=== PATIENT | female | born 1940 | race Caucasian/White ===

== ENCOUNTER 2018-07-21 13:35 | Outpatient (RCR) | payer MEDICARE, OTHER, SELFPAY | END 2019-02-16 10:09 | disposition home or self-care (01) | LOC: SP 13:35 | PROVIDERS: Family Provider Family Medicine; PCP Family Medicine; Visit Provider Otolaryngology | DX: R49.0 Dysphonia (principal); R13.19 Other dysphagia | CPT/HCPCS: 92524 ==

== ENCOUNTER → 2018-11-07 13:44 | Outpatient (CLI) | payer MEDICARE, OTHER, SELFPAY ==
--- NOTE | 2018-11-07 | DI.MG.S_ITS ---
BILATERAL DIGITAL SCREENING MAMMOGRAM 3D/2D WITH CAD: 11/07/2018 CLINICAL: Routine screening. Comparison is made to exams dated: 11/04/2017 mammogram, 10/15/2016 mammogram, 10/14/2015 mammogram, and 10/10/2014 mammogram - [facility]. There are scattered fibroglandular elements in both breasts. Current study was also evaluated with a Computer Aided Detection (CAD) system. There are benign vascular calcifications in both breasts. No significant masses, calcifications, or other findings are seen in either breast. There has been no significant interval change. IMPRESSION: There is no mammographic evidence of malignancy. A 1 year screening mammogram is recommended. This exam was interpreted at Station ID: [id number]. NOTE: For mammograms, a report in lay terms will be sent to the patient. Approximately 15% of breast malignancies will not be visualized mammographically. In the management of a palpable breast mass, a negative mammogram must not discourage biopsy of a clinically suspicious lesion. Electronically Signed By: Ochoa peoples/kiki:11/07/2018 17:32:56 letter sent: Normal Exam ACR BI-RADS Category 2: Benign Finding(s) 3342F
== END ==
PROVIDERS: Family Provider Family Medicine; PCP Family Medicine; Visit Provider Family Medicine
DX: Z12.31 Encounter for screening mammogram for malignant neoplasm of breast (principal)
CPT/HCPCS: 77063; 77067

== ENCOUNTER → 2019-11-13 12:20 | Outpatient (CLI) | payer MEDICARE, OTHER, SELFPAY ==
--- NOTE | 2019-11-13 12:24 | DI.MG.S_ITS ---
BILATERAL DIGITAL SCREENING MAMMOGRAM 3D/2D WITH CAD: 11/13/2019 CLINICAL: Routine screening. Comparison is made to exams dated: 11/07/2018 mammogram, 11/04/2017 mammogram, and 10/15/2016 mammogram - [facility]. There are scattered fibroglandular elements in both breasts. Current study was also evaluated with a Computer Aided Detection (CAD) system. There is a possible 0.4 cm asymmetry in the left breast posterior depth superior region seen on the mediolateral oblique view only. No other significant masses, calcifications, or other findings are seen in either breast. IMPRESSION: INCOMPLETE: NEEDS ADDITIONAL IMAGING EVALUATION The possible 0.4 cm asymmetry in the left breast is indeterminate. Additional views with possible ultrasound are recommended. This exam was interpreted at Station ID: [id number]. NOTE: For mammograms, a report in lay terms will be sent to the patient. Approximately 15% of breast malignancies will not be visualized mammographically. In the management of a palpable breast mass, a negative mammogram must not discourage biopsy of a clinically suspicious lesion. Electronically Signed By: Bal sawant/kiki:11/14/2019 06:20:20 letter sent: Additional Imaging Needed ACR BI-RADS Category 0: Incomplete [id number]
== END ==
PROVIDERS: Family Provider Family Medicine; PCP Family Medicine; Referring Provider Family Medicine; Visit Provider Family Medicine
DX: Z12.31 Encounter for screening mammogram for malignant neoplasm of breast (principal)
CPT/HCPCS: 77063; 77067

== ENCOUNTER → 2019-11-29 14:12 | Outpatient (CLI) | payer MEDICARE, OTHER, SELFPAY ==
--- NOTE | 2019-11-29 | DI.MG.S_ITS ---
UNILATERAL LEFT DIGITAL DIAGNOSTIC MAMMOGRAM 3D/2D WITH ADDITIONAL VIEWS: 11/29/2019 CLINICAL: Additional evaluation requested from prior study. Comparison is made to exams dated: 11/13/2019 mammogram, 11/07/2018 mammogram, and 11/04/2017 mammogram - [facility]. There are scattered fibroglandular elements in left breast. There is a 0.3 cm irregular equal density focal asymmetry in the left breast upper inner aspect posterior depth. This was not seen on the prior mammograms. No other significant masses or calcifications are seen in the breast. IMPRESSION: INCOMPLETE: NEEDS ADDITIONAL IMAGING EVALUATION The 0.3 cm irregular equal density focal asymmetry in the left breast is indeterminate. An ultrasound is recommended for further evaluation and is scheduled to immediately follow this study. This exam was interpreted at Station ID: [id number]. NOTE: For mammograms, a report in lay terms will be sent to the patient. Approximately 15% of breast malignancies will not be visualized mammographically. In the management of a palpable breast mass, a negative mammogram must not discourage biopsy of a clinically suspicious lesion. Electronically Signed By: Bal Oneil M.D. aty/:11/29/2019 14:55:58 ACR BI-RADS Category 0: Incomplete [id number]
--- NOTE | 2019-11-29 | DI.US.S_ITS ---
ULTRASOUND OF LEFT BREAST AND AXILLA: 11/29/2019 CLINICAL: Patient returns today to evaluate a focal asymmetry in the left breast. Comparison is made to exams dated: 11/29/2019 mammogram, 11/13/2019 mammogram, 11/07/2018 mammogram, 11/04/2017 mammogram, 10/15/2016 mammogram, and 10/14/2015 mammogram - [facility]. Color flow and real-time ultrasound of the left breast axilla were performed. Odonnell scale images of the real-time examination were reviewed. There is a 0.3 cm x 0.3 cm x 0.2 cm irregular mass with angular margins in the left breast at 1:30 o'clock posterior depth 5 cm from the nipple. This irregular mass is hypoechoic. This possibly correlates with mammography findings. Color flow imaging demonstrates that there is no vascularity present. No significant abnormalities were seen sonographically in the left axilla. IMPRESSION: SUSPICIOUS OF MALIGNANCY The 0.3 cm x 0.3 cm x 0.2 cm irregular mass in the left breast is suspicious of malignancy. An ultrasound guided biopsy is recommended. Findings and recommendations were discussed with the patient by Dr. Cat during today's visit. This exam was interpreted at Station ID: [id number]. Electronically Signed By: Bal Oneil M.D. at/:11/29/2019 15:37:27 letter sent: Biopsy Required Ultrasound BI-RADS: 4 Suspicious for malignancy
== END ==
PROVIDERS: Family Provider Family Medicine; PCP Family Medicine; Referring Provider Family Medicine; Visit Provider Family Medicine
DX: R92.8 Other abnormal and inconclusive findings on diagnostic imaging of breast (principal); N63.21 Unspecified lump in the left breast, upper outer quadrant
CPT/HCPCS: 76642; 77065; G0279

== ENCOUNTER → 2019-12-18 09:07 | Outpatient (CLI) | payer MEDICARE, OTHER, SELFPAY ==
--- NOTE | 2019-12-18 | DI.US.S_ITS ---
LIMITED ULTRASOUND OF LEFT BREAST: 12/18/2019 CLINICAL: Patient scheduled for left breast biopsy today of 3mm mass. Unable to see mass. 6 month follow-up recommended. Comparison is made to exams dated: 11/29/2019 ultrasound, 11/29/2019 mammogram, 11/13/2019 mammogram, 11/07/2018 mammogram, and 11/04/2017 mammogram - [facility]. Ultrasound of the left breast 1-2 o'clock region was performed on the area of interest. Odonnell scale images of the real-time examination were reviewed. No mass at 1:30 position at site of previously identified lesion. No significant abnormalities were seen sonographically in the left breast. IMPRESSION: PROBABLY BENIGN The mass in the left breast is probably benign. No mass in 1:30 position of left breast identified on 12/18/2019. No biopsy performed. An ultrasound is recommended for further evaluation and is scheduled to immediately follow this study. A follow-up mammogram and an ultrasound in 6 months is recommended to demonstrate stability. This exam was interpreted at Station ID: [id number]. Electronically Signed By: Jenae Jc M.D. [facility]/:12/18/2019 16:03:44 letter sent: Followup Recommended Ultrasound BI-RADS: 3 Probably benign
== END ==
PROVIDERS: Family Provider Family Medicine; PCP Family Medicine; Referring Provider Family Medicine; Visit Provider Family Medicine
DX: R92.8 Other abnormal and inconclusive findings on diagnostic imaging of breast (principal); N63.21 Unspecified lump in the left breast, upper outer quadrant
CPT/HCPCS: 76642

== ENCOUNTER → 2020-04-22 14:45 | Outpatient (CLI) | payer MEDICARE, OTHER, SELFPAY | PROVIDERS: Family Provider Family Medicine; PCP Family Medicine; Referring Provider Family Medicine; Visit Provider Family Medicine | DX: R35.0 Frequency of micturition (principal); Z53.8 Procedure and treatment not carried out for other reasons ==

== ENCOUNTER → 2020-04-26 12:04 | Outpatient (CLI) | payer MEDICARE, OTHER, SELFPAY ==
[2020-04-26 13:18] LABS: Alanine Aminotransferase 26 IU/L (<35); Albumin 4.4 g/dL (3.5-5.0); Albumin Globulin Ratio 1.5 (1.0-2.8); Alkaline Phosphatase 74 U/L (38-126); Aspartate Aminotransferase 39 IU/L (14-36); BUN Creatinine Ratio 14.1 (6-22); Bilirubin Total 0.6 mg/dL (0.2-1.3); Blood Urea Nitrogen 11 mg/dL (7-17); Calcium 9.8 mg/dL (8.4-10.2); Carbon Dioxide 24 mmol/L (22-32); Chloride 89 mmol/L (98-107); Estimated Glomerular Filt Rate > 60.0 mL/min (>60); Globulin 2.9 g/dL (1.7-4.1); Glucose 93 mg/dL (80-110); HEMOLYSIS < 15 (0-50); Potassium 4.6 mmol/L (3.4-5.1); Sodium 122 mmol/L (137-145); Total Protein 7.3 g/dL (6.3-8.2)
--- NOTE | 2020-04-26 13:23 | DI.CT.S_ITS ---
PROCEDURE: CT ABDOMEN PELVIS W CON INDICATIONS: Frequency of micturition,Pelvic and perineal pain TECHNIQUE: After the administration of oral and intravenous contrast, 5 mm thick sections acquired from the diaphragms to the symphysis. 5 mm thick coronal and sagittal reformats were performed. For radiation dose reduction, the following was used: automated exposure control, adjustment of mA and/or kV according to patient size. COMPARISON: None. FINDINGS: Image quality: Excellent. ABDOMEN: Lung bases: Lung bases are clear. Heart size is normal. Solid organs: Liver is normal in size and enhancement. Gallbladder appears normal. Biliary system is non-dilated. Pancreas enhances normally. Spleen is normal in size and enhancement. No adrenal nodules. Kidneys are normal in size and enhancement. There is mild bilateral hydroureteronephrosis to the level of the pelvic brim. Peritoneum and bowel: Stomach, small bowel, and colon loops are normal in caliber and wall thickness. No free fluid or air. Nodes and vessels: No retroperitoneal or mesenteric adenopathy. Aorta and inferior vena cava are normal in caliber. Mild atherosclerotic calcifications are seen in the aorta. Miscellaneous: No ventral hernias. PELVIS: Genitourinary: A large low density mass or cyst is seen occupying the majority of the pelvis measuring 16.5 x 10.2 x 12.9 cm. There is mass effect on the adjacent bladder and uterus, which are anteriorly displaced. The origin of the lesion is uncertain, but an adnexal origin is suspected the ovaries are not definitely visualized. Miscellaneous: No inguinal hernias or adenopathy. Bones: No suspicious bony lesions. No vertebral body compression fractures. Mild degenerative changes are seen in the included spine. 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 Degenerative changes in the right hip and pubic symphysis as well as the sacroiliac joints are also noted. IMPRESSION: 1. Large 16.5 x 12.9 x 10.2 cm low density mass in the pelvis is of uncertain etiology, but is suspected to be of adnexal origin. Differential considerations include benign and malignant ovarian lesions among other etiologies. A pelvic ultrasound may be useful to evaluate for cystic or solid component. A pelvic MRI could also provide additional information. No significantly enlarged lymph nodes are identified in the abdomen or pelvis. No suspicious osseous lesion is seen. 2. Mild bilateral hydroureteronephrosis to the level of the mass at the pelvic brim. Findings were discussed with the referring physician, Dr. Juliano Brown, by telephone at the time of this dictation. Dictated by: Michele Mackenzie M.D. on 04/26/2020 at 13:42 Approved by: Michele Mackenzie M.D. on 04/26/2020 at 14:07
== END ==
PROVIDERS: Family Provider Family Medicine; PCP Family Medicine; Referring Provider Family Medicine; Visit Provider Family Medicine
DX: R35.0 Frequency of micturition (principal); R10.2 Pelvic and perineal pain; N13.30 Unspecified hydronephrosis; I70.0 Atherosclerosis of aorta; R19.09 Other intra-abdominal and pelvic swelling, mass and lump; Z96.642 Presence of left artificial hip joint
CPT/HCPCS: 36415; 74177; 80053; Q9967

== ENCOUNTER → 2020-04-29 10:34 | Outpatient (CLI) | payer MEDICARE, OTHER, SELFPAY ==
[2020-04-29 12:22] LABS: Cancer Antigen 125 14.6 U/mL (0-35)
[2020-05-02 11:36] LABS: Human Epididymis Prot 4 99.4 pmol/L (0.0-96.9)
== END ==
PROVIDERS: Family Provider Family Medicine; PCP Family Medicine; Referring Provider Obstetrics & Gynecology; Visit Provider Obstetrics & Gynecology
DX: R10.2 Pelvic and perineal pain (principal); R19.09 Other intra-abdominal and pelvic swelling, mass and lump; R93.5 Abnormal findings on diagnostic imaging of other abdominal regions, including retroperitoneum
CPT/HCPCS: 36415; 86304; 86305

== ENCOUNTER → 2020-06-03 12:45 | Outpatient (CLI) | payer MEDICARE, OTHER, SELFPAY ==
[2020-06-04 18:08] LABS: COVID19 Sendout Not Detected (Not Detect)
== END ==
PROVIDERS: Family Provider Family Medicine; PCP Family Medicine; Visit Provider Nurse Practitioner
DX: Z11.59 Encounter for screening for other viral diseases (principal)
CPT/HCPCS: 87635

== ENCOUNTER 2020-06-06 10:14 | Day surgery (SDC) | payer MEDICARE, OTHER, SELFPAY ==
[2020-06-05 10:26] VITALS: BMI 20.3
[2020-06-06] VITALS (9 sets, daily range): BP systolic 92–178; BP diastolic 38–93; PULSE 62–94; RESP 10–16; TEMP 36–36.7; O2SAT 94–100; BMI 20.3
--- NOTE | 2020-06-06 | PATH_ITS ---
Note [facility] Accession Number: [id number] TESTS RESULT FLAG UNITS REF RANGE LAB Clinician Provided Cytology Information No. of containers..01 Other (Miscellaneous) 01 PELVIC WASHINGS DIAGNOSIS: 01 PELVIC WASHINGS NEGATIVE FOR MALIGNANT CELLS. THIS INTERPRETATION INCLUDES EVALUATION OF A CELL BLOCK. Pathologist ICD10: 01 N83.201 Monse Gaston MD, Pathologist NPI- [id number] Edvin Eagle, Independent Film Maker ([facility]) 01 10 CC, RED, CLOUDY RECEIVED: FRESH IN ORANGE CAP CONTAINER. /VDU 06/07/2020 1033 Local FLAG LEGEND: L-Low Normal,H-High Normal,LL-Alert Low,HH-Alert High <-Panic Low,>-Panic High,A-Abnormal,AA-Critical Abnormal Performed at: 01 =Z [facility] [address], [place] [address] Rasta Hamilton MD, Performed at: 01 [facility] [address], [place], [place] [id number] MD Rasta Hamilton MD Phone: [phone]
[2020-06-06] MEDS: ACETAMINOPHEN 325 MG TABLET 975 MG PO (10:31)
[2020-06-06] MEDS: LACTATED RINGERS 1,000 ML 100 ML IV (10:31)
--- NOTE | 2020-06-06 10:58 | SUR.OPER ---
Lithotomy on padded OR bed. Media Pad Positioner under torso. Head on pillow, arms padded and tucked at sides. Legs secured in padded yellow fins stirrups.
--- NOTE | 2020-06-06 10:59 | SUR.OPER ---
Lithotomy on padded OR bed, head on pillow, arms secured on padded arm boards at <90 degrees abduction. Legs secured in padded yellow fins stirrups.
--- NOTE | 2020-06-06 11:46 | PM.PREOP ---
Pre-operative Note COVID-19 COVID-19 status: Negative Result date/Date tested (Pos, Neg/Pending): 06/03/20 Interval Note History & Physical reviewed/Exam performed by Physician: Yes Changes to H&P: No H&P completed within 30 days and has changed as indicated here:: 05/28/20
[2020-06-06] MEDS: BUPIVACAINE 0.5% W/ EPI (PF) 30 ML VIAL INJ (12:32)
--- NOTE | 2020-06-06 15:20 | P.OP_ITS ---
Operative Date/Time/Diagnoses Date of procedure: 06/06/20 Time of procedure: 13:50 Pre-op diagnosis: Pelvic mass Post-op diagnosis: same Procedure & Clinicians Procedure: Procedures Operation Date: 06/06/20 11:30 Actual Procedures Side Surgeon p Laparoscopic Salpingo-oophorectomy Bilateral Pam Hurst MD Indications: Pelvic mass Surgeon: Pam Hurst Answering Service Agent: Radha Segura Anesthesia Type: General Operative Notes Findings: Six week size uterus. 18 cm pelvic mass originating from the right ovary Normal left tube and ovary Right tube attenuated across the mass Normal liver and gallbladder Closure Type: primary Specimen(s): left tube & ovary and right tube & ovary Applied: catheter Estimated blood loss (mL): 50 Blood products transfused: none Procedure in detail: The patient was taken to the operating room where she was placed in the dorsal supine position. After adequate general endotracheal anesthesia was achieved, she was placed in the dorsal lithotomy position, and prepped and draped in the usual sterile fashion. A time-out was performed. A bivalve speculum was placed into the vagina. The cervix could not be easily located. The bivalve speculum was removed. A moistened sponge stick was placed into the vagina. Attention was then turned to the abdomen where 6 cc of 0.25% Marcaine with epinephrine were injected in the umbilical fold. A 5 mm incision was made. The Veress needle was placed into the peritoneal cavity, initially there was some greenish yellow fluid that came up in the syringe, and then a small amount of blood. The Veress was removed. A decision was made to use the Hodges. The umbilical incision was extended to 1 cm. The fascia was located and nicked in the midline. The incision was extended superiorly and inferiorly. The peritoneum was identified and entered sharply. The Hodges was placed into the peritoneal cavity. A stitch was placed on the fascia and attached to the Hodges. The abdomen was insufflated with 3.8 L of CO2. Initial inspection revealed a large pelvic mass just under the uterus. Peritoneal washings were obtained. Two other 5 mm incisions were made after 6 cc of 0.5% Marcaine with epinephrine were injected, and 2, 5 mm trocars were placed under direct visualization. The gallbladder and liver were examined and were found to be normal. The left tube and ovary were normal. A decision was made to decompress the right ovary. The large-bore needle was attached to suction and approximately 300 cc of yellow fluid were removed. There was found to be a small fahad on the fundus of the uterus. This was cauterized for hemostasis. The right tube and ovary were grasped with an atraumatic grasper. With care to avoid the ureter the right infundibulopelvic ligament was cauterized and cut as was the broad ligament. The mesosalpinx was cauterized and cut all the way down to the cornua of the uterus. The tube was amputated at the cornua of the uterus. The right tube and ovary were placed into the pelvis. The left tube and ovary were grasped with an atraumatic grasper. Using the PlasmaKinetic was settings at 40 w, the infundibulopelvic ligament, broad ligament, and mesosalpinx were cauterized and cut. The tube was amputated at the cornua of the uterus. The camera was changed to the right trocar. The endobag was placed through the umbilical trocar. Both tubes and ovaries were placed into the bag. The trocar was removed and the bag was brought up through the umbilical incision. The pelvis was examined and no bleeding was noted. The pelvis was copiously irrigated. There was no bleeding noted. The instruments were removed from the abdomen. The CO2 was allowed to escape. The umbilical incision was closed with 0 Vicryl on the fascia. All of the incisions were closed with 4 0 Biosyn in a subcuticular fashion. Steri-Strips, 2 x 2, and op site were placed. The moistened sponge stick was removed from the vagina. Sponge, lap, and instrument counts were correct x2. The patient tolerated the procedure well, and was taken to PACU in stable condition. Complications: none Post-operative Condition: stable Disposition: PACU Plan for aftercare: Home after recovery
--- NOTE | 2020-06-06 15:35 | SUR.PHASEII ---
Order in computer for patient to urinate before discharge, patient attempted to urinate, but does not feel the need. Dr. Hurst's office notified. Dr. Hurst's nurse, Silvana, called back and stated that patient does not need to urinate before discharge, she may discharge home now.
== END 2020-06-06 15:30 | disposition home or self-care (01) ==
PROVIDERS: PCP Family Medicine; Referring Provider Obstetrics & Gynecology; Visit Provider Obstetrics & Gynecology
PROC: 0UT24ZZ Resection of Bilateral Ovaries, Percutaneous Endoscopic Approach (ICD-10-PCS; CPT 58661; principal; 2020-06-06 11:30)
DX: N83.201 Unspecified ovarian cyst, right side (principal); I10 Essential (primary) hypertension; E78.5 Hyperlipidemia, unspecified
CPT/HCPCS: 58661; J1100; J2250; J2405; J2704; J3010

== ENCOUNTER → 2020-07-22 08:29 | Outpatient (CLI) | payer MEDICARE, OTHER, SELFPAY ==
[2020-07-22 23:13] LABS: COVID19 Sendout Not Detected (Not Detect)
== END ==
PROVIDERS: PCP Family Medicine; Visit Provider Physician Assistant
DX: Z11.59 Encounter for screening for other viral diseases (principal)
CPT/HCPCS: 87635

== ENCOUNTER 2020-07-26 14:22 | Inpatient (IN) | payer MEDICARE, OTHER, SELFPAY ==
[2020-07-19 15:17] VITALS: BMI 19.7
[2020-07-25] VITALS (20 sets, daily range): BP systolic 95–165; BP diastolic 51–86; PULSE 56–96; RESP 12–20; TEMP 36.1–37.6; O2SAT 97–100; BMI 19.1
--- NOTE | 2020-07-25 | PATH_ITS ---
Note [facility] Accession Number: [id number] TESTS RESULT FLAG UNITS REF RANGE LAB Clinician Provided Cytology Information No. of containers..01 Other (Miscellaneous) 01 PERITONEAL WASHINGS DIAGNOSIS: 01 PERITONEAL WASHINGS INCONCLUSIVE. FEW GROUPS OF ATYPICAL EPITHELIOID CELLS ARE PRESENT. IMMUNOSTAINS WILL BE PERFORMED TO DIFFERENTIATE BETWEEN REACTIVE ATYPIA OF MESOTHELIAL CELLS VERSUS A NEOPLASTIC PROCESS. RESULTS WILL FOLLOW IN AN ADDENDUM REPORT. THIS INTERPRETATION INCLUDES EVALUATION OF A CELL BLOCK. Pathologist ICD10: 01 N83.201 FINAL DIAGNOSIS/ADDENDUM (07/30/2020): . 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 . . 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 A panel of immunostains has been performed for further characterization of those atypical cells, with the following findings: . CK7: Neoplastic cells positive. WT-1: Neoplastic cells variably positive. Andrea-EP4: Neoplastic cells focally positive. MOC-31: Neoplastic cells focally positive. PAX8: Neoplastic cells weakly, rare positive. ER: Neoplastic cells weakly, focal positive. P53: Neoplastic cells with wild-type positivity. Calretinin: Neoplastic cells negative (background mesothelial cells positive). . Overall, these results in conjunction with the morphology support that the neoplastic cells have serous Mullerian-type immunophenotype as opposed to mesothelial immunophenotype. . 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 . * This test was developed and its performance characteristics determined by [employer]. It has not been cleared or approved by the U.S. Food and Drug Administration. The FDA has determined that such clearance or approval is not necessary. This test is used for clinical purposes. It should not be regarded as investigational or for research. MRV/07/30/2020 Addendum Electronically Signed by Jena Montaño MD, Pathologist 01 Jena Montaño MD, Pathologist NPI- [id number] Raphael Marin, Shoe Repairer Helper (ASCP) 01 40 CC, PALE YELLOW, CLEAR /LCS 07/26/2020 1652 Local FLAG LEGEND: L-Low Normal,H-High Normal,LL-Alert Low,HH-Alert High <-Panic Low,>-Panic High,A-Abnormal,AA-Critical Abnormal Performed at: 01 =Z [facility] [address] [place] [address] [address], [place] [address] Rasta Hamilton MD, Specimen Comment: A duplicate report has been generated due to demographic updates. Performed at: 01 [facility] [address], [place], [place] [id number] MD Rasta Hamilton MD Phone: [phone]
--- NOTE | 2020-07-25 07:35 | PM.PREOP ---
Pre-operative Note COVID-19 COVID-19 status: Negative Result date/Date tested (Pos, Neg/Pending): 07/22/20 Interval Note History & Physical reviewed/Exam performed by Physician: Yes Changes to H&P: No H&P completed within 30 days and has changed as indicated here:: 06/25/20
--- NOTE | 2020-07-25 07:37 | SUR.OPER ---
Lithotomy on padded OR bed. [place] Pad Positioner under torso. Head on pillow, arms padded and tucked at sides. Legs secured in padded yellow fins stirrups.
[2020-07-25] MEDS: CEFAZOLIN 2 GM/100 ML FROZ.PIGGY IV ×2 (07:43→18:39)
[2020-07-25] MEDS: BUPIVACAINE 0.5% W/ EPI (PF) 30 ML VIAL INJ ×2 (08:28→19:45)
[2020-07-25] MEDS: LACTATED RINGERS 1,000 ML 100 ML IV ×3 (08:55→21:45)
[2020-07-25] MEDS: HYDROMORPHONE 2 MG INJ IV (09:49)
--- NOTE | 2020-07-25 09:51 | PM.GYNOP.1 ---
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 Post-op diagnosis: same Procedure & Clinicians Procedure: Procedures Operation Date: 07/25/20 07:45 Actual Procedures Side Surgeon p Laparoscopic Assisted Vag Hysterectomy, biopsy of omentum, peritoneum, lysis of adhesions Pam Hurst MD Indications: Borderline serous tumor of the ovary Surgeon: Pam Hurst Statistical Programmer: Sejal Enriquez Anesthesia Type: General Operative Notes Findings: Seven week size uterus Normal liver and gallbladder No peritoneal seeding observed Closure Type: primary Estimated blood loss (mL): 50 Blood products transfused: none Procedure in detail: The patient was taken to the operating room where she was placed in the dorsal supine position. After adequate general endotracheal anesthesia was achieved, she was placed in the dorsal lithotomy position, and prepped and draped in the usual sterile fashion. A time-out was performed. A bivalve speculum was placed into the vagina and the anterior lip of the cervix grasped with a single-tooth tenaculum. Cervical os was sequentially dilated until the Zumi uterine manipulator could pass easily into the endometrial cavity. The single-tooth tenaculum was removed from the anterior lip of the cervix. The bivalve speculum was removed from the vagina. Attention was turned to the abdomen where 3 cc of 0.5% Marcaine with epinephrine were injected in the umbilical fold. A 5 mm incision was made through the previous incision. The Veress needle was placed into the peritoneal cavity, and its placement confirmed by aspiration and drop test. The abdominal cavity was insufflated with 3.8 L of CO2. The Veress needle was removed, and a 5 mm trocar was placed without difficulty. Two other incisions were made to the left and right of midline after 3 cc of 0.5% Marcaine with epinephrine were injected and 5 mm incisions were made through the previous laparoscopy incisions. Two 5 mm trocars were placed under direct visualization. 30 cc of sterile fluid was placed into the pelvis. Suction was performed and pelvic washing sent. A biopsy of the bladder peritoneum was taken using the Endo Silvana. A biopsy in the posterior cul-de-sac was taken using the Endo Silvana. Biopsies of both pelvic sidewalls were taken using the Endo Silvana. A piece of omentum was grasped and using the PlasmaKinetic, a piece of omentum measuring 5 cm x 3 cm was excised. This was placed into the posterior cul-de-sac. The instruments were removed from the abdomen. The abdomen was covered with a sterile blue towel. Attention was then turned to the vagina. The Zumi uterine manipulator was removed from the uterus. A small episiotomy had to be made to increase the size at the introitus to perform the vaginal hysterectomy. This was approximately 1.5 cm in length. The cervix was grasped with a 4 tooth tenaculum. 10 cc of 0.5% Marcaine with epinephrine were injected circumferentially around the cervix. The cervix was circumscribed with a # 10 blade. The anterior and posterior peritoneums were grasped and entered sharply with the Metzenbaum scissors. A [place] was placed into the anterior cul-de-sac. A right angle retractor was placed into the posterior cul-de-sac. The uterosacral cardinal ligament complex were clamped with a Amaris clamp. Transected, and suture ligated with 0 Vicryl and tagged with hemostats. This was on the right side. This was repeated on the patient's left side. The uterine arteries on both sides were clamped, transected, and suture ligated with 0 Vicryl. The uterus was handed off for specimen. The peritoneum was grasped with an Allis clamp. Peritoneum was closed with 2 0 Vicryl in a pursestring suture. The vaginal cuff was closed with a series of simple interrupted sutures with 0 Vicryl. The perineum was closed in the usual fashion using 2 0 Vicryl and then 3 0 chromic on the skin. Hemostasis was achieved. A Betadine moistened vaginal pack was placed into the vagina. Attention was then turned back to abdomen. The abdomen was re-insufflated with 3.5 L of CO2. A using a probe to move the bowel from the cul-de-sac, the cul-de-sac was irrigated with warm normal saline. There was no bleeding noted in the pelvis. The instruments were removed from the abdomen. The CO2 was allowed to escape. The incisions were repaired with 4 0 Biosyn in a subcuticular fashion. Steri-Strips, 2 x 2, and op site were placed. Sponge, lap, and instrument counts were correct x2. The patient tolerated the procedure well, and was taken to PACU in stable condition. Complications: none Post-operative Condition: stable Disposition: PACU Plan for aftercare: To Acute Care after Recovery
--- NOTE | 2020-07-25 10:06 | SUR.PHASEI ---
pt had complained of itching but states she does not want any medicine and her itching is decreasing.
[2020-07-25] MEDS: KETOROLAC 30 MG/ML VIAL 15 MG IV (11:01)
--- NOTE | 2020-07-25 16:10 | PC.NURSE ---
Shift summary: patient received post op from PACU 1030am, vss, denies pain. Patient complained of mild itching and felt very cold after surgery, now resolved. Hare in place draining clear yellow urine. Vaginal packing in place with hermann pad. Hermann pad changed once with moderate bleeding and clot/congealed blood noted. Hermann care and catheter care provided. Patient tolerating general diet, though reports she has been having trouble eating enough food at home and has lost some weight. Abdomen soft, nontender, puffy and feels a little bloated. Passing gas. call light within reach, continue to monitor.
--- NOTE | 2020-07-25 17:23 | DI.US.S_ITS ---
PROCEDURE: US ABDOMEN LIMITED INDICATIONS: look for fluid collection TECHNIQUE: Real-time focused scanning was performed of the abdomen, with image documentation. COMPARISON: [facility], CT, CT ABDOMEN PELVIS W CON, 04/26/2020, 13:23. [facility], US, US PELVIC COMPLETE, 05/02/2020, 11:54. FINDINGS: There is a small amount of free fluid in the abdomen. IMPRESSION: A small amount of free fluid in the abdomen. Dictated by: Ronel Hernández M.D. on 07/25/2020 at 18:46 Approved by: Ronel Hernández M.D. on 07/25/2020 at 18:48
--- NOTE | 2020-07-25 17:33 | P.EN_ITS ---
Event Note Date Patient Seen: 07/25/20 Event Note: Jeanette Murry is an 80-year-old female who had an elective laparoscopic assisted vaginal hysterectomy with biopsy of omentum, peritoneum, lysis of adhesions for borderline serous ovarian tumor. A response was called at 1710 due to patient being minimally responsive. Vital signs at that time were: BP 64/25, HR 144 with thready palpable pulse, RR 16 breathing spontaneous and oxygen saturation 63% on room air. Blood glucose was 168. She received lactated ringer bolus wide open and her blood pressure improved SBP 109 mmHg. Oxygen saturation improved to 100% on 4 L. EKG performed demonstrated normal sinus rhythm with low voltage throughout all leads and wi thout acute ischemic changes such as ST elevation or depression. The patient became more alert and conversant. The patient reported she felt dizzy with a dry mouth. Stat labs were ordered and are currently pending. The patient has been crossed and typed. The primary attending Dr. Hurst was called to the patient's bedside. Stat abdominal ultrasound was ordered to assess abdomen for fluid/bleeding. Primary team resumed care.
[2020-07-25 17:36] LABS: Add Manual Diff / Slide Review NO; Basophils Absolute Auto 0 /uL (0-100); Basophils Percent Auto 0.3 % (0-2); Eosinophils Absolute Auto 0 /uL (0-450); Hematocrit 28.8 % (36-46); Hemoglobin 9.6 g/dL (12.0-16.0); Lymphocytes Absolute Auto 1200 /uL (1100-4500); Lymphocytes Percent Auto 9.2 % (25-40); Mean Corpuscular HGB Conc 33.2 % (30-36); Mean Corpuscular Hemoglobin 30.1 PG (26-34); Mean Corpuscular Volume 90.8 fL (80-100); Monocytes Absolute Auto 300 /uL (0-900); Monocytes Percent Auto 2.6 % (3-14); Neutrophils Absolute Auto 11400 /uL (1500-7000); Neutrophils Percent Auto 87.9 % (50-75); Platelet Count 237 X10^3/uL (150-400); Red Blood Cell Count 3.17 X10^6/uL (4.0-5.2); Red Cell Distribution Width 14.2 % (11.6-14.8); White Blood Cell Count 12.9 X10^3/uL (4.5-11.0)
[2020-07-25] MEDS: METOCLOPRAMIDE 10 MG/2 ML INJ IV (17:52)
[2020-07-25 17:57] LABS: Alanine Aminotransferase 16 IU/L (<35); Albumin 2.9 g/dL (3.5-5.0); Albumin Globulin Ratio 1.3 (1.0-2.8); Alkaline Phosphatase 43 U/L (38-126); Aspartate Aminotransferase 23 IU/L (14-36); BUN Creatinine Ratio 16.1 (6-22); Bilirubin Total 0.5 mg/dL (0.2-1.3); Blood Urea Nitrogen 15 mg/dL (7-17); Calcium 8.3 mg/dL (8.4-10.2); Carbon Dioxide 24 mmol/L (22-32); Chloride 98 mmol/L (98-107); Creatine Kinase 76 U/L (30-135); Estimated Glomerular Filt Rate 57.9 mL/min (>60); Globulin 2.3 g/dL (1.7-4.1); Glucose 167 mg/dL (80-110); HEMOLYSIS < 15 (0-50); Magnesium 1.6 mg/dL (1.6-2.3); Potassium 3.9 mmol/L (3.4-5.1); Sodium 126 mmol/L (137-145); Total Protein 5.2 g/dL (6.3-8.2)
[2020-07-25] MEDS: FAMOTIDINE 20 MG/50 ML PIGGYBACK 200 MG IV (18:01)
[2020-07-25 18:07] LABS: Troponin I < 0.012 ng/mL (0.01-0.034)
--- NOTE | 2020-07-25 19:22 | SUR.OPER ---
Lithotomy on padded OR bed, head on pillow, arms secured on padded arm boards at <90 degrees abduction. Legs secured in padded yellow fins stirrups.
[2020-07-25 19:46] LABS: INR 1.1 (0.9-1.3); Prothrombin Time 12.1 SECONDS (10.1-12.7)
[2020-07-25 19:49] LABS: PTT Partial Thromboplastin Tim 26 SECONDS (26.4-36.2)
[2020-07-25 19:59] LABS: Fibrinogen 257 mg/dL (211-428)
--- NOTE | 2020-07-25 20:29 | SUR.OPER ---
[facility] [id number] exp 08/18/20 was given by anesthesia starting at 1940. unit and patient were verified by Michelle MULLEN and Anoop anesthesiologist in the operating room.
--- NOTE | 2020-07-25 20:32 | PM.GYNOP.1 ---
Operative Date/Time/Diagnoses Date of procedure: 07/25/20 Time of procedure: 20:32 Pre-op diagnosis: Intra-abdominal bleed Post-op diagnosis: same Procedure & Clinicians Procedure: Procedures Operation Date: 07/25/20 07:45 Actual Procedures Side Surgeon p Laparoscopic Assisted Vag Hysterectomy, biopsy of omentum, peritoneum, lysis of adhesions Pam Hurst MD Operation Date: 07/25/20 18:30 Actual Procedures Side Surgeon p Laparoscopy, Diagnostic, suction of clot, cauterization, vaginal exam under anesthesia Pam Hurst MD Indications: Unstable vital signs Free fluid in the abdomen Surgeon: Pam Hurst Hydraulic Barker Operator: Radha Segura Anesthesia Type: General Operative Notes Findings: 700 cc of clot in the abdomen and pelvis Small bleeder from the omental edge of resection Small gap on the left side of the vaginal cuff Closure Type: primary Applied: catheter Estimated blood loss (mL): 20 Blood products transfused: packed red blood cells (1 unit) Procedure in detail: After informed consent was obtained, the patient was taken to the operating room where she was placed in the dorsal supine position. After adequate general endotracheal anesthesia was achieved, she was placed in the dorsal lithotomy position, and prepped and draped in the usual sterile fashion. A time-out was performed. The previous episiotomy and repair were taken down. Right angle retractors were used in the vagina. There was approximately 100 cc of old clot in the vagina. At the left edge of the vaginal cuff there was a gap in between stitches. A [id number] suture was placed. The clot was evacuated from the vagina. Gloves were changed. Attention was then turned to the abdomen where the previous laparoscopy incisions were opened. The Veress needle was placed into the peritoneal cavity, and its placement confirmed by aspiration and drop test. The abdominal cavity was insufflated with 3.5 L of CO2. The Veress needle was removed and a 5 mm trocar was placed without difficulty. Initial inspection showed a large amount of old clot in the pelvis and abdomen. The 2 other incisions were opened and 2 5 mm trocars were placed under direct visualization. A 4th incision was made above the pubic symphysis after 6 cc of 0.5% Marcaine with epinephrine were injected. An 11 mm trocar was placed under direct visualization. The clot sucker was placed through the suprapubic incision. The pelvis and abdomen were copiously irrigated. All of the clot was removed. At the resection edge of the omentum, there was a small area of bleeding. This was cauterized with the PlasmaKinetic for hemostasis. The pelvis was again copiously irrigated with warm normal saline. There was no bleeding noted. The vaginal cuff was intact and dry. The blood was suctioned from the upper abdomen around the liver. The pelvis and abdomen were again observed. There was no bleeding noted. The instruments were removed from the abdomen. The CO2 was allowed to escape. The suprapubic incision was repaired with 0 Vicryl on the fascia. Two simple interrupted sutures with 3-0 Vicryl were placed in the subcutaneous layer. All of the incisions were closed with 4 0 Biosyn in a subcuticular fashion. Steri-Strips, 2 x 2, and op site were placed. Attention was then turned to the vagina. A 4 x 4 was removed from the vagina and it was dry. The a PCR me site was repaired using 2 0 Vicryl on the vaginal mucosa and on the deeper perineum. The skin was closed with 3 0 chromic in a subcuticular fashion. A Betadine moistened vaginal packing was placed in the vagina. Sponge, lap, and instrument counts were correct x2. The urine was clear. The patient tolerated the procedure well, and was taken to PACU in stable condition. Complications: none Post-operative Condition: stable Disposition: ICU Plan for aftercare: To the ICU after recovery
--- NOTE | 2020-07-25 22:39 | PC.NURSE ---
LATE ENTRY(SHELDON SHIFT 1500) upon initial assessment pt was A&OX3. denied chest pain or sob. pt reports her abdomen is more distended since after the surgery, abdominal pain with palpation, btx4, passing gas, 25% of her hermann pad had some blood. vitals stable. notified Dr. Hurst regarding pt's abdomen. Dr. Hurst came up to check on patient and gave me a verbal order to remove vag packing and varela in the morning at 0600 and to ambulate patient to the chair. around 1700, .NET PROGRAMMER got patient up to the chair then patient became unresponsive. pt's pupils were fixed and dilated and non-reactive to light 4mm. Rapid response was called. when pt became stable, administered pepcid and reglan per . then she was transferred to OR.
[2020-07-25 23:41] LABS: Add Manual Diff / Slide Review NO; Basophils Absolute Auto 0 /uL (0-100); Basophils Percent Auto 0.3 % (0-2); Eosinophils Absolute Auto 0 /uL (0-450); Hematocrit 27.8 % (36-46); Hemoglobin 9.4 g/dL (12.0-16.0); Lymphocytes Absolute Auto 1400 /uL (1100-4500); Mean Corpuscular HGB Conc 33.7 % (30-36); Mean Corpuscular Hemoglobin 29.3 PG (26-34); Mean Corpuscular Volume 87.2 fL (80-100); Monocytes Absolute Auto 600 /uL (0-900); Monocytes Percent Auto 4.7 % (3-14); Neutrophils Absolute Auto 11700 /uL (1500-7000); Platelet Count 179 X10^3/uL (150-400); Red Blood Cell Count 3.19 X10^6/uL (4.0-5.2); Red Cell Distribution Width 16.5 % (11.6-14.8); White Blood Cell Count 13.8 X10^3/uL (4.5-11.0)
[2020-07-25 23:51] LABS: BUN Creatinine Ratio 19.4 (6-22); Blood Urea Nitrogen 14 mg/dL (7-17); Calcium 7.8 mg/dL (8.4-10.2); Carbon Dioxide 24 mmol/L (22-32); Chloride 101 mmol/L (98-107); Estimated Glomerular Filt Rate > 60.0 mL/min (>60); Glucose 127 mg/dL (80-110); HEMOLYSIS 23 (0-50); Potassium 4.7 mmol/L (3.4-5.1); Sodium 126 mmol/L (137-145)
--- NOTE | 2020-07-25 23:56 | PM.HP.1 ---
History of Present Illness History of Present Illness Date Patient Seen: 07/25/20 Time Patient Seen: 23:56 Chief complaint: IP Narrative: This is an 80-year-old female who had a vaginal hysterectomy for a 16 cm mass earlier today and then was taken back to the OR for a laparoscopic procedure to re-evaluate the surgical site for complications. As part of her evaluation today a sodium level was done, which was 126. The hospitalist inpatient team has been requested by Dr. Hurst to consult for hyponatremia. She is currently receiving 100 mL/hr of lactated Ringer's. She has no known history of hyponatremia and is not on any diuretic therapy. In the chart is a sodium level of 122 from back in March, without any other pertinent notes from around that time to explain any reaction to that or cause of that baseline. She does not have any chest x-ray or brain imaging, or any evidence of prior neoplasm in the [facility] or chest. Very pertinent to this consult is an event note from a hypotensive episode occurring earlier today when the patient was seen by my colleague, Dr. Fortune for a rapid response. 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 A response was called at 1710 due to patient being minimally responsive. Vital signs at that time were: BP 64/25, HR 144 with thready palpable pulse, RR 16 breathing spontaneous and oxygen saturation 63% on room air. Blood glucose was 168. She received lactated ringer bolus wide open and her blood pressure improved SBP 109 mmHg. Oxygen saturation improved to 100% on 4 L. EKG performed demonstrated normal sinus rhythm with low voltage throughout all leads and without acute ischemic changes such as ST elevation or depression. The patient became more alert and conversant. The patient reported she felt dizzy with a dry mouth Findings at the subsequent second surgery were: Findings: 700 cc of clot in the abdomen and pelvis Small bleeder from the omental edge of resection Small gap on the left side of the vaginal cuff Patient History Medical History (Updated 06/06/20 @ 10:52 by Lala Moore RN) Arthritis (Acute) Former smoker (Acute) Hyperlipidemia (Acute) Hypertension (Acute) Surgical History (Updated 07/19/20 @ 15:21 by Kacey Marniquez RN) History of left hip replacement (Acute) Hx of BSO (bilateral salpingo-oophorectomy) (Acute 06/06/20) S/P tonsillectomy and adenoidectomy (Acute) [place] teeth extracted (Acute) Family & Social History Family History (Updated 07/26/20 @ 00:23 by Aly Akers MD) Mother Myocardial infarct Social History: household members spouse Prior Living Arrangements House Safety & Behavioral: Feels Safe in Current Yes Environment Been Physically Hurt or No Threatened By a Person Suicidal Ideation Description None Suicide Plan Description No Plan Tobacco & Substance use: Tobacco type cigarettes Smoking Status Former smoker alcohol intake former Substance Use Type does not use Comment: Her backup decision makers are her Tarik Murry and her daughter Teresita Crystal. 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 Meds Home Medications and Allergies Home Medications Medication Instructions Recorded Confirmed Type glucosamine sulfate 500 mg tablet 500 mg PO DAILY tab 05/02/20 07/25/20 History lisinopril 10 mg tablet 10 mg PO DAILY 05/02/20 07/25/20 History simvastatin 80 mg tablet 80 mg PO DAILY 05/02/20 07/25/20 History triamcinolone acetonide 0.025 % 1 applictn TOP TID 05/02/20 07/19/20 History topical cream vitamins A,C,Y-pwya-shdstd 1 tab PO DAILY 05/02/20 07/25/20 History Allergies Allergy/AdvReac Type Severity Reaction Status Date / Time No Known Drug Allergies Allergy Verified 07/25/20 07:21 Review of Systems Review of Systems Narrative: Positive for recent surgery and related weakness along with hypotensive episode earlier today. Negative for fevers, chills, sweats, chest pain, abdominal pain, nausea, vomiting, dysuria, rashes, joint pain, seizures, headaches, difficulty talking, difficulty walking, confusion. Exam Vital Signs (past 8 hours): - 07/25/20 20:51 07/25/20 20:56 07/25/20 21:01 Temperature 97.6 F Pulse Rate 91 H 91 H 90 Respiratory Rate 15 16 13 Blood Pressure 112/63 95/60 116/76 Pulse Oximetry 97 98 100 07/25/20 21:15 07/25/20 21:30 07/25/20 22:00 Temperature 99.7 F H 97.6 F 98.5 F Pulse Rate 82 96 H 89 Respiratory Rate 14 18 18 Blood Pressure 127/51 L 132/57 L 125/86 Pulse Oximetry 100 07/25/20 22:30 07/25/20 23:35 Temperature 98.0 F 97.8 F Pulse Rate 76 87 Respiratory Rate 15 16 Blood Pressure 104/56 L 124/59 L Pulse Oximetry 100 Oxygen Delivery Method Nasal Cannula Oxygen Flow Rate 2 Narrative Exam Narrative: She is alert and oriented x3. Her hearing is excellent and her mentation is without any deficit that I can identify. She is in no apparent distress and appears unaffected by the 2 surgeries and the rapid response that occurred earlier today. She is in no pain Pupils are equally round and reactive light and accommodation. Sclerae are pink and nonicteric Extraocular muscles test intact Throat looks normal JVD is less than 6 cm No carotid bruits are heard No lymph nodes are felt head, neck, supraclavicular area There is no thyromegaly Heart is regular rate and rhythm without murmur Lungs are clear to auscultation bilaterally Abdomen is soft, bowel sounds positive, nontender, no organomegaly. Several laparoscopic insertion sites are noted without signs of complication. Extremities have no ankle edema or signs of DVT. Skin has no rash or jaundice. Neuro exam. Motor function is 5/5 throughout. Cranial nerves 2-12 test intact. There is no tremor. She is fully oriented with excellent hearing. Objective ECG Impression: Sinus rhythm without any abnormal ST or T-wave changes. Labs Result Diagrams: 07/25/20 23:30 07/25/20 23:30 Labs: Laboratory Results - last 24 hr 07/25/20 07/25/20 07/25/20 17:30 17:30 17:34 WBC 12.9 H RBC 3.17 L Hgb 9.6 L Hct 28.8 L MCV 90.8 MCH 30.1 MCHC 33.2 RDW 14.2 Plt Count 237 Neut % (Auto) 87.9 H Lymph % (Auto) 9.2 L [place] % (Auto) 2.6 L Eos % (Auto) 0.0 L Baso % (Auto) 0.3 Neut # (Auto) 43100 H Lymph # (Auto) 1200 [place] # (Auto) 300 Eos # (Auto) 0 Baso # (Auto) 0 PT 12.1 INR 1.1 APTT 26 L Fibrinogen 257 Sodium Potassium Chloride Carbon Dioxide BUN Creatinine Estimated GFR BUN/Creatinine Ratio Glucose Calcium Magnesium Total Bilirubin AST ALT Alkaline Phosphatase Total Creatine Kinase CK-MB (CK-2) CK-MB (CK-2) Rel Index Troponin I Total Protein Albumin Globulin Albumin/Globulin Ratio Blood Type A Positive Antibody Screen Negative Crossmatch See Detail 07/25/20 07/25/20 07/25/20 17:34 23:30 23:30 WBC 13.8 H RBC 3.19 L Hgb 9.4 L Hct 27.8 L MCV 87.2 D MCH 29.3 MCHC 33.7 RDW 16.5 H Plt Count 179 Neut % (Auto) 85.0 H Lymph % (Auto) 10.0 L [place] % (Auto) 4.7 Eos % (Auto) 0.0 L Baso % (Auto) 0.3 Neut # (Auto) 35669 H Lymph # (Auto) 1400 [place] # (Auto) 600 Eos # (Auto) 0 Baso # (Auto) 0 PT INR APTT Fibrinogen Sodium 126 L 126 L Potassium 3.9 4.7 Chloride 98 101 Carbon Dioxide 24 24 BUN 15 14 Creatinine 0.93 0.72 Estimated GFR 57.9 L > 60.0 BUN/Creatinine Ratio 16.1 19.4 Glucose 167 H 127 H Calcium 8.3 L 7.8 L Magnesium 1.6 Total Bilirubin 0.5 AST 23 ALT 16 Alkaline Phosphatase 43 Total Creatine Kinase 76 CK-MB (CK-2) TNP CK-MB (CK-2) Rel Index TNP Troponin I < 0.012 Total Protein 5.2 L Albumin 2.9 L Globulin 2.3 Albumin/Globulin Ratio 1.3 Blood Type Antibody Screen Crossmatch Assessment & Plan Assessment & Plan narrative: Hyponatremia, present on admission. Active -possible SIADH with noted sodium level of 122 on 04/26/2020. -chest x-ray and BMP in the morning on 07/26. -if sodium level drops further consider [facility] imaging to rule out neoplastic causes. -currently receiving lactated Ringer's at 100 mL/hr Postoperative anemia, not present on admission. Active -hemoglobin 9.4 after postoperative bleeding and removal of 7 mL clot in abdomen Postoperative bleeding with hypotension, not present on admission. Active -operative notes reviewed, 700 mL of blood removed from abdomen and hemoglobin appears stable at 9.4. -follow-up CBC pending on 07/26 -Dr. Hurst, specimen preparation assistant managing Status post vaginal hysterectomy, postoperative day number 0. Active -CBC and BMP pending on 07/26 -Dr. Hurst, specimen preparation assistant managing Hypertension, present on admission. Chronic -continue lisinopril Hyperlipidemia, present on admission. Chronic -continue simvastatin
[2020-07-26] VITALS (7 sets, daily range): BP systolic 132–166; BP diastolic 60–73; PULSE 76–87; RESP 16–18; TEMP 36.4–37.6; O2SAT 96–100
[2020-07-26] MEDS: DOCUSATE 250 MG CAPSULE PO ×3 (00:27→21:28)
[2020-07-26] MEDS: LACTATED RINGERS 1,000 ML 100 ML IV (05:14)
[2020-07-26 05:20] LABS: Add Manual Diff / Slide Review NO; Basophils Absolute Auto 100 /uL (0-100); Basophils Percent Auto 0.5 % (0-2); Eosinophils Absolute Auto 0 /uL (0-450); Eosinophils Percent Auto 0.1 % (2-4); Lymphocytes Absolute Auto 1800 /uL (1100-4500); Lymphocytes Percent Auto 13.5 % (25-40); Mean Corpuscular HGB Conc 33.5 % (30-36); Mean Corpuscular Hemoglobin 29.3 PG (26-34); Mean Corpuscular Volume 87.4 fL (80-100); Monocytes Absolute Auto 1100 /uL (0-900); Monocytes Percent Auto 8.4 % (3-14); Neutrophils Absolute Auto 10400 /uL (1500-7000); Neutrophils Percent Auto 77.5 % (50-75); Platelet Count 184 X10^3/uL (150-400); Red Blood Cell Count 3.09 X10^6/uL (4.0-5.2); Red Cell Distribution Width 16.6 % (11.6-14.8); White Blood Cell Count 13.4 X10^3/uL (4.5-11.0)
--- NOTE | 2020-07-26 05:20 | DI.RAD.S_ITS ---
PROCEDURE: XR CHEST 1V INDICATIONS: Hyponatremia TECHNIQUE: One view of the chest was acquired. COMPARISON: None. FINDINGS: Surgical changes and devices: None. Lungs and pleura: Left basilar atelectasis versus parenchymal scarring. No pleural effusions or pneumothorax. Mediastinum: Mediastinal contours appear normal. Heart size is normal. Bones and chest wall: No suspicious bony lesions. Overlying soft tissues appear unremarkable. IMPRESSION: No acute cardiopulmonary disease process. Dictated by: Jenae Jc MD, PhD on 07/26/2020 at 8:58 Approved by: Jenae Jc MD, PhD on 07/26/2020 at 8:58
--- NOTE | 2020-07-26 06:39 | PC.NURSE ---
cook starch note: Patient post op day 1. Patient with VSS throughout the shift, on RA. Patient remains AOx3. Patient's surgical puncture sites (4 lap sites) dry/intact but with old blood present on gauze over lap site 2, 4. Vaginal packing remains in place. Patient with good UOP throughout shift. IV fluids continued. Patient with distended abdomen, but soft to touch. Minimal flatus passed. Daughter has remained at bedside throughout shift. Patient has been turned and repositioned every 2 hours to prevent skin breakdown. Call light in reach, will continue to monitor.
[2020-07-26 08:00] LABS: BUN Creatinine Ratio 19.2 (6-22); Blood Urea Nitrogen 14 mg/dL (7-17); Calcium 8.2 mg/dL (8.4-10.2); Carbon Dioxide 24 mmol/L (22-32); Chloride 102 mmol/L (98-107); Estimated Glomerular Filt Rate > 60.0 mL/min (>60); Glucose 99 mg/dL (80-110); HEMOLYSIS < 15 (0-50); Sodium 129 mmol/L (137-145)
--- NOTE | 2020-07-26 14:05 | PT.IIE ---
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 (07/25/20) Surgery Performed Operation Date: 07/25/20 07:45 Actual Procedures p Laparoscopic Assisted Vag Hysterectomy, biopsy of omentum, peritoneum, lysis of adhesions - Pam Hurst MD Operation Date: 07/25/20 18:30 Actual Procedures p Laparoscopy, Diagnostic, suction of clot, cauterization, vaginal exam under anesthesia - Pam Hurst MD Surgical History (Last Updated 07/19/20 @ 15:21 by Kacey Manriquez RN) History of left hip replacement (Acute) Hx of BSO (bilateral salpingo-oophorectomy) (Acute 06/06/20) S/P tonsillectomy and adenoidectomy (Acute) [place] teeth extracted (Acute) Medical History (Last Updated 06/06/20 @ 10:52 by Lala Moore RN) Arthritis (Acute) Former smoker (Acute) Hyperlipidemia (Acute) Hypertension (Acute) Physical Therapy Inpatient Evaluation/Re-Eval M1 PT/OT-IP Prior Functional Status Start: 07/26/20 15:13 Freq: NEEDED Status: Active Protocol: Document 07/26/20 14:05 AB (Rec: 07/26/20 15:25 AB [id number]) Medical Review Prior Functional Status Medical History Reviewed Yes Communication able to make needs known Mobility and Gait pt stated that she is independent with all mobilities and ambulation without AD Social History Household Members spouse Living Arrangements House Number of Floors (Floors) One Floor Number of Stairs To Enter/Railing? 1 step to enter Home Environment High Toilet,Walk in Shower Additional Social History Comment has walking sticks M2 PT-IP Current Condition Start: 07/26/20 15:13 Freq: NEEDED Status: Active Protocol: Document 07/26/20 14:05 AB (Rec: 07/26/20 15:25 AB [email or web address]) Physical Therapy Current Condition Current Condition Evaluation Date 07/26/20 Treatment Diagnosis intra-abdominal bleed s/p lap, vaginal hysterectomy; difficulty in walking Onset Date 07/25/20 Precautions Abdominal Surgery Precautions Log Roll,Lifting Restrictions, Gait Belt above Incisional Area M3 PT-IP Subjective Start: 07/26/20 15:13 Freq: NEEDED Status: Active Protocol: Document 07/26/20 14:05 AB (Rec: 07/26/20 15:25 AB [id number]) Subjective Physical Therapy Visit Type Type Initial Evaluation Visit Start Time 14:05 Visit Stop Time 14:45 Total Visit Minutes 40 Number of ICE SELLER Visits 0 Physical Therapy Visit Comments Patient Comments pt is agreeable to do PT Therapy Pain Assessment Pain When Pain Assessed At Rest Pain Present Pain Present Pain Reported Location abdomen Intensity 3 Scale Used Numeric (0 - 10) M4 PT-IP Mobility and Gait Start: 07/26/20 15:13 Freq: NEEDED Status: Active Protocol: Document 07/26/20 14:05 AB (Rec: 07/26/20 15:25 AB [id number]) PT-Bed Mobility Assessment Rolling Type of Rolling Log Rolling Level of Assist Contact Guard Assistance Supine to Sit Supine to Sit Minimal Assistance,Bedrails PT-Transfer Assessment Sit to and From Stand Sit to and from Stand Minimal Assistance,1 Person Assistance,Use of Upper Extremities Equipment Transfer Assistive Device Gait Belt,Front Wheeled Walker Orthotic/Prosthetic Devices or Brace: No Transfers Transfer Destination Chair,Toilet Transfer Technique ambulated using FWW Transfer Ability Level of Assist Minimal Assistance,1 Person Assistance,Use of Upper Extremities Comments Mobility Comments educated pt on abdominal precautions and log roll bed mobility. completed supine to sit min A and cues. pt used bed rail to assist. pt was able to sit on EOB SBA. pt without c/o dizziness/ lightheadedness. BP maintained: 166-145/66-78. completed sit to stand min A and cues and ambulated in room ~ 20 ft using FWW. pt rested on the chair and requested to use the toilet. completed sit to stand from the chair min A and ambulated to the toilet using FWW min A. pt was able to complete hygiene care. completed sit to stand from the toilet using grab bar min A and ambulated back to the chair. positioned pt on chair. call light and table placed within reach. Gait Assessment Gait Gait Assistance Required: Minimum Assistance Distance (Feet) 20 Able to Maintain Weight Bearing Status Yes During Gait Assistive Devices Assistive Device Gait Belt,Front Wheeled Walker Orthotic/Prosthetic Devices or Brace: No Gait Deviations General Gait Pattern Decreased Stride Length, Decreased Feet Clearance,Step- to Gait Factors Limiting Gait Function Factors Limiting Gait Function Decreased Activity Tolerance, Decreased Strength,Limited Range of Motion,Pain,Poor Balance,Poor Safety Awareness PT-Balance Assessment Sitting Balance and Reactions Static Sitting Balance Ability Good Dynamic Sitting Balance Ability Good Standing Balance and Reactions Static Standing Balance Ability Fair Dynamic Standing Balance Ability Fair Device Used FWW M5 PT-IP Objective Assessments Start: 07/26/20 15:13 Freq: NEEDED Status: Active Protocol: Document 07/26/20 14:05 AB (Rec: 07/26/20 15:25 AB [id number]) Orientation Orientation/Cognition Level of Alertness Alert Orientation Name,Place,Situation Language Function Ability No Deficits Noted Memory Description No Deficits Noted Gross Range of Motion Lower Extremity ROM Assessment Within Functional Limits Strength Lower Extremity Strength Assessment Within Functional Limits Coordination Assessment Gross Coordination Gross Coordination WNL Sensation Assessment Sensation Gross Sensation WNL Muscle Tone Muscle Tone WNL Yes M6 PT-IP Treatment Start: 07/26/20 15:13 Freq: NEEDED Status: Active Protocol: Document 07/26/20 14:05 AB (Rec: 07/26/20 15:25 AB [email or web address]) Physical Therapy Treatment Education Education Provided Precautions,Safety M7 PT-IP Assessment and Plan Start: 07/26/20 15:13 Freq: NEEDED Status: Active Protocol: Document 07/26/20 14:05 AB (Rec: 07/26/20 15:25 [email or web address] PT Summary Assessment and Plan Potential Rehabilitation Potential Good Status of Condition at Evaluation Stable Summary Impairments Pain,ROM,Strength,Balance, Coordination,Sensation,Bed Mobility,Transfers,Gait, Activity Tolerance Assessment Summary pt requiring min A with ambulation using FWW and presents with decrease activity tolerance affecting level of assistance. pt will likely progress during hospital stay and pt plans to go home with spouse to assist her. will continue to assess progress and conduct caregiver training when appropriate as well as stair climbing training Goals Bed Mobility Goal Independent Transfer Goal Independent,Front Wheeled Walker Gait Goal Independent,Front Wheel Walker Gait Distance 200 Other Goals improve ambulation without AD 200 ft mod I up/down 1 step without rails SBA Days to Meet Goals 10 Frequency of Treatment Frequency Of Treatment Once a Day Treatment Plan Physical Therapy Treatment Plan Bed Mobility Training,Transfer Training,Gait Training, Therapeutic Exercise,Balance Retraining,Post Op Education, Discharge Planning,Hot or Cold Pack,Neuromuscular Re-ed, Coordination Retraining Recommendations To Nursing Amount of Assist Needed 1 Person Assist Discharge Recommendations PT Discharge Recommendations Home with Assistance,Home Health Transportation Needs at Discharge Private Vehicle
--- NOTE | 2020-07-26 14:50 | PC.NURSE ---
Addendum entered by Zehra Reyna R.N. 07/26/20 14:52: Add Per Dr Hurst, Follow up for Hospitalist Re:Na levels, Dr Workman will update, recommendation for urine sodium and urine crea. Original Note: Am shift Pt is A/o x4, reports significant improvement from 24 hrs ago. Still unsure of getting OOB, order's rec'd for PT. Hare and vaginal packing removed, and Pt is voiding without difficulty. Denies pain. Eating well. PT got Pt up to chair and ambulating in room, min assist. No dizziness, no c/o pain. Spotting to peripad, no active bleeding. Lap sites to ABD shadow drainage. Na up to 129. IVF stopped. Pt has good PO intake. Spouse at bedside.
--- NOTE | 2020-07-26 15:38 | DIET.PN ---
Dietary Progress Note Assessment: Ms. Murry is an 80-year-old female who had a vaginal hysterectomy for a 16 cm mass yesterday and then was taken back to the OR for a laparoscopic procedure to re-evaluate the surgical site for complications. Reports of possible chronic hyponatremia. Per provider report on 07/25/2020: A response was called at 1710 due to patient being minimally responsive. Vital signs at that time were: BP 64/25, HR 144 with thready palpable pulse, RR 16 breathing spontaneous and oxygen saturation 63% on room air. Pt reports improved appetite and is ready for solid foods. HT: 67in WT: 122lb UBW: 130lb (3% wt loss x1mo) BMI: 19.2 (low for age) Labs: Na: 129 L Ca: 8.2 L MNA: 8 [place]: 19 Nutrition Diagnosis: Underweight r/t inadequate oral intake aeb pt report difficulty swallowing, loss of appetite, BMI less than normative standards for age. Interventions: 1. Discussed high protein, high calorie nutrition therapy. Reviewed usual dietary patterns and likes/dislikes. 2. Provide ONS ensure B/L. Diet Order: Full Liquid EER: 1500-1600cal (28-30cal/kg) 66 g (1.2) Monitoring/Evaluations: weight, PO's, ONS acceptance.
--- NOTE | 2020-07-26 15:50 | CM.DANOTE ---
Discharge Planning/Care Management DCP: assessment: case received, EMR reviewed. Discussed in Team Rounds. Pt is an 80 year old female who admitted early this morning for a scheduled laparoscopic assisted vag hysterectomy, biopsy of omentum and peritoneum, lysis of adhesions She returned later to the OR after intra abdominal bleed: suction of clots and cauterization/under anesthesia: 700 CC of clotted material. Surgeon: Dr. Nohemy Hurst Hospitalists are consulting. PCP: Juliano Brown PT Tigist saw pt late this afternoon. P: Meet pt tomorrow during Team Bedside Rounds and follow for d/c issues and options. Note that pt has been functionally independent without assistive device and lives with supportive spouse. Advanced directive, confirm from FAMILY Start: 07/25/20 11:37 Freq: Q24H Status: Active Protocol: Document 07/26/20 11:37 NC (Rec: 07/26/20 12:03 NC [id number]) Advance Directive, confirm on record Time 12:03 Person contacted Copy received No CM Discharge Assessment Start: 07/26/20 15:47 Freq: Status: Active Protocol: Document 07/26/20 15:47 ITV (Rec: 07/26/20 15:50 ITV [id number]) Discharge Planning Assessment Advance Directives? Yes Advance Directives on File Yes History Provided By Patient,Medical Record Prior Living Arrangements House Household Members spouse Independent with ADL's Yes Is patient alert and oriented? Yes DME Already Rented / Owned Other Comment has been independent without AD... has 2 walking sticks using a FWW with PT today Review Status In Process Pre-Anesthesia Assessment Start: 07/19/20 15:17 Freq: Status: Active Protocol: Document 07/19/20 15:17 CAB (Rec: 07/19/20 15:23 CAB [id number]) Pre-Anesthesia Assessment Patient Information Reviewed Via Chart Review Comment COVID screen @ 07/22/20 Primary Care Provider Juliano Brown Seen Specialist in Last 12 Months Yes Specialist Seen Building Maintenance Mechanic Primary Language Luxem[place] Height 170.18 cm Weight 57.153 kg Body Mass Index (BMI) 19.7 Barriers to Learning None Hx Anesthesia Reactions No Hx Family Anesthesia Reaction No Hx Malignant Hyperthermia No Hx Blood Transfusion Reaction No Anesthesia Review Requested No Disability Insurance Claim Examiner No alcohol intake former Smoking Status Former smoker Tobacco type cigarettes how long ago did patient quit smoking 1968 Substance Use Type does not use Patient is completely paralyzed or No completely immobile Mental Status Oriented to own ability Is patient on oxygen? No Hx Sleep Apnea No CPAP/BIPAP use not prescribed Currently Taking a Beta Jenifer No Anti-Coagulant Therapy Yes: ASA 81mg-advised to hold 1 week prior per Surgeon Has a Extrusion Press Supervisor No Cardiac Testing No Hx Pacemaker/ICD No Pacemaker Rep Required? No Cardiac Clearance Received Not Applicable Urinary Catheter Present No Hx Urinary Self Catheterization No Diabetes No Patient No Lactating No Presence of External or Internal Medical Yes: left SHAYLA Devices Have you had any close contact with Unknown someone diagnosed with COVID-19? Marital Status Lives With spouse Patient Discharge Plan Description Return Home Advance Directives? Yes: HC Directive Advance Directives on File Yes Power of Record Press Operator Yes Power of Record Press Operator Name Tarik Power of Record Press Operator
--- NOTE | 2020-07-26 17:51 | PM.PNPO.1 ---
Subjective Subjective Date Patient Seen: 07/26/20 Time Patient Seen: 17:51 Interval history: Patient is an 80 year postop day # 1 status post laparoscopic-assisted vaginal hysterectomy with multiple biopsies. She was taken back to the operating room last evening due to free fluid in the abdomen. This turned out to be approximately 700 cc of clot in the abdomen. There was found to be in omental bleeder and this was cauterized for hemostasis. Patient is tolerating a diet. She feels well and would like to go home. She has ambulated. She is voiding without difficulty since the catheter was removed. Exam Vital Signs (past 8 hours): - 07/26/20 12:00 07/26/20 15:29 Temperature 99.7 F H 98.7 F Pulse Rate 80 82 Respiratory Rate 18 18 Blood Pressure 147/65 H 147/73 H Pulse Oximetry 100 97 Oxygen Delivery Method Room Air Oxygen Flow Rate 0 Narrative Exam Narrative: Generally: Patient is sitting up in bed, eating dinner, no acute distress Lungs: Clear to auscultation bilaterally Cardiovascular: Regular rate and rhythm Abdomen: Soft and flat. Good bowel sounds in all 4 quadrants. Incisions: Clean dry and intact with op site Perineum: Dry Objective Labs Result Diagrams: 07/26/20 05:00 07/26/20 05:00 Labs: Laboratory Results - last 24 hr 07/25/20 07/25/20 07/25/20 17:30 17:30 17:34 WBC RBC Hgb Hct MCV MCH MCHC RDW Plt Count Neut % (Auto) Lymph % (Auto) [place] % (Auto) Eos % (Auto) Baso % (Auto) Neut # (Auto) Lymph # (Auto) [place] # (Auto) Eos # (Auto) Baso # (Auto) PT 12.1 INR 1.1 APTT 26 L Fibrinogen 257 Sodium 126 L Potassium 3.9 Chloride 98 Carbon Dioxide 24 BUN 15 Creatinine 0.93 Estimated GFR 57.9 L BUN/Creatinine Ratio 16.1 Glucose 167 H Calcium 8.3 L Magnesium 1.6 Total Bilirubin 0.5 AST 23 ALT 16 Alkaline Phosphatase 43 Total Creatine Kinase 76 CK-MB (CK-2) TNP CK-MB (CK-2) Rel Index TNP Troponin I < 0.012 Total Protein 5.2 L Albumin 2.9 L Globulin 2.3 Albumin/Globulin Ratio 1.3 Nasal Screen MRSA (PCR) Blood Type A Positive Antibody Screen Negative Crossmatch See Detail 07/25/20 07/25/20 07/26/20 23:30 23:30 01:22 WBC 13.8 H RBC 3.19 L Hgb 9.4 L Hct 27.8 L MCV 87.2 D MCH 29.3 MCHC 33.7 RDW 16.5 H Plt Count 179 Neut % (Auto) 85.0 H Lymph % (Auto) 10.0 L [place] % (Auto) 4.7 Eos % (Auto) 0.0 L Baso % (Auto) 0.3 Neut # (Auto) 34589 H Lymph # (Auto) 1400 [place] # (Auto) 600 Eos # (Auto) 0 Baso # (Auto) 0 PT INR APTT Fibrinogen Sodium 126 L Potassium 4.7 Chloride 101 Carbon Dioxide 24 BUN 14 Creatinine 0.72 Estimated GFR > 60.0 BUN/Creatinine Ratio 19.4 Glucose 127 H Calcium 7.8 L Magnesium Total Bilirubin AST ALT Alkaline Phosphatase Total Creatine Kinase CK-MB (CK-2) CK-MB (CK-2) Rel Index Troponin I Total Protein Albumin Globulin Albumin/Globulin Ratio Nasal Screen MRSA (PCR) Negative for mrsa Blood Type Antibody Screen Crossmatch 07/26/20 07/26/20 05:00 05:00 WBC 13.4 H RBC 3.09 L Hgb 9.0 L Hct 27.0 L MCV 87.4 MCH 29.3 MCHC 33.5 RDW 16.6 H Plt Count 184 Neut % (Auto) 77.5 H Lymph % (Auto) 13.5 L [place] % (Auto) 8.4 Eos % (Auto) 0.1 L Baso % (Auto) 0.5 Neut # (Auto) 39453 H Lymph # (Auto) 1800 [place] # (Auto) 1100 H Eos # (Auto) 0 Baso # (Auto) 100 PT INR APTT Fibrinogen Sodium 129 L Potassium 5.0 Chloride 102 Carbon Dioxide 24 BUN 14 Creatinine 0.73 Estimated GFR > 60.0 BUN/Creatinine Ratio 19.2 Glucose 99 Calcium 8.2 L Magnesium Total Bilirubin AST ALT Alkaline Phosphatase Total Creatine Kinase CK-MB (CK-2) CK-MB (CK-2) Rel Index Troponin I Total Protein Albumin Globulin Albumin/Globulin Ratio Nasal Screen MRSA (PCR) Blood Type Antibody Screen Crossmatch Assessment & Plan Post-op Postoperative Procedures: Procedures Operation Date: 07/25/20 07:45 Actual Procedures Side Surgeon p Laparoscopic Assisted Vag Hysterectomy, biopsy of omentum, peritoneum, lysis of adhesions Pam Hurst MD Operation Date: 07/25/20 18:30 Actual Procedures Side Surgeon p Laparoscopy, Diagnostic, suction of clot, cauterization, vaginal exam under anesthesia Pam Hurst MD Postoperative day: 1 Postoperative status: doing well Postoperative plan: routine post-op care Postoperative plan narrative: Removed from ICU status Probable discharge in the morning Time Spent With Patient Time with patient: 15-24 minutes
[2020-07-27] VITALS: BP 153/67; PULSE 86; RESP 16; TEMP 36.8; O2SAT 94
[2020-07-27] MEDS: OXYCODONE/ACETAMINOPHEN 5/325 TABLET 1 TAB PO (04:37)
[2020-07-27 04:52] LABS: Add Manual Diff / Slide Review NO; Basophils Absolute Auto 100 /uL (0-100); Basophils Percent Auto 0.8 % (0-2); Eosinophils Absolute Auto 100 /uL (0-450); Eosinophils Percent Auto 0.8 % (2-4); Hematocrit 26.8 % (36-46); Hemoglobin 9.2 g/dL (12.0-16.0); Lymphocytes Absolute Auto 2800 /uL (1100-4500); Lymphocytes Percent Auto 24.1 % (25-40); Mean Corpuscular HGB Conc 34.4 % (30-36); Mean Corpuscular Hemoglobin 30.2 PG (26-34); Mean Corpuscular Volume 87.8 fL (80-100); Monocytes Absolute Auto 1100 /uL (0-900); Monocytes Percent Auto 9.5 % (3-14); Neutrophils Absolute Auto 7500 /uL (1500-7000); Neutrophils Percent Auto 64.8 % (50-75); Platelet Count 185 X10^3/uL (150-400); Red Blood Cell Count 3.05 X10^6/uL (4.0-5.2); Red Cell Distribution Width 16.2 % (11.6-14.8); White Blood Cell Count 11.6 X10^3/uL (4.5-11.0)
[2020-07-27 04:54] VITALS: BP 136/63; PULSE 78; RESP 16; TEMP 37.3; O2SAT 95
[2020-07-27 05:02] LABS: BUN Creatinine Ratio 15.7 (6-22); Blood Urea Nitrogen 11 mg/dL (7-17); Calcium 8.8 mg/dL (8.4-10.2); Carbon Dioxide 31 mmol/L (22-32); Chloride 100 mmol/L (98-107); Estimated Glomerular Filt Rate > 60.0 mL/min (>60); Glucose 93 mg/dL (80-110); HEMOLYSIS < 15 (0-50); Potassium 4.2 mmol/L (3.4-5.1); Sodium 132 mmol/L (137-145)
--- NOTE | 2020-07-27 06:37 | PC.NURSE ---
shift superintendent caustic cresylate note: Patient with restful night. Remains AOx3. 1 complaint of pain this AM, PRN Percocet given. Patient with VSS on RA, good urine output. No signs of bleeding. Lap sites remain dry/intact with shadowing noted on dressing. Mild abdominal distention noted, but patient passing flatus. Patient pending discharge this morning. Will continue to monitor.
[2020-07-27 08:00] VITALS: BP 146/69; PULSE 76; RESP 18; TEMP 37.7; O2SAT 98
[2020-07-27] MEDS: DOCUSATE 250 MG CAPSULE PO (08:16)
--- NOTE | 2020-07-27 10:01 | PC.NURSE ---
Pt alert and oriented. Offers no overt c/o though expressed wish to go home today. Dr. Hurst into see Pt and will write orders shortly. Pt follows commands feels ready to go home. Dressings CDI. Voiding, ate b'fast without difficulty. attentive at bedside, daughter to pick Pt up on discharge.
--- NOTE | 2020-07-27 10:44 | P.DS_ITS ---
History of Present Illness History of Present Illness Date Patient Seen: 07/27/20 Time Patient Seen: 10:20 Chief complaint: IP Narrative: Patient is an 80-year-old who underwent a laparoscopic-assisted vaginal hysterectomy, partial omentectomy, and peritoneal biopsies on July 25, 2020. She went back to the operating room that evening for and intra abdominal bleed. There was bleeding from the omental edge. This was cauterized for hemostasis. She received 1 unit of packed red blood cells. Since then patient has done well. She has voided without the catheter. Her pain is well controlled. She has tolerated a diet. She is ambulating independently. 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 She underwent an LAVH with those procedures on July 25, 2020 without complication. Later that evening she had decreased blood pressure and became unresponsive for a short amount of time. She was taken back to the operating room and there was found to be bleeding at the omental edge. This was cauterized for hemostasis. The clot in the abdomen was suctioned. Her belly was irrigated with 3 L of warm saline. Since then her recovery has gone well. She voided without the catheter. Her pain is well controlled. She is tolerating a diet. And she is ambulating independently. Status at Discharge Cognitive/behavioral status at discharge: oriented Functional status at discharge: independent ambulation Overall status at discharge: patient is progressing back to baseline Time Spent with Patient Time spent: Less than 30 minutes Exam Vital Signs (past 8 hours): - 07/27/20 04:54 07/27/20 08:00 Temperature 99.2 F 99.9 F H Pulse Rate 78 76 Respiratory Rate 16 18 Blood Pressure 136/63 146/69 H Pulse Oximetry 95 98 Oxygen Delivery Method Room Air Oxygen Flow Rate 0 Narrative Exam Narrative: Generally: Patient is sitting up in bed, no acute distress Lungs: Clear to auscultation bilaterally Cardiovascular: Regular rate and rhythm Abdomen: Soft, good bowel sounds Incisions: Clean dry and intact with op sites Perineum: Dry Extremities: No edema Objective Labs Result Diagrams: 07/27/20 04:35 07/27/20 04:35 Labs: Laboratory Results - last 24 hr 07/27/20 07/27/20 04:35 04:35 WBC 11.6 H RBC 3.05 L Hgb 9.2 L Hct 26.8 L MCV 87.8 MCH 30.2 MCHC 34.4 RDW 16.2 H Plt Count 185 Neut % (Auto) 64.8 Lymph % (Auto) 24.1 L [place] % (Auto) 9.5 Eos % (Auto) 0.8 L Baso % (Auto) 0.8 Neut # (Auto) 7500 H Lymph # (Auto) 2800 [place] # (Auto) 1100 H Eos # (Auto) 100 Baso # (Auto) 100 Sodium 132 L Potassium 4.2 Chloride 100 Carbon Dioxide 31 BUN 11 Creatinine 0.70 Estimated GFR > 60.0 BUN/Creatinine Ratio 15.7 Glucose 93 Calcium 8.8 Discharge Assessment & Plan Assessment and Plan Assessment: Postop day # 2 status post LAVH/partial omentectomy/peritoneal biopsies/return to OR with cauterization of omental bleed and evacuation of clot Patient doing very well Plan of Treatment: Discharge to home Follow-up [address] Hurst for incision check Patient to call Dr. Ivey's office on Wednesday to schedule an appointment to follow up her low sodium Discharge Plan Discharge Plan Patient Disposition: Home Provider Discharge Comment: Call with fever, chills, redness or drainage around incisions or bleeding vaginally more than spotty to light Ibuprofen 600mg every 6 hours as needed Tylenol 650mg every 6 hours as needed Discharge orders & Medications Prescriptions: New oxycodone-acetaminophen [Percocet] 5-325 mg tablet 1 tab PO Q4-6H PRN (Reason: pain) Qty: 14 RF: 0 Continued lisinopril 10 mg tablet 10 mg PO DAILY RF: 0 simvastatin [Zocor] 80 mg tablet 80 mg PO DAILY RF: 0 triamcinolone acetonide 0.025 % cream 1 applictn TOP TID RF: 0 glucosamine sulfate [Glucosamine] 500 mg tablet 500 mg PO DAILY RF: 0 vitamins A,C,[id number] 1 tab PO DAILY RF: 0 Follow up/Referrals: Pam Hurst MD [Physician] - 2 Weeks (My office will call to schedule 2 wk post op visit on Wednesday Patient to call Dr. Brown' office to schedule appt in the next [address] Ivey) Diet/Activity/Treatments Diet: Regular Activity: No heavy lifting, nothing more than a gallon of milk Skin/Wound/Dressing Care Report to your healthcare provider any signs of infection, such as:: chills, f ever, increased pain, unusual drainage and unusual redness Dressing: Remove outer plastic dressings and guaze after first shower Visit Report/Discharge Packet Instructions: DI for Hysterectomy, DI for Laparoscopy, DI for Prescription Opioid Use Stand Alone Forms: Surgery Discharge Discharge Data Primary Care Provider: Juliano Brown
--- NOTE | 2020-07-27 11:40 | PT-IP ANOTE ---
Pt refused. Is leaving soon and does not feel she needs to have PT.
--- NOTE | 2020-07-27 13:34 | CM.DPC ---
Addendum entered by Alannah Doan LPN 07/27/20 13:49: Pt was seen by PT Tigist yesterday. PT was to see her again this morning but pt refused saying that at this time she did not feel the need for further therapy. Original Note: DCP: continued. Dr. Hurst was here earlier and ok'd pt for d/c to home setting. Pt was expressing her eagerness for same. Dr. Workman confirmed that hospitalist team had signed off yesterday. Went to room to check in. Pt and family members were in process of preparing for the trip home and working on final d/c instructions with PAZ Morales. Pt will follow up with Dr. Hurst in clinic.
== END 2020-07-27 12:55 | disposition home or self-care (01) | DRG 908 ==
LOC: ICU 15:18 → AC 07-28 11:53 → OR 07-28 11:53 → ICU 07-28 11:57
PROVIDERS: Internal Medicine; Admitting Provider Obstetrics & Gynecology; PCP Family Medicine; Referring Provider Obstetrics & Gynecology; Visit Provider Obstetrics & Gynecology
PROC: 0UT9FZZ Resection of Uterus, Via Natural or Artificial Opening With Percutaneous Endoscopic Assistance (ICD-10-PCS; principal; 2020-07-25 07:45)
DX: N99.820 Postprocedural hemorrhage of a genitourinary system organ or structure following a genitourinary system procedure (principal); D62 Acute posthemorrhagic anemia; T81.32XA Disruption of internal operation (surgical) wound, not elsewhere classified, initial encounter; E87.1 Hypo-osmolality and hyponatremia; C56.1 Malignant neoplasm of right ovary; I95.81 Postprocedural hypotension; I10 Essential (primary) hypertension; E78.5 Hyperlipidemia, unspecified; Z11.59 Encounter for screening for other viral diseases
CPT/HCPCS: 36415; 36430; 49321; 58550; 71045; 76705; 80048; 80053; 82550; 83735; 84484; 85025; 85384; 85610; 85730; 86850; 86900; 86901; 87635; 87797; 93005; 97161; 97530; P9016; J0330; J0690; J1100; J1170; J1885; J2250; J2405; J2704; J2765; J3010

== ENCOUNTER → 2020-09-04 14:23 | Outpatient (CLI) | payer MEDICARE, OTHER, SELFPAY ==
[2020-07-25 10:30] VITALS: BMI 19.1
== END ==
PROVIDERS: PCP Family Medicine; Visit Provider Obstetrics & Gynecology
DX: R39.9 Unspecified symptoms and signs involving the genitourinary system (principal)
CPT/HCPCS: 87086

== ENCOUNTER → 2020-10-22 09:33 | Outpatient (CLI) | payer MEDICARE, OTHER, SELFPAY ==
[2020-07-25 10:30] VITALS: BMI 19.1
--- NOTE | 2020-10-22 09:36 | DI.MG.S_ITS ---
BILATERAL DIGITAL DIAGNOSTIC MAMMOGRAM 3D/2D SHORT-TERM FOLLOW-UP: 10/22/2020 CLINICAL: Short term follow up of the left breast, due for bilateral imaging. Comparison is made to exams dated: 11/29/2019 mammogram, 11/13/2019 mammogram, and 11/07/2018 mammogram - [facility]. There are scattered fibroglandular elements in both breasts. There is a stable benign 0.4 cm asymmetry in the left breast posterior depth superior region seen on the mediolateral oblique view only. No other significant masses, calcifications, or other findings are seen in either breast. IMPRESSION: BENIGN There is no mammographic evidence of malignancy. Return to annual mammogram screening schedule is recommended. This exam was interpreted at Station ID: [id number]. NOTE: For mammograms, a report in lay terms will be sent to the patient. Approximately 15% of breast malignancies will not be visualized mammographically. In the management of a palpable breast mass, a negative mammogram must not discourage biopsy of a clinically suspicious lesion. Electronically Signed By: Kendall Spear acr/penrad:10/22/2020 10:17:23 letter sent: Normal Exam ACR BI-RADS Category 2: Benign Finding(s) 3342F
== END ==
PROVIDERS: PCP Family Medicine; Referring Provider Family Medicine; Visit Provider Family Medicine
DX: R92.8 Other abnormal and inconclusive findings on diagnostic imaging of breast (principal); N64.89 Other specified disorders of breast
CPT/HCPCS: 77066; G0279

== ENCOUNTER → 2020-11-18 08:15 | Outpatient (CLI) | payer MEDICARE, OTHER, SELFPAY ==
[2020-07-25 10:30] VITALS: BMI 19.1
[2020-11-18 09:37] LABS: Cancer Antigen 125 < 5.5 U/mL (0-35)
[2020-11-21 10:57] LABS: Human Epididymis Prot 4 92.8 pmol/L (0.0-96.9)
== END ==
PROVIDERS: Referring Provider Obstetrics & Gynecology; Visit Provider Obstetrics & Gynecology
DX: C56.2 Malignant neoplasm of left ovary (principal)
CPT/HCPCS: 36415; 86304; 86305

== ENCOUNTER → 2021-02-20 13:36 | Outpatient (CLI) | payer MEDICARE, OTHER, SELFPAY ==
[2020-07-25 10:30] VITALS: BMI 19.1
== END ==
PROVIDERS: PCP Family Medicine; Referring Provider Family Medicine; Visit Provider Family Medicine
DX: M81.0 Age-related osteoporosis without current pathological fracture (principal); Z78.0 Asymptomatic menopausal state; Z90.722 Acquired absence of ovaries, bilateral; Z87.891 Personal history of nicotine dependence
CPT/HCPCS: 77080; 77081

== ENCOUNTER → 2021-02-25 08:07 | Outpatient (CLI) | payer MEDICARE, OTHER, SELFPAY ==
[2020-07-25 10:30] VITALS: BMI 19.1
[2021-02-25 09:37] LABS: Cancer Antigen 125 < 5.5 U/mL (0-35)
[2021-02-27 10:56] LABS: Human Epididymis Prot 4 98.5 pmol/L (0.0-96.9)
== END ==
PROVIDERS: PCP Family Medicine; Referring Provider Obstetrics & Gynecology; Visit Provider Obstetrics & Gynecology
DX: C56.2 Malignant neoplasm of left ovary (principal)
CPT/HCPCS: 36415; 86304; 86305

== ENCOUNTER → 2021-05-23 07:35 | Outpatient (CLI) | payer MEDICARE, OTHER, SELFPAY ==
[2020-07-25 10:30] VITALS: BMI 19.1
[2021-05-23 09:42] LABS: Cancer Antigen 125 < 5.5 U/mL (0-35)
== END ==
PROVIDERS: PCP Family Medicine; Referring Provider Obstetrics & Gynecology; Visit Provider Obstetrics & Gynecology
DX: C56.2 Malignant neoplasm of left ovary (principal)
CPT/HCPCS: 36415; 86304

== ENCOUNTER → 2021-05-28 08:33 | Outpatient (CLI) | payer MEDICARE, OTHER, SELFPAY ==
[2020-07-25 10:30] VITALS: BMI 19.1
[2021-05-28 10:39] LABS: Cancer Antigen 125 < 5.5 U/mL (0-35)
== END ==
PROVIDERS: PCP Family Medicine; Referring Provider Obstetrics & Gynecology; Visit Provider Obstetrics & Gynecology
DX: C56.2 Malignant neoplasm of left ovary (principal)
CPT/HCPCS: 36415; 86304

== ENCOUNTER → 2021-08-25 08:48 | Outpatient (CLI) | payer MEDICARE, OTHER, SELFPAY ==
[2020-07-25 10:30] VITALS: BMI 19.1
[2021-08-25 10:56] LABS: Cancer Antigen 125 < 5.5 U/mL (0-35)
== END ==
PROVIDERS: PCP Family Medicine; Referring Provider Obstetrics & Gynecology; Visit Provider Obstetrics & Gynecology
DX: C56.2 Malignant neoplasm of left ovary (principal)
CPT/HCPCS: 36415; 86304

== ENCOUNTER → 2021-10-20 08:59 | Outpatient (CLI) | payer MEDICARE, OTHER, SELFPAY ==
[2020-07-25 10:30] VITALS: BMI 19.1
--- NOTE | 2021-10-20 | DI.MG.S_ITS ---
BILATERAL DIGITAL SCREENING MAMMOGRAM 3D/2D WITH CAD: 10/20/2021 CLINICAL: Routine screening. Family history of breast cancer. Comparison is made to exams dated: 10/22/2020 mammogram, 11/13/2019 mammogram, and 11/07/2018 mammogram - [facility]. There are scattered fibroglandular elements in both breasts. Current study was also evaluated with a Computer Aided Detection (CAD) system. There is a possible developing 0.4 cm irregular focal asymmetry in the left breast at 12 o'clock middle depth. This is more prominent. No other significant masses, calcifications, or other findings are seen in either breast. IMPRESSION: INCOMPLETE: NEEDS ADDITIONAL IMAGING EVALUATION The possible developing 0.4 cm irregular focal asymmetry in the left breast is indeterminate. Additional views with possible ultrasound are recommended. This exam was interpreted at Station ID: [id number]. NOTE: For mammograms, a report in lay terms will be sent to the patient. Approximately 15% of breast malignancies will not be visualized mammographically. In the management of a palpable breast mass, a negative mammogram must not discourage biopsy of a clinically suspicious lesion. Electronically Signed By: Bal sawant/kiki:10/20/2021 09:59:17 letter sent: Additional Imaging Needed ACR BI-RADS Category 0: Incomplete 3340F
== END ==
PROVIDERS: PCP Family Medicine; Referring Provider Family Medicine; Visit Provider Family Medicine
DX: Z12.31 Encounter for screening mammogram for malignant neoplasm of breast (principal); Z80.3 Family history of malignant neoplasm of breast
CPT/HCPCS: 77063; 77067

== ENCOUNTER 2021-11-12 18:09 | Inpatient (IN) | payer MEDICARE, OTHER, SELFPAY ==
[2020-07-25 10:30] VITALS: BMI 19.1
[2021-11-12 18:16] VITALS: BP 216/90; PULSE 77; RESP 16; TEMP 36.7; O2SAT 100; BMI 21.1
--- NOTE | 2021-11-12 18:17 | DI.RAD.S_ITS ---
PROCEDURE: XR HIP W PEL IF DONE RT 2V INDICATIONS: GLF, right hip pain, rotated shortened. TECHNIQUE: 2 views of the hip were acquired. COMPARISON: None. FINDINGS: Bones: Comminuted intertrochanteric right hip fracture noted. Femoral head is appropriate contour resides in the acetabulum. There is severe acetabular joint space narrowing and subchondral sclerosis present. Mild degenerative changes noted in lower lumbar spine. Total left hip arthroplasty noted. Pelvic ring appears intact. Soft tissues: No suspicious soft tissue calcifications or masses. IMPRESSION: Comminuted right intertrochanteric fracture Total left prosthesis in place Moderate right acetabular osteoarthritis Approved by: Cosmo Velazco M.D. on 11/12/2021 at 17:52
--- NOTE | 2021-11-12 18:17 | DI.RAD.S_ITS ---
PROCEDURE: XR CHEST 1V INDICATIONS: fall TECHNIQUE: One view of the chest was acquired. COMPARISON: [facility], CR, XR CHEST 1V, 07/26/2020, 5:07. FINDINGS: Surgical changes and devices: None. Lungs and pleura: Minimal left basilar atelectasis and infiltrate. Remainder the lungs and pleural spaces are clear. Mediastinum: Mediastinal contours appear normal. Heart size is normal. Atherosclerotic vascular calcification noted in the aortic arch. Bones and chest wall: No suspicious bony lesions. Overlying soft tissues appear unremarkable. IMPRESSION: Minimal left basilar atelectasis and infiltrate. No pneumothorax. Approved by: Cosmo Velazco M.D. on 11/12/2021 at 17:53
--- NOTE | 2021-11-12 18:20 | ED_ITS ---
HPI - Fall General Chief Complaint: Fall Stated Complaint: GLF R hip pain Time Seen by Provider: 11/12/21 18:10 Source: EMS Mode of arrival: EMS Limitations: no limitations History of Present Illness HPI Narrative: This is an 81-year-old female who had a ground level fall landing on her right hip. Patient states she rolled her ankle while in the kitchen making dinner. She fell onto her right hip. She had pain and was unable to really use that leg but and to get into a chair eat her dinner and then realized she could not weight bear or move that leg without significant pain. She states she had some numbness and tingling sensation in the foot initially but that has improved. She denies any other injuries. She denies hitting her head. No neck or back pain. No chest pain or shortness of breath. No nausea or vomiting. She denies any abdominal pain. She denies any pain or injury to her other extremities. She is on aspirin 81 mg daily, lisinopril and simvastatin. She has had a prior left hip replacement. Patient denies any allergies to medications. No tobacco, alcohol or illicit. She she walks independently and lives independently with her . Related Data Home Medications Medication Instructions Recorded Confirmed glucosamine sulfate 500 mg tablet 500 mg PO DAILY tab 05/02/20 08/27/21 (Glucosamine) lisinopril 10 mg tablet 10 mg PO DAILY 05/02/20 08/27/21 simvastatin 80 mg tablet (Zocor) 80 mg PO DAILY 05/02/20 08/27/21 triamcinolone acetonide 0.025 % 1 applictn TOP TID 05/02/20 08/27/21 topical cream vitamins A,C,P-gvit-[id number] [ICaps 1 tab PO DAILY 05/02/20 08/27/21 AREDS] Allergies Allergy/AdvReac Type Severity Reaction Status Date / Time No Known Drug Allergies Allergy Verified 08/27/21 11:08 Review of Systems Review of Systems ROS Unobtainable: All systems reviewed & are unremarkable except as noted in HPI and below Patient History Medical History Arthritis Former smoker Hyperlipidemia Hypertension Surgical History History of left hip replacement Hx of BSO (bilateral salpingo-oophorectomy) (06/06/20) S/P tonsillectomy and adenoidectomy [place] teeth extracted Family History Mother Myocardial infarct Social History household members: spouse Smoking Status: Former smoker alcohol intake: former Smoking Status: Former smoker Substance Use Type: does not use Exam Narrative Exam Narrative: GEN: well nourished, well appearing female, alert and oriented x 3, patient appears to be in mild distress. HEENT: Atraumatic, pupils are equal round reactive to light, extraocular movements are intact, nares are clear, TMs are clear with no fluid, there is no conjunctival pallor. Throat is clear without any exudates, erythema, tonsillar enlargement or uvular deviation, no cervical vertebral tenderness. HEART: Regular rate and rhythm without murmur, clicks, rubs. Pulses are equal in upper and lower extremities LUNGS:Lungs clear to auscultation, no wheezes, rales, crackles, chest moves symmetrically ABD:bowel sounds normal, soft, non-tender, no guarding, rebound, rigidity, no masses noted, no hepatosplenomegaly, pelvic rock is negative. :No CVA tenderness MSCL: Patient has tenderness over the right hip. She is shortened and externally rotated with the right lower extremity. She does not have any other bony tenderness throughout the leg. She has range of motion with flexion extension of the ankle. Positive pulses bilaterally. Sensation to light touch is present. No muscle atrophy appreciated. Patient has normal range of motion of all other 3 extremities. NEURO:CN 2-12 intact, sensation normal Initial Vital Signs Initial Vital Signs: Vital Signs Temperature 98.0 F 11/12/21 18:16 Pulse Rate 77 11/12/21 18:16 Respiratory Rate 16 11/12/21 18:16 Blood Pressure 216/90 H 11/12/21 18:16 Pulse Oximetry 100 11/12/21 18:16 Scores GCS Sanna coma scale eye opening: Spontaneous Sanna coma scale verbal response: Orientated Sanna coma scale motor response: Obey commands [place] coma scale total score: 15 Course Orders Ordered: ED Orders 11/12/21 18:17 XR chest 1V Stat XR hip w pel if done RT 2V Stat 11/12/21 18:27 BMP [Basic Metabolic Panel] Stat CBC Auto Diff [Complete Blood Count AUTO DIFF] Stat PTT [Partial Thromboplastin Time] Stat Prothrombin Time INR Stat Type and Screen Stat 11/12/21 18:42 COVID19 -Nasal swab/Pre-Proc Stat 11/12/21 19:09 Consult to Orthopedic Surgery Urgent Acetaminophen (Acetaminophen 325 Mg Tablet) 650 mg PO Q6HR PRN PRN Reason: Fever/Mild Pain (1-3) Sodium Chloride (Normal Saline 0.9%) 1,000 mls @ 100 mls/hr IV CONT NYA Lisinopril (Lisinopril 10 Mg Tablet) 10 mg PO DAILY NYA Morphine Sulfate (Morphine 2 Mg/Ml Inj) 2 mg IV Q4HR PRN PRN Reason: pain Ondansetron HCl (Ondansetron 4 Mg/2 Ml Inj) 4 mg IV Q6HR PRN PRN Reason: Nausea And Vomiting Last Admin: 11/12/21 18:30 Dose: 4 mg Documented by: SUMANONER Ondansetron HCl (Ondansetron 4 Mg/2 Ml Inj) 4 mg IV Q4HR PRN PRN Reason: Nausea And Vomiting Discontinued Medications Morphine Sulfate (Morphine 2 Mg/Ml Inj) 2 mg IV NOW ONE Stop: 11/12/21 18:18 Last Admin: 11/12/21 18:30 Dose: 2 mg Documented by: SUMANONER Reevaluation(s) Reevaluation #1: Pain improved. Patient aware of hip fracture and plan for repair. Time: 19:00 Consultations Consultation #1: Dr. Do, orthopedic surgery. Plan for OR tomorrow. Will likely see tonight with plan for admit to medicine. Time: 19:01 Consultation #2: Dr. Erik monroe [facility], accepts for admission. Requests for bridging orders. Vital Signs Vital signs: Vital Signs - 8 hr 11/12/21 18:16 Temperature 98.0 F Pulse Rate 77 Respiratory Rate 16 Blood Pressure 216/90 H Pulse Oximetry 100 MDM - Fall Lab Data Result diagrams: 11/12/21 18:27 11/12/21 18:27 Labs: Lab Results 11/12/21 11/12/21 11/12/21 Range/Units 18:27 18:27 18:27 WBC 7.8 (4.5-11.0) X10^3/uL RBC 4.08 (4.0-5.2) X10^6/uL Hgb 12.7 (12.0-16.0) g/dL Hct 37.4 (36-46) % MCV 91.6 (80-100) fL MCH 31.0 (26-34) PG MCHC 33.9 (30-36) % RDW 13.3 (11.6-14.8) % Plt Count 279 (150-400) X10^3/uL Neut % (Auto) 61.1 (50-75) % Lymph % (Auto) 27.8 (25-40) % [place] % (Auto) 8.7 (3-14) % Eos % (Auto) 1.9 L (2-4) % Baso % (Auto) 0.5 (0-2) % Neut # (Auto) 4700 (9229-9396) /uL Lymph # (Auto) 2200 (0881-3829) /uL [place] # (Auto) 700 (0-900) /uL Eos # (Auto) 100 (0-450) /uL Baso # (Auto) 0 (0-100) /uL PT 11.0 (10.1-12.7) SECONDS INR 1.0 (0.9-1.3) APTT 40 H D (26.4-36.2) SECONDS Sodium 128 L (137-145) mmol/L Potassium 4.5 (3.4-5.1) mmol/L Chloride 96 L (98-107) mmol/L Carbon Dioxide 27 (22-32) mmol/L BUN 19 H (7-17) mg/dL Creatinine 0.94 (0.52-1.04) mg/dL Estimated GFR 57.0 L (>60) mL/min BUN/Creatinine Ratio 20.2 (6-22) Glucose 108 (80-110) mg/dL Calcium 9.6 (8.4-10.2) mg/dL SARS-CoV-2 (PCR) (Negative) 11/12/21 Range/Units 18:42 WBC (4.5-11.0) X10^3/uL RBC (4.0-5.2) X10^6/uL Hgb (12.0-16.0) g/dL Hct (36-46) % MCV (80-100) fL MCH (26-34) PG MCHC (30-36) % RDW (11.6-14.8) % Plt Count (150-400) X10^3/uL Neut % (Auto) (50-75) % Lymph % (Auto) (25-40) % [place] % (Auto) (3-14) % Eos % (Auto) (2-4) % Baso % (Auto) (0-2) % Neut # (Auto) (4835-7174) /uL Lymph # (Auto) (4418-1712) /uL [place] # (Auto) (0-900) /uL Eos # (Auto) (0-450) /uL Baso # (Auto) (0-100) /uL PT (10.1-12.7) SECONDS INR (0.9-1.3) APTT (26.4-36.2) SECONDS Sodium (137-145) mmol/L Potassium (3.4-5.1) mmol/L Chloride (98-107) mmol/L Carbon Dioxide (22-32) mmol/L BUN (7-17) mg/dL Creatinine (0.52-1.04) mg/dL Estimated GFR (>60) mL/min BUN/Creatinine Ratio (6-22) Glucose (80-110) mg/dL Calcium (8.4-10.2) mg/dL SARS-CoV-2 (PCR) Negative (Negative) Imaging Data Chest x-ray: My Impression: nap Radiologist's Impression: [address] [address] XRay Report Signed Patient: Jeanette Murry MR#: [id number] : 1940 Acct:[id number] Age/Sex: 81 / F Date of Service: 11/12/21 Loc: ED Accession Number: [id number] ?? Procedure: XR chest 1V Ordering Provider: Kylee Mirza D.O. PROCEDURE:? XR CHEST 1V ? INDICATIONS:? fall ? TECHNIQUE:? One view of the chest was acquired.? ? COMPARISON:? [facility], CR, XR CHEST 1V, 07/26/2020, 5:07. ? FINDINGS:? ? Surgical changes and devices:? None.? ? Lungs and pleura:? Minimal left basilar atelectasis and infiltrate.? Remainder the lungs and pleural spaces are clear. ? Mediastinum:? Mediastinal contours appear normal.? Heart size is normal.? Atherosclerotic vascular calcification noted in the aortic arch. ? Bones and chest wall:? No suspicious bony lesions.? Overlying soft tissues appear unremarkable.? ? IMPRESSION:? Minimal left basilar atelectasis and infiltrate.? No pneumothorax. ? ? ? Approved by: Cosmo Velazco M.D. on 11/12/2021 at 17:53? Extremity x-ray #1: My Impression: right hip fracture. Radiologist's Impression: Jeanette Murry??81??F??1940 ? Allergy/Adv: No Known Drug Allergies Close Hip X-Ray (Signed) Cosmo Velazco - 11/12/21 Chest X-Ray 11/12/21 Mammogram Screening (Signed) Bal Oneil - 10/20/21 Bone Densitometry 02/20/21 Mammogram Diagnostic (Signed) Kendall Spear - 10/22/20 Chest X-Ray (Signed) Jenae Jc - 07/26/20 Abdomen Ultrasound (Signed) Becky Hernández - 07/25/20 Abdomen/Pelvis CT (Signed) Michele Mackenzie - 04/26/20 Breast Ultrasound (Signed) Jenae Jc - 12/18/19 Mammogram, Additional Views (Signed) Bal Oneil - 11/29/19 Breast Ultrasound (Signed) Bal Oneil - 11/29/19 Mammogram Screening (Signed) Bal Oneil - 11/13/19 Mammogram Screening (Signed) Ochoa Gudino - 11/07/18 Launch?[address] [address] XRay Report Signed Patient: Jeanette Murry MR#: [id number] : 1940 Acct:[id number] Age/Sex: 81 / F Date of Service: 11/12/21 Loc: Accession Number: [id number] ?? Procedure: XR hip w pel if done RT 2V Ordering Provider: Kylee Mirza D.O. PROCEDURE:? XR HIP W PEL IF DONE RT 2V ? INDICATIONS:? GLF, right hip pain, rotated shortened. ? TECHNIQUE:? 2 views of the hip were acquired.? ? COMPARISON:? None. ? FINDINGS:? ? Bones:? Comminuted intertrochanteric right hip fracture noted.? Femoral head is appropriate contour resides in the acetabulum.? There is severe acetabular joint space narrowing and subchondral sclerosis present.? Mild degenerative changes noted in lower lumbar spine.? Total left hip arthroplasty noted.? Pelvic ring appears intact. ? Soft tissues:? No suspicious soft tissue calcifications or masses.? ? IMPRESSION:? ? Comminuted right intertrochanteric fracture Total left prosthesis in place Moderate right acetabular osteoarthritis ? ? ? Approved by: Cosmo Velazco M.D. on 11/12/2021 at 17:52? [facility] Narrative Medical decision making narrative: This is an 81-year-old female who comes to the emergency department with complaint of right hip pain after ground level fall. Patient states she was in the kitchen she rolled her ankle and fell onto her right hip. She was able to pull herself to a chair eat her dinner and then realized she was having significant pain. She had some numbness tingling in her foot initially but st ates that is improved. Chest x-ray negative, hip x-ray shows right intertrochanteric fracture which is comminuted. She has hyponatremia on lab work. I spoke with Orthopedic surgery who plans for OR tomorrow. We did discuss patient is on aspirin daily. Spoke with her primary care team and Dr. Valencia accepts with request for bridging orders. Plan to continue patient's lisinopril she was hypertensive on arrival even after pain medication is still 160 systolic. Discharge Plan Departure Patient Disposition: Admitted As Inpatient Clinical Impression: Closed fracture of right hip, Hyponatremia Admit Date/Time: 11/12/21 19:12 Admit Provider: Oliva Valencia
[2021-11-12] MEDS: MORPHINE 2 MG/ML INJ IV ×2 (18:30→20:33)
[2021-11-12] MEDS: ONDANSETRON 4 MG/2 ML INJ IV ×2 (18:30→20:34)
[2021-11-12 18:41] LABS: Add Manual Diff / Slide Review NO; Basophils Absolute Auto 0 /uL (0-100); Basophils Percent Auto 0.5 % (0-2); Eosinophils Absolute Auto 100 /uL (0-450); Eosinophils Percent Auto 1.9 % (2-4); Hematocrit 37.4 % (36-46); Hemoglobin 12.7 g/dL (12.0-16.0); Lymphocytes Absolute Auto 2200 /uL (1100-4500); Lymphocytes Percent Auto 27.8 % (25-40); Mean Corpuscular HGB Conc 33.9 % (30-36); Mean Corpuscular Volume 91.6 fL (80-100); Monocytes Absolute Auto 700 /uL (0-900); Monocytes Percent Auto 8.7 % (3-14); Neutrophils Absolute Auto 4700 /uL (1500-7000); Neutrophils Percent Auto 61.1 % (50-75); Platelet Count 279 X10^3/uL (150-400); Red Blood Cell Count 4.08 X10^6/uL (4.0-5.2); Red Cell Distribution Width 13.3 % (11.6-14.8); White Blood Cell Count 7.8 X10^3/uL (4.5-11.0)
[2021-11-12 18:46] LABS: PTT Partial Thromboplastin Tim 40 SECONDS (26.4-36.2)
[2021-11-12 18:48] LABS: BUN Creatinine Ratio 20.2 (6-22); Blood Urea Nitrogen 19 mg/dL (7-17); Calcium 9.6 mg/dL (8.4-10.2); Carbon Dioxide 27 mmol/L (22-32); Chloride 96 mmol/L (98-107); Glucose 108 mg/dL (80-110); HEMOLYSIS < 15 (0-50); Potassium 4.5 mmol/L (3.4-5.1); Sodium 128 mmol/L (137-145)
[2021-11-12 19:01] LABS: COVID19 -Nasal RAPID Negative (Negative)
[2021-11-12 19:30] VITALS: BP 161/74; PULSE 78; RESP 16; O2SAT 99
[2021-11-12 20:25] VITALS: BMI 21.1
[2021-11-12 20:30] VITALS: BP 149/74; PULSE 82; RESP 18; TEMP 36.5; O2SAT 100
[2021-11-12] MEDS: ACETAMINOPHEN 325 MG TABLET 650 MG PO (20:34)
[2021-11-12 20:35] VITALS: BP 149/74; PULSE 74
[2021-11-12] MEDS: lisinopriL 10 MG TABLET PO (20:35)
[2021-11-12] MEDS: SODIUM CHLORIDE 0.9% 1,000 ML 100 ML IV (20:36)
--- NOTE | 2021-11-12 20:44 | PC.NURSE ---
admit from ED: rt hip fx after fall at home. patient arrived via stretcher, 4pa sliderboard transfer. increased pain w/ any movement, 05/06. attempted deep breathing and distraction, patient states she is unable to move to use bedpan. prefers to wait to move linens or use bedpan until pain controlled. PRN morphine/apap given, zofran. call to Dr Valencia, order received for: lorazepam 0.5mg IVP PRN for anxiety, and orders to place varela.
--- NOTE | 2021-11-12 21:18 | P.HP_ITS ---
History of Present Illness History of Present Illness Date Patient Seen: 11/12/21 Time Patient Seen: 21:19 Date of Onset of Symptoms: 11/12/21 Chief complaint: GLF R hip pain Narrative: She had shoes that were weird and she tripped and fell and landed on her right hip. She notes significant right hip pain. She notes she is pretty healthy overall. She does have some generalized arthritis but did not have previous severe right hip pain. She has a history of a left total hip arthroplasty in the past. Patient History Medical History Arthritis Former smoker Hyperlipidemia Hypertension Surgical History History of left hip replacement Hx of BSO (bilateral salpingo-oophorectomy) (06/06/20) S/P tonsillectomy and adenoidectomy [place] teeth extracted Family & Social History Family History Mother Myocardial infarct Social History: household members spouse Prior Living Arrangements House Safety & Behavioral: Feels Safe in Current Yes Environment Been Physically Hurt or No Threatened By a Person Suicidal Ideation Description None Suicide Plan Description No Plan Tobacco & Substance use: Tobacco type cigarettes Smoking Status Former smoker alcohol intake former Substance Use Type does not use Meds Home Medications and Allergies Home Medications Medication Instructions Recorded Confirmed Type glucosamine sulfate 500 mg tablet 500 mg PO DAILY tab 05/02/20 11/12/21 History (Glucosamine) lisinopril 10 mg tablet 10 mg PO DAILY 05/02/20 11/12/21 History simvastatin 80 mg tablet (Zocor) 80 mg PO DAILY 05/02/20 11/12/21 History triamcinolone acetonide 0.025 % 1 applictn TOP TID 05/02/20 11/12/21 History topical cream vitamins A,C,D-pjjo-[id number] [ICaps 1 tab PO DAILY 05/02/20 11/12/21 History AREDS] Allergies Allergy/AdvReac Type Severity Reaction Status Date / Time No Known Drug Allergies Allergy Verified 08/27/21 11:08 Review of Systems Review of Systems Narrative: She was not lightheaded her short of breath prior to the fall she was not dizzy she said she did stripped over weird shoes and noted right hip pain. She does not note significant arthritic complaints into the right hip. She lives with her who was in reasonable health and would like to go home after surgery. Exam Vital Signs (past 8 hours): - 11/12/21 18:16 11/12/21 19:30 11/12/21 20:30 Temperature 98.0 F 97.7 F Pulse Rate 77 78 82 Respiratory Rate 16 16 18 Blood Pressure 216/90 H 161/74 H 149/74 H Pulse Oximetry 100 99 100 11/12/21 20:35 Temperature Pulse Rate 74 Respiratory Rate Blood Pressure 149/74 H Pulse Oximetry Oxygen Delivery Method Room Air Oxygen Flow Rate 0 Narrative Exam Narrative: HEENT is benign she is alert she is oriented neck is supple cor is regular rate rhythm lungs are clear abdomen soft and benign examination of her right hip shows obvious shortening of her right leg she is in an externally rotated posit ion or skins intact she is neurologically intact distally in her scans intact distally her calf soft bilaterally she has a well-healed left hip posterolateral scar Objective Labs Result Diagrams: 11/12/21 18:27 11/12/21 18:27 Labs: Laboratory Results - last 24 hr 11/12/21 11/12/21 11/12/21 18:27 18:27 18:27 WBC 7.8 RBC 4.08 Hgb 12.7 Hct 37.4 MCV 91.6 MCH 31.0 MCHC 33.9 RDW 13.3 Plt Count 279 Neut % (Auto) 61.1 Lymph % (Auto) 27.8 [place] % (Auto) 8.7 Eos % (Auto) 1.9 L Baso % (Auto) 0.5 Neut # (Auto) 4700 Lymph # (Auto) 2200 [place] # (Auto) 700 Eos # (Auto) 100 Baso # (Auto) 0 PT 11.0 INR 1.0 APTT 40 H D Sodium 128 L Potassium 4.5 Chloride 96 L Carbon Dioxide 27 BUN 19 H Creatinine 0.94 Estimated GFR 57.0 L BUN/Creatinine Ratio 20.2 Glucose 108 Calcium 9.6 SARS-CoV-2 (PCR) Blood Type Antibody Screen 11/12/21 11/12/21 18:27 18:42 WBC RBC Hgb Hct MCV MCH MCHC RDW Plt Count Neut % (Auto) Lymph % (Auto) [place] % (Auto) Eos % (Auto) Baso % (Auto) Neut # (Auto) Lymph # (Auto) [place] # (Auto) Eos # (Auto) Baso # (Auto) PT INR APTT Sodium Potassium Chloride Carbon Dioxide BUN Creatinine Estimated GFR BUN/Creatinine Ratio Glucose Calcium SARS-CoV-2 (PCR) Negative Blood Type A Positive Antibody Screen Negative X-ray show a comminuted right proximal femur fracture with intertrochanteric fracture with subtrochanteric and extension, there is some baseline right hip osteoarthritis but not severe, she has a left total hip arthroplasty in place with no evidence of loosening Assessment & Plan Assessment and plan (1) Closed fracture of right hip: Status: Acute (2) Hyponatremia: Status: Acute Plan I have recommended a right hip open reduction internal fixation. The procedure alternatives risks benefits complications were discussed with the patient. She does have some baseline arthritis but she has severe comminution of her proximal femur and I think she is better treated with open reduction internal fixation with an intramedullary nail even noting that she has baseline mild osteoarthr itis. Limits the procedure options risks benefits and complications were discussed in detail I told her we will work on getting her scheduled for surgery probably sometime tomorrow. Time Spent With Patient Critical Care time: I spent a total of [] minutes of critical care time on this patient's care today; this time is exclusive of procedural time. Quality VTE Deep Vein Thrombosis/Pulmonary Embolism Present on Admission: No
[2021-11-12] MEDS: LORazepam 2 MG/ML INJ 0.5 MG IV (21:43)
[2021-11-12 23:16] VITALS: BP 145/83; PULSE 79; RESP 14; TEMP 36.6; O2SAT 99
[2021-11-13] VITALS (18 sets, daily range): BP systolic 123–182; BP diastolic 58–79; PULSE 78–120; RESP 14–20; TEMP 36.4–37.3; O2SAT 96–100; BMI 21.1
--- NOTE | 2021-11-13 | DI.RAD.S_ITS ---
PROCEDURE: XR HIP W PEL IF DONE RT 2V INDICATIONS: Post op. TECHNIQUE: 2 views of the hip were acquired. COMPARISON: [facility], CR, XR HIP W PEL IF DONE RT 2V, 11/12/2021, 18:16. FINDINGS: Bones: Status post ORIF of right intertrochanteric hip fracture. Intramedullary lorenza with single distal interlocking screw and 2 proximal dynamic compression screws have been placed for internal fixation of right femur fracture. Postsurgical changes compatible with left hip arthroplasty. No suspicious bony lesions. The visualized pelvic ring appears intact. Soft tissues: No suspicious soft tissue calcifications or masses. IMPRESSION: Expected postsurgical change for ORIF of intertrochanteric right hip fracture. Dictated by: Jenae Jc MD, PhD on 11/13/2021 at 16:40 Approved by: Jenae Jc MD, PhD on 11/13/2021 at 16:41
--- NOTE | 2021-11-13 | DI.RAD.S_ITS ---
PROCEDURE: XR HIP W PEL IF DONE RT 2V INDICATIONS: Post op TECHNIQUE: 4 intraoperative fluoroscopic views of the hip were acquired. COMPARISON: [facility], CR, XR HIP W PEL IF DONE RT 2V, 11/12/2021, 18:16. FINDINGS: Intraoperative fluoroscopic images of right hip and right femur shows internal fixation of previously noted intertrochanteric fracture of right proximal femur with anatomic right femoral alignment. IMPRESSION: Fluoro guidance was provided intraoperatively for ORIF of right femur. Dictated by: Param Colon M.D. on 11/13/2021 at 15:54 Approved by: Param Colon M.D. on 11/13/2021 at 15:54
[2021-11-13 06:40] LABS: Add Manual Diff / Slide Review NO; Basophils Absolute Auto 0 /uL (0-100); Basophils Percent Auto 0.4 % (0-2); Eosinophils Absolute Auto 0 /uL (0-450); Eosinophils Percent Auto 0.1 % (2-4); Hematocrit 32.6 % (36-46); Hemoglobin 11.3 g/dL (12.0-16.0); Lymphocytes Absolute Auto 1400 /uL (1100-4500); Lymphocytes Percent Auto 18.8 % (25-40); Mean Corpuscular HGB Conc 34.7 % (30-36); Mean Corpuscular Hemoglobin 31.6 PG (26-34); Mean Corpuscular Volume 91.1 fL (80-100); Monocytes Absolute Auto 700 /uL (0-900); Monocytes Percent Auto 9.4 % (3-14); Neutrophils Absolute Auto 5300 /uL (1500-7000); Neutrophils Percent Auto 71.3 % (50-75); Platelet Count 233 X10^3/uL (150-400); Red Blood Cell Count 3.57 X10^6/uL (4.0-5.2); Red Cell Distribution Width 13.2 % (11.6-14.8); White Blood Cell Count 7.4 X10^3/uL (4.5-11.0)
[2021-11-13] MEDS: SODIUM CHLORIDE 0.9% 1,000 ML 100 ML IV (06:43)
[2021-11-13 06:49] LABS: BUN Creatinine Ratio 21.6 (6-22); Blood Urea Nitrogen 16 mg/dL (7-17); Calcium 8.7 mg/dL (8.4-10.2); Carbon Dioxide 25 mmol/L (22-32); Chloride 99 mmol/L (98-107); Estimated Glomerular Filt Rate > 60.0 mL/min (>60); Glucose 103 mg/dL (80-110); HEMOLYSIS < 15 (0-50); Potassium 4.5 mmol/L (3.4-5.1); Sodium 125 mmol/L (137-145)
--- NOTE | 2021-11-13 08:58 | P.HP_ITS ---
History of Present Illness History of Present Illness Date Patient Seen: 11/13/21 Time Patient Seen: 09:00 Chief complaint: GLF R hip pain Narrative: PT admitted last night for R hip fx s/p GLF at home. Ortho plans repair today, NPO until surgery. laying in bed pain ok controlled if immobile at bedside. Patient History Medical History Arthritis Former smoker Hyperlipidemia Hypertension Surgical History History of left hip replacement Hx of BSO (bilateral salpingo-oophorectomy) (06/06/20) S/P tonsillectomy and adenoidectomy [place] teeth extracted Family & Social History Family History Mother Myocardial infarct Social History: household members spouse Prior Living Arrangements House Safety & Behavioral: Feels Safe in Current Yes Environment Been Physically Hurt or No Threatened By a Person Suicidal Ideation Description None Suicide Plan Description No Plan Tobacco & Substance use: Tobacco type cigarettes Smoking Status Former smoker alcohol intake former Substance Use Type does not use Meds Home Medications and Allergies Home Medications Medication Instructions Recorded Confirmed Type glucosamine sulfate 500 mg tablet 500 mg PO DAILY tab 05/02/20 11/12/21 History (Glucosamine) lisinopril 10 mg tablet 10 mg PO DAILY 05/02/20 11/12/21 History simvastatin 80 mg tablet (Zocor) 80 mg PO DAILY 05/02/20 11/12/21 History triamcinolone acetonide 0.025 % 1 applictn TOP TID 05/02/20 11/12/21 History topical cream vitamins A,C,[id number]-vska-[id number] [ICaps 1 tab PO DAILY 05/02/20 11/12/21 History AREDS] Allergies Allergy/AdvReac Type Severity Reaction Status Date / Time No Known Drug Allergies Allergy Verified 08/27/21 11:08 Review of Systems Review of Systems Narrative: all systems reviewed and negative except as otherwise documented in HPI Exam Vital Signs (past 8 hours): - 11/13/21 03:58 Temperature 97.8 F Pulse Rate 85 Respiratory Rate 18 Blood Pressure 131/72 Pulse Oximetry 100 Oxygen Delivery Method Room Air Oxygen Flow Rate 0 Narrative Exam Narrative: laying in bed Const General: cooperative Eyes General: appearance normal, both eyes and all related structures Neck Neck: full ROM Resp Auscultation: clear to auscultation bilaterally Cardio Rate: regular rate Rhythm: regular rhythm Heart Sounds: S1 normal and S2 normal GI Inspection: normal to inspection Auscultation: normal bowel sounds Skin General: no rashes or lesions noted Neuro General: patient alert, patient awake, patient oriented x3 and CN's II-XI intact bilaterally Extrem Other: RLE distal NV intact painful to move Psych Appearance: grossly normal and well kempt Mental Status: mental status grossly normal Speech and Movement: speech and movement normal Objective Labs Result Diagrams: 11/13/21 06:32 11/13/21 06:32 Labs: Laboratory Results - last 24 hr 11/12/21 11/12/21 11/12/21 18:27 18:27 18:27 WBC 7.8 RBC 4.08 Hgb 12.7 Hct 37.4 MCV 91.6 MCH 31.0 MCHC 33.9 RDW 13.3 Plt Count 279 Neut % (Auto) 61.1 Lymph % (Auto) 27.8 [place] % (Auto) 8.7 Eos % (Auto) 1.9 L Baso % (Auto) 0.5 Neut # (Auto) 4700 Lymph # (Auto) 2200 [place] # (Auto) 700 Eos # (Auto) 100 Baso # (Auto) 0 PT 11.0 INR 1.0 APTT 40 H D Sodium 128 L Potassium 4.5 Chloride 96 L Carbon Dioxide 27 BUN 19 H Creatinine 0.94 Estimated GFR 57.0 L BUN/Creatinine Ratio 20.2 Glucose 108 Calcium 9.6 SARS-CoV-2 (PCR) Blood Type Antibody Screen 11/12/21 11/12/21 11/13/21 18:27 18:42 06:32 WBC 7.4 RBC 3.57 L Hgb 11.3 L Hct 32.6 L MCV 91.1 MCH 31.6 MCHC 34.7 RDW 13.2 Plt Count 233 Neut % (Auto) 71.3 Lymph % (Auto) 18.8 L [place] % (Auto) 9.4 Eos % (Auto) 0.1 L Baso % (Auto) 0.4 Neut # (Auto) 5300 Lymph # (Auto) 1400 [place] # (Auto) 700 Eos # (Auto) 0 Baso # (Auto) 0 PT INR APTT Sodium Potassium Chloride Carbon Dioxide BUN Creatinine Estimated GFR BUN/Creatinine Ratio Glucose Calcium SARS-CoV-2 (PCR) Negative Blood Type A Positive Antibody Screen Negative 11/13/21 06:32 WBC RBC Hgb Hct MCV MCH MCHC RDW Plt Count Neut % (Auto) Lymph % (Auto) [place] % (Auto) Eos % (Auto) Baso % (Auto) Neut # (Auto) Lymph # (Auto) [place] # (Auto) Eos # (Auto) Baso # (Auto) PT INR APTT Sodium 125 L Potassium 4.5 Chloride 99 Carbon Dioxide 25 BUN 16 Creatinine 0.74 Estimated GFR > 60.0 BUN/Creatinine Ratio 21.6 Glucose 103 Calcium 8.7 SARS-CoV-2 (PCR) Blood Type Antibody Screen Assessment & Plan Assessment & Plan narrative: #R hip fx following along with ortho who plan repair i believe today #Hypertension, benign essential continue home lisinopril with prns pain control #hyperlipidemia resume home atorvastatin after surgery diet: NPO Code: DNR MDM: Time Spent With Patient Critical Care time: I spent a total of [] minutes of critical care time on this patient's care today; this time is exclusive of procedural time. Quality VTE Deep Vein Thrombosis/Pulmonary Embolism Present on Admission: No
[2021-11-13] MEDS: lisinopriL 10 MG TABLET PO (09:32)
--- NOTE | 2021-11-13 10:40 | CM.DANOTE ---
Discharge Assessment Note: Patient is 81yo Female admitted for surgery to repair closed fracture of right hip by vaughn. Patient has history of left hip replacement which patient indicated she discharged home after this procedure. Patient would like to discharge home when medically stable and is open to HH if this is required. Patient is fully independent at baseline without assistive devices but has used a walker before. Patient resides at home with her spouse who pt reports would be able to assist with her care needs at home. Patient reported 2 steps into her home at all entry points. Patient has no prior SNF or HH history. Patient reported she has a daughter who lives in [place] who could also come assist her at home if needed. INS: Medicare and [facility]. Plan: anticipated to discharge home with spouse via POV. Pending Pt eval post surgery to determine discharge needs. ANIMAL ECOLOGIST will continue to follow patient throughout clinical course of admission. Taco MALCOLM Discharge Planning/Care Management CM Discharge Assessment Start: 11/13/21 10:33 Freq: Status: Active Protocol: Document 11/13/21 10:33 LON (Rec: 11/13/21 10:40 LON [id number]) Discharge Planning Assessment Assigned Roving Teller Taco Wilder [facility] DPOA/Assigned Designee Name Spouse Tarik Murry Contact Information [phone] (cell) Advance Directives? Yes Advance Directives on File Yes History Provided By Patient,Medical Record Has Patient been admitted in last 30 No days? Prior Living Arrangements House Household Members spouse Type of transporation used prior to Drives own vehicle admit Independent with ADL's Yes Is patient alert and oriented? Yes Comment fully independent at baseline Caregiver for Another No Comment has been independent without AD... has 2 walking sticks using a FWW with PT today/ Patient/Family Preference Home with Home Health,OP PT Therapy Comment pending PT eval after surgery Barriers to Discharge No Discharge Plan Home Transportation Arrangement spouse will transport at time of discharge Whiteboard Updated in Patient Room with Yes name and ext. # of Roving Teller Review Status In Process Next Review Type Continued Stay Review
--- NOTE | 2021-11-13 11:38 | SUR.HOLD ---
Pt brought down to preop area, new IV started r forearm. Dr Ace in to see pt.
[2021-11-13] MEDS: LACTATED RINGERS 1,000 ML 42 ML IV (11:41)
--- NOTE | 2021-11-13 11:46 | PM.PREOP ---
Pre-operative Note COVID-19 COVID-19 status: Negative Criteria for continued procedure: Possibility delay results in more complex future surgery or treatment, Increased loss of function, Continuing or worsening of significant or severe pain, Deterioration of the patient's condition or overall health, Delay expected to result in less-positive ultimate med/surg outcome and Non-surgical alternatives not available or appropriate per current SOC Interval Note History & Physical reviewed/Exam performed by Physician: Yes Changes to H&P: No
[2021-11-13] MEDS: TRANEXAMIC ACID 1,000 MG in SODIUM CHLORIDE 0.9% 100 ML 200 ML IV (12:20)
[2021-11-13] MEDS: CEFAZOLIN 2 GM/20 ML SYRINGE IV ×2 (12:26→20:09)
--- NOTE | 2021-11-13 12:33 | SUR.OPER ---
Head on pillow. Supine on fracture table with operative leg secured in traction. Other leg secured in padded stirrup. Right Arm across chest, with egg crate under the arm and secured with sheet and tape. Left arm on armboard with blanket under the arm.
[2021-11-13] MEDS: BUPIVACAINE 0.25% W/ EPI 30 ML VIAL INJ (13:11)
--- NOTE | 2021-11-13 14:19 | PM.OP.1 ---
Operative Date/Time/Diagnoses Date of procedure: 11/13/21 Time of procedure: 14:19 Pre-op diagnosis: Right intertrochanteric hip fracture subtrochanteric extension S72.001a Post-op diagnosis: same Procedure & Clinicians Procedure: Fixation right pertrochanteric hip fracture with cephalomedullary lorenza CPT code 68363 Same procedure as scheduled: Yes Indications: Operative indications: The patient sustained a right pertrochanteric hip fracture and was indicated for operative fixation. The risks, benefits, and alternatives of procedure were discussed at length with the patient, and they expressed understanding. These included bleeding, infection, damage to nerves, pain, malunion, nonunion, blood clots, pulmonary embolism and cardiovascular risks associated with general anesthesia. Consent was signed. Surgeon: Sondra Ace Click Yes if Unassisted: Yes Anesthesia Type: General Operative Notes Findings: Right pertrochanteric hip fracture inter troch with subtrochanteric extension and exited out the lateral wall Closure Type: primary Specimen(s): none sent Prosthetic devices, grafts, tissues, transplants, or devices: Do and nephew inter cárdenas nail long 10 mm x 40 cm 95/90 lagging compression screw 40x5 distal interlock Estimated Blood Loss (mL): 200 Blood products transfused: none Tourniquet time (min): 0 Procedure in detail: Hip fracture intramedullary nailing cpt 62540 Preoperative diagnosis: Right pertrochanteric fracture of the femur, closed Postoperative diagnose: Right pertrochanteric fracture of the femur, closed Implant: 10mm x 40cm nail Do and Nephew Intertan , 95/90 lag screw and compression screw. 40mmx 5.0mm distal interlock Operative indications: The patient sustained a right pertrochanteric hip fracture and was indicated for operative fixation. The risks, benefits, and alternatives of procedure were discussed at length with the patient, and they expressed understanding. These included bleeding, infection, damage to nerves, pain, malunion, nonunion, blood clots, pulmonary embolism and cardiovascular risks associated with general anesthesia. Consent was signed. Operative finding: There was a right pertrochanteric fracture. Reduction and internal fixation was performed with a 10 mm x 40 cm nail. Operative procedure: The patient was seen, and site of surgery marked in the preoperative area. This was the right hip. The patient was then brought to the operating room and placed on the operative table and general anesthesia administered. The patient was positioned on the fracture table in the standard fashion with a well-padded boots and a padded peroneal post. An SCD was on the contralateral leg. A formal time-out was called to confirm the patient's side and site of surgery, administration of preoperative antibiotics. All personnel agreed. The operative leg was then gently manipulated under fluoroscopic guidance to obtain a closed reduction near anatomic alignment. At this point, the operative extremity was prepped and draped in the standard sterile manner. A guidewire was placed percutaneously, and the starting point obtained. A small incision was made over the guidewire. An opening drill was inserted to the level of lesser trochanter. The ball-tip guidewire was then passed and confirmed to be within the canal distally on the biplanar fluoroscopic imaging. The wire was then measured the nail length selected. The canal was then sequentially reamed, and over-reamed by 1.5 for 10 mm by 40 cm nail. The nail was then advanced to the proper depth and rotation the guide for the cephalomedullary screws was inserted. An incision was made for this and the guide placed to the bone. A guidewire was placed to the proper depth and confirmed on AP and lateral imaging. The tip apex distance was evaluated and appropriate. Next the outer cortex was drilled for the interlocking screw and the anti rotation bar was placed. The cephalomedullary screw length was measured off the drill. A 95 mm lag screw was selected and the corresponding interlocking compression screw. The guidewire was then overdrilled and a lag screw placed. The anti rotation bar was removed and then our locking compression screws placed and confirmed on biplanar fluoroscopy. The integrated compression screw was tightened. Traction was released and attention turned to the distal interlock screw, this was placed in the standard perfect [place] technique. Fluoro AP and lateral images were captured in the OR confirming alignment and hardware placement. Wounds were irrigated and closed in layers 2-0 in the subcutaneous layer and [place] for skin closure. 0.25% Marcaine was injected at the incision sites for local anesthesia. Sterile dressings were applied. There no immediate complications noted. The surgical counts were correct. The patient tolerated the procedure well and was taken to the recovery room. Postoperative plan: The patient will be weight-bearing as tolerated on the operative extremity. They will follow up in 2 weeks (10-14 days ) at the clinic for suture/staple removal. They will start Lovenox for DVT prophylaxis postop day 1 and continued for 28 days postop. Complications: none Post-operative Disposition: PACU Plan for aftercare: Postoperative plan: The patient will be weight-bearing as tolerated on the operative extremity. They will follow up in 2 weeks (10-14 days ) at the clinic for suture/staple removal. They will start Lovenox for DVT prophylaxis postop day 1 and continued for 28 days postop.
--- NOTE | 2021-11-13 14:23 | SUR.PHASEI ---
Report called to Jesusita MULLEN and opportunity for questions given. Return phone number at time of report [phone]. Pt updated on plan of care and is agreeable. pt returning to 214.
[2021-11-13] MEDS: DOCUSATE 100 MG CAPSULE PO (20:08)
[2021-11-13] MEDS: ACETAMINOPHEN 325 MG TABLET 975 MG PO (20:08)
[2021-11-13] MEDS: OXYCODONE IR 5 MG TABLET PO (20:08)
[2021-11-14 00:23] VITALS: BP 109/59; PULSE 89; RESP 16; TEMP 36.6; O2SAT 99
[2021-11-14] MEDS: CEFAZOLIN 2 GM/20 ML SYRINGE IV (04:15)
[2021-11-14 05:00] VITALS: BP 138/76; PULSE 88; RESP 18; TEMP 36.6; O2SAT 99
[2021-11-14 07:01] LABS: Hematocrit 30.6 % (36-46); Hemoglobin 10.8 g/dL (12.0-16.0); Mean Corpuscular HGB Conc 35.2 % (30-36); Mean Corpuscular Hemoglobin 32.2 PG (26-34); Mean Corpuscular Volume 91.5 fL (80-100); Platelet Count 213 X10^3/uL (150-400); Red Blood Cell Count 3.35 X10^6/uL (4.0-5.2); Red Cell Distribution Width 13.5 % (11.6-14.8); White Blood Cell Count 9.1 X10^3/uL (4.5-11.0)
[2021-11-14 08:05] VITALS: BP 135/66; PULSE 89; RESP 18; TEMP 37.4; O2SAT 98
[2021-11-14] MEDS: DOCUSATE 100 MG CAPSULE PO ×2 (08:52→20:42)
[2021-11-14 08:53] VITALS: BP 135/66; PULSE 90
[2021-11-14] MEDS: lisinopriL 10 MG TABLET PO (08:53)
[2021-11-14] MEDS: CALCIUM CARBONATE 600 MG TABLET PO ×2 (08:54→20:42)
[2021-11-14] MEDS: OXYCODONE IR 5 MG TABLET PO ×2 (08:54→13:18)
[2021-11-14] MEDS: CHOLECALCIFEROL (VITAMIN D3) 1,000 UNIT TABLET 1000 UNIT PO (08:54)
[2021-11-14] MEDS: ACETAMINOPHEN 325 MG TABLET 975 MG PO ×3 (08:55→20:43)
[2021-11-14] MEDS: ENOXAPARIN 40 MG/0.4 ML SYRINGE SUBCUT (08:56)
--- NOTE | 2021-11-14 09:11 | PM.PNPO.1 ---
Subjective Subjective Date Patient Seen: 11/14/21 Time Patient Seen: 09:11 Interval history: Patient is complaining of moderate right hip and leg pain. Denies any new numbness or tingling. Denies any chest pain or shortness of breath. She has not worked with physical therapy yet. Her is available Exam Vital Signs (past 8 hours): - 11/14/21 05:00 11/14/21 08:53 Temperature 97.8 F Pulse Rate 88 90 Respiratory Rate 18 Blood Pressure 138/76 135/66 Pulse Oximetry 99 Oxygen Delivery Method Room Air Oxygen Flow Rate 0 Narrative Exam Narrative: Pleasant 81-year-old female, resting comfortably in bed, no acute distress. Dressings are clean, dry, intact. Bilateral lower extremity: Motor functions are grossly intact, sensation is grossly intact to light touch, calves are soft and nontender to palpation. Objective Labs Result Diagrams: 11/14/21 06:49 11/13/21 06:32 Labs: Laboratory Results - last 24 hr 11/14/21 06:49 WBC 9.1 RBC 3.35 L Hgb 10.8 L Hct 30.6 L MCV 91.5 MCH 32.2 MCHC 35.2 RDW 13.5 Plt Count 213 PFSH Medical History Arthritis Former smoker Hyperlipidemia Hypertension Surgical History History of left hip replacement Hx of BSO (bilateral salpingo-oophorectomy) (06/06/20) S/P tonsillectomy and adenoidectomy [place] teeth extracted Family History Mother Myocardial infarct Social History household members: spouse Smoking Status: Former smoker alcohol intake: former Assessment & Plan Post-op Postoperative Procedures: Procedures Operation Date: 11/13/21 10:45 Actual Procedure Side Surgeon p IM Nail Hip Right Sondra Ace MD Postoperative day: 1 Postoperative status: doing well Postoperative status narrative: Stable status post right hip cephalomedullary nail Postoperative plan: routine post-op care Postoperative plan narrative: -mobilize with PT. Weightbearing as tolerated with front wheel walker. -Lovenox daily times 28 days for DVT prophylaxis -continue with current multimodal pain management -DC home when cleared by Hospitalist. Follow-up with Ortho in 10-14 days for postoperative visit. Quality VTE Deep Vein Thrombosis/Pulmonary Embolism Present on Admission: No
--- NOTE | 2021-11-14 10:55 | PT.IIE ---
Current Diagnoses Hypo-osmolality and hyponatremia (11/12/21) Fracture of unspecified part of neck of right femur, initial encounter for closed fracture (11/12/21) Surgery Performed Operation Date: 11/13/21 10:45 Actual Procedures p IM Nail Hip(Right) - Sondra Ace MD Medical History (Last Reviewed 11/14/21 @ 09:12 by Natalie Jean PA-C) Arthritis Former smoker Hyperlipidemia Hypertension Physical Therapy Inpatient Evaluation/Re-Eval M1 PT/OT-IP Prior Functional Status Start: 11/14/21 12:47 Freq: NEEDED Status: Active Protocol: Document 11/14/21 10:55 AB (Rec: 11/14/21 13:09 AB [id number]) Medical Review Prior Functional Status Medical History Reviewed Yes Communication able to make needs known Mobility and Gait pt stated that she is independent with all mobilities and ambulation without AD Social History Household Members spouse Living Arrangements House Number of Floors (Floors) One Floor Number of Stairs To Enter/Railing? 2 steps without rails Home Environment High Toilet,Walk in Shower Home Equipment Straight Cane,Hand Held Shower M2 PT-IP Current Condition Start: 11/14/21 12:47 Freq: NEEDED Status: Active Protocol: Document 11/14/21 10:55 AB (Rec: 11/14/21 13:09 AB [id number]) Physical Therapy Current Condition Current Condition Evaluation Date 11/14/21 Treatment Diagnosis GLF s/p R hip fx s/p ORIF; difficulty in walking Onset Date 11/12/21 M3 PT-IP Subjective Start: 11/14/21 12:47 Freq: NEEDED Status: Active Protocol: Document 11/14/21 10:55 AB (Rec: 11/14/21 13:09 AB [id number]) Subjective Physical Therapy Visit Type Type Initial Evaluation Visit Start Time 10:55 Visit Stop Time 11:55 Total Visit Minutes 60 Number of ROOM ATTENDANTS Visits 0 Physical Therapy Visit Comments Patient Comments asked pt regarding home set up and pt can be defensive. when asked regarding stairs to get into the house, pt stated that there are no rails and she does not think it is a problem. when PT informed pt regarding safety and PT is just asking home set up to know what pt has for safe d/c home. pt stated that she is just answering PT's questions and does not think it is a problem that her stairs does not have rails and she was able to use her FWW ~ 20 years ago to get into the house when she had her hip done. Pt stated that she is getting upset with PT. Asked pt other questions regarding equipement at home and pt stated why will I have a FWW at home?! I had one before but gave it away. pt stated that somebody told her that she can get equipement here in the hospital and when PT stated that we can only dispense a FWW but it is for purchase, pt got upset again and stated why will they say that I can get the equipement here. informed pt that she will need a FWW and a shower chair. Pt stated that she has a lawn chair that she can use. informed pt that to make sure the chair will not slide and not too low for her. Pt again got upset and state: How will I know if my chair will be too low?! informed pt to call her spouse to obtain equipment needs. Pt called her spouse and informed that she needs a FWW and a toilet seat and did not say a shower chair. Pt pacified a little after talking to her spouse and agreed to continue on with PT. Therapy Pain Assessment Pain When Pain Assessed During Mobility Location right hip Intensity 7 Scale Used Numeric (0 - 10) Pain Management Techniques Distraction,Modification of Treatment,Re-positioning, Timing of Activity with Medications M4 PT-IP Mobility and Gait Start: 11/14/21 12:47 Freq: NEEDED Status: Active Protocol: Document 11/14/21 10:55 AB (Rec: 11/14/21 13:09 AB [id number]) PT-Bed Mobility Assessment Supine to Sit Supine to Sit Maximum Assistance,1 Person Assistance,Head of Bed Elevated,Bedrails PT-Transfer Assessment Sit to and From Stand Sit to and from Stand Maximum Assistance,1 Person Assistance,Use of Upper Extremities Equipment Transfer Assistive Device Gait Belt,Front Wheeled Walker Orthotic/Prosthetic Devices or Brace: No Transfers Transfer Destination Chair Transfer Technique ambulated Transfer Ability Level of Assist Maximum Assistance,1 Person Assistance,Use of Upper Extremities Comments Mobility Comments completed supine to sit max A and max cues. sat on EOB SBA. completed sit to stand max A and max cues. (+) R knee buckling. cued for quads activation. pt ambulated ~ 6 ft using FWW max A and max cues. Pt with heavy UE weight bearing on FWW and requires max A for steadiness and assist to prevent R knee from buckling. pt sat on chair. stated that she is too fatigue . positioned pt on chair. educated pt on safety. Pt stated that she does not want to go to SNF. call light and table placed within reach. Gait Assessment Gait Gait Assistance Required: Maximum Assistance,Total Assistance Distance (Feet) 6 Able to Maintain Weight Bearing Status Yes During Gait Assistive Devices Assistive Device Gait Belt,Front Wheeled Walker Orthotic/Prosthetic Devices or Brace: No Gait Deviations General Gait Pattern Antalgic,Decreased Stride Length,Decreased Feet Clearance Factors Limiting Gait Function Factors Limiting Gait Function Decreased Activity Tolerance, Decreased Strength,Difficulty Following Directions,Limited Range of Motion,Pain,Poor Balance,Poor Safety Awareness PT-Balance Assessment Sitting Balance and Reactions Static Sitting Balance Ability Good Dynamic Sitting Balance Ability Good Standing Balance and Reactions Static Standing Balance Ability Poor Dynamic Standing Balance Ability Poor Device Used FWW M5 PT-IP Objective Assessments Start: 11/14/21 12:47 Freq: NEEDED Status: Active Protocol: Document 11/14/21 10:55 AB (Rec: 11/14/21 13:09 AB [id number]) Orientation Orientation/Cognition Level of Alertness Alert Orientation Name Language Function Ability No Deficits Noted Safety Awareness Decreased Safety Awareness Memory Description No Deficits Noted Gross Range of Motion Lower Extremity ROM Assessment Within Functional Limits Strength Lower Extremity Strength Assessment Right Impaired Hip 3-/5 Knee 3-/5 Sensation Assessment Sensation Gross Sensation WNL Muscle Tone Muscle Tone WNL Yes M6 PT-IP Treatment Start: 11/14/21 12:47 Freq: NEEDED Status: Active Protocol: Document 11/14/21 10:55 AB (Rec: 11/14/21 13:09 AB [id number]) Physical Therapy Treatment Education Education Provided Precautions,Weight Bearing Status,Post-Op Packet,Safety M7 PT-IP Assessment and Plan Start: 11/14/21 12:47 Freq: NEEDED Status: Active Protocol: Document 11/14/21 10:55 AB (Rec: 11/14/21 13:09 AB [email or web address]) PT Summary Assessment and Plan Potential Rehabilitation Potential Fair Status of Condition at Evaluation Evolving Summary Impairments Pain,ROM,Strength,Balance, Coordination,Sensation,Tone, Cognition,Bed Mobility, Transfers,Gait,Activity Tolerance Assessment Summary pt requiring max A with all mobility using FWW and has (+) R knee buckling during standing and ambulation. Pt will require SNF rehab at this time but pt stated that she does not want to go to SNF. will continue to assess progress and when appropriate, will conduct caregiver training. pt also has 2 steps to enter the house without rails and needs to safely complete before pt can safely go home. Goals Bed Mobility Goal Standby Assistance Transfer Goal Standby Assistance,Front Wheeled Walker Gait Goal Standby Assistance,Front Wheel Walker Gait Distance 150 Other Goals up/down 2 steps using SPC +OBIEE CONSULTANT min A Days to Meet Goals 10 Frequency of Treatment Frequency Of Treatment Twice a Day Treatment Plan Physical Therapy Treatment Plan Bed Mobility Training,Transfer Training,Gait Training, Therapeutic Exercise,Balance Retraining,Post Op Education, Discharge Planning,Hot or Cold Pack,Neuromuscular Re-ed, Coordination Retraining,Manual Therapy Weight Bearing Status Weight Bearing Status Weight Bear as Tolerated Allowed Weight Bearing Amount (enter % RLE WBAT or #) (%) Recommendations To Nursing Amount of Assist Needed 1 Person Assist Discharge Recommendations PT Discharge Recommendations SNF Rehab Transportation Needs at Discharge Wheelchair/Cabulance
[2021-11-14] MEDS: polyethylene glycoL 3350 17 GM POWD.PACK PO (12:07)
[2021-11-14 13:30] VITALS: BP 129/63; PULSE 84; RESP 18; TEMP 36.7; O2SAT 96
--- NOTE | 2021-11-14 14:26 | PT.IPTN ---
Current Diagnoses Hypo-osmolality and hyponatremia (11/12/21) Fracture of unspecified part of neck of right femur, initial encounter for closed fracture (11/12/21) Surgery Performed Operation Date: 11/13/21 10:45 Actual Procedures p IM Nail Hip(Right) - Sondra Ace MD Physical Therapy Treatment Note M2 PT-IP Current Condition Start: 11/14/21 12:47 Freq: NEEDED Status: Active Protocol: Document 11/14/21 10:55 AB (Rec: 11/14/21 13:09 AB [id number]) Physical Therapy Current Condition Current Condition Evaluation Date 11/14/21 Treatment Diagnosis GLF s/p R hip fx s/p ORIF; difficulty in walking Onset Date 11/12/21 M3 PT-IP Subjective Start: 11/14/21 12:47 Freq: NEEDED Status: Active Protocol: Document 11/14/21 14:03 KS (Rec: 11/14/21 14:54 KS [id number]) Subjective Physical Therapy Visit Type Type Treatment Note Visit Start Time 14:03 Visit Stop Time 14:26 Total Visit Minutes 23 Number of SHEEP BONER Visits 1 Physical Therapy Visit Comments Patient Comments Pt agreeable to participate, spouse present. M4 PT-IP Mobility and Gait Start: 11/14/21 12:47 Freq: NEEDED Status: Active Protocol: Document 11/14/21 14:03 KS (Rec: 11/14/21 14:54 KS [id number]) PT-Bed Mobility Assessment Sit to Supine Sit to Supine Moderate Assistance,1 Person Assistance Scooting Scooting to Edge of Bed Contact Guard Assistance PT-Transfer Assessment Sit to and From Stand Sit to and from Stand Contact Guard Assistance, Minimal Assistance,1 Person Assistance,Use of Upper Extremities Equipment Transfer Assistive Device Gait Belt,Front Wheeled Walker Orthotic/Prosthetic Devices or Brace: No Transfers Transfer Destination Bed Transfer Technique ambulated Transfer Ability Level of Assist Minimal Assistance,1 Person Assistance,Use of Upper Extremities Comments Mobility Comments Pt in chair and arrived. Pt agreeable to try ambulating again. Demonstrated gaitbelt and FWW bracing to pts . Pt CGA for scooting and Min A for sit<> stand from chair w/ FWW. She then ambulated ~20 ft w/ CGA and cues for R quad facilitation - no kneee buckling this visit. Pt c/o fatigue in BUE from weightbearing through FWW. She then sat in bed w/ sequencing cues and performed 3 more sit <>Stands w/ FWW Min A at first but on 2nd and 3rd pt complete w/ CGA and cues w/ FWW. Pt then require Mod A for LE elevation back into bed. Reveiwed LE exercises to promote blood flow and strengthening and pt w/ good understanding. Continued caregiver training scheduled for 10:30 AM tomorrow 11/15. Pt left in bed w/ alarm on and all needs in reach. Gait Assessment Gait Gait Assistance Required: Contact Guard Assist,1 Person Assist Distance (Feet) 20 Able to Maintain Weight Bearing Status Yes During Gait Assistive Devices Assistive Device Gait Belt,Front Wheeled Walker Orthotic/Prosthetic Devices or Brace: No Gait Deviations General Gait Pattern Antalgic,Decreased Stride Length,Decreased Feet Clearance Factors Limiting Gait Function Factors Limiting Gait Function Decreased Activity Tolerance, Decreased Strength,Difficulty Following Directions,Limited Range of Motion,Pain,Poor Balance,Poor Safety Awareness Comments Gait Comments Pt ambulates slowly w/ cues for R quad facilitation to prevent R knee buckling. Stair Climbing Assessment Comments Stair Climbing Comments Will need to assess prior to d /c home. PT-Balance Assessment Sitting Balance and Reactions Static Sitting Balance Ability Good Dynamic Sitting Balance Ability Good Standing Balance and Reactions Static Standing Balance Ability Fair Dynamic Standing Balance Ability Fair Device Used FWW M5 PT-IP Objective Assessments Start: 11/14/21 12:47 Freq: NEEDED Status: Active Protocol: Document 11/14/21 10:55 AB (Rec: 11/14/21 13:09 AB [id number]) Orientation Orientation/Cognition Level of Alertness Alert Orientation Name Language Function Ability No Deficits Noted Safety Awareness Decreased Safety Awareness Memory Description No Deficits Noted Gross Range of Motion Lower Extremity ROM Assessment Within Functional Limits Strength Lower Extremity Strength Assessment Right Impaired Hip 3-/5 Knee 3-/5 Sensation Assessment Sensation Gross Sensation WNL Muscle Tone Muscle Tone WNL Yes M6 PT-IP Treatment Start: 11/14/21 12:47 Freq: NEEDED Status: Active Protocol: Document 11/14/21 14:03 KS (Rec: 11/14/21 14:54 KS [id number]) Physical Therapy Treatment Exercises Exercises Ankle Pumps,Gluteal Sets,Quad Sets,Straight Leg Raises Education Education Provided Precautions,Weight Bearing Status,Post-Op Packet,Safety M7 PT-IP Assessment and Plan Start: 11/14/21 12:47 Freq: NEEDED Status: Active Protocol: Document 11/14/21 14:03 KS (Rec: 11/14/21 14:54 KS [id number]) PT Summary Assessment and Plan Potential Rehabilitation Potential Fair Status of Condition at Evaluation Evolving Summary Impairments Pain,ROM,Strength,Balance, Coordination,Sensation,Tone, Cognition,Bed Mobility, Transfers,Gait,Activity Tolerance Assessment Summary Pt showed improvement w/ mobility and activity tolerance this PM. She was able to ambulate ~20 ft w/ FWW and progress sit<>stand from needing Min A to CGA and cues w/ FWW. Pt limited in mobility due to pain and weakness and c/o BUE fatigue due to weightbearing through BUE when ambulating. Initiated caregiver training w/ pts but will need to complete and have scheduled for 10:30 am 11/15. Pts was able to acquire FWW and toilet rise for pt. She will need to complete caregiver and stair training prior to d/c. Goals Bed Mobility Goal Standby Assistance Transfer Goal Standby Assistance,Front Wheeled Walker Gait Goal Standby Assistance,Front Wheel Walker Gait Distance 150 Other Goals up/down 2 steps using SPC +CHARGE AUTHORIZER min A Days to Meet Goals 10 Frequency of Treatment Frequency Of Treatment Twice a Day Treatment Plan Physical Therapy Treatment Plan Bed Mobility Training,Transfer Training,Gait Training, Therapeutic Exercise,Balance Retraining,Post Op Education, Discharge Planning,Hot or Cold Pack,Neuromuscular Re-ed, Coordination Retraining,Manual Therapy Weight Bearing Status Weight Bearing Status Weight Bear as Tolerated Allowed Weight Bearing Amount (enter % RLE WBAT or #) (%) Recommendations To Nursing Amount of Assist Needed 1 Person Assist Discharge Recommendations PT Discharge Recommendations Home with 19/04 Assist Available,Home Health,SNF Rehab Transportation Needs at Discharge Private Vehicle,Wheelchair/ Cabulance
--- NOTE | 2021-11-14 14:59 | PM.PN.1 ---
Subjective Subjective Date Patient Seen: 11/14/21 Time Patient Seen: 09:30 Interval history: Now s/p arthroplasty with sore R hip. Hurts to range but looking forward to working with PT. She is determined to go home not to rehab will see how she does. Exam Vital Signs (past 8 hours): - 11/14/21 08:05 11/14/21 08:53 Temperature 99.3 F Pulse Rate 89 90 Respiratory Rate 18 Blood Pressure 135/66 135/66 Pulse Oximetry 98 Oxygen Delivery Method Room Air Oxygen Flow Rate 0 Narrative Exam Narrative: cheerful lying in bed on phone Const General: cooperative Nutritional Appearance: average body habitus HENMT Head: normal to inspection and atraumatic Eyes General: appearance normal, both eyes and all related structures Resp Other: clear to ausculation bilaterally Cardio Other: regular rate and thythm S1/S2 GI Other: soft nontender nondistended NBS on auscultation Extrem Other: RLE with incisions under dressings, painful to gently range distal NV intact Psych Appearance: grossly normal Mental Status: mental status grossly normal Speech and Movement: speech and movement normal Mood: congruent mood Objective Labs Result Diagrams: 11/14/21 06:49 11/13/21 06:32 Labs: Laboratory Results - last 24 hr 11/14/21 06:49 WBC 9.1 RBC 3.35 L Hgb 10.8 L Hct 30.6 L MCV 91.5 MCH 32.2 MCHC 35.2 RDW 13.5 Plt Count 213 PFSH Medical History Arthritis Former smoker Hyperlipidemia Hypertension Surgical History History of left hip replacement Hx of BSO (bilateral salpingo-oophorectomy) (06/06/20) S/P tonsillectomy and adenoidectomy [place] teeth extracted Family History Mother Myocardial infarct Social History household members: spouse Smoking Status: Former smoker alcohol intake: former Assessment & Plan Assessment & Plan narrative: #R hip fx POD #1 s/p cephalomedullary nail in setting of previous L hip arthroplasty working wtih PT using RW likely home with HH there is one step up she needs to manage to get inside #Hypertension, benign essential continue home lisinopril with prns pain control #hyperlipidemia resume home atorvastatin after surgery diet: NPO Code: DNR MDM: Time Spent With Patient Critical Care time: I spent a total of [] minutes of critical care time on this patient's care today; this time is exclusive of procedural time. Quality VTE Deep Vein Thrombosis/Pulmonary Embolism Present on Admission: No
--- NOTE | 2021-11-14 18:36 | PC.NURSE ---
Day shift: Dr Galicia informed of Pts potassium level from yesterday and the day before. Also informed that no new labs ordered for 11/15/21.
[2021-11-14 20:14] VITALS: BP 130/66; PULSE 82; RESP 16; TEMP 36.6; O2SAT 98
[2021-11-14] MEDS: SODIUM CHLORIDE 0.9% 1,000 ML 42 ML IV (22:15)
[2021-11-15 04:07] VITALS: BP 152/83; PULSE 78; RESP 17; TEMP 37.1; O2SAT 99
[2021-11-15 05:28] LABS: Hematocrit 28.4 % (36-46); Hemoglobin 9.9 g/dL (12.0-16.0); Mean Corpuscular HGB Conc 34.7 % (30-36); Mean Corpuscular Hemoglobin 31.7 PG (26-34); Mean Corpuscular Volume 91.3 fL (80-100); Platelet Count 192 X10^3/uL (150-400); Red Blood Cell Count 3.11 X10^6/uL (4.0-5.2); Red Cell Distribution Width 12.9 % (11.6-14.8); White Blood Cell Count 7.9 X10^3/uL (4.5-11.0)
[2021-11-15 05:35] LABS: BUN Creatinine Ratio 18.5 (6-22); Blood Urea Nitrogen 15 mg/dL (7-17); Calcium 9.3 mg/dL (8.4-10.2); Carbon Dioxide 30 mmol/L (22-32); Chloride 96 mmol/L (98-107); Estimated Glomerular Filt Rate > 60.0 mL/min (>60); Glucose 106 mg/dL (80-110); HEMOLYSIS < 15 (0-50); Sodium 126 mmol/L (137-145)
[2021-11-15] MEDS: OXYCODONE IR 5 MG TABLET PO ×2 (07:21→12:44)
[2021-11-15 08:00] VITALS: BP 144/61; PULSE 83; RESP 16; TEMP 37.1; O2SAT 97
[2021-11-15 08:56] VITALS: BP 144/61; PULSE 79
[2021-11-15] MEDS: lisinopriL 10 MG TABLET PO (08:56)
[2021-11-15] MEDS: CHOLECALCIFEROL (VITAMIN D3) 1,000 UNIT TABLET 1000 UNIT PO (08:56)
[2021-11-15] MEDS: ACETAMINOPHEN 325 MG TABLET 975 MG PO ×3 (08:56→20:44)
[2021-11-15] MEDS: DOCUSATE 100 MG CAPSULE PO ×2 (08:56→20:44)
[2021-11-15] MEDS: polyethylene glycoL 3350 17 GM POWD.PACK PO (08:57)
[2021-11-15] MEDS: MAGNESIUM HYDROXIDE 30 ML UDC PO (08:57)
[2021-11-15] MEDS: ENOXAPARIN 40 MG/0.4 ML SYRINGE SUBCUT (09:03)
--- NOTE | 2021-11-15 10:25 | PT.IPTN ---
Current Diagnoses Hypo-osmolality and hyponatremia (11/12/21) Fracture of unspecified part of neck of right femur, initial encounter for closed fracture (11/12/21) Surgery Performed Operation Date: 11/13/21 10:45 Actual Procedures p IM Nail Hip(Right) - Sondra Ace MD Physical Therapy Treatment Note M2 PT-IP Current Condition Start: 11/14/21 12:47 Freq: NEEDED Status: Active Protocol: Document 11/14/21 10:55 AB (Rec: 11/14/21 13:09 AB [email or web address]) Physical Therapy Current Condition Current Condition Evaluation Date 11/14/21 Treatment Diagnosis GLF s/p R hip fx s/p ORIF; difficulty in walking Onset Date 11/12/21 M3 PT-IP Subjective Start: 11/14/21 12:47 Freq: NEEDED Status: Active Protocol: Document 11/15/21 09:55 KS (Rec: 11/15/21 12:32 KS [id number]) Subjective Physical Therapy Visit Type Type Treatment Note Visit Start Time 09:55 Visit Stop Time 10:25 Total Visit Minutes 30 Number of SOLAR ENGINEER Visits 2 Physical Therapy Visit Comments Patient Comments Pt agreeable to participate, spouse present. Therapy Pain Assessment Pain When Pain Assessed During Mobility Pain Present Pain Present Pain Reported Location right hip Scale Used did not quantify Pain Management Techniques Distraction,Modification of Treatment,Re-positioning, Timing of Activity with Medications M4 PT-IP Mobility and Gait Start: 11/14/21 12:47 Freq: NEEDED Status: Active Protocol: Document 11/15/21 09:55 KS (Rec: 11/15/21 12:32 KS [id number]) PT-Bed Mobility Assessment Supine to Sit Supine to Sit Contact Guard Assistance, Minimal Assistance,1 Person Assistance,Head of Bed Elevated Sit to Supine Sit to Supine Moderate Assistance,1 Person Assistance Scooting Scooting to Edge of Bed Contact Guard Assistance PT-Transfer Assessment Sit to and From Stand Sit to and from Stand Contact Guard Assistance, Minimal Assistance,1 Person Assistance,Use of Upper Extremities Equipment Transfer Assistive Device Gait Belt,Front Wheeled Walker Orthotic/Prosthetic Devices or Brace: No Transfers Transfer Destination Bed Transfer Technique STS Transfer Ability Level of Assist Minimal Assistance,1 Person Assistance,Use of Upper Extremities Comments Mobility Comments Pt in bed w/ spouse in room prepared for caregiver training upon arrival. Pt CGA to Min A for sup<>sit w/ use of gait belt to self assist RLE out of bed. CGA for scooting to edge. Pts spouse able to apply gaibelt correctly and provided CGA to Min A for pt sit<>stand w/ FWW . Upon standing, pt reported feeling weak but was eager to ambulate. Requested pt to wait for BP reading. Pt able to remain standing for BP and 89/49. Instructed pt to sit back down. Pt became nauseous but no emesis. Mod A for sit<> sup in bed. Min A and cues for pt scooting up in bed. Left in bed w/ alarm and SCDs on, spouse in room, and all needs in reach. Gait Assessment Comments Gait Comments Pt unsafe to ambulate due to symptomatic low BP. Stair Climbing Assessment Comments Stair Climbing Comments Will need to assess prior to d /c home. PT-Balance Assessment Sitting Balance and Reactions Static Sitting Balance Ability Good Dynamic Sitting Balance Ability Good Standing Balance and Reactions Static Standing Balance Ability Fair Dynamic Standing Balance Ability Fair Device Used FWW M5 PT-IP Objective Assessments Start: 11/14/21 12:47 Freq: NEEDED Status: Active Protocol: Document 11/14/21 10:55 AB (Rec: 11/14/21 13:09 AB [id number]) Orientation Orientation/Cognition Level of Alertness Alert Orientation Name Language Function Ability No Deficits Noted Safety Awareness Decreased Safety Awareness Memory Description No Deficits Noted Gross Range of Motion Lower Extremity ROM Assessment Within Functional Limits Strength Lower Extremity Strength Assessment Right Impaired Hip 3-/5 Knee 3-/5 Sensation Assessment Sensation Gross Sensation WNL Muscle Tone Muscle Tone WNL Yes M6 PT-IP Treatment Start: 11/14/21 12:47 Freq: NEEDED Status: Active Protocol: Document 11/15/21 09:55 KS (Rec: 11/15/21 12:32 KS [id number]) Physical Therapy Treatment Education Education Provided Precautions,Weight Bearing Status,Post-Op Packet,Safety M7 PT-IP Assessment and Plan Start: 11/14/21 12:47 Freq: NEEDED Status: Active Protocol: Document 11/15/21 09:55 KS (Rec: 11/15/21 12:32 KS [id number]) PT Summary Assessment and Plan Potential Rehabilitation Potential Fair Status of Condition at Evaluation Evolving Summary Impairments Pain,ROM,Strength,Balance, Coordination,Sensation,Tone, Cognition,Bed Mobility, Transfers,Gait,Activity Tolerance Assessment Summary Pt limited in mobility this AM due to symptomatic low BP of 89/49. Pt CGA to Min A for sup <>sit and sit<>stand, pts was able to provide gaitbelt and assistance. Mod A for sit<>sup due to lightheadedness and weakness from low BP. Will need to complete caregiver and stair training when appropriate if pt going home. Goals Bed Mobility Goal Standby Assistance Transfer Goal Standby Assistance,Front Wheeled Walker Gait Goal Standby Assistance,Front Wheel Walker Gait Distance 150 Other Goals up/down 2 steps using SPC +RECRUITING OPERATIONS CONSULTANT min A Days to Meet Goals 10 Frequency of Treatment Frequency Of Treatment Twice a Day Treatment Plan Physical Therapy Treatment Plan Bed Mobility Training,Transfer Training,Gait Training, Therapeutic Exercise,Balance Retraining,Post Op Education, Discharge Planning,Hot or Cold Pack,Neuromuscular Re-ed, Coordination Retraining,Manual Therapy Weight Bearing Status Weight Bearing Status Weight Bear as Tolerated Allowed Weight Bearing Amount (enter % RLE WBAT or #) (%) Recommendations To Nursing Amount of Assist Needed 1 Person Assist Discharge Recommendations PT Discharge Recommendations Home with 19/04 Assist Available,Home Health,SNF Rehab Transportation Needs at Discharge Private Vehicle,Wheelchair/ Cabulance
--- NOTE | 2021-11-15 10:28 | P.PN_ITS ---
Subjective Subjective Date Patient Seen: 11/15/21 Time Patient Seen: 10:28 Interval history: Discussed patient's status with her PCP Dr. Frida Kaiser yesterday. This morning she was doing quite well until she tried to get up with physical therapy. Then she became hypotensive with fairly classic symptoms of being somewhat nauseated diaphoretic etcetera. Returning her to bed she felt tremendously better and blood pressure improved. Had a good appetite this morning a without difficulty. Had no nausea until she tried to stand up. Denies any respiratory symptoms at any point. Has had no chest pain no sense of palpitations etcetera Exam Vital Signs (past 8 hours): - 11/15/21 04:07 11/15/21 08:00 11/15/21 08:56 Temperature 98.8 F 98.8 F Pulse Rate 78 83 79 Respiratory Rate 17 16 Blood Pressure 152/83 H 144/61 H 144/61 H Pulse Oximetry 99 97 Oxygen Delivery Method Room Air Oxygen Flow Rate 0 Narrative Exam Narrative: Elderly female lying in hospital bed looking somewhat frail and pale HEENT-remarkable Lungs-good breath sounds no wheezes Heart-regular rate and rhythm Abdomen-benign Extremities-no cyanosis clubbing or edema, wound appears stable dressed without evidence of active bleeding etcetera Objective Labs Result Diagrams: 11/15/21 05:13 11/15/21 05:13 Labs: Laboratory Results - last 24 hr 11/15/21 11/15/21 05:13 05:13 WBC 7.9 RBC 3.11 L Hgb 9.9 L Hct 28.4 L MCV 91.3 MCH 31.7 MCHC 34.7 RDW 12.9 Plt Count 192 Sodium 126 L Potassium 5.0 Chloride 96 L Carbon Dioxide 30 BUN 15 Creatinine 0.81 Estimated GFR > 60.0 BUN/Creatinine Ratio 18.5 Glucose 106 Calcium 9.3 PFSH Medical History Arthritis Former smoker Hyperlipidemia Hypertension Surgical History History of left hip replacement Hx of BSO (bilateral salpingo-oophorectomy) (06/06/20) S/P tonsillectomy and adenoidectomy [place] teeth extracted Family History Mother Myocardial infarct Social History household members: spouse Smoking Status: Former smoker alcohol intake: former Assessment & Plan Assessment & Plan narrative: 1. Postop day 2, Status post intramedullary nail-actually doing quite well. Bit of orthostatic hypotension this morning of uncertain etiology. However did quite well with physical therapy yesterday. Patient likely to will be able to return home although certainly not ready for discharge as yet either from a postoperative or medical standpoint in my opinion Continue with skilled therapies and continue to monitor. CBC okay this morning not suggesting any active bleeding nor does her clinical picture suggests that in light of her orthostasis as above 2. Orthostatic hypotension-unclear as to exact etiology. Probably still some ongoing fluid shifts. BMP and CBC this morning reassuring. She is on a fluid restriction because of her modestly low sodium perhaps that is part of it. No active symptoms to suggest anything like a pulmonary embolism or other etiology. Cardiovascularly she seems stable otherwise. I will give her a bolus of IV fluids and remove her fluid restriction and see how she does. 3. Hyponatremia-it appears historically patient's sodium runs about 125-128. I am not overly concerned about her sodium at this point. Going to remove her fluid restriction as above. Give her some IV fluids as above will be normal saline which should help to some degree. Will plan to recheck again tomorrow but not overly concerned about her sodium at this point. 4. Disposition-patient likely will be able to return home with home health services when ready for discharge potentially soon as tomorrow. Note: Greater than 20 minutes total time was spent on day of service, evaluating the patient on the floor, including examining the patient, discussing clinical course with clinical and nursing staff, reviewing clinical course in the computer, preparing documentation and writing orders for continued management of care, discussing status with family as appropriate, reviewing plans for the next 24 hours with both patient/family and nursing staff as appropriate. Time Spent With Patient Critical Care time: I spent a total of [] minutes of critical care time on this patient's care today; this time is exclusive of procedural time. Quality VTE Deep Vein Thrombosis/Pulmonary Embolism Present on Admission: No
[2021-11-15] MEDS: CALCIUM CARBONATE 600 MG TABLET PO ×2 (10:31→20:44)
--- NOTE | 2021-11-15 10:38 | PM.PNPO.1 ---
Subjective Subjective Date Patient Seen: 11/15/21 Time Patient Seen: 10:38 Interval history: Patient is feeling lightheaded with physical therapy this morning and needs to lie down. Her pain is moderate. Denies any new numbness or tingling. Her is at bedside. Exam Vital Signs (past 8 hours): - 11/15/21 04:07 11/15/21 08:00 11/15/21 08:56 Temperature 98.8 F 98.8 F Pulse Rate 78 83 79 Respiratory Rate 17 16 Blood Pressure 152/83 H 144/61 H 144/61 H Pulse Oximetry 99 97 Oxygen Delivery Method Room Air Oxygen Flow Rate 0 Narrative Exam Narrative: Pleasant 81-year-old female, standing with physical therapy assistance and a walker. Distal dressing demonstrates a 1 cm area of dried blood, otherwise dressings are clean, dry, intact. Bilateral lower extremity motor functions grossly intact. The patient is displaying signs of orthostatic hypotension currently. Objective Labs Result Diagrams: 11/15/21 05:13 11/15/21 05:13 Labs: Laboratory Results - last 24 hr 11/15/21 11/15/21 05:13 05:13 WBC 7.9 RBC 3.11 L Hgb 9.9 L Hct 28.4 L MCV 91.3 MCH 31.7 MCHC 34.7 RDW 12.9 Plt Count 192 Sodium 126 L Potassium 5.0 Chloride 96 L Carbon Dioxide 30 BUN 15 Creatinine 0.81 Estimated GFR > 60.0 BUN/Creatinine Ratio 18.5 Glucose 106 Calcium 9.3 PFSH Medical History Arthritis Former smoker Hyperlipidemia Hypertension Surgical History History of left hip replacement Hx of BSO (bilateral salpingo-oophorectomy) (06/06/20) S/P tonsillectomy and adenoidectomy [place] teeth extracted Family History Mother Myocardial infarct Social History household members: spouse Smoking Status: Former smoker alcohol intake: former Assessment & Plan Post-op Postoperative Procedures: Procedures Operation Date: 02/17/22 10:45 Actual Procedure Side Surgeon p IM Nail Hip Right Sondra Ace MD Postoperative day: 2 Postoperative status narrative: Stable status post right hip cephalomedullary nail Postoperative plan narrative: -mobilize with PT. Weightbearing as tolerated with front wheel walker. -Lovenox daily times 28 days for DVT prophylaxis -continue with current multimodal pain management -DC home when cleared by Hospitalist, current leave a exhibiting orthostatic hypotension, likely DC tomorrow. -Follow-up with Ortho in 10-14 days for postoperative visit. Quality VTE Deep Vein Thrombosis/Pulmonary Embolism Present on Admission: No
[2021-11-15] MEDS: SODIUM CHLORIDE 0.9% 500 ML 250 ML IV (11:45)
--- NOTE | 2021-11-15 14:00 | PT.IPTN ---
Current Diagnoses Hypo-osmolality and hyponatremia (11/12/21) Fracture of unspecified part of neck of right femur, initial encounter for closed fracture (11/12/21) Surgery Performed Operation Date: 11/13/21 10:45 Actual Procedures p IM Nail Hip(Right) - Sondra Ace MD Physical Therapy Treatment Note M2 PT-IP Current Condition Start: 11/14/21 12:47 Freq: NEEDED Status: Active Protocol: Document 11/14/21 10:55 AB (Rec: 11/14/21 13:09 AB [id number]) Physical Therapy Current Condition Current Condition Evaluation Date 11/14/21 Treatment Diagnosis GLF s/p R hip fx s/p ORIF; difficulty in walking Onset Date 11/12/21 M3 PT-IP Subjective Start: 11/14/21 12:47 Freq: NEEDED Status: Active Protocol: Document 11/15/21 13:34 KS (Rec: 11/15/21 14:14 KS [id number]) Subjective Physical Therapy Visit Type Type Treatment Note Visit Start Time 13:34 Visit Stop Time 14:00 Total Visit Minutes 26 Number of CONTRACT ADMINISTRATIVE ASSISTANT Visits 3 Physical Therapy Visit Comments Patient Comments Pt agreeable to participate, spouse present. M4 PT-IP Mobility and Gait Start: 11/14/21 12:47 Freq: NEEDED Status: Active Protocol: Document 11/15/21 13:34 KS (Rec: 11/15/21 14:14 KS [id number]) PT-Bed Mobility Assessment Supine to Sit Supine to Sit Minimal Assistance,1 Person Assistance,Head of Bed Elevated Sit to Supine Sit to Supine Moderate Assistance,1 Person Assistance Scooting Scooting to Edge of Bed Contact Guard Assistance PT-Transfer Assessment Sit to and From Stand Sit to and from Stand Minimal Assistance,1 Person Assistance,Use of Upper Extremities Equipment Transfer Assistive Device Gait Belt,Front Wheeled Walker Orthotic/Prosthetic Devices or Brace: No Transfers Transfer Destination Bed Transfer Technique Pt ambulated w/ FWW Transfer Ability Level of Assist Minimal Assistance,1 Person Assistance,Use of Upper Extremities Comments Mobility Comments Pt in bed upon arrival, BP: 138/61 supine. Min A for sup<> sit for LLE elevation off of bed, CGA for scooting EOB, BP: 142/62 sitting. Pts spouse applied gaitbelt w/ cues and Min A for pt sit<>stand w/ FWW . Pts BP: 145/59 in standing. She then ambulated ~15 ft around room to other side of bed w/ FWW and CGA w/ cues for R quad activation/knee extension, no buckling today. Pts BP standing after ambulating 100/60 and pt reporting shakiness. CGA for stand<>sit, Mod A for LE elevation into bed. Caregiver training scheduled for 10:30 am tomorrow. Gait Assessment Gait Gait Assistance Required: Contact Guard Assist,1 Person Assist Distance (Feet) 15 Able to Maintain Weight Bearing Status Yes During Gait Assistive Devices Assistive Device Gait Belt,Front Wheeled Walker Orthotic/Prosthetic Devices or Brace: No Gait Deviations General Gait Pattern Antalgic,Decreased Stride Length,Decreased Feet Clearance Factors Limiting Gait Function Factors Limiting Gait Function Decreased Activity Tolerance, Decreased Strength,Difficulty Following Directions,Limited Range of Motion,Pain,Poor Balance,Poor Safety Awareness Comments Gait Comments Pt limited in ambulation due to weakness and shakiness. Pt c/o pain in BUE due to weightbearing. Stair Climbing Assessment Comments Stair Climbing Comments Will need to assess prior to d /c home. Unable to complete today due to increased fatigue and shakiness and low BP. PT-Balance Assessment Sitting Balance and Reactions Static Sitting Balance Ability Good Dynamic Sitting Balance Ability Good Standing Balance and Reactions Static Standing Balance Ability Fair Dynamic Standing Balance Ability Fair Device Used FWW M5 PT-IP Objective Assessments Start: 11/14/21 12:47 Freq: NEEDED Status: Active Protocol: Document 11/14/21 10:55 AB (Rec: 11/14/21 13:09 AB [id number]) Orientation Orientation/Cognition Level of Alertness Alert Orientation Name Language Function Ability No Deficits Noted Safety Awareness Decreased Safety Awareness Memory Description No Deficits Noted Gross Range of Motion Lower Extremity ROM Assessment Within Functional Limits Strength Lower Extremity Strength Assessment Right Impaired Hip 3-/5 Knee 3-/5 Sensation Assessment Sensation Gross Sensation WNL Muscle Tone Muscle Tone WNL Yes M6 PT-IP Treatment Start: 11/14/21 12:47 Freq: NEEDED Status: Active Protocol: Document 11/15/21 13:34 KS (Rec: 11/15/21 14:14 KS [id number]) Physical Therapy Treatment Exercises Exercises Ankle Pumps,Gluteal Sets,Quad Sets Education Education Provided Precautions,Weight Bearing Status,Post-Op Packet,Safety Other Treatments Other Treatment Performed Continued caregiver training w / pts spouse who was able to apply gait belt and assistance w/ sit<>stand and FWW stabilization w/ cues. Will need to continue caregiver training to assess ambulation and stair training. M7 PT-IP Assessment and Plan Start: 11/14/21 12:47 Freq: NEEDED Status: Active Protocol: Document 11/15/21 13:34 KS (Rec: 11/15/21 14:14 KS [id number]) PT Summary Assessment and Plan Potential Rehabilitation Potential Fair Status of Condition at Evaluation Evolving Summary Impairments Pain,ROM,Strength,Balance, Coordination,Sensation,Tone, Cognition,Bed Mobility, Transfers,Gait,Activity Tolerance Assessment Summary Pt able to tolerate more this PM, but still limited by shakiness, weakness, and low BP. Min A for sup<>sit for LE guidance off of bed, CGA for scooting, Min A sit<>stand, CGA short bout of ambulation, Mod A for LE into bed. BP 100/ 60 after ambulation. Cues for quad activation during ambulation. Scheduled continuation of caregiver training for 10:30 tomorrow morning to assess increased ambulation and stair training. Pt will require assistance at home and HHPT to improvr strength and mobility. Goals Bed Mobility Goal Standby Assistance Transfer Goal Standby Assistance,Front Wheeled Walker Gait Goal Standby Assistance,Front Wheel Walker Gait Distance 150 Other Goals up/down 2 steps using SPC +CLINICAL TRIAL ASSOCIATE min A Days to Meet Goals 10 Frequency of Treatment Frequency Of Treatment Twice a Day Treatment Plan Physical Therapy Treatment Plan Bed Mobility Training,Transfer Training,Gait Training, Therapeutic Exercise,Balance Retraining,Post Op Education, Discharge Planning,Hot or Cold Pack,Neuromuscular Re-ed, Coordination Retraining,Manual Therapy Other Recommendations and Next Treatment Caregiver and stair training Focus 10:30. 2 KELSIE no rails. Weight Bearing Status Weight Bearing Status Weight Bear as Tolerated Allowed Weight Bearing Amount (enter % RLE WBAT or #) (%) Recommendations To Nursing Amount of Assist Needed 1 Person Assist Discharge Recommendations PT Discharge Recommendations Home with 19/04 Assist Available,Home Health,SNF Rehab Transportation Needs at Discharge Private Vehicle,Wheelchair/ Cabulance
--- NOTE | 2021-11-15 15:09 | CM.DPC ---
DCP Cont: Met with patient in her room, and spouse, Tarik. Both pleasant individuals. Introduced self and role. Confirmed, home is the plan with home health. Asked them if they have used home health agencies before, and if so, if they have any preferences. Both stated, they have not had home health services, and are open to any of the agencies. DC planning will use the agency listed on the random calendar. Explained home health services, and what they offer, and explained that it's covered by their insurance. Let them know, nursing can come out, do assessments, labs, check meds. P.T, and O.T. can work with DME equipment as well. Placed a face to face in the front of patient's chart for provider to sign for home health services. In the meantime, patient will continue to work with the therapy team. P: DCP to continue to follow. Plan is home health, and will contact home health agency upon discharge. Will just need signed face to face. Tracie Francois RN/Telephone Sterilizer
[2021-11-15 19:34] VITALS: BP 137/63; PULSE 80; RESP 14; TEMP 37.1; O2SAT 97
[2021-11-16] VITALS (7 sets, daily range): BP systolic 127–150; BP diastolic 56–76; PULSE 74–85; RESP 16–19; TEMP 36.3–37; O2SAT 97–100
[2021-11-16] MEDS: SODIUM CHLORIDE 0.9% 1,000 ML 42 ML IV (00:29)
[2021-11-16] MEDS: OXYCODONE IR 5 MG TABLET PO ×5 (01:56→21:09)
[2021-11-16 05:41] LABS: BUN Creatinine Ratio 19.4 (6-22); Blood Urea Nitrogen 14 mg/dL (7-17); Carbon Dioxide 32 mmol/L (22-32); Chloride 98 mmol/L (98-107); Estimated Glomerular Filt Rate > 60.0 mL/min (>60); Glucose 100 mg/dL (80-110); HEMOLYSIS < 15 (0-50); Potassium 4.5 mmol/L (3.4-5.1); Sodium 128 mmol/L (137-145)
[2021-11-16 05:45] LABS: Hemoglobin 8.3 g/dL (12.0-16.0); Mean Corpuscular HGB Conc 34.8 % (30-36); Mean Corpuscular Hemoglobin 31.7 PG (26-34); Mean Corpuscular Volume 91.2 fL (80-100); Platelet Count 193 X10^3/uL (150-400); Red Blood Cell Count 2.63 X10^6/uL (4.0-5.2); Red Cell Distribution Width 13.1 % (11.6-14.8)
[2021-11-16] MEDS: polyethylene glycoL 3350 17 GM POWD.PACK PO (09:02)
[2021-11-16] MEDS: ENOXAPARIN 40 MG/0.4 ML SYRINGE SUBCUT (09:02)
[2021-11-16] MEDS: MAGNESIUM HYDROXIDE 30 ML UDC PO (09:02)
[2021-11-16] MEDS: CHOLECALCIFEROL (VITAMIN D3) 1,000 UNIT TABLET 1000 UNIT PO (09:03)
[2021-11-16] MEDS: DOCUSATE 100 MG CAPSULE PO (09:03)
[2021-11-16] MEDS: ATORVASTATIN 20 MG TABLET PO (09:03)
[2021-11-16] MEDS: ACETAMINOPHEN 325 MG TABLET 975 MG PO ×3 (09:03→21:10)
[2021-11-16] MEDS: CALCIUM CARBONATE 600 MG TABLET PO ×2 (09:03→21:09)
--- NOTE | 2021-11-16 10:41 | P.PN_ITS ---
Subjective Subjective Date Patient Seen: 11/16/21 Time Patient Seen: 10:41 Interval history: Patient did better yesterday after I saw her with her episode of hypotension etcetera. Still somewhat weak and shaky maybe even a bit hypotensive on her feet with physical therapy but was able to ambulate in the room. This morning feeling better. Blood pressures if anything her on the higher side. Lab work essentially unremarkable her sodium is come up and her he moglobin hematocrit are relatively stable. As I see here physical therapy is just starting to work with her but she says she feels much better than she did this time yesterday Exam Vital Signs (past 8 hours): - 11/16/21 05:04 11/16/21 09:00 Temperature 98.4 F 98.3 F Pulse Rate 81 85 Respiratory Rate 16 19 Blood Pressure 150/66 H 138/61 Pulse Oximetry 100 97 Oxygen Delivery Method Room Air Oxygen Flow Rate 0 Objective Labs Result Diagrams: 11/16/21 05:15 11/16/21 05:15 Labs: Laboratory Results - last 24 hr 11/16/21 11/16/21 05:15 05:15 WBC 6.0 RBC 2.63 L Hgb 8.3 L Hct 24.0 L MCV 91.2 MCH 31.7 MCHC 34.8 RDW 13.1 Plt Count 193 Sodium 128 L Potassium 4.5 Chloride 98 Carbon Dioxide 32 BUN 14 Creatinine 0.72 Estimated GFR > 60.0 BUN/Creatinine Ratio 19.4 Glucose 100 Calcium 9.0 PFSH Medical History Arthritis Former smoker Hyperlipidemia Hypertension Surgical History History of left hip replacement Hx of BSO (bilateral salpingo-oophorectomy) (06/06/20) S/P tonsillectomy and adenoidectomy [employer] teeth extracted Family History Mother Myocardial infarct Social History household members: spouse Smoking Status: Former smoker alcohol intake: former Assessment & Plan Assessment & Plan narrative: 1. Postop day 3 status post intramedullary nail-continue with physical therapy etcetera. Blood count dropped somewhat overnight maybe some delutiional factor since she did receive some IV fluids. No evidence of active bleeding. 2. Orthostatic hypotension-numbers are better will. She feels better up on her feet and did better yesterday afternoon. Perhaps lisinopril as well as some element of blood loss etcetershaquille was responsible. The moment I am not going to put her back on her lisinopril will see how she does through the course of the day today. I am going to certainly allow some element of hypertension in this setting. Her numbers earlier today were in the 150 systolic and that is okay. 3. Anemia-patient's numbers dropped slightly maybe due to IV fluids were given. She has no known cardiac history I think will tolerate blood counts at this level okay. Will continue to monitor and plan to recheck tomorrow. Would have a low threshold for transfusion. I will go ahead and start some iron replacement therapy 4. Hyponatremia-patient's numbers have come back up as expected. She received some IV saline yesterday. I discontinued her fluid restriction as I was concerned she was somewhat volume depleted as above. I think she is at baseline as far as her electrolytes etcetera 5. Disposition-patient to return home hopefully tomorrow with home health services etcetera Note: Greater than 30 minutes total time was spent on day of service, evaluating the patient on the floor, including examining the patient, discussing clinical course with clinical and nursing staff, reviewing clinical course in the computer, preparing documentation and writing orders for continued management of care, discussing status with family as appropriate, reviewing plans for the next 24 hours with both patient/family and nursing staff as appropriate. Time Spent With Patient Critical Care time: I spent a total of [] minutes of critical care time on this patient's care today; this time is exclusive of procedural time. Quality VTE Deep Vein Thrombosis/Pulmonary Embolism Present on Admission: No
--- NOTE | 2021-11-16 11:11 | PM.PNPO.1 ---
Subjective Subjective Date Patient Seen: 11/16/21 Time Patient Seen: 11:00 Interval history: Patient is status post intramedullary fixation a right hip fracture. Exam Vital Signs (past 8 hours): - 11/16/21 05:04 11/16/21 09:00 Temperature 98.4 F 98.3 F Pulse Rate 81 85 Respiratory Rate 16 19 Blood Pressure 150/66 H 138/61 Pulse Oximetry 100 97 Oxygen Delivery Method Room Air Oxygen Flow Rate 0 Narrative Exam Narrative: Dressing clean and dry. Positive dorsiflexion and plantar flexion. Nontender to palpation to the posterior aspect of calf. Objective Labs Result Diagrams: 11/16/21 05:15 11/16/21 05:15 Labs: Laboratory Results - last 24 hr 11/16/21 11/16/21 05:15 05:15 WBC 6.0 RBC 2.63 L Hgb 8.3 L Hct 24.0 L MCV 91.2 MCH 31.7 MCHC 34.8 RDW 13.1 Plt Count 193 Sodium 128 L Potassium 4.5 Chloride 98 Carbon Dioxide 32 BUN 14 Creatinine 0.72 Estimated GFR > 60.0 BUN/Creatinine Ratio 19.4 Glucose 100 Calcium 9.0 PFSH Medical History Arthritis Former smoker Hyperlipidemia Hypertension Surgical History History of left hip replacement Hx of BSO (bilateral salpingo-oophorectomy) (06/06/20) S/P tonsillectomy and adenoidectomy [place] teeth extracted Family History Mother Myocardial infarct Social History household members: spouse Smoking Status: Former smoker alcohol intake: former Assessment & Plan Post-op Postoperative Procedures: Procedures Operation Date: 11/13/21 10:45 Actual Procedure Side Surgeon p IM Nail Hip Right Sondra Ace MD Postoperative day: 3 Postoperative status: doing well Postoperative plan narrative: Patient to be discharged to a snf facility once cleared by the hospitalist. Quality VTE Deep Vein Thrombosis/Pulmonary Embolism Present on Admission: No
--- NOTE | 2021-11-16 11:12 | PC.NURSE ---
Day shift: Per conversation w/ Dr Patrick this AM Ananya d/c'francisco at approx 1100.
[2021-11-16] MEDS: FERROUS SULFATE 325 MG TABLET PO ×2 (11:15→16:22)
--- NOTE | 2021-11-16 11:16 | PT.IPTN ---
Current Diagnoses Hypo-osmolality and hyponatremia (11/12/21) Fracture of unspecified part of neck of right femur, initial encounter for closed fracture (11/12/21) Surgery Performed Operation Date: 11/13/21 10:45 Actual Procedures p IM Nail Hip(Right) - Sondra Ace MD Physical Therapy Treatment Note M2 PT-IP Current Condition Start: 11/14/21 12:47 Freq: NEEDED Status: Active Protocol: Document 11/14/21 10:55 AB (Rec: 11/14/21 13:09 AB [id number]) Physical Therapy Current Condition Current Condition Evaluation Date 11/14/21 Treatment Diagnosis GLF s/p R hip fx s/p ORIF; difficulty in walking Onset Date 11/12/21 M3 PT-IP Subjective Start: 11/14/21 12:47 Freq: NEEDED Status: Active Protocol: Document 11/16/21 11:16 AW (Rec: 11/16/21 12:56 AW [id number]) Subjective Physical Therapy Visit Type Type Treatment Note Visit Start Time 10:26 Visit Stop Time 11:16 Total Visit Minutes 50 Number of TURBO ELECTRIC OPERATOR Visits 0 Physical Therapy Visit Comments Patient Comments Pt agreeable to participate, spouse present. Therapy Pain Assessment Pain When Pain Assessed During Mobility Pain Present Pain Present Pain Reported Location right hip Scale Used not quantified Pain Management Techniques Distraction,Modification of Treatment,Timing of Activity with Medications M4 PT-IP Mobility and Gait Start: 11/14/21 12:47 Freq: NEEDED Status: Active Protocol: Document 11/16/21 11:16 AW (Rec: 11/16/21 12:56 AW [id number]) PT-Bed Mobility Assessment Supine to Sit Supine to Sit Minimal Assistance,1 Person Assistance Scooting Scooting to Edge of Bed Contact Guard Assistance PT-Transfer Assessment Sit to and From Stand Sit to and from Stand Minimal Assistance,1 Person Assistance,Use of Upper Extremities Equipment Transfer Assistive Device Gait Belt,Front Wheeled Walker Orthotic/Prosthetic Devices or Brace: No Transfers Transfer Destination Chair,Wheelchair Transfer Technique Pt ambulated w/ FWW Transfer Ability Level of Assist Minimal Assistance,1 Person Assistance,Use of Upper Extremities Comments Mobility Comments Pt was in bed as PT arrived. Spouse was present to participate in caregiver training. Spouse prepared gait belt as a loop for pt to use to slide her leg off the bed as he provided min assist. Pt had good trunk control and only needed assist for the leg . She sat up EOB and spouse donned gait belt. Min A to stand and pt was shaky but denied lightheadedness. She ambulated with FWW to the w/c set up outside the room as her spouse provided CGA for ambulation and transfer. Pt was wheeled to the stairs where her spouse assisted her to stand min A and pt used FWW to walk to the platform step. PT educated pt and her spouse on technique. Pt used SPC in her left hand as PT provided PREASSEMBLER AND INSPECTOR on the right side and spouse assisted from the left. Pt was able to lift her LLE to the step and used SPC+PREASSEMBLER AND INSPECTOR to lift RLE. Once standing on the platform, pt became anxious and shifted her weight posteriorly, calling out for help as she feared she would fall. PT and pt's spouse cued pt to pull her hips forward and pt was ultimately able to respond after several seconds with shaky BLE and unsteadiness. Instructed pt to use breathing techniques to manage her anxiety. Pt was then able to use FWW to descend and transfer back to the w/c. PT provided feedback and education on technique to improve stair climbing, including need to get COG over ANDREA while ascending and while standing on the platform. Pt was able to teach back and agreed to try again. This time , pt used SPC in right hand and spouse provided PREASSEMBLER AND INSPECTOR on the left side as PT steadies pt from the right. Pt was able to ascend with SPC+PREASSEMBLER AND INSPECTOR and was slightly shaky standing on platform but responded well to cues for RLE quad activation and posture. Pt used FWW again to descend, needing cues to lead with RLE which her spouse was able to provide. Pt agreed to ambulate back toward her room and walked 60 feet with FWW CGA. Instructed spouse in guarding technique and he was able to walk alongside and slightly behind pt without crossing his legs. Pt sat in w/c CGA and then was wheeled remaining distance back to the katarzyna. She stood CGA and used FWW to transfer to the chair CGA. Pt was left with call light and tray table in reach. Gait Assessment Gait Gait Assistance Required: Contact Guard Assist,1 Person Assist Distance (Feet) 60 Able to Maintain Weight Bearing Status Yes During Gait Assistive Devices Assistive Device Gait Belt,Front Wheeled Walker Orthotic/Prosthetic Devices or Brace: No Gait Deviations General Gait Pattern Antalgic,Decreased Stride Length,Decreased Feet Clearance Factors Limiting Gait Function Factors Limiting Gait Function Decreased Activity Tolerance, Decreased Strength,Difficulty Following Directions,Limited Range of Motion,Pain,Poor Balance,Poor Safety Awareness Comments Gait Comments Pt improved ambulation distance and spouse was able to provide CGA safely. Stair Climbing Assessment Evaluation Level of Assist On Stairs Moderate Assistance,Maximal Assistance,2 Person Assistance Devices Stair Climbing Assistive Devices Straight Cane Technique/Endurance Stair Climbing Direction Ascend and Descend Stair Climbing Technique Step to Step Number of Steps Climbed 1 Stair Climbing Set # Repetitions (reps) 2 Comments Stair Climbing Comments See mobility comments for details. Pt states her daughter will be available to assist with stairs at home. PT-Balance Assessment Sitting Balance and Reactions Static Sitting Balance Ability Good Dynamic Sitting Balance Ability Good Standing Balance and Reactions Static Standing Balance Ability Fair Dynamic Standing Balance Ability Fair Device Used FWW M5 PT-IP Objective Assessments Start: 11/14/21 12:47 Freq: NEEDED Status: Active Protocol: Document 11/14/21 10:55 AB (Rec: 11/14/21 13:09 AB [id number]) Orientation Orientation/Cognition Level of Alertness Alert Orientation Name Language Function Ability No Deficits Noted Safety Awareness Decreased Safety Awareness Memory Description No Deficits Noted Gross Range of Motion Lower Extremity ROM Assessment Within Functional Limits Strength Lower Extremity Strength Assessment Right Impaired Hip 3-/5 Knee 3-/5 Sensation Assessment Sensation Gross Sensation WNL Muscle Tone Muscle Tone WNL Yes M6 PT-IP Treatment Start: 11/14/21 12:47 Freq: NEEDED Status: Active Protocol: Document 11/16/21 11:16 AW (Rec: 11/16/21 12:56 AW [id number]) Physical Therapy Treatment Education Education Provided Weight Bearing Status,Safety Other Treatments Other Treatment Performed Continued caregiver training with pt's spouse including stair training. M7 PT-IP Assessment and Plan Start: 11/14/21 12:47 Freq: NEEDED Status: Active Protocol: Document 11/16/21 11:16 AW (Rec: 11/16/21 12:56 AW [id number]) PT Summary Assessment and Plan Potential Rehabilitation Potential Good Status of Condition at Evaluation Evolving Summary Impairments Pain,ROM,Strength,Balance, Coordination,Sensation,Tone, Cognition,Bed Mobility, Transfers,Gait,Activity Tolerance Progress Towards Goals Progressing Toward Goals,Slow Progress due to Pain,Slow Progress - Other Assessment Summary Pt denied lightheadedness this session but remained shaky on stairs. Her spouse was able to safely provide assist with bed mobility, transfers, and ambulation. Pt needed 2-person assist for stairs. Spouse and daughter will be able to provide such at home. Pt will require assistance at home and HHPT to improvr strength and mobility. Goals Bed Mobility Goal Standby Assistance Transfer Goal Standby Assistance,Front Wheeled Walker Gait Goal Standby Assistance,Front Wheel Walker Gait Distance 150 Other Goals up/down 2 steps using SPC +PREASSEMBLER AND INSPECTOR min A Days to Meet Goals 10 Frequency of Treatment Frequency Of Treatment Twice a Day Treatment Plan Physical Therapy Treatment Plan Bed Mobility Training,Transfer Training,Gait Training, Therapeutic Exercise,Balance Retraining,Post Op Education, Discharge Planning,Hot or Cold Pack,Neuromuscular Re-ed, Coordination Retraining,Manual Therapy Other Recommendations and Next Treatment stairs on therapy flight with Focus spouse for training Weight Bearing Status Weight Bearing Status Weight Bear as Tolerated Allowed Weight Bearing Amount (enter % RLE WBAT or #) (%) Recommendations To Nursing Amount of Assist Needed 1 Person Assist Discharge Recommendations PT Discharge Recommendations Home with 19/04 Assist Available,Home Health Transportation Needs at Discharge Private Vehicle,Wheelchair/ Cabulance
--- NOTE | 2021-11-16 14:37 | PT.IPTN ---
Current Diagnoses Hypo-osmolality and hyponatremia (11/12/21) Fracture of unspecified part of neck of right femur, initial encounter for closed fracture (11/12/21) Surgery Performed Operation Date: 11/13/21 10:45 Actual Procedures p IM Nail Hip(Right) - Sondra Ace MD Physical Therapy Treatment Note M2 PT-IP Current Condition Start: 11/14/21 12:47 Freq: NEEDED Status: Active Protocol: Document 11/14/21 10:55 AB (Rec: 11/14/21 13:09 AB [id number]) Physical Therapy Current Condition Current Condition Evaluation Date 11/14/21 Treatment Diagnosis GLF s/p R hip fx s/p ORIF; difficulty in walking Onset Date 11/12/21 M3 PT-IP Subjective Start: 11/14/21 12:47 Freq: NEEDED Status: Active Protocol: Document 11/16/21 14:31 AW (Rec: 11/16/21 15:01 AW [id number]) Subjective Physical Therapy Visit Type Type Treatment Note Visit Start Time 14:05 Visit Stop Time 14:31 Total Visit Minutes 26 Number of DEVELOPMENTAL EDUCATION INSTRUCTOR Visits 0 Physical Therapy Visit Comments Patient Comments Pt agreeable to participate, spouse present. Therapy Pain Assessment Pain When Pain Assessed During Mobility Pain Present Pain Present Pain Reported Location right hip Pain Management Techniques Distraction,Re-positioning, Timing of Activity with Medications M4 PT-IP Mobility and Gait Start: 11/14/21 12:47 Freq: NEEDED Status: Active Protocol: Document 11/16/21 14:31 AW (Rec: 11/16/21 15:01 AW [id number]) PT-Bed Mobility Assessment Supine to Sit Supine to Sit Minimal Assistance,1 Person Assistance Sit to Supine Sit to Supine Minimal Assistance,1 Person Assistance PT-Transfer Assessment Sit to and From Stand Sit to and from Stand Minimal Assistance,1 Person Assistance,Use of Upper Extremities Equipment Transfer Assistive Device Gait Belt,Front Wheeled Walker Orthotic/Prosthetic Devices or Brace: No Transfers Transfer Destination Bed,Bedside Commode Transfer Technique Pt ambulated w/ FWW Transfer Ability Level of Assist Minimal Assistance,1 Person Assistance,Use of Upper Extremities Comments Mobility Comments PT arrived as RN was preparing to assist pt to toilet. Pt expressed urgency to have a bowel movement and PT kalin BSC to the bedside. Pt required min A to sit up EOB and PT assisted pt to stand and pivot transfer to BSC. She was able to have a bowel movement and completed pericare SBA. She stood from the commode min A and used FWW to ambulate to the sink. She stood to wash hands and face with SBA, minimal use of hands on counter for support. Pt's spouse assisted her to walk and transfer back to bed min A . Pt was left with call light and tray table in reach. Gait Assessment Gait Gait Assistance Required: Contact Guard Assist,1 Person Assist Distance (Feet) 15 Able to Maintain Weight Bearing Status Yes During Gait Assistive Devices Assistive Device Gait Belt,Front Wheeled Walker Orthotic/Prosthetic Devices or Brace: No Gait Deviations General Gait Pattern Antalgic,Decreased Stride Length,Decreased Feet Clearance Factors Limiting Gait Function Factors Limiting Gait Function Decreased Activity Tolerance, Decreased Strength,Limited Range of Motion,Pain,Poor Balance,Poor Safety Awareness Comments Gait Comments Pt is more tired this PM and requests return to bed after PT, preferring not to walk in the halls. Stair Climbing Assessment Comments Stair Climbing Comments Will need further training CGT planned for 10:00 AM tomorrow PT-Balance Assessment Sitting Balance and Reactions Static Sitting Balance Ability Good Dynamic Sitting Balance Ability Good Standing Balance and Reactions Static Standing Balance Ability Fair Dynamic Standing Balance Ability Fair Device Used FWW M5 PT-IP Objective Assessments Start: 11/14/21 12:47 Freq: NEEDED Status: Active Protocol: Document 11/14/21 10:55 AB (Rec: 11/14/21 13:09 AB [id number]) Orientation Orientation/Cognition Level of Alertness Alert Orientation Name Language Function Ability No Deficits Noted Safety Awareness Decreased Safety Awareness Memory Description No Deficits Noted Gross Range of Motion Lower Extremity ROM Assessment Within Functional Limits Strength Lower Extremity Strength Assessment Right Impaired Hip 3-/5 Knee 3-/5 Sensation Assessment Sensation Gross Sensation WNL Muscle Tone Muscle Tone WNL Yes M6 PT-IP Treatment Start: 11/14/21 12:47 Freq: NEEDED Status: Active Protocol: Document 11/16/21 14:31 AW (Rec: 11/16/21 15:01 AW [id number]) Physical Therapy Treatment Education Education Provided Weight Bearing Status,Safety Other Treatments Other Treatment Performed Recommended [facility] for home - especially for night time use - and shower chair. M7 PT-IP Assessment and Plan Start: 11/14/21 12:47 Freq: NEEDED Status: Active Protocol: Document 11/16/21 14:31 AW (Rec: 11/16/21 15:01 AW [id number]) PT Summary Assessment and Plan Summary Impairments Pain,ROM,Strength,Balance, Coordination,Sensation,Tone, Cognition,Bed Mobility, Transfers,Gait,Activity Tolerance Progress Towards Goals Progressing Toward Goals,Slow Progress due to Pain,Slow Progress - Other Assessment Summary Pt's VS stable throughout treatment today. She was more fatigued this afternoon but still needing only min assist for bed mobility and transfers with FWW. Talked to DCP and requested OT services. Pt will require assistance at home and HHPT to improve strength and mobility. Goals Bed Mobility Goal Standby Assistance Transfer Goal Standby Assistance,Front Wheeled Walker Gait Goal Standby Assistance,Front Wheel Walker Gait Distance 150 Other Goals up/down 2 steps using SPC +INSTALLER METAL FLOORING min A Days to Meet Goals 10 Frequency of Treatment Frequency Of Treatment Twice a Day Treatment Plan Physical Therapy Treatment Plan Bed Mobility Training,Transfer Training,Gait Training, Therapeutic Exercise,Balance Retraining,Post Op Education, Discharge Planning,Hot or Cold Pack,Neuromuscular Re-ed, Coordination Retraining,Manual Therapy Other Recommendations and Next Treatment stairs on therapy flight with Focus spouse for training at 10:00 Weight Bearing Status Weight Bearing Status Weight Bear as Tolerated Allowed Weight Bearing Amount (enter % RLE WBAT or #) (%) Recommendations To Nursing Amount of Assist Needed 1 Person Assist Discharge Recommendations PT Discharge Recommendations Home with 19/04 Assist Available,Home Health Other Discharge Recommendations OT eval requested Transportation Needs at Discharge Private Vehicle,Wheelchair/ Cabulance
--- NOTE | 2021-11-16 14:39 | CM.DPC ---
DCP Cont: Met with patient and spouse, Tarik. Confirmed that the plan is home with home health. Since patient and spouse have no preferences upon agencies, noted that [facility] is listed on the calendar for this week. Brought in a brochure for patient. Let her and spouse know that referral will be sent to them for nursing, P.T, O.T, and bath aide. As soon as face to face is signed, will fax that and orders to [place], but for now, will fax over face sheet, H&P, and P.T. notes. P: DCP to continue to follow. At this time, plan is for patient to go home with [facility] when she is deemed medically stable. Tracie Francois RN/English Language Learner Tutor
--- NOTE | 2021-11-16 15:40 | PC.NURSE ---
Day shift - Pt has had good day. Pain has been well managed w/ oxycodone and tylenol. Pt has had two rounds of PT and mobility/walking is improving. Pt had two moderate sized BM's today. Pt is in good spirits. Removed Hare cathetar around lunchtime and still no urination as of 1544.
[2021-11-16] MEDS: SODIUM CHLORIDE 0.9% FLUSH 10 ML IV (21:10)
[2021-11-17] MEDS: OXYCODONE IR 5 MG TABLET PO ×2 (00:16→03:42)
[2021-11-17 05:56] LABS: Hematocrit 21.9 % (36-46); Hemoglobin 7.7 g/dL (12.0-16.0)
[2021-11-17 06:00] VITALS: BP 119/59; PULSE 83; RESP 16; TEMP 36.8; O2SAT 99
[2021-11-17 06:07] LABS: BUN Creatinine Ratio 16.9 (6-22); Blood Urea Nitrogen 12 mg/dL (7-17); Calcium 8.9 mg/dL (8.4-10.2); Carbon Dioxide 30 mmol/L (22-32); Chloride 94 mmol/L (98-107); Estimated Glomerular Filt Rate > 60.0 mL/min (>60); Glucose 116 mg/dL (80-110); HEMOLYSIS < 15 (0-50); Potassium 4.3 mmol/L (3.4-5.1); Sodium 125 mmol/L (137-145)
[2021-11-17 07:24] VITALS: O2SAT 100
[2021-11-17 07:40] VITALS: BP 150/80; PULSE 82; RESP 16; TEMP 37.1; O2SAT 99
[2021-11-17] MEDS: FERROUS SULFATE 325 MG TABLET PO (07:50)
[2021-11-17] MEDS: ACETAMINOPHEN 325 MG TABLET 975 MG PO (07:50)
[2021-11-17] MEDS: ATORVASTATIN 20 MG TABLET PO (07:50)
[2021-11-17] MEDS: CHOLECALCIFEROL (VITAMIN D3) 1,000 UNIT TABLET 1000 UNIT PO (07:50)
[2021-11-17] MEDS: ENOXAPARIN 40 MG/0.4 ML SYRINGE SUBCUT (07:50)
[2021-11-17 08:54] VITALS: BP 124/47; PULSE 93
[2021-11-17] MEDS: lisinopriL 10 MG TABLET PO (08:54)
[2021-11-17] MEDS: CALCIUM CARBONATE 600 MG TABLET PO (08:54)
[2021-11-17] MEDS: SODIUM CHLORIDE 0.9% FLUSH 10 ML IV (08:59)
--- NOTE | 2021-11-17 10:40 | PT.IPTN ---
Current Diagnoses Hypo-osmolality and hyponatremia (11/12/21) Fracture of unspecified part of neck of right femur, initial encounter for closed fracture (11/12/21) Surgery Performed Operation Date: 11/13/21 10:45 Actual Procedures p IM Nail Hip(Right) - Sondra Ace MD Physical Therapy Treatment Note M2 PT-IP Current Condition Start: 11/14/21 12:47 Freq: NEEDED Status: Active Protocol: Document 11/14/21 10:55 AB (Rec: 11/14/21 13:09 AB [id number]) Physical Therapy Current Condition Current Condition Evaluation Date 11/14/21 Treatment Diagnosis GLF s/p R hip fx s/p ORIF; difficulty in walking Onset Date 11/12/21 M3 PT-IP Subjective Start: 11/14/21 12:47 Freq: NEEDED Status: Active Protocol: Document 11/17/21 10:00 KS (Rec: 11/17/21 12:26 KS [id number]) Subjective Physical Therapy Visit Type Type Treatment Note Visit Start Time 10:00 Visit Stop Time 10:40 Total Visit Minutes 40 Number of RESTAURANT MGR Visits 1 Physical Therapy Visit Comments Patient Comments Pt agreeable to participate, spouse present. Therapy Pain Assessment Pain When Pain Assessed During Mobility Pain Present Pain Present Pain Reported M4 PT-IP Mobility and Gait Start: 11/14/21 12:47 Freq: NEEDED Status: Active Protocol: Document 11/17/21 10:00 KS (Rec: 11/17/21 12:26 KS [id number]) PT-Bed Mobility Assessment Supine to Sit Supine to Sit Minimal Assistance,1 Person Assistance Sit to Supine Sit to Supine Minimal Assistance,1 Person Assistance Scooting Scooting to Edge of Bed Contact Guard Assistance PT-Transfer Assessment Sit to and From Stand Sit to and from Stand Contact Guard Assistance, Minimal Assistance,1 Person Assistance,Use of Upper Extremities Equipment Transfer Assistive Device Gait Belt,Front Wheeled Walker Orthotic/Prosthetic Devices or Brace: No Transfers Transfer Destination Bed,Wheelchair Transfer Technique Pt ambulated w/ FWW Transfer Ability Level of Assist Minimal Assistance,1 Person Assistance,Use of Upper Extremities Comments Mobility Comments Pt in bed w/ spouse in room upon arrival. Min A for sup<> sit to assist RLE out of bed. Pts spouse applied gaitbelt and provided Min A for pt sit< >stand w/ FWW. Pts spouse provided assistance throughout treatment. Pt ambulated to w/ c w/ FWW CGA and arrived at platform step and was able to complete platform step x2 w/ CHIEF MINISTER and SPC and verbal cues for sequencing 2PA. Pt then w/ c detention back to room and ambulated remaining ~50 ft back to room and bed w/ spouse CGA and spouse assisted pt Min A for LE into bed. Reveiwed exercises and discussed getting into car. Pt left in bed w/ spouse in room and all needs in reach. Gait Assessment Gait Gait Assistance Required: Contact Guard Assist,1 Person Assist Distance (Feet) 60 Able to Maintain Weight Bearing Status Yes During Gait Assistive Devices Assistive Device Gait Belt,Front Wheeled Walker Orthotic/Prosthetic Devices or Brace: No Gait Deviations General Gait Pattern Antalgic,Decreased Stride Length,Decreased Feet Clearance Factors Limiting Gait Function Factors Limiting Gait Function Decreased Activity Tolerance, Decreased Strength,Limited Range of Motion,Pain,Poor Balance,Poor Safety Awareness Comments Gait Comments Pt able to ambulate ~60 ft total w/ FWW and CGA provided by . Stair Climbing Assessment Evaluation Level of Assist On Stairs Minimal Assistance,2 Person Assistance Devices Stair Climbing Assistive Devices Straight Cane Technique/Endurance Stair Climbing Direction Ascend and Descend Stair Climbing Technique Step to Step Number of Steps Climbed 1 Stair Climbing Set # Repetitions (reps) 2 Comments Stair Climbing Comments Pt ascended/descended 1 platform step x2 w/ SPC and CHIEF MINISTER provided by and additional assist by this RESTAURANT MGR. Pt and confirm they will have son and daughter at home to provide additional assist and that they feel safe to get pt up two steps to enter home. PT-Balance Assessment Sitting Balance and Reactions Static Sitting Balance Ability Good Dynamic Sitting Balance Ability Good Standing Balance and Reactions Static Standing Balance Ability Fair Dynamic Standing Balance Ability Fair Device Used FWW M5 PT-IP Objective Assessments Start: 11/14/21 12:47 Freq: NEEDED Status: Active Protocol: Document 11/14/21 10:55 AB (Rec: 11/14/21 13:09 AB [id number]) Orientation Orientation/Cognition Level of Alertness Alert Orientation Name Language Function Ability No Deficits Noted Safety Awareness Decreased Safety Awareness Memory Description No Deficits Noted Gross Range of Motion Lower Extremity ROM Assessment Within Functional Limits Strength Lower Extremity Strength Assessment Right Impaired Hip 3-/5 Knee 3-/5 Sensation Assessment Sensation Gross Sensation WNL Muscle Tone Muscle Tone WNL Yes M6 PT-IP Treatment Start: 11/14/21 12:47 Freq: NEEDED Status: Active Protocol: Document 11/17/21 10:00 KS (Rec: 11/17/21 12:26 KS [id number]) Physical Therapy Treatment Education Education Provided Weight Bearing Status,Safety Other Treatments Other Treatment Performed Recommended [facility] for home - especially for night time use - and shower chair. M7 PT-IP Assessment and Plan Start: 11/14/21 12:47 Freq: NEEDED Status: Active Protocol: Document 11/17/21 10:00 KS (Rec: 11/17/21 12:26 KS [id number]) PT Summary Assessment and Plan Potential Rehabilitation Potential Good Status of Condition at Evaluation Evolving Summary Impairments Pain,ROM,Strength,Balance, Coordination,Sensation,Tone, Cognition,Bed Mobility, Transfers,Gait,Activity Tolerance Progress Towards Goals Progressing Toward Goals,Slow Progress due to Pain,Slow Progress - Other Assessment Summary Pt showed improvement w/ mobility, activity tolerance, and carryover today. Her spouse was able to provide her w/ appropriate assist and cues throughout treatment and she ambulated ~60 ft w/ FWW and completed platform steps. Pt and spouse confirm their son and daughter will be there to assist pt into home along w/ spouse and state they feel safe to return home. Pt will benefit from HHPT to improve strength, gait, and balance. Goals Bed Mobility Goal Standby Assistance Transfer Goal Standby Assistance,Front Wheeled Walker Gait Goal Standby Assistance,Front Wheel Walker Gait Distance 150 Other Goals up/down 2 steps using SPC +CHIEF MINISTER min A Days to Meet Goals 10 Frequency of Treatment Frequency Of Treatment Twice a Day Treatment Plan Physical Therapy Treatment Plan Bed Mobility Training,Transfer Training,Gait Training, Therapeutic Exercise,Balance Retraining,Post Op Education, Discharge Planning,Hot or Cold Pack,Neuromuscular Re-ed, Coordination Retraining,Manual Therapy Weight Bearing Status Weight Bearing Status Weight Bear as Tolerated Allowed Weight Bearing Amount (enter % RLE WBAT or #) (%) Recommendations To Nursing Amount of Assist Needed 1 Person Assist Discharge Recommendations PT Discharge Recommendations Home with 19/04 Assist Available,Home Health Transportation Needs at Discharge Private Vehicle,Wheelchair/ Cabulance
--- NOTE | 2021-11-17 12:43 | OT.IP.EVAL ---
Current Diagnoses Hypo-osmolality and hyponatremia (11/12/21) Fracture of unspecified part of neck of right femur, initial encounter for closed fracture (11/12/21) Surgery Performed Operation Date: 11/13/21 10:45 Actual Procedures p IM Nail Hip(Right) - Sondra Ace MD Past Medical History (Last Reviewed 11/16/21 @ 11:13 by Shukri Godfrey MD) Arthritis Former smoker History of left hip replacement Hx of BSO (bilateral salpingo-oophorectomy) (06/06/20) Hyperlipidemia Hypertension S/P tonsillectomy and adenoidectomy [place] teeth extracted Surgical History (Last Reviewed 11/16/21 @ 11:13 by Shukri Godfrey MD) History of left hip replacement Hx of BSO (bilateral salpingo-oophorectomy) (06/06/20) S/P tonsillectomy and adenoidectomy [place] teeth extracted Occupational Therapy Inpatient Evaluation/Re-Eval M1 PT/OT-IP Prior Functional Status Start: 11/14/21 12:47 Freq: NEEDED Status: Active Protocol: Document 11/17/21 12:55 CGR (Rec: 11/17/21 13:25 CGR [id number]) Medical Review Prior Functional Status Medical History Reviewed Yes Communication able to make needs known Mobility and Gait pt stated that she is independent with all mobilities and ambulation without AD Activities of Daily Living and IADL's Pt was IND in all ADLs and functional mobility prior to admit. Social History Household Members spouse Living Arrangements House Number of Floors (Floors) One Floor Number of Stairs To Enter/Railing? 2 steps without rails Home Environment High Toilet,Walk in Shower Home Equipment Front Wheel Walker,Straight Cane,Hand Held Shower Employment Status Retired Additional Social History Comment Pt lives with her and has family support. They live in [place]. M1 PT/OT-IP Prior Functional Status Start: 11/17/21 12:54 Freq: NEEDED Status: Active Protocol: Document 11/17/21 12:55 CGR (Rec: 11/17/21 13:25 CGR [id number]) Medical Review Prior Functional Status Medical History Reviewed Yes Communication able to make needs known Mobility and Gait pt stated that she is independent with all mobilities and ambulation without AD Activities of Daily Living and IADL's Pt was IND in all ADLs and functional mobility prior to admit. Social History Household Members spouse Living Arrangements House Number of Floors (Floors) One Floor Number of Stairs To Enter/Railing? 2 steps without rails Home Environment High Toilet,Walk in Shower Home Equipment Front Wheel Walker,Straight Cane,Hand Held Shower Employment Status Retired Additional Social History Comment Pt lives with her and has family support. They live in [place]. M2 OT-IP Current Condition Start: 11/17/21 12:54 Freq: Status: Active Protocol: Document 11/17/21 12:55 CGR (Rec: 11/17/21 13:25 CGR [id number]) Occupational Therapy Current Condition Current Condition Evaluation Date 11/17/21 Treatment Diagnosis GLF with R hip fx, R IM fixation. Weight Bearing Status Weight Bearing Status Weight Bear as Tolerated M3 OT- IP Subjective and Pain Start: 11/17/21 12:54 Freq: Status: Active Protocol: Document 11/17/21 12:55 CGR (Rec: 11/17/21 13:25 CGR [id number]) OT- Subjective Occupational Therapy Visit Type Type Initial Evaluation Visit Start Time 11:57 Visit Stop Time 12:43 Total Visit Minutes 46 Notes Pt's present throughout. Plan is to d/c home today. OT Pain Assessment Pain When Pain Assessed During Mobility Pain Present Pain Present Pain Reported Location right hip Scale Used did not rate Management Techniques Modification of Treatment,Re- positioning M4 OT- IP ADL's Start: 11/17/21 12:54 Freq: Status: Active Protocol: Document 11/17/21 12:55 CGR (Rec: 11/17/21 13:25 CGR [id number]) OT [id number] Comments OT Self-Feeding Comments not meal time OT ADL-Grooming General Evaluation Grooming Ability Independent Areas Needing Assistance Face Washing Comments OT Grooming Comments standing at sink OT ADL-Oral Care Comments Oral Care Comments not performed OT ADL-Dressing General Eval Upper Body Dressing Ability Independent Lower Body Dressing Ability Total Assistance Areas Needing Assistance Socks Comments OT Dressing Comments Pt donned socks with dep and donned a jacket with IND. OT ADL-Toileting General Evaluation Toileting Ability Standby Assistance Comments OT Toileting Comments Pt sat on toielt for urination . OT ADL-Bathing Comments OT Bathing Comments not performed M5 OT- IP IADL's Start: 11/17/21 12:54 Freq: Status: Active Protocol: Document 11/17/21 12:55 CGR (Rec: 11/17/21 13:25 CGR [id number]) OT-Instrumental Activities of Daily Living Home Safety Awareness Awareness of Need for Assistance at Home Good Awareness Ability to Problem Solve Emergency Able to Problem Solve Situations Medication Management Medication Management No Deficits Identified Money Management Money Management No Deficits Identified Meal Preparation Meal Preparation No Deficits Identified Disposal Worker Disposal Worker No Deficits Identified Driving Driving Caregiver Provides Assist M6 OT- IP Functional Cognition Start: 11/17/21 12:54 Freq: Status: Active Protocol: Document 11/17/21 12:55 CGR (Rec: 11/17/21 13:25 CGR [id number]) Cognitive Factors Limiting Selfcare Function Cognitive Ability Level of Alertness Alert Patient Orientation Name,Age,Birthday,Month,Date, Year,Day of Week,Place, Situation Attention Span Ability Capable of Focused Attention, Capable of Sustained Attention Ability to Follow Commands Able to Follow Multi-Step Commands Memory Description No Deficits Noted Safety Awareness No Deficits Noted Problem Solving Ability No deficits Noted OT- Vision and Hearing OT- Hearing Assessment OT- Hearing Assessment WFL OT- Vision Assessment Visual Acuity Glasses All The Time Visual Attentiveness WFL Occular Pursuits WFL Visual Convergence WFL M7 OT- IP Mobility and Balance Start: 11/17/21 12:54 Freq: Status: Active Protocol: Document 11/17/21 12:55 CGR (Rec: 11/17/21 13:25 CGR [id number]) OT- Bed Mobility Assessment Supine to Sit Supine to Sit Assist Standby Assistance Scooting Scooting to Edge of Bed Standby Assistance OT-Transfer Assessment Sit to and From Stand Sit to and from Stand Standby Assistance,Contact Guard Assistance Transfers Transfer Ability Standby Assistance,Contact Guard Assistance Technique Transfer Destination Bed,Chair,Toilet Transfer Technique Stand Step Pivot Devices Transfer Assistive Devices Gait Belt,Front Wheeled Walker Comments Mobility Comments Pt states increased pain with movement but tolerable. OT- Balance Assessment Sitting Balance and Reactions Static Sitting Balance Ability Normal Dynamic Sitting Balance Ability Good M8 OT- IP Objective Assessments Start: 11/17/21 12:54 Freq: Status: Active Protocol: Document 11/17/21 12:55 CGR (Rec: 11/17/21 13:25 CGR [id number]) OT Gross Range of Motion Upper Extremity Range of Motion Assessment Within Functional Limits OT Strength Upper Extremity Strength Assessment Within Functional Limits OT- Coordination Assessment Upper Extremity Finger to Nose Test Within Functional Limits Finger Tapping Test Within Functional Limits OT-Muscle Tone Assessment Muscle Tone WNL Yes OT Sensation Assessment Edema Edema Absent M9 OT- IP Assessment and Plan Start: 11/17/21 12:54 Freq: Status: Active Protocol: Document 11/17/21 12:55 CGR (Rec: 11/17/21 13:25 CGR [id number]) OT Summary Assessment and Plan Potential Rehabilitation Potential Excellent Analytic Complexity at Evaluation Low Summary OT Impairments Pain,Functional Mobility, Dressing,Toileting,Bathing, Toilet Transfers,Shower Transfers,Activity Tolerance Progress Towards Goals Slow Progress due to Pain Assessment Summary Pt presents as a low complexity evaluation s/p admit after GLF with hip fx. Pt underwent 11/17/21 R IM fixation. Pt is moving with CGA to SBA and was able to perform some ADLs in todays session. Pt states will assist with LB dressing till she is able to perform again. Pt would benefit from home health OT for further training as needed but is otherwise safe for d/c home with supportive family. Goals Grooming Goal Independent Dressing Goal Independent Toileting Goal Independent Bathing Goal Independent Toilet Transfer Goal Independent Shower Transfer Goal Independent Days to Meet Goals 10 Frequency of Treatment Frequency Of Treatment Once a Day Treatment Plan OT Treatment Plan ADL Training,Functional Mobility,Patient/Family Education,Discharge Planning Other Treatment Recommendations and Next shower Treatment Focus Discharge Recommendations OT Discharge Recommendations Home with Assistance Home Equipment Needs shower chair, grab bars Transportation Needs at Discharge Private Vehicle
--- NOTE | 2021-11-17 13:42 | PM.DS.1 ---
History of Present Illness History of Present Illness Date Patient Seen: 11/17/21 Time Patient Seen: 08:45 Chief complaint: GLF R hip pain Narrative: Pt admitted for R hip fx s/p GLF at home.s/p repair with intracephalic nail feeling better. had some hypotension working ith PT initially now getting around breakfast and feeling stronger Discharge Providers Provider Date of admission: 11/12/21 19:12 Discharge Date: 11/17/21 Primary care physician: Sigifredo Galicia MD Consults: 11/12/21 19:09 Consult to Orthopedic Surgery Urgent Comment: Consulting Provider: Mary Do Reason for consultation: right hip fracture Has provider been notified: Yes 11/13/21 14:54 Consult to Discharge Planning Routine Comment: Consult to Physical Therapy Evaluate & Treat Comment: wbat Physician Instructions: Evaluate and Treat Consult to Respiratory Therapy Evaluate & Treat Comment: Physician Instructions: Evaluate and treat 11/16/21 14:58 Consult to Occupational Therapy Evaluate & Treat Comment: Physician Instructions: Evaluate and treat 11/17/21 11:42 Consult to Home Health Routine Comment: Reason For Exam: Home Health RN, P.T, O.T, bath aide Discharge provider: Sigifredo Galicia MD Summary Hospital Course Discharge Diagnosis: R hip fracture Hospital Course: Mrs. Josue was admitted for acute R hip fracture 2/2 GLF. She underwent femoral nailing with ortho and was able to resume use of the limb. She had some initial hypotension working with PT however by DoD she was handling the stairs ok and felt strong enough to go home to continue her recovery. Will f/u with PCP for weight and CBC and incision checks. Exam Vital Signs (past 8 hours): - 11/17/21 06:00 11/17/21 07:24 11/17/21 07:40 Temperature 98.3 F 98.7 F Pulse Rate 83 82 Respiratory Rate 16 16 Blood Pressure 119/59 L 150/80 H Pulse Oximetry 99 100 99 11/17/21 08:54 Temperature Pulse Rate 93 H Respiratory Rate Blood Pressure 124/47 L Pulse Oximetry Oxygen Delivery Method Room Air Oxygen Flow Rate 0 Narrative Exam Narrative: cheerful elder laying in bed with at bedside Const General: cooperative and healthy appearing HENMT Head: normocephalic and atraumatic Resp Auscultation: clear to auscultation bilaterally Percussion: percussion normal Cardio Rate: regular rate Rhythm: regular rhythm Heart Sounds: S1 normal and S2 normal GI Auscultation: normal bowel sounds Neuro General: patient oriented x3 and CN's II-XI intact bilaterally Extrem Other: RLE tender to range but able to bear weight. Incisions under clean dry dressings Psych Appearance: grossly normal Mental Status: mental status grossly normal Speech and Movement: speech and movement normal Objective Labs Result Diagrams: 11/17/21 05:44 11/17/21 05:44 Labs: Laboratory Results - last 24 hr 11/17/21 11/17/21 05:44 05:44 Hgb 7.7 L Hct 21.9 L Sodium 125 L Potassium 4.3 Chloride 94 L Carbon Dioxide 30 BUN 12 Creatinine 0.71 Estimated GFR > 60.0 BUN/Creatinine Ratio 16.9 Glucose 116 H Calcium 8.9 PFSH Medical History Arthritis Former smoker Hyperlipidemia Hypertension Surgical History History of left hip replacement Hx of BSO (bilateral salpingo-oophorectomy) (06/06/20) S/P tonsillectomy and adenoidectomy [place] teeth extracted Family History Mother Myocardial infarct Social History household members: spouse Smoking Status: Former smoker alcohol intake: former Discharge Assessment & Plan Assessment and Plan Assessment: #R hip fracture acute Now postop day 4 status post nailing-continue with physical therapy.? Blood count dropping this stay suspect dilutional factor since she did receive some IV fluids.? No evidence of active bleeding.?pain doing well, up with PT ok to go home with HH. #Orthostatic hypotension Improved. ok to resume lisinopril on going home #Anemia patient's numbers dropped slightly maybe due to IV fluids were given.? She has no known cardiac history I think will tolerate blood counts at this level okay.? Will continue to monitor and plan to recheck tomorrow.? Would have a low threshold for transfusion.? I will go ahead and start some iron replacement therapy #Hyponatremia stable issue this admission suspect this was preexisting issue Dispo: home with home health Discharge Plan Discharge Plan Patient Disposition: Home Health Service Discharge orders & Medications Prescriptions: New hydrocodone-acetaminophen 5-325 mg tablet 1 tab PO Q4-6H PRN (Reason: pain) Qty: 20 0RF hydrocodone-acetaminophen 5-325 mg tablet 1 tab PO Q4-6H PRN (Reason: pain) Qty: 20 0RF Continued lisinopril 10 mg tablet 10 mg PO DAILY 0RF simvastatin [Zocor] 80 mg tablet 80 mg PO DAILY 0RF triamcinolone acetonide 0.025 % cream 1 applictn TOP TID 0RF glucosamine sulfate [Glucosamine] 500 mg tablet 500 mg PO DAILY 0RF Rx Instructions: administer with meals vitamins A,C,F-kldf-jqvmli 1 tab PO DAILY 0RF Follow up/Referrals: Sondra Ace MD [Physician] - (10-14 days for postoperative visit) Sigifredo Galicia MD [Primary Care Provider] - Diet/Activity/Treatments Other treatments: Dressing/Wound care: -Keep dressing in place until postoperative follow-up office visit. -Okay to shower. Keep wound out of direct water stream. No soaking or submerging until all the scabs fall off (approximately 6 weeks). -Please call the office if dressing becomes wet, soiled, or saturated. Activities: -Weight-bearing as tolerated. Use front wheeled walker, and progress to cane when safe. -Continue with home exercises as directed by your physical therapist. -Elevate ?toes above the nose if you have significant swelling in your lower leg. (A wedge pillow is easiest.) -Ice your incision as needed for pain/inflammation/swelling. Protect your skin with a folded pillowcase. Follow-up: -Follow-up with your surgeon or PA in the office in 10-14 days after surgery. -Follow-up with your surgeon 6 weeks postoperatively. Call the office if you have chest pain, shortness of breath, significant swelling that will not resolve with elevating, fever over 101?, significantly worsening pain. [facility]: [phone] Skin/Wound/Dressing Care Report to your healthcare provider any signs of infection, such as:: chills, fever, night sweats, unusual drainage and unusual redness Visit Report/Discharge Packet Stand Alone Forms: Surgery Discharge Discharge Data Primary Care Provider: Sigifredo Galicia VTE Deep Vein Thrombosis/Pulmonary Embolism Present on Admission: No
--- NOTE | 2021-11-17 14:17 | CM.DPC ---
DCP Cont: Patient is discharging home today. Dr. Galicia came by and signed face to face with anticipation for patient to discharge home today. Called John at [facility], as referral was initially sent yesterday. He indicated that they have referral, and can add to their schedule. Let him know that this leather case finisher will fax over DC summary upon discharge. Received discharge orders. Faxed over completed face to face, orders, and DC Summary. Spoke to John at [place] and updated him of discharge today. Tracie Francois RN/Solar Installer Pv
== END 2021-11-17 14:19 | disposition home health service (06) | DRG 481 ==
LOC: ED 19:01 → AC 19:13
PROVIDERS: Internal Medicine; Orthopaedic Surgery Foot and Ankle Surgery; Admitting Provider Family Medicine; Emergency Provider Emergency Medicine; PCP Family Medicine; Referring Provider Emergency Medicine; Visit Provider Family Medicine
PROC: 0QS636Z Reposition Right Upper Femur with Intramedullary Internal Fixation Device, Percutaneous Approach (ICD-10-PCS; CPT 27245; principal; 2021-11-13 10:45)
DX: S72.144A Nondisplaced intertrochanteric fracture of right femur, initial encounter for closed fracture (principal); E87.1 Hypo-osmolality and hyponatremia; S72.24XA Nondisplaced subtrochanteric fracture of right femur, initial encounter for closed fracture; I95.1 Orthostatic hypotension; I10 Essential (primary) hypertension; E78.5 Hyperlipidemia, unspecified; D64.9 Anemia, unspecified; M19.90 Unspecified osteoarthritis, unspecified site; W18.30XA Fall on same level, unspecified, initial encounter; Z87.891 Personal history of nicotine dependence; Z20.822 Contact with and (suspected) exposure to COVID-19; Z66 Do not resuscitate
CPT/HCPCS: 36415; 71045; 73502; 76000; 80048; 85014; 85018; 85025; 85027; 85610; 85730; 86850; 86900; 86901; 87635; 96374; 96375; 97110; 97116; 97162; 97165; 97530; 97535; 99232; 99233; 99284; C9803; J0690; J1650; J2060; J2270; J2405; J2704; J3010

== ENCOUNTER → 2021-12-01 11:50 | Outpatient (CLI) | payer MEDICARE, OTHER, SELFPAY ==
[2020-07-25 10:30] VITALS: BMI 19.1
[2021-11-12 20:25] VITALS: BMI 21.1
--- NOTE | 2021-12-01 11:53 | DI.MG.S_ITS ---
UNILATERAL LEFT DIGITAL DIAGNOSTIC MAMMOGRAM 3D/2D WITH ADDITIONAL VIEWS: 12/01/2021 CLINICAL: Additional evaluation requested from prior study. Comparison is made to exams dated: 10/20/2021 mammogram, 10/22/2020 mammogram, 11/29/2019 mammogram, and 11/13/2019 mammogram - [facility]. There are scattered fibroglandular elements in left breast. There is a developing 0.4 cm irregular equal density focal asymmetry in the left breast at 12 o'clock middle depth. This is more prominent and increased in size. No other significant masses or calcifications are seen in the breast. IMPRESSION: INCOMPLETE: NEEDS ADDITIONAL IMAGING EVALUATION The developing 0.4 cm irregular equal density focal asymmetry in the left breast is indeterminate. An ultrasound is recommended for further evaluation and is scheduled to immediately follow this examination. This exam was interpreted at Station ID: [id number]. NOTE: For mammograms, a report in lay terms will be sent to the patient. Approximately 15% of breast malignancies will not be visualized mammographically. In the management of a palpable breast mass, a negative mammogram must not discourage biopsy of a clinically suspicious lesion. Electronically Signed By: Bal Oneil M.D. aty/:12/01/2021 12:32:13 ACR BI-RADS Category 0: Incomplete [id number]
--- NOTE | 2021-12-01 11:54 | DI.US.S_ITS ---
ULTRASOUND OF LEFT BREAST AND AXILLA: 12/01/2021 CLINICAL: Patient returns today to evaluate an asymmetry in the left breast. Comparison is made to exams dated: 12/01/2021 mammogram, 10/20/2021 mammogram, 10/22/2020 mammogram, 12/18/2019 ultrasound, 11/29/2019 ultrasound, and 11/29/2019 mammogram - [facility]. Color flow and real-time ultrasound of the left breast axilla were performed. Odonnell scale images of the real-time examination were reviewed. There is a 0.5 cm x 0.2 cm x 0.4 cm oval mass with mildy angular margins in the left breast at 11 o'clock posterior depth 9 cm from the nipple. This oval mass is hypoechoic with minimal posterior acoustic shadowing. This correlates with mammography findings. This mass is somewhat difficult to visualize. No significant abnormalities were seen sonographically in the left axilla. IMPRESSION: SUSPICIOUS OF MALIGNANCY The 0.5 cm x 0.2 cm x 0.4 cm oval mass in the left breast is suspicious of malignancy. However, given its small size and difficulty to visualized under sonogram, a stereotactic biopsy is recommended. Findings and recommendations were discussed with the patient by Dr. Oneil via telephone during today's examination. This exam was interpreted at Station ID: [id number]. Electronically Signed By: Bal Oneil M.D. aty/:12/01/2021 13:45:45 letter sent: Biopsy Required Ultrasound BI-RADS: 4 Suspicious for malignancy
== END ==
PROVIDERS: PCP Family Medicine; Referring Provider Family Medicine; Visit Provider Family Medicine
DX: R92.8 Other abnormal and inconclusive findings on diagnostic imaging of breast (principal); N63.22 Unspecified lump in the left breast, upper inner quadrant
CPT/HCPCS: 76642; 77065; G0279

== ENCOUNTER → 2022-01-19 09:16 | Outpatient (CLI) | payer MEDICARE, OTHER, SELFPAY ==
[2022-01-19 10:20] LABS: COVID19 -Nasal RAPID Negative (Negative)
== END ==
PROVIDERS: Family Provider Orthopaedic Surgery Foot and Ankle Surgery; PCP Family Medicine; Visit Provider Surgery
DX: Z01.812 Encounter for preprocedural laboratory examination (principal); Z20.822 Contact with and (suspected) exposure to COVID-19
CPT/HCPCS: 87635; C9803

== ENCOUNTER 2022-01-20 07:02 | Day surgery (SDC) | payer MEDICARE, OTHER, SELFPAY ==
[2022-01-14 12:01] VITALS: BMI 19.1
--- NOTE | 2022-01-20 | DI.MG.S_ITS ---
SPECIMEN: 01/20/2022 CLINICAL: Left breast specimen. Correlation is made to exams dated: 01/20/2022 localization - [facility], 12/09/2021 stereotactic biopsy - [facility], 12/01/2021 ultrasound, and 12/01/2021 mammogram - [facility]. The localization wire and the targeted biopsy clip are within the specimen. IMPRESSION: SPECIMEN The sepcimen contains the targeted area. This exam was interpreted at Station ID: [id number]. Ronel Hernández M.D. fx/:01/20/2022 15:15:37
--- NOTE | 2022-01-20 | PATH_ITS ---
[facility] Accession Number: [id number] . 01 Material submitted: . breast - LEFT BREAST TISSUE . 02 Diagnosis: Left breast tissue: Invasive lobular carcinoma. Please see Cancer Case Summary. . CASE SUMMARY: . Specimen . Procedure: Excision less than total mastectomy. Specimen laterality: Left. . Tumor . Tumor site: Left breast, not otherwise specified. Histologic type: Invasive lobular carcinoma by immunohistochemistry studies. Histologic grade Glandular/tubular differentiation: Score 3 of 3. Nuclear pleomorphism: Score 1 of 3. Mitotic rate: Score 1 of 3. Overall grade: Grade 1 / low grade (5 of 9). Tumor size: 3 mm. Tumor focality: Single focus of invasive carcinoma. . Carcinoma in situ: Not identified. . Lymphovascular invasion: Not identified. . Microcalcifications: Not identified. . Treatment effect: No known presurgical therapy. . Margins Distance from invasive carcinoma to closest margin: 7 mm from the anterior margin. All other margins greater than 10 mm. . Regional lymph nodes: Not applicable (no regional lymph nodes submitted or found). . Additional findings: Biopsy clip (slice 4); changes consistent with previous instrumentation (fat necrosis, suture granuloma); needle localization guidewire exiting superior margin. . Pathologic stage classification (pTNM, AJCC 8th Edition): pT1a pN (no nodes submitted or found). . Special studies: CAP BREAST BIOMARKER REPORTING TEMPLATE: . Estrogen Receptor (ER) Status: Average intensity of staining: Positive (approximately 70% of tumor nuclei positive, moderate staining intensity). Primary antibody: SP1 Progesterone Receptor (PgR) Status: Positive (approximately 10% of tumor nuclei, moderate staining intensity). Average intensity of staining: Primary antibody: 1E2 HER2 (by immunohistochemistry): Percentage of cells with uniform intense complete membrane stainin. Negative at 0+. Primary antibody: 4B5 HER2 (ERBB2) (by in situ hybridization): . Cold Ischemia and Fixation Times: Meets requirements in the latest version of the ASCO/CAP guidelines. Testing performed on Block Number: A5 . TECHNICAL NOTE: The scoring criteria for breast biomarkers by immunohistochemistry is based on the current ASCO/CAP guidelines (Braden et al, Arch Pathol Lab Med 2010: 134(6): 907-922 / Linwood Singleton al, Arch Pathol Lab Med 2014: 138(2):241-256). Deparaffinized sections of formalin fixed tissue (along with appropriate positive controls) are incubated with the above antibody(s). Using the automated Oakley stainer, tissue is incubated with the designated antibody* which is then localized by a non-biotin, dual polymer detection system. The external controls are reviewed for appropriate reactivity and found to be adequate. Results on the target cell population are indicated above. These tests have not been validated on decalcified tissue. [facility] 01/28/2022 1607 Local . 02 Electronically signed: . Shayna Addison MD, Pathologist NPI- [id number] . 01 Gross description: . The specimen is received in formalin, labeled left breast tissue, long stitch lateral, short stitch superior, and consists of an oriented excision of breast tissue weighing 31 grams, measuring 5.7 cm from medial to lateral, 5.3 cm from superior to inferior, and 2.1 cm from anterior to posterior. The specimen is received with two sutures, and is inked as follows: superior-red, inferior-blue, anterior-green, posterior-black, medial-yellow, and lateral-orange. The specimen is also received with a localization wire exiting the superior margin, and is sectioned into eight slices with slice 1 being medial most. Sectioning the specimen reveals a cárdenas ill-defined mass measuring 1.2 x 0.8 x 0.7 cm, located in slice 4 and 5, with a centrally embedded biopsy clip in slice 4. The mass abuts the superior and anterior margins, and is greater than 1.0 cm from all remaining margins. Adjacent to the mass is a hemorrhagic area measuring 2.0 cm in its greatest dimension, which exhibits fat necrosis. The remaining cut surfaces reveals a fat to fibrous ratio of 90 to 10. The specimen is representatively submitted as follows: . A1: Perpendicular reps of slice 1 (medial margin). A2: Biopsy site, slice 4. A3: Remainder of mass in slice 4, bisected. A4-A5: Remainder of mass, slice 5. A6-A7: Bisected full thickness rep of slice 3 (slice medial to the mass). A8-A9: Bisected full thickness rep of slice 6 (lateral to the mass). A10: Perpendicular reps of slice 8 (lateral margin). (AM:[id number]) /[facility] 01/21/2022 1633 Local . 02 Microscopic: . An immunohistochemistry panel is performed on block A5 to further evaluate the cells of interest. The control stains show appropriate reactivity. . RESULTS: ASHLEE: Positive, consistent with epithelial neoplasm. E-cadherin: Attenuated/negative, consistent with lobular differentiation. . * This test was developed and its performance characteristics determined by [facility]. It has not been cleared or approved by the U.S. Food and Drug Administration. The FDA has determined that such clearance or approval is not necessary. This test is used for clinical purposes. It should not be regarded as investigational or for research . 02 Pathologist provided ICD-10: C50.912 . 02 CPT . 967259, 590057, 989185, 794287, [id number] Specimen Comment: A courtesy copy of this report has been sent to [phone] Performed at: 01 [facility] [address] [place] [address] [id number] MD Rasta Hamilton MD Phone: [phone] Performed at: 02 [facility] [address] [place] [place] [address] [id number] MD Steffi Rey MD Phone: [phone]
--- NOTE | 2022-01-20 07:06 | DI.MG.S_ITS ---
MAMMOGRAPHY GUIDED WIRE LOCALIZATION LEFT BREAST: 01/20/2022 CLINICAL: Left breast cancer. No prior exams were available for correlation. A wire localization using mammography guidance was performed targeting the marker clip located in the left breast at 12 o'clock posterior depth. The skin was prepped in the usual manner. A wire was inserted into the targeted area under mammography guidance. IMPRESSION: WIRE LOCALIZATION Wire localization targeting the biopsy marker in the left breast at 12 o'clock posterior depth was successful. This exam was interpreted at Station ID: [id number]. Ronel Hernández M.D. fx/:01/20/2022 15:13:00
[2022-01-20 07:18] VITALS: BMI 19.1
[2022-01-20 07:47] VITALS: BP 149/90; PULSE 101; RESP 18; TEMP 36.9; O2SAT 99
[2022-01-20 07:49] VITALS: BMI 19.6
[2022-01-20] MEDS: LACTATED RINGERS 1,000 ML 42 ML IV (08:59)
--- NOTE | 2022-01-20 09:24 | PM.PREOP ---
Pre-operative Note COVID-19 COVID-19 status: Negative Result date/Date tested (Pos, Neg/Pending): 01/19/22 Interval Note History & Physical reviewed/Exam performed by Physician: Yes Changes to H&P: No ASA Class (for procedural sedation): II
[2022-01-20] MEDS: CEFAZOLIN 2 GM/20 ML SYRINGE IV (09:57)
--- NOTE | 2022-01-20 10:14 | SUR.OPER ---
Supine on padded OR bed, head on pillow, arms secured on padded arm boards with gel pads and towel under left wrist at <90 degrees abduction, legs uncrossed, safety belt at thigh, tape over blanket over lower legs. Gel pad under heels. Warm blankets placed to lower body, torso, and right upper body. Glasses placed in black glass case with patient label in belongings bag in preop.
[2022-01-20] MEDS: LIDOCAINE 1% W/EPI 20 ML INJ (10:41)
[2022-01-20] MEDS: BUPIVACAINE 0.5% (PF) VIAL 30 ML INJ (10:45)
[2022-01-20 10:52] VITALS: BP 142/63; PULSE 78; RESP 15; TEMP 36.6; O2SAT 99
[2022-01-20 10:57] VITALS: BP 149/71; PULSE 79; RESP 15; O2SAT 99
[2022-01-20 11:02] VITALS: BP 138/68; PULSE 80; RESP 12; O2SAT 98
[2022-01-20 11:07] VITALS: BP 148/68; PULSE 77; RESP 15; O2SAT 99
[2022-01-20] MEDS: HYDROCODONE/ACET 5/325 TABLET 1 TAB PO (11:10)
--- NOTE | 2022-01-20 11:17 | PM.OP.1 ---
Operative Date/Time/Diagnoses Date of procedure: 01/20/22 Time of procedure: 11:17 Pre-op diagnosis: Left breast cancer Post-op diagnosis: same Procedure & Clinicians Procedure: Left breast lumpectomy with wire localization Same procedure as scheduled: Yes Surgeon: Mars Martinez Operative Notes Procedure in detail: The patient was given preoperative antibiotic. The patient was brought to the operating room, placed on the table in the supine position, general endotracheal anesthesia was induced. Arms were abducted on arm boards. The left breast was prepped and draped in the usual fashion. A time-out was performed. The wire was trimmed to about 3 cm above the skin surface. We made a 7 cm incision over the palpable mass in the lateral upper outer quadrant. We created flaps superior and inferior to the incision and then dissected down to the pectoral fascia keeping the palpable mass within the center portion of specimen. A single silk suture was placed at the lateral aspect of the mass and left long. A short superior stitch was placed. The specimen was sent to Radiology for specimen mammogram. We then irrigated the wound cavity with sterile saline. Marcaine was injected into the muscle layer of the lumpectomy site. A few bleeders were cauterized. Once the wound cavities were hemostatic we injected some Marcaine into the dermis and closed both incisions in layers using multiple interrupted 3-0 Vicryl dermal sutures followed by a running 4-0 Monocryl subcuticular closure. Steri-Strips were applied followed by dry gauze and a breast binder. EBL: 10 mL Post-operative Condition: stable Disposition: PACU
[2022-01-20 11:30] VITALS: BP 138/78; PULSE 84; RESP 14; TEMP 36.8; O2SAT 98
== END 2022-01-20 11:45 | disposition home or self-care (01) ==
PROVIDERS: Family Provider Orthopaedic Surgery Foot and Ankle Surgery; PCP Family Medicine; Referring Provider Surgery; Visit Provider Surgery
PROC: (CPT 19301; principal; 2022-01-20 09:45)
DX: C50.412 Malignant neoplasm of upper-outer quadrant of left female breast (principal); Z17.1 Estrogen receptor negative status [ER-]; I10 Essential (primary) hypertension; E78.5 Hyperlipidemia, unspecified
CPT/HCPCS: 19125; 19281; 76098; G0279; C1819; J0690; J1100; J2405; J2704; J3010

== ENCOUNTER → 2022-02-12 07:47 | Outpatient (CLI) | payer MEDICARE, OTHER, SELFPAY ==
[2022-02-12 09:44] LABS: Cancer Antigen 125 < 5.5 U/mL (0-35)
== END ==
PROVIDERS: Family Provider Orthopaedic Surgery Foot and Ankle Surgery; PCP Family Medicine; Referring Provider Obstetrics & Gynecology; Visit Provider Obstetrics & Gynecology
DX: C56.2 Malignant neoplasm of left ovary (principal)
CPT/HCPCS: 36415; 86304

== ENCOUNTER → 2022-07-07 11:51 | Outpatient (CLI) | payer MEDICARE, OTHER, SELFPAY ==
--- NOTE | 2022-07-07 11:53 | DI.MRI.S_ITS ---
PROCEDURE: MR HIP RT WO CON INDICATIONS: Pain in right hip TECHNIQUE: Noncontrast coronal T1 spin echo and STIR through the bony pelvis. Coronal and axial T2 fast spin echo with fat saturation, sagittal T1 spin echo, and oblique axial T2 fast spin echo with fat saturation through the hip. COMPARISON: [facility] [place], CR, XR FEMUR 2+ VIEWS RIGHT, 01/07/2022, 15:28. FINDINGS: Image quality: Diagnostic. Susceptibility artifacts from right hip hardware is seen. Bones and joints: Patient is status post prior internal fixation of right proximal femur with intramedullary lorenza and surgical screws noted. Significant susceptibility artifacts are seen. Moderate osteoarthritic changes are seen in right hip joint with joint space narrowing, subchondral sclerosis and cyst formation. No definite marrow edema. No evidence of avascular necrosis of femoral head. Susceptibility artifacts from left hip joint is seen from prior left hip arthroplasty. No marrow edema or fracture is seen in rest of the bony pelvis. Visualized lower lumbar spine is normally aligned. Tendons and ligaments: There is small amount of fluid adjacent to greater trochanter, trochanteric bursitis cannot be excluded. The gluteus medius and minimus tendons appear intact, without associated muscle atrophy. The nearby proximal iliotibial band also appears intact. The iliopsoas tendon appears intact, without adjacent bursal fluid collections or evidence for impingement syndrome. The origin of the hamstring tendon is intact at the ischial tuberosity, as well as the associated sacrotuberous ligament. The straight and reflected heads of the rectus femoris muscle origin appear intact, as well as the conjoint tendon. The ligamentum teres appears intact where visualized. Labrum and cartilage: There is global signal abnormality throughout right hip labrum suggestive of extensive right hip labral tear. Diffuse loss of articulating cartilages in femoral head is seen. Soft tissues: Visualized muscles demonstrate normal bulk and internal signal. Quadratus femoris muscle demonstrates no internal edema to suggest ischiofemoral impingement. The proximal sciatic neurovascular bundle appears normal adjacent to the hamstring tendons. No free pelvic fluid. Bladder wall thickness is normal. Genitourinary structures and bowel loops appear normal where visualized. IMPRESSION: 1. Prior internal fixation of right proximal femur with postsurgical changes and susceptibility artifacts. Moderate right hip joint osteoarthritis. No gross marrow edema or fracture. No evidence of avascular necrosis of femoral head. 2. Suggestion of extensive right hip labral tear. Diffuse thinning of right hip articulating cartilages. 3. No gross muscle or tendon signal abnormality is seen. Questionable fluid adjacent to greater trochanter which may indicate trochanteric bursitis. Dictated by: Param Colon M.D. on 07/07/2022 at 15:37 Approved by: Param Colon M.D. on 07/07/2022 at 15:42
== END ==
PROVIDERS: Family Provider Orthopaedic Surgery Foot and Ankle Surgery; PCP Family Medicine; Referring Provider Family Medicine; Visit Provider Family Medicine
DX: M25.551 Pain in right hip (principal); R26.81 Unsteadiness on feet; Z87.81 Personal history of (healed) traumatic fracture
CPT/HCPCS: 73721

== ENCOUNTER 2022-08-04 09:00 | Outpatient (RCR) | payer MEDICARE, OTHER, SELFPAY ==
--- NOTE | 2022-02-26 15:03 | PT.OIE ---
Current Diagnoses Other abnormalities of gait and mobility (02/26/22) Fracture of unspecified part of neck of right femur, subsequent encounter for closed fracture with routine healing (02/26/22) Past Medical History (Last Reviewed 01/28/22 @ 09:46 by Jose Jacobo RN) Arthritis Former smoker History of laparoscopic-assisted vaginal hysterectomy (07/25/20) History of left hip replacement History of orthopedic surgery (11/12/21) Hx of BSO (bilateral salpingo-oophorectomy) (06/06/20) Hypercholesteremia Hyperlipidemia Hypertension S/P tonsillectomy and adenoidectomy [facility] teeth extracted Past Surgical History (Last Reviewed 01/28/22 @ 09:46 by Jose Jacobo RN) History of laparoscopic-assisted vaginal hysterectomy (07/25/20) History of left hip replacement History of orthopedic surgery (11/12/21) Hx of BSO (bilateral salpingo-oophorectomy) (06/06/20) S/P tonsillectomy and adenoidectomy [facility] teeth extracted Visit Care Team Role Provider Type Sigifredo Galicia MD Primary Care Provider Physician Specialty: Family Practice Address: [address] [place] [address] [place], [address] Email: [email or web address] [email or web address] Ace MD Attending Provider Physician Family Provider Referring Provider Specialty: Orthopedics Orthopedic Surgery Address: [address] [place] [address], [id number] Email: [email or web address] Initial Evaluation PT-OP-A Visit Information Start: 02/25/22 12:31 Freq: Status: Active Protocol: Document 02/26/22 14:30 AMB (Rec: 02/27/22 12:54 AMB [id number]) Out-Patient Physical Therapy Visit Information Visit Information Visit Type Initial Evaluation Visit Start Time 14:30 Visit Stop Time 15:15 Total Visit Minutes 45 Visit Number 1 PT-OP-B Current Condition Start: 02/25/22 12:31 Freq: Status: Active Protocol: Document 02/26/22 14:43 AMB (Rec: 02/26/22 14:54 AMB [id number]) Current Condition History of Current Condition Onset Date October 2021 Current Complaints R hip pain History of Current Condition PLOF: Was previously walking a couple of miles a day. R hip fracture slid out of shoes while in the kitchen in October, had home health, but still has difficulty walking. Does have hammer toes and notes foot pain increases throughout the day. Uses the SPC in the home. Difficulty getting up at night to use the bathroom. Sitting can increase the pain, getting in and out of bed increase pain laterally- tenderness over the hip. Lives in a home wiht 2- 3 stairs to enter from the garage with 1 railing with her and a dog (does not walk the dog). Treatment Goals Patient/Caregiver Goals Improve balance, walking tolerance, be able to walk without the cane. Is currently avoiding uneven terrain. Prior Functional Status Baseline Function- ADL's Independent Baseline Function- Mobility Independent Current Functional Impairments (Reported) Functional Limitations- ADL's Limited with gait speed and safety Personal Factors Other Personal Factors That May Effect Recent cancer history: had Therapy/Recovery surgery on bladder, hysterectomy and lumpectomy PT-OP-C Subjective Start: 02/25/22 12:31 Freq: Status: Active Protocol: Document 02/26/22 14:30 AMB (Rec: 02/27/22 12:54 AMB [id number]) OP-PT Pain Assessment Comments Pain Comments Pain with pressure to lateral hip (like when rolling over in bed or seated) PT-OP-D Balance Start: 02/25/22 12:31 Freq: Status: Active Protocol: Document 02/26/22 14:30 AMB (Rec: 02/27/22 12:57 AMB [id number]) Balance Tests mCTSIB mCTSIB Position 1 30seconds + mCTSIB Position 2 unsteady PT-OP-E Functional Tests Start: 02/25/22 12:31 Freq: Status: Active Protocol: Document 02/26/22 14:30 AMB (Rec: 02/27/22 12:54 AMB [id number]) Functional Tests 10 Meter Walk Test Distance 16 Device Used SPC PT-OP-G Mobility & Gait Start: 02/25/22 12:31 Freq: Status: Active Protocol: Document 02/26/22 14:30 AMB (Rec: 02/27/22 12:54 AMB [id number]) OP Mobility Evaluation Transfers Sit to Stand from elevated treatment table : good, no UE support, from low table requires UE support Floor Transfers Unable OP Gait Assessment Comments Gait Comments Antalgic with genu valgus worse on L, uses cane in L UE. Significant trendelenburg when ambulating without cane. PT-OP-J Posture/Palpation/Skin Start: 02/25/22 12:31 Freq: Status: Active Protocol: Document 02/26/22 14:30 AMB (Rec: 02/27/22 12:54 AMB [id number]) Palpation Assessment Location One Palpation Location R hip Palpation Findings Soft Tissue Tightness,Muscle Guarding,Tenderness Palpation Details lateral hip/IT band tenderness PT-OP-K Range of Motion Start: 02/25/22 12:31 Freq: Status: Active Protocol: Document 02/26/22 14:30 AMB (Rec: 02/27/22 12:54 AMB [id number]) Hip Goniometric Range of Motion Hip Right Passive Abduction 15 PT-OP-M Strength Start: 02/25/22 12:31 Freq: Status: Active Protocol: Document 02/26/22 14:30 AMB (Rec: 02/27/22 12:54 AMB [id number]) Hip Strength Hip Manual Muscle Testing Right Flexion (L2) 3 Fair Extension (S1) 3 Fair Abduction 3- Fair- Left Flexion (L2) 2 Poor Extension (S1) 2 Poor Abduction 2 Poor PT-OP-Q Treatments Start: 02/25/22 12:31 Freq: Status: Active Protocol: Document 02/26/22 14:30 AMB (Rec: 02/27/22 12:54 AMB [id number]) Therapeutic Exercises Standing Exercises hip extension Side bilateral Reps/Minutes 10 Comments UE support at sink hip abduction Side bilateral Reps/Minutes 10 Comments UE support at sink PT-OP-T Assessment and Plan Start: 02/25/22 12:31 Freq: Status: Active Protocol: Document 02/26/22 14:30 AMB (Rec: 02/27/22 12:54 AMB [id number]) Physical Therapy Assessment Rehab Potential Rehabilitation Potential Good Evaluation Complexity Number of Personal Factors/Comorbidities 3 or More Number of Body Systems Impaired 4 or More Clinical Presentation at Evaluation Stable Impairments Impairments Balance,Gait,Pain,ROM,Strength Goals Transfers Short Term Goal (STG) Jeanette will roll over in bed without hip pain. STG Duration 5 weeks Him Manager Goal (LTG) Jeanette will perform a floor transfer with environmental support and Ronan without LTG Duration 10 weeks Two Impairment Gait Short Term Goal (STG) Jeanette will improve her 10MWT time to less than 12 seconds or faster. STG Duration 5 weeks Snf Goal (LTG) Jeanette will ambulate for 6 minutes over smooth terrain with her SPC without LOB or increasing hip pain. LTG Duration 10 weeks One Impairment Exercise Short Term Goal (STG) Jeanette will be independent with a HEP to improve her bilateral hip strength. STG Duration 5 weeks Assessment Summary Assessment Jeanette attends physical therapy s/p hip fracture after GLF that resulted in an intramedullary lorenza on the right. She has had home health, but in the time it took to get in to outpatient physical therapy she has stopped performing her HEP. Prior to the pandemic she exercises regularly at the gym , but has not done so since, and has become deconditioned. She denies any falls since the one that ended in hip fracture. She does have a distant history of left SHAYLA (~ 20years ago per patient). She was actually weaker in hip abduction on the left than on her recently surgical right hip. Her gait speed is slow, and she is challenged by pain with bed mobility and difficulty with balance with gait and advanced transfers. She will benefit from physical therapy to improve strength, balance, gait and transfers. Physical Therapy Plan Frequency and Duration Frequency of Treatment 2x/Week Duration of Treatment 10 weeks Plan of Care Start Date 02/26/22 Plan of Care End Date 05/07/22 Therapeutic Interventions Therapeutic Interventions Balance Training,Gait Training ,Home Exercise Program,Manual Therapy,Neuromuscular Re- education,Self-Care/Home Management,Therapeutic Activities,Therapeutic Exercises Next Visit Focus/Plan Next Note Type Treatment Note Next Visit Plan Reassess HEP and progress as able with focus on hip abduction and extension strength. Gait training ( would pt benefit from SPC in R UE given her L LE weakness?). Balance training.
--- NOTE | 2022-02-26 15:05 | PT.OPPOC ---
Physical, Occupational & Speech Therapy At [facility] Current Diagnoses Other abnormalities of gait and mobility (02/26/22) Fracture of unspecified part of neck of right femur, subsequent encounter for closed fracture with routine healing (02/26/22) Visit Care Team Role Provider Type Sigifredo Galicia MD Primary Care Provider Physician Specialty: Family Practice Address: [facility] [place], [address] Email: [email or web address] Attending Provider Physician Family Provider Referring Provider Specialty: Orthopedics Orthopedic Surgery Address: [address] [place] [address], [phone] Email: [email or web address] Plan Of Care PT-OP-T Assessment and Plan Start: 02/25/22 12:31 Freq: Status: Active Protocol: Document 02/26/22 14:30 AMB (Rec: 02/27/22 12:54 AMB [id number]) Physical Therapy Assessment Rehab Potential Rehabilitation Potential Good Evaluation Complexity Number of Personal Factors/Comorbidities 3 or More Number of Body Systems Impaired 4 or More Clinical Presentation at Evaluation Stable Impairments Impairments Balance,Gait,Pain,ROM,Strength Goals Transfers Short Term Goal (STG) Jeanette will roll over in bed without hip pain. STG Duration 5 weeks Nursing Home Goal (LTG) Jeanette will perform a floor transfer with environmental support and Ronan without LTG Duration 10 weeks Two Impairment Gait Short Term Goal (STG) Jeanette will improve her 10MWT time to less than 12 seconds or faster. STG Duration 5 weeks Software Test And Validation Engineer Goal (LTG) Jeanette will ambulate for 6 minutes over smooth terrain with her SPC without LOB or increasing hip pain. LTG Duration 10 weeks One Impairment Exercise Short Term Goal (STG) Jeanette will be independent with a HEP to improve her bilateral hip strength. STG Duration 5 weeks Assessment Summary Assessment Jeanette attends physical therapy s/p hip fracture after GLF that resulted in an intramedullary lorenza on the right. She has had home health, but in the time it took to get in to outpatient physical therapy she has stopped performing her HEP. Prior to the pandemic she exercises regularly at the gym , but has not done so since, and has become deconditioned. She denies any falls since the one that ended in hip fracutre. She does have a distant history of left SHAYLA (~ 20years ago per patient). She was actually weaker in hip abduction on the left than on her recently surgical right hip. Her gait speed is slow, and she is challenged by pain with bed mobility and difficulty with balance with gait and advanced transfers. She will benefit from physical therapy to improve strength, balance, gait and transfers. Physical Therapy Plan Frequency and Duration Frequency of Treatment 2x/Week Duration of Treatment 10 weeks Plan of Care Start Date 02/26/22 Plan of Care End Date 05/07/22 Therapeutic Interventions Therapeutic Interventions Balance Training,Gait Training ,Home Exercise Program,Manual Therapy,Neuromuscular Re- education,Self-Care/Home Management,Therapeutic Activities,Therapeutic Exercises Next Visit Focus/Plan Next Note Type Treatment Note Next Visit Plan Reassess HEP and progress as able with focus on hip abduction and extension strength. Gait training ( would pt benefit from SPC in R UE given her L LE weakness?). Balance training. Plan of Care Dates Plan of Care Start Date 02/26/22 Plan of Care End Date 05/07/22 Electronically Signed by: Clari Townsend, PT 02/27/22 5109 If you are in agreement with this Plan of Care, please return a signed and dated copy. I have reviewed this Plan of Care and certify that the skilled therapy services above are required to meet the patient?s needs. Physician Signature Date Printed Name and Credentials Clinical Instructor Signature Printed Name and Credentials
--- NOTE | 2022-03-02 09:49 | PT.OTN ---
Current Diagnoses Other abnormalities of gait and mobility (03/02/22) Fracture of unspecified part of neck of right femur, subsequent encounter for closed fracture with routine healing (03/02/22) Physical Therapy Treatment Note PT-OP-A Visit Information Start: 02/25/22 12:31 Freq: Status: Active Protocol: Document 03/02/22 09:08 [facility] (Rec: 03/02/22 09:49 [facility] [id number]) Out-Patient Physical Therapy Visit Information Visit Information Visit Type Treatment Note Visit Note 11/06 Visit Start Time 09:05 Visit Stop Time 09:45 Total Visit Minutes 40 Visit Number 2 Number of PRINCIPAL RESEARCH ECONOMIST Visits 0 PT-OP-B Current Condition Start: 02/25/22 12:31 Freq: Status: Active Protocol: Document 02/26/22 14:43 AMB (Rec: 02/26/22 14:54 AMB [id number]) Current Condition History of Current Condition Onset Date October 2021 Current Complaints R hip pain History of Current Condition PLOF: Was previously walking a couple of miles a day. R hip fracture slid out of shoes while in the kitchenin October, had home health, but still has difficulty walking. Does have hammer toes and notes foot pain increases throughout the day. Uses the SPC in the home. Difficulty getting up at night to use the bathroom. Sitting can increase the pain, getting in and out of bed increase pain laterally- tenderness over the hip. Lives in a home wiht 2- 3 stairs to enter from the garage with 1 railing with her and a dog (does not walk the dog). Treatment Goals Patient/Caregiver Goals Improve balance, walking tolerance, be able to walk without the cane. Is currently avoiding uneven terrrain. Prior Functional Status Baseline Function- ADL's Independent Baseline Function- Mobility Independent Current Functional Impairments (Reported) Functional Limitations- ADL's Limited with gait speed and safety Personal Factors Other Personal Factors That May Effect Recent cancer history: had Therapy/Recovery surgery on bladder, hysterectomy and lumpectomy PT-OP-C Subjective Start: 02/25/22 12:31 Freq: Status: Active Protocol: Document 03/02/22 09:08 [facility] (Rec: 03/02/22 09:49 [facility] [id number]) OP-PT Subjective Patient Comments Patient Comments Pt came in walking w/2 walking sticks today and noted these are just easier if going any distance because the cane is slow and wobbly. PT-OP-D Balance Start: 02/25/22 12:31 Freq: Status: Active Protocol: Document 02/26/22 14:30 AMB (Rec: 02/27/22 12:57 AMB [id number]) Balance Tests mCTSIB mCTSIB Position 1 30seconds + mCTSIB Position 2 unsteady PT-OP-E Functional Tests Start: 02/25/22 12:31 Freq: Status: Active Protocol: Document 02/26/22 14:30 AMB (Rec: 02/27/22 12:54 AMB [id number]) Functional Tests 10 Meter Walk Test Distance 16 Device Used SPC PT-OP-G Mobility & Gait Start: 02/25/22 12:31 Freq: Status: Active Protocol: Document 02/26/22 14:30 AMB (Rec: 02/27/22 12:54 AMB [id number]) OP Mobility Evaluation Transfers Sit to Stand from elevated treatment table : good, no UE support, from low table requires UE support Floor Transfers Unable OP Gait Assessment Comments Gait Comments Antalgic with genu valgus worse on L, uses cane in L UE. Significant trendelenburg when ambulating without cane. PT-OP-J Posture/Palpation/Skin Start: 02/25/22 12:31 Freq: Status: Active Protocol: Document 02/26/22 14:30 AMB (Rec: 02/27/22 12:54 AMB [id number]) Palpation Assessment Location One Palpation Location R hip Palpation Findings Soft Tissue Tightness,Muscle Guarding,Tenderness Palpation Details lateral hip/IT band tenderness PT-OP-K Range of Motion Start: 02/25/22 12:31 Freq: Status: Active Protocol: Document 02/26/22 14:30 AMB (Rec: 02/27/22 12:54 AMB [id number]) Hip Goniometric Range of Motion Hip Right Passive Abduction 15 PT-OP-M Strength Start: 02/25/22 12:31 Freq: Status: Active Protocol: Document 02/26/22 14:30 AMB (Rec: 02/27/22 12:54 AMB [id number]) Hip Strength Hip Manual Muscle Testing Right Flexion (L2) 3 Fair Extension (S1) 3 Fair Abduction 3- Fair- Left Flexion (L2) 2 Poor Extension (S1) 2 Poor Abduction 2 Poor PT-OP-Q Treatments Start: 02/25/22 12:31 Freq: Status: Active Protocol: Document 03/02/22 09:08 [facility] (Rec: 03/02/22 09:49 [facility] [id number]) Cardio Equipment Recumbent Elliptical (Biodex) Duration (Minutes) 6 Resistance 7 Seat Position 7 Therapeutic Exercises Standing Exercises step up Side bilateral Equipment Used 4 in step w/rail Reps/Minutes 10 heel raises Side bilateral Reps/Minutes 20 resisted walk Standing Exercise Name 1. fwd/back 2. sidestep Side bilateral Equipment Used yellow band Reps/Minutes 20ft ea sit to stand Standing Exercise Name no hands Side bilateral Reps/Minutes 10 squats Standing Exercise Name mini at bar Side bilateral Reps/Minutes 15 hip extension Side bilateral Reps/Minutes 15 Comments UE support at bar hip abduction Side bilateral Reps/Minutes 15 Comments UE support at bar Neuro Re-Education Treatment Balance Activities balance board Details fwd/back wt shifts foam Surface blue foam Comments WBOSw/head turns, NBOS w/head turns, staggered stance B firm Details head turn & EC trials Comments NBOS, staggered stance B PT-OP-T Assessment and Plan Start: 02/25/22 12:31 Freq: Status: Active Protocol: Document 03/02/22 09:08 [facility] (Rec: 03/02/22 09:49 [facility] [id number]) Physical Therapy Assessment Goals Transfers Short Term Goal (STG) Jeanette will roll over in bed without hip pain. STG Duration 5 weeks Jail Goal (LTG) Jeanette will perform a floor transfer with environmental support and Ronan without LTG Duration 10 weeks Two Impairment Gait Short Term Goal (STG) Jeanette will improve her 10MWT time to less than 12 seconds or faster. STG Duration 5 weeks Provider Relations Advocate Goal (LTG) Jeanette will ambulate for 6 minutes over smooth terrain with her SPC without LOB or increasing hip pain. LTG Duration 10 weeks One Impairment Exercise Short Term Goal (STG) Jeanette will be independent with a HEP to improve her bilateral hip strength. STG Duration 5 weeks Assessment Summary Assessment Pt's gait looks better when using trekking poles in BUEs and shows more fluid gait. She was challenged by balance activities, but did well w/occ use of rail. CUes during exercise for forma nd control of motion Physical Therapy Plan Frequency and Duration Frequency of Treatment 2x/Week Duration of Treatment 10 weeks Plan of Care Start Date 02/26/22 Plan of Care End Date 05/07/22 Next Visit Focus/Plan Next Note Type Treatment Note Next Visit Plan cont to advance hip strengthening & balance activities, work on gait training.
--- NOTE | 2022-03-04 12:46 | PT.OTN ---
Current Diagnoses Other abnormalities of gait and mobility (03/04/22) Fracture of unspecified part of neck of right femur, subsequent encounter for closed fracture with routine healing (03/04/22) Physical Therapy Treatment Note PT-OP-A Visit Information Start: 02/25/22 12:31 Freq: Status: Active Protocol: Document 03/04/22 09:05 AMB (Rec: 03/04/22 10:52 AMB [id number]) Out-Patient Physical Therapy Visit Information Visit Information Visit Type Treatment Note Visit Note 12/04 Visit Start Time 09:05 Visit Stop Time 09:45 Total Visit Minutes 40 Visit Number 3 PT-OP-B Current Condition Start: 02/25/22 12:31 Freq: Status: Active Protocol: Document 02/26/22 14:43 AMB (Rec: 02/26/22 14:54 AMB [id number]) Current Condition History of Current Condition Onset Date October 2021 Current Complaints R hip pain History of Current Condition PLOF: Was previously walking a couple of miles a day. R hip fracture slid out of shoes while in the kitchenin October, had home health, but still has difficulty walking. Does have hammer toes and notes foot pain increases throughout the day. Uses the SPC in the home. Difficulty getting up at night to use the bathroom. Sitting can increase the pain, getting in and out of bed increase pain laterally- tenderness over the hip. Lives in a home wiht 2- 3 stairs to enter from the garage with 1 railing with her and a dog (does not walk the dog). Treatment Goals Patient/Caregiver Goals Improve balance, walking tolerance, be able to walk without the cane. Is currently avoiding uneven terrrain. Prior Functional Status Baseline Function- ADL's Independent Baseline Function- Mobility Independent Current Functional Impairments (Reported) Functional Limitations- ADL's Limited with gait speed and safety Personal Factors Other Personal Factors That May Effect Recent cancer history: had Therapy/Recovery surgery on bladder, hysterectomy and lumpectomy PT-OP-C Subjective Start: 02/25/22 12:31 Freq: Status: Active Protocol: Document 03/04/22 09:00 AMB (Rec: 03/04/22 12:43 AMB [id number]) OP-PT Subjective Patient Comments Patient Comments Has been doing standing exercises and they are going well. Was a little sore in muscles after Wednesday, but not bothersome. PT-OP-D Balance Start: 02/25/22 12:31 Freq: Status: Active Protocol: Document 02/26/22 14:30 AMB (Rec: 02/27/22 12:57 AMB [id number]) Balance Tests mCTSIB mCTSIB Position 1 30seconds + mCTSIB Position 2 unsteady PT-OP-E Functional Tests Start: 02/25/22 12:31 Freq: Status: Active Protocol: Document 02/26/22 14:30 AMB (Rec: 02/27/22 12:54 AMB [id number]) Functional Tests 10 Meter Walk Test Distance 16 Device Used SPC PT-OP-G Mobility & Gait Start: 02/25/22 12:31 Freq: Status: Active Protocol: Document 02/26/22 14:30 AMB (Rec: 02/27/22 12:54 AMB [id number]) OP Mobility Evaluation Transfers Sit to Stand from elevated treatment table : good, no UE support, from low table requires UE support Floor Transfers Unable OP Gait Assessment Comments Gait Comments Antalgic with genu valgus worse on L, uses cane in L UE. Significant trendelenburg when ambulating without cane. PT-OP-J Posture/Palpation/Skin Start: 02/25/22 12:31 Freq: Status: Active Protocol: Document 02/26/22 14:30 AMB (Rec: 02/27/22 12:54 AMB [id number]) Palpation Assessment Location One Palpation Location R hip Palpation Findings Soft Tissue Tightness,Muscle Guarding,Tenderness Palpation Details lateral hip/IT band tenderness PT-OP-K Range of Motion Start: 02/25/22 12:31 Freq: Status: Active Protocol: Document 02/26/22 14:30 AMB (Rec: 02/27/22 12:54 AMB [id number]) Hip Goniometric Range of Motion Hip Right Passive Abduction 15 PT-OP-M Strength Start: 02/25/22 12:31 Freq: Status: Active Protocol: Document 02/26/22 14:30 AMB (Rec: 02/27/22 12:54 AMB [id number]) Hip Strength Hip Manual Muscle Testing Right Flexion (L2) 3 Fair Extension (S1) 3 Fair Abduction 3- Fair- Left Flexion (L2) 2 Poor Extension (S1) 2 Poor Abduction 2 Poor PT-OP-Q Treatments Start: 02/25/22 12:31 Freq: Status: Active Protocol: Document 03/04/22 09:05 AMB (Rec: 03/04/22 10:52 AMB [id number]) Therapeutic Exercises Supine Exercises bridge Supine Exercise Name with T band for hip abd Reps/Minutes #3 t band Comments 2x10 Sidelying Exercises clamshell Side right Equipment Used #3 t band Reps/Minutes 2x10 Comments partial ROM only Standing Exercises sidestepping Reps/Minutes 10 resisted walk Standing Exercise Name 1. fwd/back 2. sidestep Side bilateral Equipment Used yellow band Reps/Minutes 20ft ea sit to stand Standing Exercise Name no hands Side bilateral Reps/Minutes 10 squats Standing Exercise Name mini at bar Side bilateral Reps/Minutes 15 hip extension Side bilateral Reps/Minutes 15 Comments UE support at bar hip abduction Side bilateral Reps/Minutes 15 Comments UE support at bar Therapeutic Activity Therapeutic Activity 1 Comments floor transfer with UE support of mat table- pt required cues, SBA, but otherwise was able to perform, recommended continue to use environmental support. PT-OP-T Assessment and Plan Start: 02/25/22 12:31 Freq: Status: Active Protocol: Document 03/04/22 09:00 AMB (Rec: 03/04/22 12:43 AMB [id number]) Physical Therapy Assessment Goals Transfers Short Term Goal (STG) Jeanette will roll over in bed without hip pain. STG Duration 5 weeks Prison Goal (LTG) Jeanette will perform a floor transfer with environmental support and Ronan without LTG Duration 10 weeks Two Impairment Gait Short Term Goal (STG) Jeanette will improve her 10MWT time to less than 12 seconds or faster. STG Duration 5 weeks Warhead Maintenance Specialist Goal (LTG) Jeanette will ambulate for 6 minutes over smooth terrain with her SPC without LOB or increasing hip pain. LTG Duration 10 weeks One Impairment Exercise Short Term Goal (STG) Jeanette will be independent with a HEP to improve her bilateral hip strength. STG Duration 5 weeks Assessment Summary Assessment Pt attends with SPC again today. Is concerned about being able to carry things, not interested in a 4WW at this time. Did well with floor transfer with environmental support and exercises, hip abductor weakness continues. Physical Therapy Plan Next Visit Focus/Plan Next Note Type Treatment Note Next Visit Plan cont to advance hip strengthening & balance activities, work on gait training.
--- NOTE | 2022-03-09 10:22 | PT.OTN ---
Current Diagnoses Other abnormalities of gait and mobility (03/09/22) Fracture of unspecified part of neck of right femur, subsequent encounter for closed fracture with routine healing (03/09/22) Physical Therapy Treatment Note PT-OP-A Visit Information Start: 02/25/22 12:31 Freq: Status: Active Protocol: Document 03/09/22 09:00 AMB (Rec: 03/09/22 10:16 AMB [id number]) Out-Patient Physical Therapy Visit Information Visit Information Visit Type Treatment Note Visit Note 12/04 Visit Start Time 09:05 Visit Stop Time 09:45 Total Visit Minutes 40 Visit Number 4 PT-OP-B Current Condition Start: 02/25/22 12:31 Freq: Status: Active Protocol: Document 02/26/22 14:43 AMB (Rec: 02/26/22 14:54 AMB [id number]) Current Condition History of Current Condition Onset Date October 2021 Current Complaints R hip pain History of Current Condition PLOF: Was previously walking a couple of miles a day. R hip fracture slid out of shoes while in the kitchenin October, had home health, but still has difficulty walking. Does have hammer toes and notes foot pain increases throughout the day. Uses the SPC in the home. Difficulty getting up at night to use the bathroom. Sitting can increase the pain, getting in and out of bed increase pain laterally- tenderness over the hip. Lives in a home wiht 2- 3 stairs to enter from the garage with 1 railing with her and a dog (does not walk the dog). Treatment Goals Patient/Caregiver Goals Improve balance, walking tolerance, be able to walk without the cane. Is currently avoiding uneven terrrain. Prior Functional Status Baseline Function- ADL's Independent Baseline Function- Mobility Independent Current Functional Impairments (Reported) Functional Limitations- ADL's Limited with gait speed and safety Personal Factors Other Personal Factors That May Effect Recent cancer history: had Therapy/Recovery surgery on bladder, hysterectomy and lumpectomy PT-OP-C Subjective Start: 02/25/22 12:31 Freq: Status: Active Protocol: Document 03/09/22 09:00 AMB (Rec: 03/09/22 10:16 AMB [id number]) OP-PT Subjective Patient Comments Patient Comments Jeanette chapa presents with SPC, has not been doing exercise video, but was able to get down on floor and do floor exercises. PT-OP-D Balance Start: 02/25/22 12:31 Freq: Status: Active Protocol: Document 02/26/22 14:30 AMB (Rec: 02/27/22 12:57 AMB [id number]) Balance Tests mCTSIB mCTSIB Position 1 30seconds + mCTSIB Position 2 unsteady PT-OP-E Functional Tests Start: 02/25/22 12:31 Freq: Status: Active Protocol: Document 02/26/22 14:30 AMB (Rec: 02/27/22 12:54 AMB [id number]) Functional Tests 10 Meter Walk Test Distance 16 Device Used SPC PT-OP-G Mobility & Gait Start: 02/25/22 12:31 Freq: Status: Active Protocol: Document 02/26/22 14:30 AMB (Rec: 02/27/22 12:54 AMB [id number]) OP Mobility Evaluation Transfers Sit to Stand from elevated treatment table : good, no UE support, from low table requires UE support Floor Transfers Unable OP Gait Assessment Comments Gait Comments Antalgic with genu valgus worse on L, uses cane in L UE. Significant trendelenburg when ambulating without cane. PT-OP-J Posture/Palpation/Skin Start: 02/25/22 12:31 Freq: Status: Active Protocol: Document 02/26/22 14:30 AMB (Rec: 02/27/22 12:54 AMB [id number]) Palpation Assessment Location One Palpation Location R hip Palpation Findings Soft Tissue Tightness,Muscle Guarding,Tenderness Palpation Details lateral hip/IT band tenderness PT-OP-K Range of Motion Start: 02/25/22 12:31 Freq: Status: Active Protocol: Document 02/26/22 14:30 AMB (Rec: 02/27/22 12:54 AMB [id number]) Hip Goniometric Range of Motion Hip Right Passive Abduction 15 PT-OP-M Strength Start: 02/25/22 12:31 Freq: Status: Active Protocol: Document 02/26/22 14:30 AMB (Rec: 02/27/22 12:54 AMB [id number]) Hip Strength Hip Manual Muscle Testing Right Flexion (L2) 3 Fair Extension (S1) 3 Fair Abduction 3- Fair- Left Flexion (L2) 2 Poor Extension (S1) 2 Poor Abduction 2 Poor PT-OP-Q Treatments Start: 02/25/22 12:31 Freq: Status: Active Protocol: Document 03/09/22 09:00 AMB (Rec: 03/09/22 10:16 AMB [id number]) Therapeutic Exercises Standing Exercises sidestepping Reps/Minutes 10 Comments at railing step up Side bilateral Equipment Used 4 in step w/rail Reps/Minutes 10 sit to stand Standing Exercise Name no hands Side bilateral Reps/Minutes 10 Comments with #3 band around knees to promote alignment squats Standing Exercise Name mini at bar Side bilateral Reps/Minutes 15 hip abduction Side bilateral Reps/Minutes 15 Comments UE support at bar Gait Training Gait Activity 1 Description SPC Level of Assistance CGA- gait belt Distance/Duration 250' Comments smooth surfaces focusing on heel/toe, arm swing Neuro Re-Education Treatment Balance Activities foam Surface blue foam Comments WBOSw/head turns, NBOS w/head turns, staggered stance B PT-OP-T Assessment and Plan Start: 02/25/22 12:31 Freq: Status: Active Protocol: Document 03/09/22 09:00 AMB (Rec: 03/09/22 10:16 AMB [id number]) Physical Therapy Assessment Goals Transfers Short Term Goal (STG) Jeanette will roll over in bed without hip pain. STG Duration 5 weeks Body Builder Goal (LTG) Jeanette will perform a floor transfer with environmental support and Ronan without LTG Duration 10 weeks Two Impairment Gait Short Term Goal (STG) Jeanette will improve her 10MWT time to less than 12 seconds or faster. STG Duration 5 weeks [facility] Goal (LTG) Jeanette will ambulate for 6 minutes over smooth terrain with her SPC without LOB or increasing hip pain. LTG Duration 10 weeks One Impairment Exercise Short Term Goal (STG) Jeanette will be independent with a HEP to improve her bilateral hip strength. STG Duration 5 weeks Assessment Summary Assessment Encouraged pt that she will need to continue with strengthening for the jail to see changes. Considered inserts for flat foot that is contributing to knee valgus, but pt reports she doesn't wear shoes at home , is more in socks, educated about that being slippery would prefer something with more support/less fall risk. Physical Therapy Plan Next Visit Focus/Plan Next Note Type Treatment Note Next Visit Plan Progress gait/balance, strength training focusing on hip
--- NOTE | 2022-03-11 09:47 | PT.OTN ---
Current Diagnoses Other abnormalities of gait and mobility (03/11/22) Fracture of unspecified part of neck of right femur, subsequent encounter for closed fracture with routine healing (03/11/22) Physical Therapy Treatment Note PT-OP-A Visit Information Start: 02/25/22 12:31 Freq: Status: Active Protocol: Document 03/11/22 09:04 SP (Rec: 03/11/22 09:49 SP [id number]) Out-Patient Physical Therapy Visit Information Visit Information Visit Type Treatment Note Visit Note 02/03 Visit Start Time 09:04 Visit Stop Time 09:47 Total Visit Minutes 43 Visit Number 5 Number of FOREIGN COLLECTION CLERK Visits 1 PT-OP-B Current Condition Start: 02/25/22 12:31 Freq: Status: Active Protocol: Document 02/26/22 14:43 AMB (Rec: 02/26/22 14:54 AMB [id number]) Current Condition History of Current Condition Onset Date October 2021 Current Complaints R hip pain History of Current Condition PLOF: Was previously walking a couple of miles a day. R hip fracture slid out of shoes while in the kitchenin October, had home health, but still has difficulty walking. Does have hammer toes and notes foot pain increases throughout the day. Uses the SPC in the home. Difficulty getting up at night to use the bathroom. Sitting can increase the pain, getting in and out of bed increase pain laterally- tenderness over the hip. Lives in a home wiht 2- 3 stairs to enter from the garage with 1 railing with her and a dog (does not walk the dog). Treatment Goals Patient/Caregiver Goals Improve balance, walking tolerance, be able to walk without the cane. Is currently avoiding uneven terrrain. Prior Functional Status Baseline Function- ADL's Independent Baseline Function- Mobility Independent Current Functional Impairments (Reported) Functional Limitations- ADL's Limited with gait speed and safety Personal Factors Other Personal Factors That May Effect Recent cancer history: had Therapy/Recovery surgery on bladder, hysterectomy and lumpectomy PT-OP-C Subjective Start: 02/25/22 12:31 Freq: Status: Active Protocol: Document 03/11/22 09:04 SP (Rec: 03/11/22 09:49 SP [id number]) OP-PT Subjective Patient Comments Patient Comments Pt reports discouraged with not being able walk normal but using just SPC and by end day is leaning on cane more ( LUE ). PT-OP-D Balance Start: 02/25/22 12:31 Freq: Status: Active Protocol: Document 02/26/22 14:30 AMB (Rec: 02/27/22 12:57 AMB [id number]) Balance Tests mCTSIB mCTSIB Position 1 30seconds + mCTSIB Position 2 unsteady PT-OP-E Functional Tests Start: 02/25/22 12:31 Freq: Status: Active Protocol: Document 02/26/22 14:30 AMB (Rec: 02/27/22 12:54 AMB [id number]) Functional Tests 10 Meter Walk Test Distance 16 Device Used SPC PT-OP-G Mobility & Gait Start: 02/25/22 12:31 Freq: Status: Active Protocol: Document 02/26/22 14:30 AMB (Rec: 02/27/22 12:54 AMB [id number]) OP Mobility Evaluation Transfers Sit to Stand from elevated treatment table : good, no UE support, from low table requires UE support Floor Transfers Unable OP Gait Assessment Comments Gait Comments Antalgic with genu valgus worse on L, uses cane in L UE. Significant trendelenburg when ambulating without cane. PT-OP-J Posture/Palpation/Skin Start: 02/25/22 12:31 Freq: Status: Active Protocol: Document 02/26/22 14:30 AMB (Rec: 02/27/22 12:54 AMB [id number]) Palpation Assessment Location One Palpation Location R hip Palpation Findings Soft Tissue Tightness,Muscle Guarding,Tenderness Palpation Details lateral hip/IT band tenderness PT-OP-K Range of Motion Start: 02/25/22 12:31 Freq: Status: Active Protocol: Document 02/26/22 14:30 AMB (Rec: 02/27/22 12:54 AMB [id number]) Hip Goniometric Range of Motion Hip Right Passive Abduction 15 PT-OP-M Strength Start: 02/25/22 12:31 Freq: Status: Active Protocol: Document 02/26/22 14:30 AMB (Rec: 02/27/22 12:54 AMB [id number]) Hip Strength Hip Manual Muscle Testing Right Flexion (L2) 3 Fair Extension (S1) 3 Fair Abduction 3- Fair- Left Flexion (L2) 2 Poor Extension (S1) 2 Poor Abduction 2 Poor PT-OP-Q Treatments Start: 02/25/22 12:31 Freq: Status: Active Protocol: Document 03/11/22 09:04 SP (Rec: 03/11/22 09:49 SP [id number]) Therapeutic Exercises Supine Exercises bridge Supine Exercise Name reviewed HEP Resistance TB #3 Reps/Minutes 10 s hold x10 Comments cued knees apart with feet throughout hold- good response effort Sidelying Exercises clamshell Sidelying Exercise Name HEP reviewed Side right Equipment Used #3 t band Reps/Minutes 2x10 Comments partial ROM only Standing Exercises sidestepping Standing Exercise Name reviewed for HEP Side bilateral Equipment Used 1 trek pole in LUE Reps/Minutes 10 ft x4 laps Comments cued upright posture sit to stand Standing Exercise Name HEP reviewed- arms front w/ band vs across chest AROM Side bilateral Resistance AROM cued knees apart, TB #3 x5 reps Reps/Minutes 10x 20 table, 5 reps 18 table0 AROM Comments improved form but challenging maintain knees apart hip extension Standing Exercise Name HEP reviewed Side bilateral Equipment Used L UE support raised table Reps/Minutes 2x15 Comments cued upright trunk posture- repeat reps then switch other side, slow pace hip abduction Standing Exercise Name HEP reviewed Side bilateral Equipment Used L UE support raised table Reps/Minutes 2x15 Comments cued upright trunk posture- repeat reps then swithch other side Gait Training Gait Activity 1 Description quality gait alignment and gait phases Device Used SPC heavier on to LUE, vs 2 trek poles Level of Assistance CGA- gait belt Surface firm Distance/Duration 100ft SPC, 2 trek poles Treatment Focus 2pt gait, decrease LUE support /postural alignment Comments smooth surfaces focusing on heel/toe, arm swing- improved heel toe, cued more R trunk alignment and space between B LEs and noted decrease LUE WB on SPC and Aiden trek poles toward end tx. PT-OP-T Assessment and Plan Start: 02/25/22 12:31 Freq: Status: Active Protocol: Document 03/11/22 09:04 SP (Rec: 03/11/22 09:49 SP [id number]) Physical Therapy Assessment Goals Transfers Short Term Goal (STG) Jeanette will roll over in bed without hip pain. STG Duration 5 weeks Custodial Goal (LTG) Jeanette will perform a floor transfer with environmental support and Ronan without LTG Duration 10 weeks Two Impairment Gait Short Term Goal (STG) Jeanette will improve her 10MWT time to less than 12 seconds or faster. STG Duration 5 weeks Custodial Goal (LTG) Jeanette will ambulate for 6 minutes over smooth terrain with her SPC without LOB or increasing hip pain. LTG Duration 10 weeks One Impairment Exercise Short Term Goal (STG) Jeanette will be independent with a HEP to improve her bilateral hip strength. STG Duration 5 weeks Assessment Summary Assessment Education for hand placement trek pole strap for support needed. Pt improved posturing during ther ex and gait using 1 and 2 trek poles post postural hip abd alignment facilitation cuing throughout tx. R hip ABD weakness tends to lean right but better self corrections post gait in mirror for self feedback. Physical Therapy Plan Frequency and Duration Frequency of Treatment 2x/Week Duration of Treatment 10 weeks Plan of Care Start Date 02/26/22 Plan of Care End Date 05/07/22 Therapeutic Interventions Therapeutic Interventions Balance Training,Gait Training ,Home Exercise Program,Manual Therapy,Neuromuscular Re- education,Self-Care/Home Management,Therapeutic Activities,Therapeutic Exercises Next Visit Focus/Plan Next Note Type Treatment Note Next Visit Plan Assess gait with trek pole, HEP with TB added last tx for home. POC: Progress gait/balance, strength training focusing on hip
--- NOTE | 2022-03-17 09:48 | PT.OTN ---
Current Diagnoses Other abnormalities of gait and mobility (03/17/22) Fracture of unspecified part of neck of right femur, subsequent encounter for closed fracture with routine healing (03/17/22) Physical Therapy Treatment Note PT-OP-A Visit Information Start: 02/25/22 12:31 Freq: Status: Active Protocol: Document 03/17/22 09:00 SP (Rec: 03/17/22 09:50 SP [id number]) Out-Patient Physical Therapy Visit Information Visit Information Visit Type Treatment Note Visit Note 03/06 Visit Start Time 09:00 Visit Stop Time 09:48 Total Visit Minutes 48 Visit Number 6 Number of SALES CONSULTING DIRECTOR Visits 2 PT-OP-B Current Condition Start: 02/25/22 12:31 Freq: Status: Active Protocol: Document 02/26/22 14:43 AMB (Rec: 02/26/22 14:54 AMB [id number]) Current Condition History of Current Condition Onset Date October 2021 Current Complaints R hip pain History of Current Condition PLOF: Was previously walking a couple of miles a day. R hip fracture slid out of shoes while in the kitchenin October, had home health, but still has difficulty walking. Does have hammer toes and notes foot pain increases throughout the day. Uses the SPC in the home. Difficulty getting up at night to use the bathroom. Sitting can increase the pain, getting in and out of bed increase pain laterally- tenderness over the hip. Lives in a home wiht 2- 3 stairs to enter from the garage with 1 railing with her and a dog (does not walk the dog). Treatment Goals Patient/Caregiver Goals Improve balance, walking tolerance, be able to walk without the cane. Is currently avoiding uneven terrrain. Prior Functional Status Baseline Function- ADL's Independent Baseline Function- Mobility Independent Current Functional Impairments (Reported) Functional Limitations- ADL's Limited with gait speed and safety Personal Factors Other Personal Factors That May Effect Recent cancer history: had Therapy/Recovery surgery on bladder, hysterectomy and lumpectomy PT-OP-C Subjective Start: 02/25/22 12:31 Freq: Status: Active Protocol: Document 03/17/22 09:00 SP (Rec: 03/17/22 09:50 SP [id number]) OP-PT Subjective Patient Comments Patient Comments Pt stated wants to be able to walk with her trek poles in community without thinking about sequencing, tries to work hard on better trunk alignment, compliant with HEP. PT-OP-D Balance Start: 02/25/22 12:31 Freq: Status: Active Protocol: Document 02/26/22 14:30 AMB (Rec: 02/27/22 12:57 AMB [id number]) Balance Tests mCTSIB mCTSIB Position 1 30seconds + mCTSIB Position 2 unsteady PT-OP-E Functional Tests Start: 02/25/22 12:31 Freq: Status: Active Protocol: Document 02/26/22 14:30 AMB (Rec: 02/27/22 12:54 AMB [id number]) Functional Tests 10 Meter Walk Test Distance 16 Device Used SPC PT-OP-G Mobility & Gait Start: 02/25/22 12:31 Freq: Status: Active Protocol: Document 02/26/22 14:30 AMB (Rec: 02/27/22 12:54 AMB [id number]) OP Mobility Evaluation Transfers Sit to Stand from elevated treatment table : good, no UE support, from low table requires UE support Floor Transfers Unable OP Gait Assessment Comments Gait Comments Antalgic with genu valgus worse on L, uses cane in L UE. Significant trendelenburg when ambulating without cane. PT-OP-J Posture/Palpation/Skin Start: 02/25/22 12:31 Freq: Status: Active Protocol: Document 02/26/22 14:30 AMB (Rec: 02/27/22 12:54 AMB [id number]) Palpation Assessment Location One Palpation Location R hip Palpation Findings Soft Tissue Tightness,Muscle Guarding,Tenderness Palpation Details lateral hip/IT band tenderness PT-OP-K Range of Motion Start: 02/25/22 12:31 Freq: Status: Active Protocol: Document 02/26/22 14:30 AMB (Rec: 02/27/22 12:54 AMB [id number]) Hip Goniometric Range of Motion Hip Right Passive Abduction 15 PT-OP-M Strength Start: 02/25/22 12:31 Freq: Status: Active Protocol: Document 02/26/22 14:30 AMB (Rec: 02/27/22 12:54 AMB [id number]) Hip Strength Hip Manual Muscle Testing Right Flexion (L2) 3 Fair Extension (S1) 3 Fair Abduction 3- Fair- Left Flexion (L2) 2 Poor Extension (S1) 2 Poor Abduction 2 Poor PT-OP-Q Treatments Start: 02/25/22 12:31 Freq: Status: Active Protocol: Document 03/17/22 09:00 SP (Rec: 03/17/22 09:50 SP [id number]) Cardio Equipment Recumbent Elliptical (Biodex) Duration (Minutes) 6 Resistance 3 Seat Position 8 Other UEs/ LEs, 40 RPMs, 520 steps Therapeutic Exercises Supine Exercises bridge Supine Exercise Name reviewed HEP Resistance Blue TB (home set) Reps/Minutes 10s hold x10 Comments cued knees apart with feet throughout hold- good response effort Sidelying Exercises clamshell Sidelying Exercise Name HEP reviewed Side right Equipment Used R TB (home set) Reps/Minutes 2x10 Comments good form, cued DF and TA fac to decrease foot cramp, posterior SI recru Sitting Exercises LAQ Sitting Exercise Name added to HEP Side bilateral Resistance YTB loop (home set) Reps/Minutes x10 hold 2 sec Comments cued anchored under opp heel, slow control Standing Exercises sidestepping Standing Exercise Name reviewed for HEP Side bilateral Resistance Y Tb (home set) Equipment Used L rail Reps/Minutes 15 ft x3 laps Comments cued upright posture, knees apart sit to stand Standing Exercise Name HEP reviewed- arms front Side bilateral Resistance TB #1 Equipment Used mesh chair Reps/Minutes 2x5 reps, no UE needed Comments cued knees apart, able maintain 3/5 reps Gait Training Gait Activity 1 Description quality gait alignment and gait phases Device Used 2 trek poles, SPC Level of Assistance CGA- gait belt Surface firm Distance/Duration 100ft SPC, 2 trek poles Treatment Focus 2pt gait, decrease LUE support /postural alignment Comments smooth surfaces focusing on heel/toe, arm swing- improved heel toe, cued more R trunk alignment and space between B LEs and noted decrease LUE WB on SPC and Aiden trek poles toward end tx. PT-OP-T Assessment and Plan Start: 02/25/22 12:31 Freq: Status: Active Protocol: Document 03/17/22 09:00 SP (Rec: 03/17/22 09:50 SP [id number]) Physical Therapy Assessment Goals Transfers Short Term Goal (STG) Jeanette will roll over in bed without hip pain. STG Duration 5 weeks [facility] Goal (LTG) Jeanette will perform a floor transfer with environmental support and Ronan without LTG Duration 10 weeks Two Impairment Gait Short Term Goal (STG) Jeanette will improve her 10MWT time to less than 12 seconds or faster. STG Duration 5 weeks Office Machine Technician Goal (LTG) Jeanette will ambulate for 6 minutes over smooth terrain with her SPC without LOB or increasing hip pain. LTG Duration 10 weeks One Impairment Exercise Short Term Goal (STG) Jeanette will be independent with a HEP to improve her bilateral hip strength. STG Duration 5 weeks Assessment Summary Assessment Pt reports is able to perform STS without UE support. She tolerated increase in resistance with bridging, STS and side stepping with loop around thighs with noted improved hip abd facilitation. Good quad strengthening with addition of resisted LAQ today . Pt continues best alignment gait with B trek poles as states uses in community walking but wants to not have to think about sequencing, good carryover hip abd fac post ther ex with gait using SPC in LUE leaving, cued x1 for not to far placement in front so not bent over. Physical Therapy Plan Frequency and Duration Frequency of Treatment 2x/Week Duration of Treatment 10 weeks Plan of Care Start Date 02/26/22 Plan of Care End Date 05/07/22 Therapeutic Interventions Therapeutic Interventions Balance Training,Gait Training ,Home Exercise Program,Manual Therapy,Neuromuscular Re- education,Self-Care/Home Management,Therapeutic Activities,Therapeutic Exercises Next Visit Focus/Plan Next Note Type Treatment Note Next Visit Plan TB HEP review, add hurdles w/ trek pole, step ups. POC: Progress gait/balance, strength training focusing on hip
--- NOTE | 2022-03-19 09:47 | PT.OTN ---
Current Diagnoses Other abnormalities of gait and mobility (03/19/22) Fracture of unspecified part of neck of right femur, subsequent encounter for closed fracture with routine healing (03/19/22) Physical Therapy Treatment Note PT-OP-A Visit Information Start: 02/25/22 12:31 Freq: Status: Active Protocol: Document 03/19/22 09:04 SP (Rec: 03/19/22 09:49 SP [id number]) Out-Patient Physical Therapy Visit Information Visit Information Visit Type Treatment Note Visit Note 04/05 Visit Start Time 09:04 Visit Stop Time 09:47 Total Visit Minutes 43 Visit Number 7 Number of CUSTOMER EXPERIENCE ANALYST Visits 3 PT-OP-B Current Condition Start: 02/25/22 12:31 Freq: Status: Active Protocol: Document 02/26/22 14:43 AMB (Rec: 02/26/22 14:54 AMB [id number]) Current Condition History of Current Condition Onset Date October 2021 Current Complaints R hip pain History of Current Condition PLOF: Was previously walking a couple of miles a day. R hip fracture slid out of shoes while in the kitchenin October, had home health, but still has difficulty walking. Does have hammer toes and notes foot pain increases throughout the day. Uses the SPC in the home. Difficulty getting up at night to use the bathroom. Sitting can increase the pain, getting in and out of bed increase pain laterally- tenderness over the hip. Lives in a home wiht 2- 3 stairs to enter from the garage with 1 railing with her and a dog (does not walk the dog). Treatment Goals Patient/Caregiver Goals Improve balance, walking tolerance, be able to walk without the cane. Is currently avoiding uneven terrrain. Prior Functional Status Baseline Function- ADL's Independent Baseline Function- Mobility Independent Current Functional Impairments (Reported) Functional Limitations- ADL's Limited with gait speed and safety Personal Factors Other Personal Factors That May Effect Recent cancer history: had Therapy/Recovery surgery on bladder, hysterectomy and lumpectomy PT-OP-C Subjective Start: 02/25/22 12:31 Freq: Status: Active Protocol: Document 03/19/22 09:04 SP (Rec: 03/19/22 09:49 SP [id number]) OP-PT Subjective Patient Comments Patient Comments Pt demonstrates decrease R hip stability/ weakness and heavy LUE on SPC. She reports is off balance today, compliant with exercises at home and feel good muscle soreness. She states primarily sleeps on L side and back but doesn't use pillows. By end of day is R hip is sore, feels heavy. Pt states had a near fall earlier today before came, worst yet. PT-OP-D Balance Start: 02/25/22 12:31 Freq: Status: Active Protocol: Document 02/26/22 14:30 AMB (Rec: 02/27/22 12:57 AMB [id number]) Balance Tests mCTSIB mCTSIB Position 1 30seconds + mCTSIB Position 2 unsteady PT-OP-E Functional Tests Start: 02/25/22 12:31 Freq: Status: Active Protocol: Document 02/26/22 14:30 AMB (Rec: 02/27/22 12:54 AMB [id number]) Functional Tests 10 Meter Walk Test Distance 16 Device Used SPC PT-OP-G Mobility & Gait Start: 02/25/22 12:31 Freq: Status: Active Protocol: Document 02/26/22 14:30 AMB (Rec: 02/27/22 12:54 AMB [id number]) OP Mobility Evaluation Transfers Sit to Stand from elevated treatment table : good, no UE support, from low table requires UE support Floor Transfers Unable OP Gait Assessment Comments Gait Comments Antalgic with genu valgus worse on L, uses cane in L UE. Significant trendelenburg when ambulating without cane. PT-OP-J Posture/Palpation/Skin Start: 02/25/22 12:31 Freq: Status: Active Protocol: Document 02/26/22 14:30 AMB (Rec: 02/27/22 12:54 AMB [id number]) Palpation Assessment Location One Palpation Location R hip Palpation Findings Soft Tissue Tightness,Muscle Guarding,Tenderness Palpation Details lateral hip/IT band tenderness PT-OP-K Range of Motion Start: 02/25/22 12:31 Freq: Status: Active Protocol: Document 02/26/22 14:30 AMB (Rec: 02/27/22 12:54 AMB [id number]) Hip Goniometric Range of Motion Hip Right Passive Abduction 15 PT-OP-M Strength Start: 02/25/22 12:31 Freq: Status: Active Protocol: Document 02/26/22 14:30 AMB (Rec: 02/27/22 12:54 AMB [id number]) Hip Strength Hip Manual Muscle Testing Right Flexion (L2) 3 Fair Extension (S1) 3 Fair Abduction 3- Fair- Left Flexion (L2) 2 Poor Extension (S1) 2 Poor Abduction 2 Poor PT-OP-Q Treatments Start: 02/25/22 12:31 Freq: Status: Active Protocol: Document 03/19/22 09:04 SP (Rec: 03/19/22 09:49 SP [id number]) Cardio Equipment Recumbent Elliptical (Biodex) Duration (Minutes) 6 Resistance 3 Seat Position 8 Other UEs/ LEs, 40 RPMs, 520 steps Therapeutic Exercises Supine Exercises bridge Supine Exercise Name reviewed HEP Resistance Blue TB (home set)- donned self long sit Equipment Used on floor blue mat Reps/Minutes 10s hold x10 ( 2 sets home) Comments cued knees apart with feet throughout hold- good response effort Sidelying Exercises clamshell Sidelying Exercise Name HEP reviewed Side right Equipment Used R TB (home set)- self donned below knees Reps/Minutes 2x10 Comments good form, cued DF and TA fac to decrease foot cramp, posterior SI recru Standing Exercises sidestepping Standing Exercise Name reviewed for HEP Side bilateral Resistance Y Tb (home set) Equipment Used L rail contact (30%) Reps/Minutes 15 ft x3 laps Comments cued upright posture, core fac , knees apart step up Side bilateral Equipment Used 4 in step w/ L rail Reps/Minutes 10 Comments cued full knee extension at top heel raises Side bilateral Equipment Used contact rail Reps/Minutes 20 Comments good form space between BLE sit to stand Standing Exercise Name HEP reviewed- arms front Side bilateral Resistance TB #1 Equipment Used mesh chair Reps/Minutes 2x5 reps, no UE needed Comments cued knees apart, able maintain 3/5 reps Therapeutic Activity Therapeutic Activity 1 Reps/Minutes 1 Comments floor transfer with UE support on chair- pt required cues, SBA, but otherwise was able to perform. Pt able to stand from pushing from floor but unstable once come to standing , ed to use chair support. Gait Training Gait Activity 1 Description quality gait alignment and gait phases Device Used 2 trek poles, SPC Level of Assistance CGA- gait belt Surface firm Distance/Duration 40ft x2 laps 1-2 trek poles, 2 trek poles Treatment Focus 2pt gait, decrease LUE support /postural alignment Comments cued core and tall posture, smooth surfaces focusing on heel/toe, arm swing- improved heel toe, cued more R trunk alignment and space between B LEs and noted decrease LUE WB on SPC and Aiden trek poles toward end tx. PT-OP-T Assessment and Plan Start: 02/25/22 12:31 Freq: Status: Active Protocol: Document 03/19/22 09:04 SP (Rec: 03/19/22 09:49 SP [id number]) Physical Therapy Assessment Goals Transfers Short Term Goal (STG) Jeanette will roll over in bed without hip pain. 03/19/22: states primarily sleeps on L side. By end of day is R hip is sore, feels heavy. STG Duration 5 weeks [facility] Goal (LTG) Jeanette will perform a floor transfer with environmental support and Ronan without LTG Duration 10 weeks Two Impairment Gait Short Term Goal (STG) Jeanette will improve her 10MWT time to less than 12 seconds or faster. STG Duration 5 weeks Centrifugal Casting Machine Tender Goal (LTG) Jeanette will ambulate for 6 minutes over smooth terrain with her SPC without LOB or increasing hip pain. LTG Duration 10 weeks One Impairment Exercise Short Term Goal (STG) Jeanette will be independent with a HEP to improve her bilateral hip strength. STG Duration 5 weeks Assessment Summary Assessment Pt states get the most effort during side clamshell with R TB and able to lay on R side to perform L abd during tx, no pain with HEP just good muscle work reported with ability to feel more confident getting on/off floor to perform at home on floor and attend previous exercise class . CUSTOMER EXPERIENCE ANALYST suggested request chair for support of which used to utilize. Much better level hip and trunk alignment end tx walking with SPC. Physical Therapy Plan Frequency and Duration Frequency of Treatment 2x/Week Duration of Treatment 10 weeks Plan of Care Start Date 02/26/22 Plan of Care End Date 05/07/22 Therapeutic Interventions Therapeutic Interventions Balance Training,Gait Training ,Home Exercise Program,Manual Therapy,Neuromuscular Re- education,Self-Care/Home Management,Therapeutic Activities,Therapeutic Exercises Next Visit Focus/Plan Next Note Type Treatment Note Next Visit Plan TB HEP review, add hurdles w/ trek pole, step ups next tx. POC: Progress gait/balance, strength training focusing on hip
--- NOTE | 2022-03-24 15:56 | PT.OTN ---
Current Diagnoses Other abnormalities of gait and mobility (03/24/22) Fracture of unspecified part of neck of right femur, subsequent encounter for closed fracture with routine healing (03/24/22) Physical Therapy Treatment Note PT-OP-A Visit Information Start: 02/25/22 12:31 Freq: Status: Active Protocol: Document 03/24/22 14:36 AMB (Rec: 03/24/22 15:55 AMB [id number]) Out-Patient Physical Therapy Visit Information Visit Information Visit Type Treatment Note Visit Note 05/06 Visit Start Time 09:04 Visit Stop Time 09:47 Total Visit Minutes 43 Visit Number 8 Number of CYBER WORKFORCE DEVELOPER AND MANAGER Visits 0 PT-OP-B Current Condition Start: 02/25/22 12:31 Freq: Status: Active Protocol: Document 02/26/22 14:43 AMB (Rec: 02/26/22 14:54 AMB [id number]) Current Condition History of Current Condition Onset Date October 2021 Current Complaints R hip pain History of Current Condition PLOF: Was previously walking a couple of miles a day. R hip fracture slid out of shoes while in the kitchenin October, had home health, but still has difficulty walking. Does have hammer toes and notes foot pain increases throughout the day. Uses the SPC in the home. Difficulty getting up at night to use the bathroom. Sitting can increase the pain, getting in and out of bed increase pain laterally- tenderness over the hip. Lives in a home wiht 2- 3 stairs to enter from the garage with 1 railing with her and a dog (does not walk the dog). Treatment Goals Patient/Caregiver Goals Improve balance, walking tolerance, be able to walk without the cane. Is currently avoiding uneven terrrain. Prior Functional Status Baseline Function- ADL's Independent Baseline Function- Mobility Independent Current Functional Impairments (Reported) Functional Limitations- ADL's Limited with gait speed and safety Personal Factors Other Personal Factors That May Effect Recent cancer history: had Therapy/Recovery surgery on bladder, hysterectomy and lumpectomy PT-OP-C Subjective Start: 02/25/22 12:31 Freq: Status: Active Protocol: Document 03/24/22 14:36 AMB (Rec: 03/24/22 15:55 AMB [id number]) OP-PT Subjective Patient Comments Patient Comments Pt went to her exercise class on Wednesday and that went well. Attends with walking sticks and that is going well. PT-OP-D Balance Start: 02/25/22 12:31 Freq: Status: Active Protocol: Document 02/26/22 14:30 AMB (Rec: 02/27/22 12:57 AMB [id number]) Balance Tests mCTSIB mCTSIB Position 1 30seconds + mCTSIB Position 2 unsteady PT-OP-E Functional Tests Start: 02/25/22 12:31 Freq: Status: Active Protocol: Document 02/26/22 14:30 AMB (Rec: 02/27/22 12:54 AMB [id number]) Functional Tests 10 Meter Walk Test Distance 16 Device Used SPC PT-OP-G Mobility & Gait Start: 02/25/22 12:31 Freq: Status: Active Protocol: Document 02/26/22 14:30 AMB (Rec: 02/27/22 12:54 AMB [id number]) OP Mobility Evaluation Transfers Sit to Stand from elevated treatment table : good, no UE support, from low table requires UE support Floor Transfers Unable OP Gait Assessment Comments Gait Comments Antalgic with genu valgus worse on L, uses cane in L UE. Significant trendelenburg when ambulating without cane. PT-OP-J Posture/Palpation/Skin Start: 02/25/22 12:31 Freq: Status: Active Protocol: Document 02/26/22 14:30 AMB (Rec: 02/27/22 12:54 AMB [id number]) Palpation Assessment Location One Palpation Location R hip Palpation Findings Soft Tissue Tightness,Muscle Guarding,Tenderness Palpation Details lateral hip/IT band tenderness PT-OP-K Range of Motion Start: 02/25/22 12:31 Freq: Status: Active Protocol: Document 02/26/22 14:30 AMB (Rec: 02/27/22 12:54 AMB [id number]) Hip Goniometric Range of Motion Hip Right Passive Abduction 15 PT-OP-M Strength Start: 02/25/22 12:31 Freq: Status: Active Protocol: Document 02/26/22 14:30 AMB (Rec: 02/27/22 12:54 AMB [id number]) Hip Strength Hip Manual Muscle Testing Right Flexion (L2) 3 Fair Extension (S1) 3 Fair Abduction 3- Fair- Left Flexion (L2) 2 Poor Extension (S1) 2 Poor Abduction 2 Poor PT-OP-Q Treatments Start: 02/25/22 12:31 Freq: Status: Active Protocol: Document 03/24/22 14:36 AMB (Rec: 03/24/22 15:55 AMB [id number]) Cardio Equipment Recumbent Elliptical (Biodex) Duration (Minutes) 6 Resistance 2 Seat Position 10 Other UEs/ LEs, 60 RPMs, 520 steps Therapeutic Exercises Supine Exercises bridge Supine Exercise Name reviewed HEP Resistance Blue TB (home set)- donned self long sit Equipment Used on floor blue mat Reps/Minutes 10s hold x10 ( 2 sets home) Comments cued knees apart with feet throughout hold- good response effort Sidelying Exercises clamshell Sidelying Exercise Name HEP reviewed Side right Equipment Used R TB (home set)- self donned below knees Reps/Minutes 2x10 Comments good form, cued DF and TA fac to decrease foot cramp, posterior SI recru Standing Exercises sidestepping Standing Exercise Name reviewed for HEP Side bilateral Resistance Y Tb (home set) Equipment Used L rail contact (30%) Reps/Minutes 15 ft x3 laps Comments cued upright posture, core fac , knees apart step up Side bilateral Equipment Used 4 in step w/ L rail Reps/Minutes 10 Comments cued full knee extension at top sit to stand Standing Exercise Name HEP reviewed- arms front Side bilateral Resistance TB #1 Equipment Used mesh chair Reps/Minutes 2x5 reps, no UE needed Comments cued knees apart, able maintain 3/5 reps PT-OP-T Assessment and Plan Start: 02/25/22 12:31 Freq: Status: Active Protocol: Document 03/24/22 14:36 AMB (Rec: 03/24/22 15:55 AMB [id number]) Physical Therapy Assessment Goals Transfers Short Term Goal (STG) Jeanette will roll over in bed without hip pain. 03/19/22: states primarily sleeps on L side. By end of day is R hip is sore, feels heavy. STG Duration 5 weeks Staff Antisubmarine Officer Goal (LTG) Jeanette will perform a floor transfer with environmental support and Ronan without LTG Duration 10 weeks Two Impairment Gait Short Term Goal (STG) Jeanette will improve her 10MWT time to less than 12 seconds or faster. STG Duration 5 weeks Custodial Goal (LTG) Jeanette will ambulate for 6 minutes over smooth terrain with her SPC without LOB or increasing hip pain. LTG Duration 10 weeks One Impairment Exercise Short Term Goal (STG) Jeanette will be independent with a HEP to improve her bilateral hip strength. STG Duration 5 weeks Assessment Summary Assessment Pt most challenged by susie. Continues to want to be able to walk without limping without walking sticks , but does realize now walking is much better with two handed support. Encouraged that continued strengthening is necessary. Physical Therapy Plan Next Visit Focus/Plan Next Note Type Treatment Note Next Visit Plan TB HEP review, add hurdles w/ trek pole, step ups next tx. POC: Progress gait/balance, strength training focusing on hip
--- NOTE | 2022-03-26 11:39 | PT.OTN ---
Current Diagnoses Other abnormalities of gait and mobility (03/26/22) Fracture of unspecified part of neck of right femur, subsequent encounter for closed fracture with routine healing (03/26/22) Physical Therapy Treatment Note PT-OP-A Visit Information Start: 02/25/22 12:31 Freq: Status: Active Protocol: Document 03/26/22 09:06 AMB (Rec: 03/26/22 09:51 AMB [id number]) Out-Patient Physical Therapy Visit Information Visit Information Visit Type Treatment Note Visit Note 06/06 Visit Start Time 09:04 Visit Stop Time 09:47 Total Visit Minutes 43 Visit Number 9 Number of GROCERY CADDY Visits 0 PT-OP-B Current Condition Start: 02/25/22 12:31 Freq: Status: Active Protocol: Document 02/26/22 14:43 AMB (Rec: 02/26/22 14:54 AMB [id number]) Current Condition History of Current Condition Onset Date October 2021 Current Complaints R hip pain History of Current Condition PLOF: Was previously walking a couple of miles a day. R hip fracture slid out of shoes while in the kitchenin October, had home health, but still has difficulty walking. Does have hammer toes and notes foot pain increases throughout the day. Uses the SPC in the home. Difficulty getting up at night to use the bathroom. Sitting can increase the pain, getting in and out of bed increase pain laterally- tenderness over the hip. Lives in a home wiht 2- 3 stairs to enter from the garage with 1 railing with her and a dog (does not walk the dog). Treatment Goals Patient/Caregiver Goals Improve balance, walking tolerance, be able to walk without the cane. Is currently avoiding uneven terrrain. Prior Functional Status Baseline Function- ADL's Independent Baseline Function- Mobility Independent Current Functional Impairments (Reported) Functional Limitations- ADL's Limited with gait speed and safety Personal Factors Other Personal Factors That May Effect Recent cancer history: had Therapy/Recovery surgery on bladder, hysterectomy and lumpectomy PT-OP-C Subjective Start: 02/25/22 12:31 Freq: Status: Active Protocol: Document 03/26/22 09:06 AMB (Rec: 03/26/22 09:51 AMB [id number]) OP-PT Subjective Patient Comments Patient Comments Pt attends with SPC. PT-OP-D Balance Start: 02/25/22 12:31 Freq: Status: Active Protocol: Document 02/26/22 14:30 AMB (Rec: 02/27/22 12:57 AMB [id number]) Balance Tests mCTSIB mCTSIB Position 1 30seconds + mCTSIB Position 2 unsteady PT-OP-E Functional Tests Start: 02/25/22 12:31 Freq: Status: Active Protocol: Document 02/26/22 14:30 AMB (Rec: 02/27/22 12:54 AMB [id number]) Functional Tests 10 Meter Walk Test Distance 16 Device Used SPC PT-OP-G Mobility & Gait Start: 02/25/22 12:31 Freq: Status: Active Protocol: Document 02/26/22 14:30 AMB (Rec: 02/27/22 12:54 AMB [id number]) OP Mobility Evaluation Transfers Sit to Stand from elevated treatment table : good, no UE support, from low table requires UE support Floor Transfers Unable OP Gait Assessment Comments Gait Comments Antalgic with genu valgus worse on L, uses cane in L UE. Significant trendelenburg when ambulating without cane. PT-OP-J Posture/Palpation/Skin Start: 02/25/22 12:31 Freq: Status: Active Protocol: Document 02/26/22 14:30 AMB (Rec: 02/27/22 12:54 AMB [id number]) Palpation Assessment Location One Palpation Location R hip Palpation Findings Soft Tissue Tightness,Muscle Guarding,Tenderness Palpation Details lateral hip/IT band tenderness PT-OP-K Range of Motion Start: 02/25/22 12:31 Freq: Status: Active Protocol: Document 02/26/22 14:30 AMB (Rec: 02/27/22 12:54 AMB [id number]) Hip Goniometric Range of Motion Hip Right Passive Abduction 15 PT-OP-M Strength Start: 02/25/22 12:31 Freq: Status: Active Protocol: Document 02/26/22 14:30 AMB (Rec: 02/27/22 12:54 AMB [id number]) Hip Strength Hip Manual Muscle Testing Right Flexion (L2) 3 Fair Extension (S1) 3 Fair Abduction 3- Fair- Left Flexion (L2) 2 Poor Extension (S1) 2 Poor Abduction 2 Poor PT-OP-Q Treatments Start: 02/25/22 12:31 Freq: Status: Active Protocol: Document 03/26/22 09:06 AMB (Rec: 03/26/22 09:51 AMB [id number]) Cardio Equipment Recumbent Stepper (Sci-Fit) Duration (Minutes) 7 Resistance 5 Therapeutic Exercises Standing Exercises 4 step Standing Exercise Name with SPC Comments good tolerance 8 step up Standing Exercise Name challenging in // bars- ok with UE support side step stairs Standing Exercise Name 6 with railing Side bilateral stairs Standing Exercise Name 6 alternating gait with SPC without railing Side bilateral sidestepping Standing Exercise Name reviewed for HEP Side bilateral Resistance Y Tb (home set) Equipment Used L rail contact (30%) Reps/Minutes 15 ft x3 laps Comments cued upright posture, core fac , knees apart step up Side bilateral Equipment Used 4 in step w/ L rail Reps/Minutes 10 Comments cued full knee extension at top sit to stand Standing Exercise Name HEP reviewed- arms front Side bilateral Resistance TB #1 Equipment Used mesh chair Reps/Minutes 2x5 reps, no UE needed Comments cued knees apart, able maintain 3/5 reps Neuro Re-Education Treatment Balance Activities hurdles Details with SPC Comments cues for good posture, PT-OP-T Assessment and Plan Start: 02/25/22 12:31 Freq: Status: Active Protocol: Document 03/26/22 09:06 AMB (Rec: 03/26/22 09:51 AMB [id number]) Physical Therapy Assessment Goals Transfers Short Term Goal (STG) Jeanette will roll over in bed without hip pain. 03/19/22: states primarily sleeps on L side. By end of day is R hip is sore, feels heavy. STG Duration 5 weeks Long-Term Goal (LTG) Jeanette will perform a floor transfer with environmental support and Ronan without LTG Duration 10 weeks Two Impairment Gait Short Term Goal (STG) Jeanette will improve her 10MWT time to less than 12 seconds or faster. STG Duration 5 weeks Sustain Engineer Goal (LTG) Jeanette will ambulate for 6 minutes over smooth terrain with her SPC without LOB or increasing hip pain. LTG Duration 10 weeks One Impairment Exercise Short Term Goal (STG) Jeanette will be independent with a HEP to improve her bilateral hip strength. STG Duration 5 weeks Assessment Summary Assessment Pt attends with SPC today. Continues to have hip abductor weakness with trendelenburg gait, but is doing lots of glute strengthening at home. DIscussed time of recovery, to give her hip 1-2 more months of strengthening, good challenge with stairs. Physical Therapy Plan Next Visit Focus/Plan Next Note Type Progress Note Next Visit Plan TB HEP review, add hurdles w/ trek pole, step ups next tx. POC: Progress gait/balance, strength training focusing on hip
--- NOTE | 2022-04-01 15:02 | PT.OTN ---
Current Diagnoses Other abnormalities of gait and mobility (04/01/22) Fracture of unspecified part of neck of right femur, subsequent encounter for closed fracture with routine healing (04/01/22) Physical Therapy Treatment Note PT-OP-A Visit Information Start: 02/25/22 12:31 Freq: Status: Active Protocol: Document 04/01/22 13:47 AMB (Rec: 04/01/22 14:28 AMB [id number]) Out-Patient Physical Therapy Visit Information Visit Information Visit Type Progress Note Visit Note 07/06 Visit Start Time 13:45 Visit Stop Time 14:30 Total Visit Minutes 45 Visit Number 10 PT-OP-B Current Condition Start: 02/25/22 12:31 Freq: Status: Active Protocol: Document 02/26/22 14:43 AMB (Rec: 02/26/22 14:54 AMB [id number]) Current Condition History of Current Condition Onset Date October 2021 Current Complaints R hip pain History of Current Condition PLOF: Was previously walking a couple of miles a day. R hip fracture slid out of shoes while in the kitchenin October, had home health, but still has difficulty walking. Does have hammer toes and notes foot pain increases throughout the day. Uses the SPC in the home. Difficulty getting up at night to use the bathroom. Sitting can increase the pain, getting in and out of bed increase pain laterally- tenderness over the hip. Lives in a home wiht 2- 3 stairs to enter from the garage with 1 railing with her and a dog (does not walk the dog). Treatment Goals Patient/Caregiver Goals Improve balance, walking tolerance, be able to walk without the cane. Is currently avoiding uneven terrrain. Prior Functional Status Baseline Function- ADL's Independent Baseline Function- Mobility Independent Current Functional Impairments (Reported) Functional Limitations- ADL's Limited with gait speed and safety Personal Factors Other Personal Factors That May Effect Recent cancer history: had Therapy/Recovery surgery on bladder, hysterectomy and lumpectomy PT-OP-C Subjective Start: 02/25/22 12:31 Freq: Status: Active Protocol: Document 04/01/22 13:47 AMB (Rec: 04/01/22 14:28 AMB [id number]) OP-PT Subjective Patient Comments Patient Comments Is doing body pump with very light weights, a little sore from that. PT-OP-D Balance Start: 02/25/22 12:31 Freq: Status: Active Protocol: Document 02/26/22 14:30 AMB (Rec: 02/27/22 12:57 AMB [id number]) Balance Tests mCTSIB mCTSIB Position 1 30seconds + mCTSIB Position 2 unsteady PT-OP-E Functional Tests Start: 02/25/22 12:31 Freq: Status: Active Protocol: Document 02/26/22 14:30 AMB (Rec: 02/27/22 12:54 AMB [id number]) Functional Tests 10 Meter Walk Test Distance 16 Device Used SPC PT-OP-G Mobility & Gait Start: 02/25/22 12:31 Freq: Status: Active Protocol: Document 02/26/22 14:30 AMB (Rec: 02/27/22 12:54 AMB [id number]) OP Mobility Evaluation Transfers Sit to Stand from elevated treatment table : good, no UE support, from low table requires UE support Floor Transfers Unable OP Gait Assessment Comments Gait Comments Antalgic with genu valgus worse on L, uses cane in L UE. Significant trendelenburg when ambulating without cane. PT-OP-J Posture/Palpation/Skin Start: 02/25/22 12:31 Freq: Status: Active Protocol: Document 02/26/22 14:30 AMB (Rec: 02/27/22 12:54 AMB [id number]) Palpation Assessment Location One Palpation Location R hip Palpation Findings Soft Tissue Tightness,Muscle Guarding,Tenderness Palpation Details lateral hip/IT band tenderness PT-OP-K Range of Motion Start: 02/25/22 12:31 Freq: Status: Active Protocol: Document 02/26/22 14:30 AMB (Rec: 02/27/22 12:54 AMB [id number]) Hip Goniometric Range of Motion Hip Right Passive Abduction 15 PT-OP-M Strength Start: 02/25/22 12:31 Freq: Status: Active Protocol: Document 02/26/22 14:30 AMB (Rec: 02/27/22 12:54 AMB [id number]) Hip Strength Hip Manual Muscle Testing Right Flexion (L2) 3 Fair Extension (S1) 3 Fair Abduction 3- Fair- Left Flexion (L2) 2 Poor Extension (S1) 2 Poor Abduction 2 Poor PT-OP-Q Treatments Start: 02/25/22 12:31 Freq: Status: Active Protocol: Document 04/01/22 13:47 AMB (Rec: 04/01/22 14:28 AMB [id number]) Cardio Equipment Recumbent Stepper (Sci-Fit) Duration (Minutes) 7 Resistance 5 Gym Equipment Cable Column (Body Solid) Hip Abduction Details 20 Reps/Time 2x5 Therapeutic Exercises Supine Exercises bridge Supine Exercise Name reviewed HEP Resistance Blue TB (home set)- donned self long sit Equipment Used on floor blue mat Reps/Minutes 10s hold x10 ( 2 sets home) Comments cued knees apart with feet throughout hold- good response effort Sidelying Exercises clamshell Sidelying Exercise Name HEP reviewed Side right Equipment Used R TB (home set)- self donned below knees Reps/Minutes 2x10 Comments good form, cued DF and TA fac to decrease foot cramp, posterior SI recru Standing Exercises 8 step up Standing Exercise Name challenging in // bars- ok with UE support Reps/Minutes 2x5 stairs Standing Exercise Name 6 alternating gait with SPC without railing Side bilateral step up Side bilateral Equipment Used 4 in step w/ L rail Reps/Minutes 10 Comments cued full knee extension at top PT-OP-T Assessment and Plan Start: 02/25/22 12:31 Freq: Status: Active Protocol: Document 04/01/22 13:47 AMB (Rec: 04/01/22 14:28 AMB [id number]) Physical Therapy Assessment Goals Transfers Short Term Goal (STG) Jeanette will roll over in bed without hip pain. 03/19/22: states primarily sleeps on L side. By end of day is R hip is sore, feels heavy. STG Duration 5 weeks Mcc Goal (LTG) Jeanette will perform a floor transfer with environmental support and Ronan without LTG Duration MET Two Impairment Gait Short Term Goal (STG) Jeanette will improve her 10MWT time to less than 12 seconds or faster. STG Duration 5 weeks Mcc Goal (LTG) Jeanette will ambulate for 6 minutes over smooth terrain with her SPC without LOB or increasing hip pain. LTG Duration MET One Impairment Exercise Short Term Goal (STG) Jeanette will be independent with a HEP to improve her bilateral hip strength. STG Duration 5 weeks Assessment Summary Assessment Pt is doing better with SPC, but continues to need to use AD. Did walk from [place] to [facility] with walking sticks and reports that felt good. Hip abduction/external rotation continues to be weak, but pt is motivated. Will benefit from continued stair training. Physical Therapy Plan Frequency and Duration Frequency of Treatment 2x/Week Duration of Treatment 10 weeks Plan of Care Start Date 02/26/22 Plan of Care End Date 05/07/22 Therapeutic Interventions Therapeutic Interventions Balance Training,Gait Training ,Home Exercise Program,Manual Therapy,Neuromuscular Re- education,Self-Care/Home Management,Therapeutic Activities,Therapeutic Exercises Next Visit Focus/Plan Next Note Type Progress Note Next Visit Plan TB HEP review, add hurdles w/ trek pole, step ups next tx. POC: Progress gait/balance, strength training focusing on hip
--- NOTE | 2022-04-08 09:47 | PT.OTN ---
Current Diagnoses Other abnormalities of gait and mobility (04/08/22) Fracture of unspecified part of neck of right femur, subsequent encounter for closed fracture with routine healing (04/08/22) Physical Therapy Treatment Note PT-OP-A Visit Information Start: 02/25/22 12:31 Freq: Status: Active Protocol: Document 04/08/22 09:02 AMB (Rec: 04/08/22 09:44 AMB [id number]) Out-Patient Physical Therapy Visit Information Visit Information Visit Type Treatment Note Visit Note 08/15 before KX Visit Start Time 09:00 Visit Stop Time 09:45 Total Visit Minutes 45 Visit Number 11 PT-OP-B Current Condition Start: 02/25/22 12:31 Freq: Status: Active Protocol: Document 02/26/22 14:43 AMB (Rec: 02/26/22 14:54 AMB [id number]) Current Condition History of Current Condition Onset Date October 2021 Current Complaints R hip pain History of Current Condition PLOF: Was previously walking a couple of miles a day. R hip fracture slid out of shoes while in the kitchenin October, had home health, but still has difficulty walking. Does have hammer toes and notes foot pain increases throughout the day. Uses the SPC in the home. Difficulty getting up at night to use the bathroom. Sitting can increase the pain, getting in and out of bed increase pain laterally- tenderness over the hip. Lives in a home wiht 2- 3 stairs to enter from the garage with 1 railing with her and a dog (does not walk the dog). Treatment Goals Patient/Caregiver Goals Improve balance, walking tolerance, be able to walk without the cane. Is currently avoiding uneven terrrain. Prior Functional Status Baseline Function- ADL's Independent Baseline Function- Mobility Independent Current Functional Impairments (Reported) Functional Limitations- ADL's Limited with gait speed and safety Personal Factors Other Personal Factors That May Effect Recent cancer history: had Therapy/Recovery surgery on bladder, hysterectomy and lumpectomy PT-OP-C Subjective Start: 02/25/22 12:31 Freq: Status: Active Protocol: Document 04/08/22 09:02 AMB (Rec: 04/08/22 09:44 AMB [id number]) OP-PT Subjective Patient Comments Patient Comments Pt is tired today. PT-OP-D Balance Start: 06/01/22 12:31 Freq: Status: Active Protocol: Document 02/26/22 14:30 AMB (Rec: 02/27/22 12:57 AMB [id number]) Balance Tests mCTSIB mCTSIB Position 1 30seconds + mCTSIB Position 2 unsteady PT-OP-E Functional Tests Start: 02/25/22 12:31 Freq: Status: Active Protocol: Document 02/26/22 14:30 AMB (Rec: 02/27/22 12:54 AMB [id number]) Functional Tests 10 Meter Walk Test Distance 16 Device Used SPC PT-OP-G Mobility & Gait Start: 02/25/22 12:31 Freq: Status: Active Protocol: Document 02/26/22 14:30 AMB (Rec: 02/27/22 12:54 AMB [id number]) OP Mobility Evaluation Transfers Sit to Stand from elevated treatment table : good, no UE support, from low table requires UE support Floor Transfers Unable OP Gait Assessment Comments Gait Comments Antalgic with genu valgus worse on L, uses cane in L UE. Significant trendelenburg when ambulating without cane. PT-OP-J Posture/Palpation/Skin Start: 02/25/22 12:31 Freq: Status: Active Protocol: Document 02/26/22 14:30 AMB (Rec: 02/27/22 12:54 AMB [id number]) Palpation Assessment Location One Palpation Location R hip Palpation Findings Soft Tissue Tightness,Muscle Guarding,Tenderness Palpation Details lateral hip/IT band tenderness PT-OP-K Range of Motion Start: 02/25/22 12:31 Freq: Status: Active Protocol: Document 02/26/22 14:30 AMB (Rec: 02/27/22 12:54 AMB [id number]) Hip Goniometric Range of Motion Hip Right Passive Abduction 15 PT-OP-M Strength Start: 02/25/22 12:31 Freq: Status: Active Protocol: Document 02/26/22 14:30 AMB (Rec: 02/27/22 12:54 AMB [id number]) Hip Strength Hip Manual Muscle Testing Right Flexion (L2) 3 Fair Extension (S1) 3 Fair Abduction 3- Fair- Left Flexion (L2) 2 Poor Extension (S1) 2 Poor Abduction 2 Poor PT-OP-Q Treatments Start: 02/25/22 12:31 Freq: Status: Active Protocol: Document 04/08/22 09:02 AMB (Rec: 04/08/22 09:44 AMB [id number]) Gym Equipment Cable Column (Body Solid) Hip Abduction Details 20 Reps/Time 3x12 Shuttle Recovery Bilateral Squats Resistance 50 Reps/Time 3x10 Therapeutic Exercises Standing Exercises stairs Standing Exercise Name 6 alternating gait with SPC without railing Side bilateral sit to stand Standing Exercise Name HEP reviewed- arms front Side bilateral Resistance TB #1 Equipment Used mesh chair Reps/Minutes 2x5 reps, no UE needed Comments cued knees apart, able maintain 3/5 reps hip abduction Standing Exercise Name HEP reviewed Side bilateral Equipment Used L UE support raised table Reps/Minutes 2x15 Comments cued upright trunk posture- repeat reps then swithch other side Gait Training Gait Activity 1 Description SPC Comments cued heel toe and timing of SPC PT-OP-T Assessment and Plan Start: 02/25/22 12:31 Freq: Status: Active Protocol: Document 04/08/22 09:02 AMB (Rec: 04/08/22 09:44 AMB [id number]) Physical Therapy Assessment Goals Transfers Short Term Goal (STG) Jeanette will roll over in bed without hip pain. 03/19/22: states primarily sleeps on L side. By end of day is R hip is sore, feels heavy. STG Duration 5 weeks Feed Mill Operator Goal (LTG) Jeanette will perform a floor transfer with environmental support and Ronan without LTG Duration MET Two Impairment Gait Short Term Goal (STG) Jeanette will improve her 10MWT time to less than 12 seconds or faster. STG Duration 5 weeks Feed Mill Operator Goal (LTG) Jeanette will ambulate for 6 minutes over smooth terrain with her SPC without LOB or increasing hip pain. LTG Duration MET One Impairment Exercise Short Term Goal (STG) Jeanette will be independent with a HEP to improve her bilateral hip strength. STG Duration 5 weeks Assessment Summary Assessment Pt did well with cues for SPC timing and increased ankle dorsiflexion for improved heel strike. Continues to have weakness at hip abductors which limit gait without AD. Physical Therapy Plan Next Visit Focus/Plan Next Note Type Progress Note Next Visit Plan TB HEP review, add hurdles w/ trek pole, step ups next tx. POC: Progress gait/balance, strength training focusing on hip
--- NOTE | 2022-04-10 16:10 | PT.OTN ---
Current Diagnoses Other abnormalities of gait and mobility (04/10/22) Fracture of unspecified part of neck of right femur, subsequent encounter for closed fracture with routine healing (04/10/22) Physical Therapy Treatment Note PT-OP-A Visit Information Start: 02/25/22 12:31 Freq: Status: Active Protocol: Document 04/10/22 10:41 AMB (Rec: 04/10/22 11:17 AMB [id number]) Out-Patient Physical Therapy Visit Information Visit Information Visit Type Treatment Note Visit Note 09/14 before KX Visit Start Time 10:35 Visit Stop Time 11:15 Total Visit Minutes 40 Visit Number 12 PT-OP-B Current Condition Start: 02/25/22 12:31 Freq: Status: Active Protocol: Document 02/26/22 14:43 AMB (Rec: 02/26/22 14:54 AMB [id number]) Current Condition History of Current Condition Onset Date October 2021 Current Complaints R hip pain History of Current Condition PLOF: Was previously walking a couple of miles a day. R hip fracture slid out of shoes while in the kitchenin October, had home health, but still has difficulty walking. Does have hammer toes and notes foot pain increases throughout the day. Uses the SPC in the home. Difficulty getting up at night to use the bathroom. Sitting can increase the pain, getting in and out of bed increase pain laterally- tenderness over the hip. Lives in a home wiht 2- 3 stairs to enter from the garage with 1 railing with her and a dog (does not walk the dog). Treatment Goals Patient/Caregiver Goals Improve balance, walking tolerance, be able to walk without the cane. Is currently avoiding uneven terrrain. Prior Functional Status Baseline Function- ADL's Independent Baseline Function- Mobility Independent Current Functional Impairments (Reported) Functional Limitations- ADL's Limited with gait speed and safety Personal Factors Other Personal Factors That May Effect Recent cancer history: had Therapy/Recovery surgery on bladder, hysterectomy and lumpectomy PT-OP-C Subjective Start: 02/25/22 12:31 Freq: Status: Active Protocol: Document 04/10/22 10:41 AMB (Rec: 04/10/22 11:17 AMB [id number]) OP-PT Subjective Patient Comments Patient Comments Pt went to body pump already today, so is a little sore from that. PT-OP-D Balance Start: 02/25/22 12:31 Freq: Status: Active Protocol: Document 02/26/22 14:30 AMB (Rec: 02/27/22 12:57 AMB [id number]) Balance Tests mCTSIB mCTSIB Position 1 30seconds + mCTSIB Position 2 unsteady PT-OP-E Functional Tests Start: 02/25/22 12:31 Freq: Status: Active Protocol: Document 02/26/22 14:30 AMB (Rec: 02/27/22 12:54 AMB [id number]) Functional Tests 10 Meter Walk Test Distance 16 Device Used SPC PT-OP-G Mobility & Gait Start: 02/25/22 12:31 Freq: Status: Active Protocol: Document 02/26/22 14:30 AMB (Rec: 02/27/22 12:54 AMB [id number]) OP Mobility Evaluation Transfers Sit to Stand from elevated treatment table : good, no UE support, from low table requires UE support Floor Transfers Unable OP Gait Assessment Comments Gait Comments Antalgic with genu valgus worse on L, uses cane in L UE. Significant trendelenburg when ambulating without cane. PT-OP-J Posture/Palpation/Skin Start: 02/25/22 12:31 Freq: Status: Active Protocol: Document 02/26/22 14:30 AMB (Rec: 02/27/22 12:54 AMB [id number]) Palpation Assessment Location One Palpation Location R hip Palpation Findings Soft Tissue Tightness,Muscle Guarding,Tenderness Palpation Details lateral hip/IT band tenderness PT-OP-K Range of Motion Start: 02/25/22 12:31 Freq: Status: Active Protocol: Document 02/26/22 14:30 AMB (Rec: 02/27/22 12:54 AMB [id number]) Hip Goniometric Range of Motion Hip Right Passive Abduction 15 PT-OP-M Strength Start: 02/25/22 12:31 Freq: Status: Active Protocol: Document 02/26/22 14:30 AMB (Rec: 02/27/22 12:54 AMB [id number]) Hip Strength Hip Manual Muscle Testing Right Flexion (L2) 3 Fair Extension (S1) 3 Fair Abduction 3- Fair- Left Flexion (L2) 2 Poor Extension (S1) 2 Poor Abduction 2 Poor PT-OP-Q Treatments Start: 02/25/22 12:31 Freq: Status: Active Protocol: Document 04/10/22 10:41 AMB (Rec: 04/10/22 11:17 AMB [id number]) Therapeutic Exercises Sidelying Exercises clamshell Sidelying Exercise Name HEP reviewed Side right Equipment Used R TB (home set)- self donned below knees Reps/Minutes 2x10 Comments good form, cued DF and TA fac to decrease foot cramp, posterior SI recru Standing Exercises sit to stand Standing Exercise Name HEP reviewed- arms front Side bilateral Resistance TB #1 Equipment Used mesh chair Reps/Minutes 2x5 reps, no UE needed Comments cued knees apart, able maintain 3/5 reps squats Standing Exercise Name mini at bar Side bilateral Reps/Minutes 15 hip extension Standing Exercise Name HEP reviewed Side bilateral Equipment Used L UE support raised table Reps/Minutes 2x15 Comments cued upright trunk posture- repeat reps then switch other side, slow pace hip abduction Standing Exercise Name HEP reviewed Side bilateral Equipment Used L UE support raised table Reps/Minutes 2x15 Comments cued upright trunk posture- repeat reps then swithch other side PT-OP-T Assessment and Plan Start: 02/25/22 12:31 Freq: Status: Active Protocol: Document 04/10/22 10:41 AMB (Rec: 04/10/22 11:17 AMB [id number]) Physical Therapy Assessment Goals Transfers Short Term Goal (STG) Jeanette will roll over in bed without hip pain. 03/19/22: states primarily sleeps on L side. By end of day is R hip is sore, feels heavy. STG Duration 5 weeks Conference Coordinator Goal (LTG) Jeanette will perform a floor transfer with environmental support and [place] without LTG Duration MET Two Impairment Gait Short Term Goal (STG) Jeanette will improve her 10MWT time to less than 12 seconds or faster. STG Duration 5 weeks Conference Coordinator Goal (LTG) Jeanette will ambulate for 6 minutes over smooth terrain with her SPC without LOB or increasing hip pain. LTG Duration MET One Impairment Exercise Short Term Goal (STG) Jeanette will be independent with a HEP to improve her bilateral hip strength. STG Duration 5 weeks Assessment Summary Assessment Jeanette had significant weakness in her hip today after body pump, so did not work on stairs today. Continue to encourage strengthening, but given history this may be slow . Physical Therapy Plan Next Visit Focus/Plan Next Note Type Progress Note Next Visit Plan TB HEP review, add hurdles w/ trek pole, step ups next tx. POC: Progress gait/balance, strength training focusing on hip
--- NOTE | 2022-04-13 08:57 | PT.OTN ---
Current Diagnoses Other abnormalities of gait and mobility (04/13/22) Fracture of unspecified part of neck of right femur, subsequent encounter for closed fracture with routine healing (04/13/22) Physical Therapy Treatment Note PT-OP-A Visit Information Start: 02/25/22 12:31 Freq: Status: Active Protocol: Document 04/13/22 08:15 AMB (Rec: 04/13/22 08:57 AMB [id number]) Out-Patient Physical Therapy Visit Information Visit Information Visit Type Treatment Note Visit Start Time 08:15 Visit Stop Time 09:00 Total Visit Minutes 45 Visit Number 13 PT-OP-B Current Condition Start: 02/25/22 12:31 Freq: Status: Active Protocol: Document 02/26/22 14:43 AMB (Rec: 02/26/22 14:54 AMB [id number]) Current Condition History of Current Condition Onset Date October 2021 Current Complaints R hip pain History of Current Condition PLOF: Was previously walking a couple of miles a day. R hip fracture slid out of shoes while in the kitchenin October, had home health, but still has difficulty walking. Does have hammer toes and notes foot pain increases throughout the day. Uses the SPC in the home. Difficulty getting up at night to use the bathroom. Sitting can increase the pain, getting in and out of bed increase pain laterally- tenderness over the hip. Lives in a home wiht 2- 3 stairs to enter from the garage with 1 railing with her and a dog (does not walk the dog). Treatment Goals Patient/Caregiver Goals Improve balance, walking tolerance, be able to walk without the cane. Is currently avoiding uneven terrrain. Prior Functional Status Baseline Function- ADL's Independent Baseline Function- Mobility Independent Current Functional Impairments (Reported) Functional Limitations- ADL's Limited with gait speed and safety Personal Factors Other Personal Factors That May Effect Recent cancer history: had Therapy/Recovery surgery on bladder, hysterectomy and lumpectomy PT-OP-C Subjective Start: 02/25/22 12:31 Freq: Status: Active Protocol: Document 04/13/22 08:15 AMB (Rec: 04/13/22 08:57 AMB [id number]) OP-PT Subjective Patient Comments Patient Comments Pt is tired today. Working on stairs at home. PT-OP-D Balance Start: 02/25/22 12:31 Freq: Status: Active Protocol: Document 02/26/22 14:30 AMB (Rec: 02/27/22 12:57 AMB [id number]) Balance Tests mCTSIB mCTSIB Position 1 30seconds + mCTSIB Position 2 unsteady PT-OP-E Functional Tests Start: 02/25/22 12:31 Freq: Status: Active Protocol: Document 02/26/22 14:30 AMB (Rec: 02/27/22 12:54 AMB [id number]) Functional Tests 10 Meter Walk Test Distance 16 Device Used SPC PT-OP-G Mobility & Gait Start: 02/25/22 12:31 Freq: Status: Active Protocol: Document 02/26/22 14:30 AMB (Rec: 02/27/22 12:54 AMB [id number]) OP Mobility Evaluation Transfers Sit to Stand from elevated treatment table : good, no UE support, from low table requires UE support Floor Transfers Unable OP Gait Assessment Comments Gait Comments Antalgic with genu valgus worse on L, uses cane in L UE. Significant trendelenburg when ambulating without cane. PT-OP-J Posture/Palpation/Skin Start: 02/25/22 12:31 Freq: Status: Active Protocol: Document 02/26/22 14:30 AMB (Rec: 02/27/22 12:54 AMB [id number]) Palpation Assessment Location One Palpation Location R hip Palpation Findings Soft Tissue Tightness,Muscle Guarding,Tenderness Palpation Details lateral hip/IT band tenderness PT-OP-K Range of Motion Start: 02/25/22 12:31 Freq: Status: Active Protocol: Document 02/26/22 14:30 AMB (Rec: 02/27/22 12:54 AMB [id number]) Hip Goniometric Range of Motion Hip Right Passive Abduction 15 PT-OP-M Strength Start: 02/25/22 12:31 Freq: Status: Active Protocol: Document 02/26/22 14:30 AMB (Rec: 02/27/22 12:54 AMB [id number]) Hip Strength Hip Manual Muscle Testing Right Flexion (L2) 3 Fair Extension (S1) 3 Fair Abduction 3- Fair- Left Flexion (L2) 2 Poor Extension (S1) 2 Poor Abduction 2 Poor PT-OP-Q Treatments Start: 02/25/22 12:31 Freq: Status: Active Protocol: Document 04/13/22 08:15 AMB (Rec: 04/13/22 08:57 AMB [id number]) Gym Equipment Shuttle Recovery Bilateral Squats Details red band around thighs Resistance 50 Reps/Time 3x10 Therapeutic Exercises Standing Exercises fwd lunge Standing Exercise Name // bars Reps/Minutes 2x10 weightshifting Reps/Minutes forward arch lift Standing Exercise Name standing Reps/Minutes 2x10 hurdles Standing Exercise Name // bars Reps/Minutes 4x10' sidestepping Standing Exercise Name reviewed for HEP Side bilateral Resistance Y Tb (home set) Equipment Used L rail contact (30%) Reps/Minutes 15 ft x3 laps Comments cued upright posture, core fac , knees apart heel raises Side bilateral Equipment Used contact rail Reps/Minutes 20 Comments good form space between BLE sit to stand Standing Exercise Name HEP reviewed- arms front Side bilateral Resistance TB #1 Equipment Used mesh chair Reps/Minutes 2x5 reps, no UE needed Comments cued knees apart, able maintain 3/5 reps PT-OP-T Assessment and Plan Start: 02/25/22 12:31 Freq: Status: Active Protocol: Document 04/13/22 08:15 AMB (Rec: 04/13/22 08:57 AMB [id number]) Physical Therapy Assessment Goals Transfers Short Term Goal (STG) Jeanette will roll over in bed without hip pain. 03/19/22: states primarily sleeps on L side. By end of day is R hip is sore, feels heavy. STG Duration 5 weeks Halfway Goal (LTG) Jeanette will perform a floor transfer with environmental support and [place] without LTG Duration MET Two Impairment Gait Short Term Goal (STG) Jeanette will improve her 10MWT time to less than 12 seconds or faster. STG Duration 5 weeks Halfway Goal (LTG) Jeanette will ambulate for 6 minutes over smooth terrain with her SPC without LOB or increasing hip pain. LTG Duration MET One Impairment Exercise Short Term Goal (STG) Jeanette will be independent with a HEP to improve her bilateral hip strength. STG Duration 5 weeks Assessment Summary Assessment Jeanette did well with // bar activities to promote decreased UE reliance with gait. L Foot weakness makes weightshifting more challenging. Physical Therapy Plan Next Visit Focus/Plan Next Note Type Progress Note Next Visit Plan POC: Progress gait/balance, strength training focusing on hip
--- NOTE | 2022-04-16 09:41 | PT.OTN ---
Current Diagnoses Other abnormalities of gait and mobility (04/16/22) Fracture of unspecified part of neck of right femur, subsequent encounter for closed fracture with routine healing (04/16/22) Physical Therapy Treatment Note PT-OP-A Visit Information Start: 02/25/22 12:31 Freq: Status: Active Protocol: Document 04/16/22 09:00 AMB (Rec: 04/16/22 09:40 AMB [id number]) Out-Patient Physical Therapy Visit Information Visit Information Visit Type Treatment Note Visit Start Time 09:00 Visit Stop Time 09:45 Total Visit Minutes 45 Visit Number 14 PT-OP-B Current Condition Start: 02/25/22 12:31 Freq: Status: Active Protocol: Document 02/26/22 14:43 AMB (Rec: 02/26/22 14:54 AMB [id number]) Current Condition History of Current Condition Onset Date October 2021 Current Complaints R hip pain History of Current Condition PLOF: Was previously walking a couple of miles a day. R hip fracture slid out of shoes while in the kitchenin October, had home health, but still has difficulty walking. Does have hammer toes and notes foot pain increases throughout the day. Uses the SPC in the home. Difficulty getting up at night to use the bathroom. Sitting can increase the pain, getting in and out of bed increase pain laterally- tenderness over the hip. Lives in a home wiht 2- 3 stairs to enter from the garage with 1 railing with her and a dog (does not walk the dog). Treatment Goals Patient/Caregiver Goals Improve balance, walking tolerance, be able to walk without the cane. Is currently avoiding uneven terrrain. Prior Functional Status Baseline Function- ADL's Independent Baseline Function- Mobility Independent Current Functional Impairments (Reported) Functional Limitations- ADL's Limited with gait speed and safety Personal Factors Other Personal Factors That May Effect Recent cancer history: had Therapy/Recovery surgery on bladder, hysterectomy and lumpectomy PT-OP-C Subjective Start: 02/25/22 12:31 Freq: Status: Active Protocol: Document 04/16/22 09:00 AMB (Rec: 04/16/22 09:40 AMB [id number]) OP-PT Subjective Patient Comments Patient Comments Pt is a bit stiff/sore today. Went to the pool and will be able to use the machines. PT-OP-D Balance Start: 02/25/22 12:31 Freq: Status: Active Protocol: Document 02/26/22 14:30 AMB (Rec: 02/27/22 12:57 AMB [id number]) Balance Tests mCTSIB mCTSIB Position 1 30seconds + mCTSIB Position 2 unsteady PT-OP-E Functional Tests Start: 02/25/22 12:31 Freq: Status: Active Protocol: Document 02/26/22 14:30 AMB (Rec: 02/27/22 12:54 AMB [id number]) Functional Tests 10 Meter Walk Test Distance 16 Device Used SPC PT-OP-G Mobility & Gait Start: 02/25/22 12:31 Freq: Status: Active Protocol: Document 02/26/22 14:30 AMB (Rec: 02/27/22 12:54 AMB [id number]) OP Mobility Evaluation Transfers Sit to Stand from elevated treatment table : good, no UE support, from low table requires UE support Floor Transfers Unable OP Gait Assessment Comments Gait Comments Antalgic with genu valgus worse on L, uses cane in L UE. Significant trendelenburg when ambulating without cane. PT-OP-J Posture/Palpation/Skin Start: 02/25/22 12:31 Freq: Status: Active Protocol: Document 02/26/22 14:30 AMB (Rec: 02/27/22 12:54 AMB [id number]) Palpation Assessment Location One Palpation Location R hip Palpation Findings Soft Tissue Tightness,Muscle Guarding,Tenderness Palpation Details lateral hip/IT band tenderness PT-OP-K Range of Motion Start: 02/25/22 12:31 Freq: Status: Active Protocol: Document 02/26/22 14:30 AMB (Rec: 02/27/22 12:54 AMB [id number]) Hip Goniometric Range of Motion Hip Right Passive Abduction 15 PT-OP-M Strength Start: 02/25/22 12:31 Freq: Status: Active Protocol: Document 02/26/22 14:30 AMB (Rec: 02/27/22 12:54 AMB [id number]) Hip Strength Hip Manual Muscle Testing Right Flexion (L2) 3 Fair Extension (S1) 3 Fair Abduction 3- Fair- Left Flexion (L2) 2 Poor Extension (S1) 2 Poor Abduction 2 Poor PT-OP-Q Treatments Start: 02/25/22 12:31 Freq: Status: Active Protocol: Document 04/16/22 09:00 AMB (Rec: 04/16/22 09:40 AMB [id number]) Cardio Equipment Recumbent Elliptical (Biodex) Duration (Minutes) 10 Resistance 4 Seat Position 10 Other UEs/ LEs, 60 RPMs, 520 steps Gym Equipment Cable Column (Body Solid) Hip Abduction Details 20 Reps/Time 3x12 Therapeutic Exercises Standing Exercises fwd lunge Standing Exercise Name // bars Reps/Minutes 2x10 weightshifting Reps/Minutes forward Comments 2 min sidestepping Standing Exercise Name reviewed for HEP Side bilateral Resistance Y Tb (home set) Equipment Used L rail contact (30%) Reps/Minutes 15 ft x3 laps Comments cued upright posture, core fac , knees apart sit to stand Standing Exercise Name HEP reviewed- arms front Side bilateral Resistance TB #1 Equipment Used mesh chair Reps/Minutes 2x5 reps, no UE needed Comments cued knees apart, able maintain 3/5 reps PT-OP-T Assessment and Plan Start: 02/25/22 12:31 Freq: Status: Active Protocol: Document 04/16/22 09:00 AMB (Rec: 04/16/22 09:40 AMB [id number]) Physical Therapy Assessment Assessment Summary Assessment Jeanette had a harder time today with gait, strengthening continues to progress but feet do collapse in which worsens medial collapse at knee. Physical Therapy Plan Next Visit Focus/Plan Next Note Type Progress Note Next Visit Plan POC: Progress gait/balance, strength training focusing on hip
--- NOTE | 2022-04-21 12:36 | PT.OTN ---
Current Diagnoses Other abnormalities of gait and mobility (04/21/22) Fracture of unspecified part of neck of right femur, subsequent encounter for closed fracture with routine healing (04/21/22) Physical Therapy Treatment Note PT-OP-A Visit Information Start: 02/25/22 12:31 Freq: Status: Active Protocol: Document 04/21/22 09:47 AMB (Rec: 04/21/22 10:33 AMB [id number]) Out-Patient Physical Therapy Visit Information Visit Information Visit Type Treatment Note Visit Start Time 09:45 Visit Stop Time 10:30 Total Visit Minutes 45 Visit Number 15 PT-OP-B Current Condition Start: 02/25/22 12:31 Freq: Status: Active Protocol: Document 02/26/22 14:43 AMB (Rec: 02/26/22 14:54 AMB [id number]) Current Condition History of Current Condition Onset Date October 2021 Current Complaints R hip pain History of Current Condition PLOF: Was previously walking a couple of miles a day. R hip fracture slid out of shoes while in the kitchenin October, had home health, but still has difficulty walking. Does have hammer toes and notes foot pain increases throughout the day. Uses the SPC in the home. Difficulty getting up at night to use the bathroom. Sitting can increase the pain, getting in and out of bed increase pain laterally- tenderness over the hip. Lives in a home wiht 2- 3 stairs to enter from the garage with 1 railing with her and a dog (does not walk the dog). Treatment Goals Patient/Caregiver Goals Improve balance, walking tolerance, be able to walk without the cane. Is currently avoiding uneven terrrain. Prior Functional Status Baseline Function- ADL's Independent Baseline Function- Mobility Independent Current Functional Impairments (Reported) Functional Limitations- ADL's Limited with gait speed and safety Personal Factors Other Personal Factors That May Effect Recent cancer history: had Therapy/Recovery surgery on bladder, hysterectomy and lumpectomy PT-OP-C Subjective Start: 02/25/22 12:31 Freq: Status: Active Protocol: Document 04/21/22 09:47 AMB (Rec: 04/21/22 10:33 AMB [id number]) OP-PT Subjective Patient Comments Patient Comments Pt fell on the weekend. She was walking at the [place] with her and was walking with her cane and not the walking sticks. PT-OP-D Balance Start: 02/25/22 12:31 Freq: Status: Active Protocol: Document 02/26/22 14:30 AMB (Rec: 02/27/22 12:57 AMB [id number]) Balance Tests mCTSIB mCTSIB Position 1 30seconds + mCTSIB Position 2 unsteady PT-OP-E Functional Tests Start: 02/25/22 12:31 Freq: Status: Active Protocol: Document 02/26/22 14:30 AMB (Rec: 02/27/22 12:54 AMB [id number]) Functional Tests 10 Meter Walk Test Distance 16 Device Used SPC PT-OP-G Mobility & Gait Start: 02/25/22 12:31 Freq: Status: Active Protocol: Document 02/26/22 14:30 AMB (Rec: 02/27/22 12:54 AMB [id number]) OP Mobility Evaluation Transfers Sit to Stand from elevated treatment table : good, no UE support, from low table requires UE support Floor Transfers Unable OP Gait Assessment Comments Gait Comments Antalgic with genu valgus worse on L, uses cane in L UE. Significant trendelenburg when ambulating without cane. PT-OP-J Posture/Palpation/Skin Start: 02/25/22 12:31 Freq: Status: Active Protocol: Document 02/26/22 14:30 AMB (Rec: 02/27/22 12:54 AMB [id number]) Palpation Assessment Location One Palpation Location R hip Palpation Findings Soft Tissue Tightness,Muscle Guarding,Tenderness Palpation Details lateral hip/IT band tenderness PT-OP-K Range of Motion Start: 02/25/22 12:31 Freq: Status: Active Protocol: Document 02/26/22 14:30 AMB (Rec: 02/27/22 12:54 AMB [id number]) Hip Goniometric Range of Motion Hip Right Passive Abduction 15 PT-OP-M Strength Start: 02/25/22 12:31 Freq: Status: Active Protocol: Document 02/26/22 14:30 AMB (Rec: 02/27/22 12:54 AMB [id number]) Hip Strength Hip Manual Muscle Testing Right Flexion (L2) 3 Fair Extension (S1) 3 Fair Abduction 3- Fair- Left Flexion (L2) 2 Poor Extension (S1) 2 Poor Abduction 2 Poor PT-OP-Q Treatments Start: 02/25/22 12:31 Freq: Status: Active Protocol: Document 04/21/22 09:47 AMB (Rec: 04/21/22 10:33 AMB [id number]) Gym Equipment Shuttle Recovery Bilateral Squats Details red band around thighs Resistance 50 Reps/Time 3x10 Therapeutic Exercises Sitting Exercises hip ER Resistance #2 band Reps/Minutes 2x10 Standing Exercises fwd lunge Standing Exercise Name // bars Reps/Minutes 2x10 sidestepping Standing Exercise Name reviewed for HEP Side bilateral Resistance Y Tb (home set) Equipment Used L rail contact (30%) Reps/Minutes 15 ft x3 laps Comments cued upright posture, core fac , knees apart sit to stand Standing Exercise Name HEP reviewed- arms front Side bilateral Resistance TB #1 Equipment Used mesh chair Reps/Minutes 2x5 reps, no UE needed Comments cued knees apart, able maintain 3/5 reps PT-OP-T Assessment and Plan Start: 02/25/22 12:31 Freq: Status: Active Protocol: Document 04/21/22 09:47 AMB (Rec: 04/21/22 10:33 AMB [id number]) Physical Therapy Assessment Goals Transfers Short Term Goal (STG) Jeanette will roll over in bed without hip pain. 03/19/22: states primarily sleeps on L side. By end of day is R hip is sore, feels heavy. STG Duration 5 weeks Nursing Home Goal (LTG) Jeanette will perform a floor transfer with environmental support and [place] without LTG Duration MET Two Impairment Gait Short Term Goal (STG) Jeanette will improve her 10MWT time to less than 12 seconds or faster. STG Duration 5 weeks Vice Chancellor Goal (LTG) Jeanette will ambulate for 6 minutes over smooth terrain with her SPC without LOB or increasing hip pain. LTG Duration MET One Impairment Exercise Short Term Goal (STG) Jeanette will be independent with a HEP to improve her bilateral hip strength. STG Duration 5 weeks Assessment Summary Assessment Jeanette did have some hip pain immediately after her fall, but her pain is reducing, continues to have difficulty weightbearing through the leg without UE support. Agrees to use trekking poles and not use SPC. Physical Therapy Plan Next Visit Focus/Plan Next Note Type Progress Note Next Visit Plan POC: Progress gait/balance, strength training focusing on hip
--- NOTE | 2022-04-23 09:50 | PT.OTN ---
Current Diagnoses Other abnormalities of gait and mobility (04/23/22) Fracture of unspecified part of neck of right femur, subsequent encounter for closed fracture with routine healing (04/23/22) Physical Therapy Treatment Note PT-OP-A Visit Information Start: 02/25/22 12:31 Freq: Status: Active Protocol: Document 04/23/22 09:00 AMB (Rec: 04/23/22 09:49 AMB [id number]) Out-Patient Physical Therapy Visit Information Visit Information Visit Type Treatment Note Visit Start Time 09:00 Visit Stop Time 09:45 Total Visit Minutes 45 Visit Number 16 PT-OP-B Current Condition Start: 02/25/22 12:31 Freq: Status: Active Protocol: Document 02/26/22 14:43 AMB (Rec: 02/26/22 14:54 AMB [id number]) Current Condition History of Current Condition Onset Date October 2021 Current Complaints R hip pain History of Current Condition PLOF: Was previously walking a couple of miles a day. R hip fracture slid out of shoes while in the kitchenin October, had home health, but still has difficulty walking. Does have hammer toes and notes foot pain increases throughout the day. Uses the SPC in the home. Difficulty getting up at night to use the bathroom. Sitting can increase the pain, getting in and out of bed increase pain laterally- tenderness over the hip. Lives in a home wiht 2- 3 stairs to enter from the garage with 1 railing with her and a dog (does not walk the dog). Treatment Goals Patient/Caregiver Goals Improve balance, walking tolerance, be able to walk without the cane. Is currently avoiding uneven terrrain. Prior Functional Status Baseline Function- ADL's Independent Baseline Function- Mobility Independent Current Functional Impairments (Reported) Functional Limitations- ADL's Limited with gait speed and safety Personal Factors Other Personal Factors That May Effect Recent cancer history: had Therapy/Recovery surgery on bladder, hysterectomy and lumpectomy PT-OP-C Subjective Start: 02/25/22 12:31 Freq: Status: Active Protocol: Document 04/23/22 09:00 AMB (Rec: 04/23/22 09:49 AMB [id number]) OP-PT Subjective Patient Comments Patient Comments Pt continues to have more hip discomfort after her fall. PT-OP-D Balance Start: 02/25/22 12:31 Freq: Status: Active Protocol: Document 02/26/22 14:30 AMB (Rec: 02/27/22 12:57 AMB [id number]) Balance Tests mCTSIB mCTSIB Position 1 30seconds + mCTSIB Position 2 unsteady PT-OP-E Functional Tests Start: 02/25/22 12:31 Freq: Status: Active Protocol: Document 02/26/22 14:30 AMB (Rec: 02/27/22 12:54 AMB [id number]) Functional Tests 10 Meter Walk Test Distance 16 Device Used SPC PT-OP-G Mobility & Gait Start: 02/25/22 12:31 Freq: Status: Active Protocol: Document 02/26/22 14:30 AMB (Rec: 02/27/22 12:54 AMB [id number]) OP Mobility Evaluation Transfers Sit to Stand from elevated treatment table : good, no UE support, from low table requires UE support Floor Transfers Unable OP Gait Assessment Comments Gait Comments Antalgic with genu valgus worse on L, uses cane in L UE. Significant trendelenburg when ambulating without cane. PT-OP-J Posture/Palpation/Skin Start: 02/25/22 12:31 Freq: Status: Active Protocol: Document 02/26/22 14:30 AMB (Rec: 02/27/22 12:54 AMB [id number]) Palpation Assessment Location One Palpation Location R hip Palpation Findings Soft Tissue Tightness,Muscle Guarding,Tenderness Palpation Details lateral hip/IT band tenderness PT-OP-K Range of Motion Start: 02/25/22 12:31 Freq: Status: Active Protocol: Document 02/26/22 14:30 AMB (Rec: 02/27/22 12:54 AMB [id number]) Hip Goniometric Range of Motion Hip Right Passive Abduction 15 PT-OP-M Strength Start: 02/25/22 12:31 Freq: Status: Active Protocol: Document 02/26/22 14:30 AMB (Rec: 02/27/22 12:54 AMB [id number]) Hip Strength Hip Manual Muscle Testing Right Flexion (L2) 3 Fair Extension (S1) 3 Fair Abduction 3- Fair- Left Flexion (L2) 2 Poor Extension (S1) 2 Poor Abduction 2 Poor PT-OP-Q Treatments Start: 02/25/22 12:31 Freq: Status: Active Protocol: Document 04/23/22 09:00 AMB (Rec: 04/23/22 09:49 AMB [id number]) Therapeutic Exercises Standing Exercises fwd lunge Standing Exercise Name // bars Reps/Minutes 2x10 4 step Standing Exercise Name with walking sticks Comments good tolerance sidestepping Standing Exercise Name reviewed for HEP Side bilateral Resistance Y Tb (home set) Equipment Used L rail contact (30%) Reps/Minutes 15 ft x3 laps Comments cued upright posture, core fac , knees apart heel raises Side bilateral Equipment Used contact rail Reps/Minutes 20 Comments good form space between BLE resisted walk Standing Exercise Name 1. fwd/back 2. sidestep Side bilateral Equipment Used yellow band Reps/Minutes 20ft ea sit to stand Standing Exercise Name HEP reviewed- arms front Side bilateral Resistance TB #1 Equipment Used mesh chair Reps/Minutes 2x5 reps, no UE needed Comments cued knees apart, able maintain 3/5 reps PT-OP-T Assessment and Plan Start: 02/25/22 12:31 Freq: Status: Active Protocol: Document 04/23/22 09:00 [facility] (Rec: 04/23/22 09:49 [facility] [id number]) Physical Therapy Assessment Assessment Summary Assessment Jeanette continues to have more difficulty with ambulation/ strength/ gait. Physical Therapy Plan Next Visit Focus/Plan Next Note Type Progress Note Next Visit Plan POC: Progress gait/balance, strength training focusing on hip
--- NOTE | 2022-04-28 10:30 | PT.OTN ---
Current Diagnoses Other abnormalities of gait and mobility (04/28/22) Fracture of unspecified part of neck of right femur, subsequent encounter for closed fracture with routine healing (04/28/22) Physical Therapy Treatment Note PT-OP-A Visit Information Start: 02/25/22 12:31 Freq: Status: Active Protocol: Document 04/28/22 09:47 SP (Rec: 04/28/22 10:46 SP [id number]) Out-Patient Physical Therapy Visit Information Visit Information Visit Type Treatment Note Visit Note SPTA Rosalva assisted w/ ther ex instruction to pt while under direct supervision of SALES FLOOR MANAGER Violeta throughout tx. Visit Start Time 09:47 Visit Stop Time 10:30 Total Visit Minutes 43 Visit Number 17 Number of SALES FLOOR MANAGER Visits 1 PT-OP-B Current Condition Start: 02/25/22 12:31 Freq: Status: Active Protocol: Document 02/26/22 14:43 AMB (Rec: 02/26/22 14:54 AMB [id number]) Current Condition History of Current Condition Onset Date October 2021 Current Complaints R hip pain History of Current Condition PLOF: Was previously walking a couple of miles a day. R hip fracture slid out of shoes while in the kitchenin October, had home health, but still has difficulty walking. Does have hammer toes and notes foot pain increases throughout the day. Uses the SPC in the home. Difficulty getting up at night to use the bathroom. Sitting can increase the pain, getting in and out of bed increase pain laterally- tenderness over the hip. Lives in a home wiht 2- 3 stairs to enter from the garage with 1 railing with her and a dog (does not walk the dog). Treatment Goals Patient/Caregiver Goals Improve balance, walking tolerance, be able to walk without the cane. Is currently avoiding uneven terrrain. Prior Functional Status Baseline Function- ADL's Independent Baseline Function- Mobility Independent Current Functional Impairments (Reported) Functional Limitations- ADL's Limited with gait speed and safety Personal Factors Other Personal Factors That May Effect Recent cancer history: had Therapy/Recovery surgery on bladder, hysterectomy and lumpectomy PT-OP-C Subjective Start: 02/25/22 12:31 Freq: Status: Active Protocol: Document 04/28/22 09:47 SP (Rec: 04/28/22 10:46 SP [id number]) OP-PT Subjective Patient Comments Patient Comments Pt states once in while tries to take steps in room to closet without walking sticks and feels her R hip pain. She feels L hip is weak as well. Still feels fear of falling and utilizing walking sticks for support needed and cautious. PT-OP-D Balance Start: 02/25/22 12:31 Freq: Status: Active Protocol: Document 02/26/22 14:30 AMB (Rec: 02/27/22 12:57 AMB [id number]) Balance Tests mCTSIB mCTSIB Position 1 30seconds + mCTSIB Position 2 unsteady PT-OP-E Functional Tests Start: 02/25/22 12:31 Freq: Status: Active Protocol: Document 02/26/22 14:30 AMB (Rec: 02/27/22 12:54 AMB [id number]) Functional Tests 10 Meter Walk Test Distance 16 Device Used SPC PT-OP-G Mobility & Gait Start: 02/25/22 12:31 Freq: Status: Active Protocol: Document 02/26/22 14:30 AMB (Rec: 02/27/22 12:54 AMB [id number]) OP Mobility Evaluation Transfers Sit to Stand from elevated treatment table : good, no UE support, from low table requires UE support Floor Transfers Unable OP Gait Assessment Comments Gait Comments Antalgic with genu valgus worse on L, uses cane in L UE. Significant trendelenburg when ambulating without cane. PT-OP-J Posture/Palpation/Skin Start: 02/25/22 12:31 Freq: Status: Active Protocol: Document 02/26/22 14:30 AMB (Rec: 02/27/22 12:54 AMB [id number]) Palpation Assessment Location One Palpation Location R hip Palpation Findings Soft Tissue Tightness,Muscle Guarding,Tenderness Palpation Details lateral hip/IT band tenderness PT-OP-K Range of Motion Start: 02/25/22 12:31 Freq: Status: Active Protocol: Document 02/26/22 14:30 AMB (Rec: 02/27/22 12:54 AMB [id number]) Hip Goniometric Range of Motion Hip Right Passive Abduction 15 PT-OP-M Strength Start: 02/25/22 12:31 Freq: Status: Active Protocol: Document 02/26/22 14:30 AMB (Rec: 02/27/22 12:54 AMB [id number]) Hip Strength Hip Manual Muscle Testing Right Flexion (L2) 3 Fair Extension (S1) 3 Fair Abduction 3- Fair- Left Flexion (L2) 2 Poor Extension (S1) 2 Poor Abduction 2 Poor PT-OP-Q Treatments Start: 02/25/22 12:31 Freq: Status: Active Protocol: Document 04/28/22 09:47 SP (Rec: 04/28/22 10:46 SP [id number]) Therapeutic Exercises Sitting Exercises hip ER Resistance #2 band > #3 band Reps/Minutes 2x10 Comments good feedback response muscle work resistance LAQ Sitting Exercise Name added to HEP Side bilateral Resistance YTB loop (home set) Reps/Minutes x10 hold 2 sec Comments cued anchored under opp heel, slow control Standing Exercises sidestepping Standing Exercise Name reviewed for HEP Side bilateral Resistance RTB (home set) Equipment Used L rail contact (30-50%) Reps/Minutes 15 ft x3 laps Comments cued upright posture, core fac , knees apart in line w/ toes heel raises Side bilateral Equipment Used contact rail Reps/Minutes 20 Comments good form space between BLE, good feedback AROM in feet sit to stand Standing Exercise Name HEP reviewed- arms front Side bilateral Resistance TB #1 Equipment Used mesh chair Reps/Minutes 2x5 reps, no UE needed Comments cued knees apart, able maintain 3/5 reps hip extension Standing Exercise Name discussed still performs in am for AROM warm up Side bilateral Equipment Used L UE support raised table Reps/Minutes 2x15 hip abduction Standing Exercise Name discussed still performs in am for AROM warm up Side bilateral Equipment Used L UE support raised table Reps/Minutes 2x15 Neuro Re-Education Treatment Balance Activities foam Details Assimulate balance device uses at home Surface blue foam Equipment chair at front, back to corner Reps/Duration 5 min Comments WBOS w/EC 30 sec - sways but self recovery, perturbations front, back and sideways - isometric balance recovery and nudges PT-OP-T Assessment and Plan Start: 02/25/22 12:31 Freq: Status: Active Protocol: Document 04/28/22 09:47 SP (Rec: 04/28/22 10:46 SP [id number]) Physical Therapy Assessment Goals Transfers Short Term Goal (STG) Jeanette will roll over in bed without hip pain. 03/19/22: states primarily sleeps on L side. By end of day is R hip is sore, feels heavy. STG Duration 5 weeks Custodial Goal (LTG) Jeanette will perform a floor transfer with environmental support and Ronan without LTG Duration MET Two Impairment Gait Short Term Goal (STG) Jeanette will improve her 10MWT time to less than 12 seconds or faster. STG Duration 5 weeks Custodial Goal (LTG) Jeanette will ambulate for 6 minutes over smooth terrain with her SPC without LOB or increasing hip pain. LTG Duration MET One Impairment Exercise Short Term Goal (STG) Jeanette will be independent with a HEP to improve her bilateral hip strength. STG Duration 5 weeks Assessment Summary Assessment Pt reduction in hip pain w/ ther ex reintroducing resistance loop and initiated sustained mini squat abd, cues for posturing and LLE alignment. Reviewed balance device utilizing Airex and initiated perturbations ( discussed in PT only) for balance recovery. Continued skilled therapy for strengthening and balance recovery to return to personal goal of community ambulation on local toro. Physical Therapy Plan Frequency and Duration Frequency of Treatment 2x/Week Duration of Treatment 10 weeks Plan of Care Start Date 02/26/22 Plan of Care End Date 05/07/22 Therapeutic Interventions Therapeutic Interventions Balance Training,Gait Training ,Home Exercise Program,Manual Therapy,Neuromuscular Re- education,Self-Care/Home Management,Therapeutic Activities,Therapeutic Exercises Next Visit Focus/Plan Next Note Type Treatment Note Next Visit Plan Next treatment shuttle balance and dynamic / endurance gait POC: Progress gait/balance, strength training focusing on hip
--- NOTE | 2022-04-30 09:00 | PT.OTN ---
Current Diagnoses Other abnormalities of gait and mobility (04/30/22) Fracture of unspecified part of neck of right femur, subsequent encounter for closed fracture with routine healing (04/30/22) Physical Therapy Treatment Note PT-OP-A Visit Information Start: 02/25/22 12:31 Freq: Status: Active Protocol: Document 04/30/22 08:17 SP (Rec: 04/30/22 09:01 SP [id number]) Out-Patient Physical Therapy Visit Information Visit Information Visit Type Treatment Note Visit Start Time 08:17 Visit Stop Time 09:00 Total Visit Minutes 43 Visit Number 18 Number of TREE DRILLER Visits 2 PT-OP-B Current Condition Start: 02/25/22 12:31 Freq: Status: Active Protocol: Document 02/26/22 14:43 AMB (Rec: 02/26/22 14:54 AMB [id number]) Current Condition History of Current Condition Onset Date October 2021 Current Complaints R hip pain History of Current Condition PLOF: Was previously walking a couple of miles a day. R hip fracture slid out of shoes while in the kitchenin October, had home health, but still has difficulty walking. Does have hammer toes and notes foot pain increases throughout the day. Uses the SPC in the home. Difficulty getting up at night to use the bathroom. Sitting can increase the pain, getting in and out of bed increase pain laterally- tenderness over the hip. Lives in a home wiht 2- 3 stairs to enter from the garage with 1 railing with her and a dog (does not walk the dog). Treatment Goals Patient/Caregiver Goals Improve balance, walking tolerance, be able to walk without the cane. Is currently avoiding uneven terrrain. Prior Functional Status Baseline Function- ADL's Independent Baseline Function- Mobility Independent Current Functional Impairments (Reported) Functional Limitations- ADL's Limited with gait speed and safety Personal Factors Other Personal Factors That May Effect Recent cancer history: had Therapy/Recovery surgery on bladder, hysterectomy and lumpectomy PT-OP-C Subjective Start: 02/25/22 12:31 Freq: Status: Active Protocol: Document 04/30/22 08:17 SP (Rec: 04/30/22 09:01 SP [id number]) OP-PT Subjective Patient Comments Patient Comments Pt reports hips were little sore like did some good work but went away later in day. She stated did the exercises again with same increased band resistance did last tx with no adverse affects. She states does take time to get going in am, impatient wants to get back up and go without limitations of weakness and endurance. Does see little progress though. Pt reports thinks about walking in house but not following through as much as would like. PT-OP-D Balance Start: 02/25/22 12:31 Freq: Status: Active Protocol: Document 02/26/22 14:30 AMB (Rec: 02/27/22 12:57 AMB [id number]) Balance Tests mCTSIB mCTSIB Position 1 30seconds + mCTSIB Position 2 unsteady PT-OP-E Functional Tests Start: 02/25/22 12:31 Freq: Status: Active Protocol: Document 02/26/22 14:30 AMB (Rec: 02/27/22 12:54 AMB [id number]) Functional Tests 10 Meter Walk Test Distance 16 Device Used SPC PT-OP-G Mobility & Gait Start: 02/25/22 12:31 Freq: Status: Active Protocol: Document 02/26/22 14:30 AMB (Rec: 02/27/22 12:54 AMB [id number]) OP Mobility Evaluation Transfers Sit to Stand from elevated treatment table : good, no UE support, from low table requires UE support Floor Transfers Unable OP Gait Assessment Comments Gait Comments Antalgic with genu valgus worse on L, uses cane in L UE. Significant trendelenburg when ambulating without cane. PT-OP-J Posture/Palpation/Skin Start: 02/25/22 12:31 Freq: Status: Active Protocol: Document 02/26/22 14:30 AMB (Rec: 02/27/22 12:54 AMB [id number]) Palpation Assessment Location One Palpation Location R hip Palpation Findings Soft Tissue Tightness,Muscle Guarding,Tenderness Palpation Details lateral hip/IT band tenderness PT-OP-K Range of Motion Start: 02/25/22 12:31 Freq: Status: Active Protocol: Document 02/26/22 14:30 AMB (Rec: 02/27/22 12:54 AMB [id number]) Hip Goniometric Range of Motion Hip Right Passive Abduction 15 PT-OP-M Strength Start: 02/25/22 12:31 Freq: Status: Active Protocol: Document 02/26/22 14:30 AMB (Rec: 02/27/22 12:54 AMB [id number]) Hip Strength Hip Manual Muscle Testing Right Flexion (L2) 3 Fair Extension (S1) 3 Fair Abduction 3- Fair- Left Flexion (L2) 2 Poor Extension (S1) 2 Poor Abduction 2 Poor PT-OP-Q Treatments Start: 02/25/22 12:31 Freq: Status: Active Protocol: Document 04/30/22 08:17 SP (Rec: 04/30/22 09:01 SP [id number]) Gym Equipment Shuttle Recovery Bilateral Squats Details red band around thighs Resistance 50 Reps/Time 3x12 Therapeutic Exercises Standing Exercises resisted walk Standing Exercise Name 1. fwd/back 2. sidestep Side bilateral Resistance L walk stick Equipment Used Red band Reps/Minutes 20ft ea Comments cued hip abd fac knees apart, challenging RLE maintain sit to stand Standing Exercise Name HEP reviewed- arms across chest Side bilateral Resistance TB #3 (blue personal) Equipment Used mesh chair Reps/Minutes 2x5 reps, no UE needed Comments cued knees apart, able maintain 3/5 reps squats Standing Exercise Name mini positioning behind chair w/ hip abd Side bilateral Resistance TB #2 loop around thighs Equipment Used contact back chair Reps/Minutes x15 Comments good form, straight back Gait Training Gait Activity 1 Device Used B walking sticks Distance/Duration 100 ft, 170ft x2 laps continuous Treatment Focus foot clearance, stride, posturing for community hikes Comments good 2pt gait patterning, cued tall posturing, scap retraction, core and hip abd fac to improve strength into LLE and decrease BUE WB into trek poles. Neuro Re-Education Treatment Balance Activities hurdles Details f/side stepping w/ 1 walking stick Surface firm Equipment BUE on //bar 1st lap, 1 walking stick 2nd lap Reps/Duration 10 ft x2 laps each direction Comments cues for good tall posturing, core fac, quad fac over stance LE before advance moving LE. PT-OP-T Assessment and Plan Start: 02/25/22 12:31 Freq: Status: Active Protocol: Document 04/30/22 08:17 SP (Rec: 04/30/22 09:01 SP [id number]) Physical Therapy Assessment Goals Transfers Short Term Goal (STG) Jeanette will roll over in bed without hip pain. 03/19/22: states primarily sleeps on L side. By end of day is R hip is sore, feels heavy. STG Duration 5 weeks Field Technical Specialist Goal (LTG) Jeanette will perform a floor transfer with environmental support and Ronan without LTG Duration MET Two Impairment Gait Short Term Goal (STG) Jeanette will improve her 10MWT time to less than 12 seconds or faster. STG Duration 5 weeks Halfway Goal (LTG) Jeanette will ambulate for 6 minutes over smooth terrain with her SPC without LOB or increasing hip pain. LTG Duration MET One Impairment Exercise Short Term Goal (STG) Jeanette will be independent with a HEP to improve her bilateral hip strength. STG Duration 5 weeks Assessment Summary Assessment Pt improved decrease L hip pain, reported good muscle work with use of TB sit and standing ther ex. Pt able to incorporate decreased support to 1 trek pole for stability during elma stepping 2nd lap , cues for LLE quad, core fac and posturing over stance LLE improved RLE advancement. Carryover with min cues increased gait distance 2 laps around clinic to increase endurance and confidence toward returning to community trail walks with spouse. Physical Therapy Plan Frequency and Duration Frequency of Treatment 2x/Week Duration of Treatment 10 weeks Plan of Care Start Date 02/26/22 Plan of Care End Date 05/07/22 Therapeutic Interventions Therapeutic Interventions Balance Training,Gait Training ,Home Exercise Program,Manual Therapy,Neuromuscular Re- education,Self-Care/Home Management,Therapeutic Activities,Therapeutic Exercises Next Visit Focus/Plan Next Note Type Treatment Note Next Visit Plan Next treatment shuttle balance and dynamic / endurance gait POC: Progress gait/balance, strength training focusing on hip
--- NOTE | 2022-05-05 12:37 | PT.OTN ---
Current Diagnoses Other abnormalities of gait and mobility (05/05/22) Fracture of unspecified part of neck of right femur, subsequent encounter for closed fracture with routine healing (05/05/22) Physical Therapy Treatment Note PT-OP-A Visit Information Start: 02/25/22 12:31 Freq: Status: Active Protocol: Document 05/05/22 11:23 NBM (Rec: 05/05/22 12:36 NBM [id number]) Out-Patient Physical Therapy Visit Information Visit Information Visit Type Treatment Note Visit Start Time 11:20 Visit Stop Time 12:05 Total Visit Minutes 45 Visit Number 19 Number of TRAY CHECKER Visits 3 PT-OP-B Current Condition Start: 02/25/22 12:31 Freq: Status: Active Protocol: Document 02/26/22 14:43 AMB (Rec: 02/26/22 14:54 AMB [id number]) Current Condition History of Current Condition Onset Date October 2021 Current Complaints R hip pain History of Current Condition PLOF: Was previously walking a couple of miles a day. R hip fracture slid out of shoes while in the kitchenin October, had home health, but still has difficulty walking. Does have hammer toes and notes foot pain increases throughout the day. Uses the SPC in the home. Difficulty getting up at night to use the bathroom. Sitting can increase the pain, getting in and out of bed increase pain laterally- tenderness over the hip. Lives in a home wiht 2- 3 stairs to enter from the garage with 1 railing with her and a dog (does not walk the dog). Treatment Goals Patient/Caregiver Goals Improve balance, walking tolerance, be able to walk without the cane. Is currently avoiding uneven terrrain. Prior Functional Status Baseline Function- ADL's Independent Baseline Function- Mobility Independent Current Functional Impairments (Reported) Functional Limitations- ADL's Limited with gait speed and safety Personal Factors Other Personal Factors That May Effect Recent cancer history: had Therapy/Recovery surgery on bladder, hysterectomy and lumpectomy PT-OP-C Subjective Start: 02/25/22 12:31 Freq: Status: Active Protocol: Document 05/05/22 11:23 NBM (Rec: 05/05/22 12:36 NBM [id number]) OP-PT Subjective Patient Comments Patient Comments Pt states continues to have L hip discomfort since falling two weeks ago and is scared of falling. She feels her R hip is too weak to take her weight when trying to walk. PT-OP-D Balance Start: 02/25/22 12:31 Freq: Status: Active Protocol: Document 02/26/22 14:30 AMB (Rec: 02/27/22 12:57 AMB [id number]) Balance Tests mCTSIB mCTSIB Position 1 30seconds + mCTSIB Position 2 unsteady PT-OP-E Functional Tests Start: 02/25/22 12:31 Freq: Status: Active Protocol: Document 02/26/22 14:30 AMB (Rec: 02/27/22 12:54 AMB [id number]) Functional Tests 10 Meter Walk Test Distance 16 Device Used SPC PT-OP-G Mobility & Gait Start: 02/25/22 12:31 Freq: Status: Active Protocol: Document 02/26/22 14:30 AMB (Rec: 02/27/22 12:54 AMB [id number]) OP Mobility Evaluation Transfers Sit to Stand from elevated treatment table : good, no UE support, from low table requires UE support Floor Transfers Unable OP Gait Assessment Comments Gait Comments Antalgic with genu valgus worse on L, uses cane in L UE. Significant trendelenburg when ambulating without cane. PT-OP-J Posture/Palpation/Skin Start: 02/25/22 12:31 Freq: Status: Active Protocol: Document 02/26/22 14:30 AMB (Rec: 02/27/22 12:54 AMB [id number]) Palpation Assessment Location One Palpation Location R hip Palpation Findings Soft Tissue Tightness,Muscle Guarding,Tenderness Palpation Details lateral hip/IT band tenderness PT-OP-K Range of Motion Start: 02/25/22 12:31 Freq: Status: Active Protocol: Document 02/26/22 14:30 AMB (Rec: 02/27/22 12:54 AMB [id number]) Hip Goniometric Range of Motion Hip Right Passive Abduction 15 PT-OP-M Strength Start: 02/25/22 12:31 Freq: Status: Active Protocol: Document 02/26/22 14:30 AMB (Rec: 02/27/22 12:54 AMB [id number]) Hip Strength Hip Manual Muscle Testing Right Flexion (L2) 3 Fair Extension (S1) 3 Fair Abduction 3- Fair- Left Flexion (L2) 2 Poor Extension (S1) 2 Poor Abduction 2 Poor PT-OP-Q Treatments Start: 02/25/22 12:31 Freq: Status: Active Protocol: Document 05/05/22 11:[address] [facility] (Rec: 05/05/22 12:[address] [facility] [id number]) Therapeutic Exercises Standing Exercises resisted walk Standing Exercise Name 2. sidestep Side bilateral Resistance Red band around knees then around ankles Equipment Used handrail Reps/Minutes 2x10ft ea Comments vc straight leg, toes forward, no hip rotation sit to stand Standing Exercise Name arms across chest Side bilateral Equipment Used mesh chair Reps/Minutes 1x10 reps, no UE needed Comments cued glute squeeze at top, controlled descent squats Standing Exercise Name mini positioning w/ hip abd Side bilateral Resistance TB #3 loop around thighs Equipment Used handrail Reps/Minutes x15 Comments initial cue for knee over midtoe hip extension Side bilateral Equipment Used handrail Reps/Minutes 2x15 Comments cues for straight leg, toes forward Gait Training Gait Activity 1 Device Used SPC L hand Level of Assistance SBA-CGA Distance/Duration 120ft Treatment Focus posture, sequencing, cane placement Comments pt using 3-pt gait w/ SPC too far out and left - balance and posture improved w/ 2-pt gait - pt reports increased confidence PT-OP-T Assessment and Plan Start: 02/25/22 12:31 Freq: Status: Active Protocol: Document 05/05/22 11:[address] [facility] (Rec: 05/05/22 12:[address] [facility] [id number]) Physical Therapy Assessment Impairments Impairments Balance,Gait,Pain,ROM,Strength Goals Transfers Short Term Goal (STG) Jeanette will roll over in bed without hip pain. 03/19/22: states primarily sleeps on L side. By end of day is R hip is sore, feels heavy. STG Duration 5 weeks Longterm Goal (LTG) Jeanette will perform a floor transfer with environmental support and Ronan without LTG Duration MET Assessment Summary Assessment Pt requires moderate cues for straight leg and toes forward w/ standing exercises. Pt was using 3-pt gait w/ SPC out too far and left and acknowledged she's been off-balance 3 times in last two weeks, but was able to recover balance. Pt is able to demonstrate 2-pt gait w/ SPC by end of session w/ improved posture, balance and confidence. Physical Therapy Plan Frequency and Duration Frequency of Treatment 2x/Week Duration of Treatment 10 weeks Plan of Care Start Date 02/26/22 Plan of Care End Date 05/07/22 Therapeutic Interventions Therapeutic Interventions Balance Training,Gait Training ,Home Exercise Program,Manual Therapy,Neuromuscular Re- education,Self-Care/Home Management,Therapeutic Activities,Therapeutic Exercises Next Visit Focus/Plan Next Note Type Treatment Note Next Visit Plan Shuttle balance and dynamic / endurance gait POC: Progress gait/balance, strength training focusing on hip
--- NOTE | 2022-05-07 07:30 | PT-OP ANOTE ---
Pt cancelled early am due to UTI, awaiting dr lr, unable to attend PT today.
--- NOTE | 2022-05-11 16:00 | PT.OTN ---
Current Diagnoses Other abnormalities of gait and mobility (05/11/22) Fracture of unspecified part of neck of right femur, subsequent encounter for closed fracture with routine healing (05/11/22) Physical Therapy Treatment Note PT-OP-A Visit Information Start: 02/25/22 12:31 Freq: Status: Active Protocol: Document 05/11/22 09:02 AMB (Rec: 05/11/22 09:46 AMB [id number]) Out-Patient Physical Therapy Visit Information Visit Information Visit Type Progress Note Visit Start Time 09:00 Visit Stop Time 09:45 Total Visit Minutes 45 Visit Number 20 Number of OPERATIONAL RISK CONSULTANT Visits 0 PT-OP-B Current Condition Start: 02/25/22 12:31 Freq: Status: Active Protocol: Document 02/26/22 14:43 AMB (Rec: 02/26/22 14:54 AMB [id number]) Current Condition History of Current Condition Onset Date October 2021 Current Complaints R hip pain History of Current Condition PLOF: Was previously walking a couple of miles a day. R hip fracture slid out of shoes while in the kitchenin October, had home health, but still has difficulty walking. Does have hammer toes and notes foot pain increases throughout the day. Uses the SPC in the home. Difficulty getting up at night to use the bathroom. Sitting can increase the pain, getting in and out of bed increase pain laterally- tenderness over the hip. Lives in a home wiht 2- 3 stairs to enter from the garage with 1 railing with her and a dog (does not walk the dog). Treatment Goals Patient/Caregiver Goals Improve balance, walking tolerance, be able to walk without the cane. Is currently avoiding uneven terrrain. Prior Functional Status Baseline Function- ADL's Independent Baseline Function- Mobility Independent Current Functional Impairments (Reported) Functional Limitations- ADL's Limited with gait speed and safety Personal Factors Other Personal Factors That May Effect Recent cancer history: had Therapy/Recovery surgery on bladder, hysterectomy and lumpectomy PT-OP-C Subjective Start: 02/25/22 12:31 Freq: Status: Active Protocol: Document 05/11/22 09:02 AMB (Rec: 05/11/22 09:46 AMB [id number]) OP-PT Subjective Patient Comments Patient Comments Pt had a UTI last week and this is the first time she has been out of the house. PT-OP-D Balance Start: 02/25/22 12:31 Freq: Status: Active Protocol: Document 02/26/22 14:30 AMB (Rec: 02/27/22 12:57 AMB [id number]) Balance Tests mCTSIB mCTSIB Position 1 30seconds + mCTSIB Position 2 unsteady PT-OP-E Functional Tests Start: 02/25/22 12:31 Freq: Status: Active Protocol: Document 02/26/22 14:30 AMB (Rec: 02/27/22 12:54 AMB [id number]) Functional Tests 10 Meter Walk Test Distance 16 Device Used SPC PT-OP-G Mobility & Gait Start: 02/25/22 12:31 Freq: Status: Active Protocol: Document 02/26/22 14:30 AMB (Rec: 02/27/22 12:54 AMB [id number]) OP Mobility Evaluation Transfers Sit to Stand from elevated treatment table : good, no UE support, from low table requires UE support Floor Transfers Unable OP Gait Assessment Comments Gait Comments Antalgic with genu valgus worse on L, uses cane in L UE. Significant trendelenburg when ambulating without cane. PT-OP-J Posture/Palpation/Skin Start: 02/25/22 12:31 Freq: Status: Active Protocol: Document 02/26/22 14:30 AMB (Rec: 02/27/22 12:54 AMB [id number]) Palpation Assessment Location One Palpation Location R hip Palpation Findings Soft Tissue Tightness,Muscle Guarding,Tenderness Palpation Details lateral hip/IT band tenderness PT-OP-K Range of Motion Start: 02/25/22 12:31 Freq: Status: Active Protocol: Document 02/26/22 14:30 AMB (Rec: 02/27/22 12:54 AMB [id number]) Hip Goniometric Range of Motion Hip Right Passive Abduction 15 PT-OP-M Strength Start: 02/25/22 12:31 Freq: Status: Active Protocol: Document 02/26/22 14:30 AMB (Rec: 02/27/22 12:54 AMB [id number]) Hip Strength Hip Manual Muscle Testing Right Flexion (L2) 3 Fair Extension (S1) 3 Fair Abduction 3- Fair- Left Flexion (L2) 2 Poor Extension (S1) 2 Poor Abduction 2 Poor PT-OP-Q Treatments Start: 02/25/22 12:31 Freq: Status: Active Protocol: Document 05/11/22 09:00 AMB (Rec: 05/11/22 16:00 AMB [id number]) Cardio Equipment Recumbent Stepper (Sci-Fit) Duration (Minutes) 7 Resistance 5 Therapeutic Exercises Standing Exercises hurdles Standing Exercise Name // bars Reps/Minutes 4x10' sidestepping Standing Exercise Name reviewed for HEP Side bilateral Resistance RTB (home set) Equipment Used L rail contact (30-50%) Reps/Minutes 15 ft x3 laps Comments cued upright posture, core fac , knees apart in line w/ toes sit to stand Standing Exercise Name arms across chest Side bilateral Equipment Used mesh chair Reps/Minutes 1x10 reps, no UE needed Comments cued glute squeeze at top, controlled descent Gait Training Gait Activity 1 Device Used SPC L hand Level of Assistance SBA-CGA Distance/Duration [id number] Treatment Focus posture, sequencing, cane placement Comments Reinforced 2 pt gait pattern PT-OP-T Assessment and Plan Start: 02/25/22 12:31 Freq: Status: Active Protocol: Document 05/11/22 09:02 AMB (Rec: 05/11/22 09:46 AMB [id number]) Physical Therapy Assessment Goals Transfers Short Term Goal (STG) Jeanette will roll over in bed without hip pain. 03/19/22: states primarily sleeps on L side. By end of day is R hip is sore, feels heavy. STG Duration 5 weeks Skilled Nursing Goal (LTG) Jeanette will perform a floor transfer with environmental support and Ronan without LTG Duration MET Two Impairment Gait Short Term Goal (STG) Jeanette will improve her 10MWT time to less than 12 seconds or faster. STG Duration NOT MET-15: 17 sec with poles, 19 with SPC Skilled Nursing Goal (LTG) Jeanette will ambulate for 6 minutes over smooth terrain with her SPC without LOB or increasing hip pain. LTG Duration MET One Impairment Exercise Short Term Goal (STG) Jeanette will be independent with a HEP to improve her bilateral hip strength. STG Duration 5 weeks Physical Therapy Plan Frequency and Duration Frequency of Treatment 2x/Week Duration of Treatment 10 weeks Plan of Care Start Date 05/11/22 Plan of Care End Date 07/20/22 Therapeutic Interventions Therapeutic Interventions Balance Training,Gait Training ,Home Exercise Program,Manual Therapy,Neuromuscular Re- education,Self-Care/Home Management,Therapeutic Activities,Therapeutic Exercises Next Visit Focus/Plan Next Note Type Treatment Note Next Visit Plan Shuttle balance and dynamic / endurance gait POC: Progress gait/balance, strength training focusing on hip
--- NOTE | 2022-05-14 09:47 | PT.OTN ---
Current Diagnoses Other abnormalities of gait and mobility (05/14/22) Fracture of unspecified part of neck of right femur, subsequent encounter for closed fracture with routine healing (05/14/22) Physical Therapy Treatment Note PT-OP-A Visit Information Start: 02/25/22 12:31 Freq: Status: Active Protocol: Document 05/14/22 09:03 SP (Rec: 05/14/22 09:47 SP [id number]) Out-Patient Physical Therapy Visit Information Visit Information Visit Type Treatment Note Visit Start Time 09:03 Visit Stop Time 09:47 Total Visit Minutes 44 Visit Number 21 Number of RESOURCE ECONOMIST Visits 1 PT-OP-B Current Condition Start: 02/25/22 12:31 Freq: Status: Active Protocol: Document 02/26/22 14:43 AMB (Rec: 02/26/22 14:54 AMB [id number]) Current Condition History of Current Condition Onset Date October 2021 Current Complaints R hip pain History of Current Condition PLOF: Was previously walking a couple of miles a day. R hip fracture slid out of shoes while in the kitchenin October, had home health, but still has difficulty walking. Does have hammer toes and notes foot pain increases throughout the day. Uses the SPC in the home. Difficulty getting up at night to use the bathroom. Sitting can increase the pain, getting in and out of bed increase pain laterally- tenderness over the hip. Lives in a home wiht 2- 3 stairs to enter from the garage with 1 railing with her and a dog (does not walk the dog). Treatment Goals Patient/Caregiver Goals Improve balance, walking tolerance, be able to walk without the cane. Is currently avoiding uneven terrrain. Prior Functional Status Baseline Function- ADL's Independent Baseline Function- Mobility Independent Current Functional Impairments (Reported) Functional Limitations- ADL's Limited with gait speed and safety Personal Factors Other Personal Factors That May Effect Recent cancer history: had Therapy/Recovery surgery on bladder, hysterectomy and lumpectomy PT-OP-C Subjective Start: 02/25/22 12:31 Freq: Status: Active Protocol: Document 05/14/22 09:03 SP (Rec: 05/14/22 09:47 SP [id number]) OP-PT Subjective Patient Comments Patient Comments Pt stated uses her trek poles out on deck but SPC in house but notices her balance isn't up to par and frustrated not seeing improvement. States stopped her exercise class pre UTI due to challenged with breath with mask requirments and thinks affected her activity level less tolerance now. PT-OP-D Balance Start: 02/25/22 12:31 Freq: Status: Active Protocol: Document 02/26/22 14:30 AMB (Rec: 02/27/22 12:57 AMB [id number]) Balance Tests mCTSIB mCTSIB Position 1 30seconds + mCTSIB Position 2 unsteady PT-OP-E Functional Tests Start: 02/25/22 12:31 Freq: Status: Active Protocol: Document 02/26/22 14:30 AMB (Rec: 02/27/22 12:54 AMB [id number]) Functional Tests 10 Meter Walk Test Distance 16 Device Used SPC PT-OP-G Mobility & Gait Start: 02/25/22 12:31 Freq: Status: Active Protocol: Document 02/26/22 14:30 AMB (Rec: 02/27/22 12:54 AMB [id number]) OP Mobility Evaluation Transfers Sit to Stand from elevated treatment table : good, no UE support, from low table requires UE support Floor Transfers Unable OP Gait Assessment Comments Gait Comments Antalgic with genu valgus worse on L, uses cane in L UE. Significant trendelenburg when ambulating without cane. PT-OP-J Posture/Palpation/Skin Start: 02/25/22 12:31 Freq: Status: Active Protocol: Document 02/26/22 14:30 AMB (Rec: 02/27/22 12:54 AMB [id number]) Palpation Assessment Location One Palpation Location R hip Palpation Findings Soft Tissue Tightness,Muscle Guarding,Tenderness Palpation Details lateral hip/IT band tenderness PT-OP-K Range of Motion Start: 02/25/22 12:31 Freq: Status: Active Protocol: Document 02/26/22 14:30 AMB (Rec: 02/27/22 12:54 AMB [id number]) Hip Goniometric Range of Motion Hip Right Passive Abduction 15 PT-OP-M Strength Start: 02/25/22 12:31 Freq: Status: Active Protocol: Document 02/26/22 14:30 AMB (Rec: 02/27/22 12:54 AMB [id number]) Hip Strength Hip Manual Muscle Testing Right Flexion (L2) 3 Fair Extension (S1) 3 Fair Abduction 3- Fair- Left Flexion (L2) 2 Poor Extension (S1) 2 Poor Abduction 2 Poor PT-OP-Q Treatments Start: 02/25/22 12:31 Freq: Status: Active Protocol: Document 05/14/22 09:03 SP (Rec: 05/14/22 09:47 SP [id number]) Cardio Equipment Recumbent Stepper (Sci-Fit) Duration (Minutes) 7 Resistance 5 Seat Position 8 Other LEs only, 50 RPM, 0.73 miles Therapeutic Exercises Supine Exercises hip abd Supine Exercise Name added to HEP Side bilateral Resistance AROM R>L work needed Reps/Minutes x10 Comments cued hip B hips on table Sidelying Exercises hip abd Sidelying Exercise Name unable perform due to weakness - DC for now 05/14 Side right Equipment Used 2 pillows between BLEs Reps/Minutes 2x5 reps Comments cued stacked hips, knee extension, lift clamshell Sidelying Exercise Name HEP reviewed Side right Equipment Used AROM Reps/Minutes 2x10 Comments stacked hips, not trunk rolling back, lift muscle effort hip abd Sitting Exercises self STMs Sitting Exercise Name R ITB, quad, HS rolling pin, ball wall glut Reps/Minutes 2 min total Comments rocking/rolling for self massage Standing Exercises resisted walk Standing Exercise Name sidestep, F (no TB) Side bilateral Resistance Red band around ankles Equipment Used L handrail Reps/Minutes 2x10ft ea Comments vc straight leg, toes forward, no hip rotation Manual Therapy Treatment Soft Tissue Mobilization R LE Body Location quad, ITB, TFL Mobilization Type Cross-Friction,Myofascial Release,Strumming Intensity/Depth Moderate Body Position Hooklying Comments manual and instruction on self rolling pin Self-Care/Home Management Treatment Education Patient Education Body Mechanics,Joint Protection,Pain Management, Posture Other Education Education on how modify exercises in class, added supine hip abd vs sidelying to challenging, along with self STMs with ed for continue hip abd HEP for decreased R hip pain and strength/stability. PT-OP-T Assessment and Plan Start: 02/25/22 12:31 Freq: Status: Active Protocol: Document 05/14/22 09:03 SP (Rec: 05/14/22 09:47 SP [id number]) Physical Therapy Assessment Goals Transfers Short Term Goal (STG) Jeanette will roll over in bed without hip pain. 03/19/22: states primarily sleeps on L side. By end of day is R hip is sore, feels heavy. STG Duration 5 weeks Snf Goal (LTG) Jeanette will perform a floor transfer with environmental support and Ronan without LTG Duration MET Two Impairment Gait Short Term Goal (STG) Jeanette will improve her 10MWT time to less than 12 seconds or faster. STG Duration NOT MET-05/11: 17 sec with poles, 19 with SPC Golf Course [employer] Goal (LTG) Jeanette will ambulate for 6 minutes over smooth terrain with her SPC without LOB or increasing hip pain. LTG Duration MET One Impairment Exercise Short Term Goal (STG) Jeanette will be independent with a HEP to improve her bilateral hip strength. STG Duration 5 weeks Assessment Summary Assessment Pt having R hip pain during standing activities, improved post manual and instruction self STMs using rolling pin and ball on wall with HOs provided for self recall benefit. Pt improved R WB/ hip abd fac post manual gait stability w/ SPC in LUE. Pt reports doing exercises at home thinking of attending classes and better understands how to modify for R hip support strengthening.Continue balance and gait for improved stability for community ambulation. Physical Therapy Plan Frequency and Duration Frequency of Treatment 2x/Week Duration of Treatment 10 weeks Plan of Care Start Date 05/11/22 Plan of Care End Date 07/20/22 Therapeutic Interventions Therapeutic Interventions Balance Training,Gait Training ,Home Exercise Program,Manual Therapy,Neuromuscular Re- education,Self-Care/Home Management,Therapeutic Activities,Therapeutic Exercises Next Visit Focus/Plan Next Note Type Treatment Note Next Visit Plan REcheck: supine hip abd, response to self STMs. Next: Shuttle recovery, balance and dynamic / endurance gait POC: Progress gait/balance, strength training focusing on hip
--- NOTE | 2022-05-18 09:45 | PT.OTN ---
Current Diagnoses Other abnormalities of gait and mobility (05/18/22) Fracture of unspecified part of neck of right femur, subsequent encounter for closed fracture with routine healing (05/18/22) Physical Therapy Treatment Note PT-OP-A Visit Information Start: 02/25/22 12:31 Freq: Status: Active Protocol: Document 05/18/22 09:09 AMB (Rec: 05/18/22 09:36 AMB [id number]) Out-Patient Physical Therapy Visit Information Visit Information Visit Type Treatment Note Visit Start Time 09:03 Visit Stop Time 09:47 Total Visit Minutes 44 Visit Number 22 PT-OP-B Current Condition Start: 02/25/22 12:31 Freq: Status: Active Protocol: Document 02/26/22 14:43 AMB (Rec: 02/26/22 14:54 AMB [id number]) Current Condition History of Current Condition Onset Date October 2021 Current Complaints R hip pain History of Current Condition PLOF: Was previously walking a couple of miles a day. R hip fracture slid out of shoes while in the kitchenin October, had home health, but still has difficulty walking. Does have hammer toes and notes foot pain increases throughout the day. Uses the SPC in the home. Difficulty getting up at night to use the bathroom. Sitting can increase the pain, getting in and out of bed increase pain laterally- tenderness over the hip. Lives in a home wiht 2- 3 stairs to enter from the garage with 1 railing with her and a dog (does not walk the dog). Treatment Goals Patient/Caregiver Goals Improve balance, walking tolerance, be able to walk without the cane. Is currently avoiding uneven terrrain. Prior Functional Status Baseline Function- ADL's Independent Baseline Function- Mobility Independent Current Functional Impairments (Reported) Functional Limitations- ADL's Limited with gait speed and safety Personal Factors Other Personal Factors That May Effect Recent cancer history: had Therapy/Recovery surgery on bladder, hysterectomy and lumpectomy PT-OP-C Subjective Start: 02/25/22 12:31 Freq: Status: Active Protocol: Document 05/18/22 09:09 AMB (Rec: 05/18/22 09:36 AMB [id number]) OP-PT Subjective Patient Comments Patient Comments Pt reports walking seems to be a little better, still gets worried when out of the house. PT-OP-D Balance Start: 02/25/22 12:31 Freq: Status: Active Protocol: Document 02/26/22 14:30 AMB (Rec: 02/27/22 12:57 AMB [id number]) Balance Tests mCTSIB mCTSIB Position 1 30seconds + mCTSIB Position 2 unsteady PT-OP-E Functional Tests Start: 02/25/22 12:31 Freq: Status: Active Protocol: Document 02/26/22 14:30 AMB (Rec: 02/27/22 12:54 AMB [id number]) Functional Tests 10 Meter Walk Test Distance 16 Device Used SPC PT-OP-G Mobility & Gait Start: 02/25/22 12:31 Freq: Status: Active Protocol: Document 02/26/22 14:30 AMB (Rec: 02/27/22 12:54 AMB [id number]) OP Mobility Evaluation Transfers Sit to Stand from elevated treatment table : good, no UE support, from low table requires UE support Floor Transfers Unable OP Gait Assessment Comments Gait Comments Antalgic with genu valgus worse on L, uses cane in L UE. Significant trendelenburg when ambulating without cane. PT-OP-J Posture/Palpation/Skin Start: 02/25/22 12:31 Freq: Status: Active Protocol: Document 02/26/22 14:30 AMB (Rec: 02/27/22 12:54 AMB [id number]) Palpation Assessment Location One Palpation Location R hip Palpation Findings Soft Tissue Tightness,Muscle Guarding,Tenderness Palpation Details lateral hip/IT band tenderness PT-OP-K Range of Motion Start: 02/25/22 12:31 Freq: Status: Active Protocol: Document 02/26/22 14:30 AMB (Rec: 02/27/22 12:54 AMB [id number]) Hip Goniometric Range of Motion Hip Right Passive Abduction 15 PT-OP-M Strength Start: 02/25/22 12:31 Freq: Status: Active Protocol: Document 02/26/22 14:30 AMB (Rec: 02/27/22 12:54 AMB [id number]) Hip Strength Hip Manual Muscle Testing Right Flexion (L2) 3 Fair Extension (S1) 3 Fair Abduction 3- Fair- Left Flexion (L2) 2 Poor Extension (S1) 2 Poor Abduction 2 Poor PT-OP-Q Treatments Start: 02/25/22 12:31 Freq: Status: Active Protocol: Document 05/18/22 09:09 AMB (Rec: 05/18/22 09:36 AMB [id number]) Cardio Equipment Recumbent Stepper (Sci-Fit) Duration (Minutes) 7 Resistance 5 Seat Position 8 Other LEs only, 50 RPM, Gym Equipment Shuttle Recovery Bilateral Squats Details red band around thighs Resistance 50 Reps/Time 3x12 Therapeutic Exercises Standing Exercises fwd lunge Standing Exercise Name // bars Reps/Minutes 2x10 hurdles Standing Exercise Name // bars Reps/Minutes 4x10' sidestepping Standing Exercise Name reviewed for HEP Side bilateral Resistance RTB (home set) Equipment Used L rail contact (30-50%) Reps/Minutes 15 ft x3 laps Comments cued upright posture, core fac , knees apart in line w/ toes heel raises Side bilateral Equipment Used contact rail Reps/Minutes 20 Comments good form space between BLE, good feedback AROM in feet Neuro Re-Education Treatment Balance Activities foam Details Assimulate balance device uses at home Surface blue foam Equipment chair at front, back to corner Reps/Duration 5 min Comments WBOS w/EC 30 sec - sways but self recovery, perturbations front, back and sideways - isometric balance recovery and nudges PT-OP-T Assessment and Plan Start: 02/25/22 12:31 Freq: Status: Active Protocol: Document 05/18/22 09:09 AMB (Rec: 05/18/22 09:36 AMB [id number]) Physical Therapy Assessment Goals Transfers Short Term Goal (STG) Jeanette will roll over in bed without hip pain. 03/19/22: states primarily sleeps on L side. By end of day is R hip is sore, feels heavy. STG Duration 5 weeks Mcfp Goal (LTG) Jeanette will perform a floor transfer with environmental support and Ronan without LTG Duration MET Two Impairment Gait Short Term Goal (STG) Jeanette will improve her 10MWT time to less than 12 seconds or faster. STG Duration NOT MET-05/11: 17 sec with poles, 19 with SPC Railroad Car Repair Supervisor Goal (LTG) Jeanette will ambulate for 6 minutes over smooth terrain with her SPC without LOB or increasing hip pain. LTG Duration MET One Impairment Exercise Short Term Goal (STG) Jeanette will be independent with a HEP to improve her bilateral hip strength. STG Duration 5 weeks Assessment Summary Assessment Pt has been doing self STM with rolling pin on quads and thinks that has been helping. Feels like walking at home is going well, but walking in the community is still very fatiguing. Physical Therapy Plan Next Visit Focus/Plan Next Note Type Treatment Note Next Visit Plan REcheck: supine hip abd, Next: Shuttle recovery, balance and dynamic / endurance gait POC: Progress gait/balance, strength training focusing on hip
--- NOTE | 2022-05-20 12:58 | PT.OTN ---
Current Diagnoses Other abnormalities of gait and mobility (05/20/22) Fracture of unspecified part of neck of right femur, subsequent encounter for closed fracture with routine healing (05/20/22) Physical Therapy Treatment Note PT-OP-A Visit Information Start: 02/25/22 12:31 Freq: Status: Active Protocol: Document 05/20/22 09:00 AMB (Rec: 05/20/22 09:48 AMB [id number]) Out-Patient Physical Therapy Visit Information Visit Information Visit Type Treatment Note Visit Start Time 09:00 Visit Stop Time 09:45 Total Visit Minutes 45 Visit Number 23 PT-OP-B Current Condition Start: 02/25/22 12:31 Freq: Status: Active Protocol: Document 02/26/22 14:43 AMB (Rec: 02/26/22 14:54 AMB [id number]) Current Condition History of Current Condition Onset Date October 2021 Current Complaints R hip pain History of Current Condition PLOF: Was previously walking a couple of miles a day. R hip fracture slid out of shoes while in the kitchenin October, had home health, but still has difficulty walking. Does have hammer toes and notes foot pain increases throughout the day. Uses the SPC in the home. Difficulty getting up at night to use the bathroom. Sitting can increase the pain, getting in and out of bed increase pain laterally- tenderness over the hip. Lives in a home wiht 2- 3 stairs to enter from the garage with 1 railing with her and a dog (does not walk the dog). Treatment Goals Patient/Caregiver Goals Improve balance, walking tolerance, be able to walk without the cane. Is currently avoiding uneven terrrain. Prior Functional Status Baseline Function- ADL's Independent Baseline Function- Mobility Independent Current Functional Impairments (Reported) Functional Limitations- ADL's Limited with gait speed and safety Personal Factors Other Personal Factors That May Effect Recent cancer history: had Therapy/Recovery surgery on bladder, hysterectomy and lumpectomy PT-OP-C Subjective Start: 02/25/22 12:31 Freq: Status: Active Protocol: Document 05/20/22 09:00 AMB (Rec: 05/20/22 09:48 AMB [id number]) OP-PT Subjective Patient Comments Patient Comments Pt reports she is already tired after showering and driving here. PT-OP-D Balance Start: 06/01/22 12:31 Freq: Status: Active Protocol: Document 02/26/22 14:30 AMB (Rec: 02/27/22 12:57 AMB [id number]) Balance Tests mCTSIB mCTSIB Position 1 30seconds + mCTSIB Position 2 unsteady PT-OP-E Functional Tests Start: 02/25/22 12:31 Freq: Status: Active Protocol: Document 02/26/22 14:30 AMB (Rec: 02/27/22 12:54 AMB [id number]) Functional Tests 10 Meter Walk Test Distance 16 Device Used SPC PT-OP-G Mobility & Gait Start: 02/25/22 12:31 Freq: Status: Active Protocol: Document 02/26/22 14:30 AMB (Rec: 02/27/22 12:54 AMB [id number]) OP Mobility Evaluation Transfers Sit to Stand from elevated treatment table : good, no UE support, from low table requires UE support Floor Transfers Unable OP Gait Assessment Comments Gait Comments Antalgic with genu valgus worse on L, uses cane in L UE. Significant trendelenburg when ambulating without cane. PT-OP-J Posture/Palpation/Skin Start: 02/25/22 12:31 Freq: Status: Active Protocol: Document 02/26/22 14:30 AMB (Rec: 02/27/22 12:54 AMB [id number]) Palpation Assessment Location One Palpation Location R hip Palpation Findings Soft Tissue Tightness,Muscle Guarding,Tenderness Palpation Details lateral hip/IT band tenderness PT-OP-K Range of Motion Start: 02/25/22 12:31 Freq: Status: Active Protocol: Document 02/26/22 14:30 AMB (Rec: 02/27/22 12:54 AMB [id number]) Hip Goniometric Range of Motion Hip Right Passive Abduction 15 PT-OP-M Strength Start: 02/25/22 12:31 Freq: Status: Active Protocol: Document 02/26/22 14:30 AMB (Rec: 02/27/22 12:54 AMB [id number]) Hip Strength Hip Manual Muscle Testing Right Flexion (L2) 3 Fair Extension (S1) 3 Fair Abduction 3- Fair- Left Flexion (L2) 2 Poor Extension (S1) 2 Poor Abduction 2 Poor PT-OP-Q Treatments Start: 02/25/22 12:31 Freq: Status: Active Protocol: Document 05/20/22 09:00 AMB (Rec: 05/20/22 09:48 AMB [id number]) Therapeutic Exercises Standing Exercises fwd lunge Standing Exercise Name // bars Reps/Minutes 2x10 sidestepping Standing Exercise Name reviewed for HEP Side bilateral Resistance RTB (home set) Equipment Used L rail contact (30-50%) Reps/Minutes 15 ft x3 laps Comments cued upright posture, core fac , knees apart in line w/ toes heel raises Side bilateral Equipment Used contact rail Reps/Minutes 20 Comments good form space between BLE, good feedback AROM in feet sit to stand Standing Exercise Name arms across chest Side bilateral Equipment Used mesh chair Reps/Minutes 1x10 reps, no UE needed Comments cued glute squeeze at top, controlled descent hip abduction Standing Exercise Name discussed still performs in am for AROM warm up Side bilateral Equipment Used L UE support raised table Reps/Minutes 2x15 Gait Training Gait Activity 1 Description trekking poles Surface smooth Distance/Duration 20'x6 Comments even step length PT-OP-T Assessment and Plan Start: 02/25/22 12:31 Freq: Status: Active Protocol: Document 05/20/22 09:00 AMB (Rec: 05/20/22 09:48 AMB [id number]) Physical Therapy Assessment Goals Transfers Short Term Goal (STG) Jeanette will roll over in bed without hip pain. 03/19/22: states primarily sleeps on L side. By end of day is R hip is sore, feels heavy. STG Duration 5 weeks Shelter Goal (LTG) Jeanette will perform a floor transfer with environmental support and Ronan without LTG Duration MET Two Impairment Gait Short Term Goal (STG) Jeanette will improve her 10MWT time to less than 12 seconds or faster. STG Duration NOT MET-815: 17 sec with poles, 19 with SPC Corporate Strategy Intern Goal (LTG) Jeanette will ambulate for 6 minutes over smooth terrain with her SPC without LOB or increasing hip pain. LTG Duration MET One Impairment Exercise Short Term Goal (STG) Jeanette will be independent with a HEP to improve her bilateral hip strength. STG Duration 5 weeks Physical Therapy Plan Next Visit Focus/Plan Next Note Type Treatment Note Next Visit Plan REcheck: supine hip abd, Next: Shuttle recovery, balance and dynamic / endurance gait POC: Progress gait/balance, strength training focusing on hip
--- NOTE | 2022-05-29 10:29 | PT.OTN ---
Current Diagnoses Other abnormalities of gait and mobility (05/29/22) Fracture of unspecified part of neck of right femur, subsequent encounter for closed fracture with routine healing (05/29/22) Physical Therapy Treatment Note PT-OP-A Visit Information Start: 02/25/22 12:31 Freq: Status: Active Protocol: Document 05/29/22 09:49 SP (Rec: 05/29/22 10:31 SP [id number]) Out-Patient Physical Therapy Visit Information Visit Information Visit Type Treatment Note Visit Start Time 09:49 Visit Stop Time 10:29 Total Visit Minutes 39 Visit Number 24 Number of JOB DEVELOPER Visits 1 PT-OP-B Current Condition Start: 02/25/22 12:31 Freq: Status: Active Protocol: Document 02/26/22 14:43 AMB (Rec: 02/26/22 14:54 AMB [id number]) Current Condition History of Current Condition Onset Date October 2021 Current Complaints R hip pain History of Current Condition PLOF: Was previously walking a couple of miles a day. R hip fracture slid out of shoes while in the kitchenin October, had home health, but still has difficulty walking. Does have hammer toes and notes foot pain increases throughout the day. Uses the SPC in the home. Difficulty getting up at night to use the bathroom. Sitting can increase the pain, getting in and out of bed increase pain laterally- tenderness over the hip. Lives in a home wiht 2- 3 stairs to enter from the garage with 1 railing with her and a dog (does not walk the dog). Treatment Goals Patient/Caregiver Goals Improve balance, walking tolerance, be able to walk without the cane. Is currently avoiding uneven terrrain. Prior Functional Status Baseline Function- ADL's Independent Baseline Function- Mobility Independent Current Functional Impairments (Reported) Functional Limitations- ADL's Limited with gait speed and safety Personal Factors Other Personal Factors That May Effect Recent cancer history: had Therapy/Recovery surgery on bladder, hysterectomy and lumpectomy PT-OP-C Subjective Start: 02/25/22 12:31 Freq: Status: Active Protocol: Document 05/29/22 09:49 SP (Rec: 05/29/22 10:31 SP [id number]) OP-PT Subjective Patient Comments Patient Comments Pt stated still can't put weight on LLE due to weakness when stands on it. She reports she is taking a class again at [employer] and finds is helpful getting back to normal activities. PT-OP-D Balance Start: 02/25/22 12:31 Freq: Status: Active Protocol: Document 02/26/22 14:30 AMB (Rec: 02/27/22 12:57 AMB [id number]) Balance Tests mCTSIB mCTSIB Position 1 30seconds + mCTSIB Position 2 unsteady PT-OP-E Functional Tests Start: 02/25/22 12:31 Freq: Status: Active Protocol: Document 02/26/22 14:30 AMB (Rec: 02/27/22 12:54 AMB [id number]) Functional Tests 10 Meter Walk Test Distance 16 Device Used SPC PT-OP-G Mobility & Gait Start: 02/25/22 12:31 Freq: Status: Active Protocol: Document 02/26/22 14:30 AMB (Rec: 02/27/22 12:54 AMB [id number]) OP Mobility Evaluation Transfers Sit to Stand from elevated treatment table : good, no UE support, from low table requires UE support Floor Transfers Unable OP Gait Assessment Comments Gait Comments Antalgic with genu valgus worse on L, uses cane in L UE. Significant trendelenburg when ambulating without cane. PT-OP-J Posture/Palpation/Skin Start: 02/25/22 12:31 Freq: Status: Active Protocol: Document 02/26/22 14:30 AMB (Rec: 02/27/22 12:54 AMB [id number]) Palpation Assessment Location One Palpation Location R hip Palpation Findings Soft Tissue Tightness,Muscle Guarding,Tenderness Palpation Details lateral hip/IT band tenderness PT-OP-K Range of Motion Start: 02/25/22 12:31 Freq: Status: Active Protocol: Document 02/26/22 14:30 AMB (Rec: 02/27/22 12:54 AMB [id number]) Hip Goniometric Range of Motion Hip Right Passive Abduction 15 PT-OP-M Strength Start: 02/25/22 12:31 Freq: Status: Active Protocol: Document 02/26/22 14:30 AMB (Rec: 02/27/22 12:54 AMB [id number]) Hip Strength Hip Manual Muscle Testing Right Flexion (L2) 3 Fair Extension (S1) 3 Fair Abduction 3- Fair- Left Flexion (L2) 2 Poor Extension (S1) 2 Poor Abduction 2 Poor PT-OP-Q Treatments Start: 02/25/22 12:31 Freq: Status: Active Protocol: Document 05/29/22 09:49 SP (Rec: 05/29/22 10:31 SP [id number]) Gym Equipment Shuttle Recovery Unilateral Details cued Knee lateral midline L>R Resistance 25# Shuttle Recovery Platform Stable Reps/Time 2x10 alternating Bilateral Squats Details red band around thighs Resistance 50# (62 #next tx) Shuttle Recovery Platform Stable Reps/Time 3x12 Therapeutic Exercises Standing Exercises fwd lunge Standing Exercise Name // bars Equipment Used chair back L, SPC R Reps/Minutes 2x10 Comments cued buttocks, 4 step Comments good tolerance sidestepping Standing Exercise Name reviewed for HEP Side bilateral Resistance RTBx2 >BTB x1set (home set) Equipment Used L rail contact (50% to L, 30% to R) Reps/Minutes 15 ft x3 laps Comments cued upright posture book on head, RLE IR little passed neutral step up Side bilateral Equipment Used 4 in step w/ L rail Reps/Minutes 10 Comments cued full knee extension at top heel raises Side bilateral Equipment Used contact back chair Reps/Minutes 20 Comments good form space between BLE, good feedback AROM in feet resisted walk Standing Exercise Name forward/backward- challenge/ in PT only Side bilateral Resistance RBTB band around ankles Equipment Used SPC LUE, R HR Reps/Minutes 2x10ft ea Comments cued tall posturing, knees apart and RLE foot clearance sit to stand Standing Exercise Name arms across chest Side bilateral Resistance RTB around knees Equipment Used mesh chair Reps/Minutes 1x10 reps, no UE needed Comments cued glute squeeze at top, controlled descent squats Standing Exercise Name mini positioning w/ hip abd Side bilateral Resistance TB #3 loop around thighs Equipment Used handrail Reps/Minutes x15 Comments initial cue for knee over midtoe hip extension Side bilateral Equipment Used handrail Reps/Minutes 2x15 Comments cues for straight leg, toes forward hip abduction Standing Exercise Name discussed still performs in am for AROM warm up Side bilateral Equipment Used L UE support raised table Reps/Minutes 2x15 Gait Training Gait Activity 1 Description trekking poles- good sequencing 2pt gait Level of Assistance S Surface smooth Distance/Duration 170 ft x2 laps Treatment Focus tall posture, hip abd fac, stride/foot clearance Comments tall book on head, space between knees, little more knee extension. PT-OP-T Assessment and Plan Start: 02/25/22 12:31 Freq: Status: Active Protocol: Document 05/29/22 09:49 SP (Rec: 05/29/22 10:31 SP [id number]) Physical Therapy Assessment Goals Transfers Short Term Goal (STG) Jeanette will roll over in bed without hip pain. 03/19/22: states primarily sleeps on L side. By end of day is R hip is sore, feels heavy. STG Duration 5 weeks Detention Goal (LTG) Jeanette will perform a floor transfer with environmental support and Ronan without LTG Duration MET Two Impairment Gait Short Term Goal (STG) Jeanette will improve her 10MWT time to less than 12 seconds or faster. STG Duration NOT MET-05/11: 17 sec with poles, 19 with SPC Detention Goal (LTG) Jeanette will ambulate for 6 minutes over smooth terrain with her SPC without LOB or increasing hip pain. LTG Duration MET One Impairment Exercise Short Term Goal (STG) Jeanette will be independent with a HEP to improve her bilateral hip strength. STG Duration 5 weeks Assessment Summary Assessment Pt improved hip abd fac with ability increase to blue TB with side stepping. Improved posturing during trekpole gait , time next tx and assess 6mwt for gait speed. Physical Therapy Plan Frequency and Duration Frequency of Treatment 2x/Week Duration of Treatment 10 weeks Plan of Care Start Date 05/11/22 Plan of Care End Date 07/20/22 Therapeutic Interventions Therapeutic Interventions Balance Training,Gait Training ,Home Exercise Program,Manual Therapy,Neuromuscular Re- education,Self-Care/Home Management,Therapeutic Activities,Therapeutic Exercises Next Visit Focus/Plan Next Note Type Treatment Note Next Visit Plan Gait speed w/ 6MWT trekpoles for community park return, balance activities. Next: Shuttle recovery, balance and dynamic / endurance gait POC: Progress gait/balance, strength training focusing on hip
--- NOTE | 2022-06-05 10:30 | PT.OTN ---
Current Diagnoses Other abnormalities of gait and mobility (06/05/22) Fracture of unspecified part of neck of right femur, subsequent encounter for closed fracture with routine healing (06/05/22) Physical Therapy Treatment Note PT-OP-A Visit Information Start: 02/25/22 12:31 Freq: Status: Active Protocol: Document 06/05/22 09:48 SP (Rec: 06/05/22 10:31 SP [id number]) Out-Patient Physical Therapy Visit Information Visit Information Visit Type Treatment Note Visit Note 10 min late for app[place] pump [place]. Visit Start Time 09:55 Visit Stop Time 10:30 Total Visit Minutes 35 Visit Number 25 Number of BRONZER Visits 2 PT-OP-B Current Condition Start: 02/25/22 12:31 Freq: Status: Active Protocol: Document 02/26/22 14:43 AMB (Rec: 02/26/22 14:54 AMB [id number]) Current Condition History of Current Condition Onset Date October 2021 Current Complaints R hip pain History of Current Condition PLOF: Was previously walking a couple of miles a day. R hip fracture slid out of shoes while in the kitchenin October, had home health, but still has difficulty walking. Does have hammer toes and notes foot pain increases throughout the day. Uses the SPC in the home. Difficulty getting up at night to use the bathroom. Sitting can increase the pain, getting in and out of bed increase pain laterally- tenderness over the hip. Lives in a home wiht 2- 3 stairs to enter from the garage with 1 railing with her and a dog (does not walk the dog). Treatment Goals Patient/Caregiver Goals Improve balance, walking tolerance, be able to walk without the cane. Is currently avoiding uneven terrrain. Prior Functional Status Baseline Function- ADL's Independent Baseline Function- Mobility Independent Current Functional Impairments (Reported) Functional Limitations- ADL's Limited with gait speed and safety Personal Factors Other Personal Factors That May Effect Recent cancer history: had Therapy/Recovery surgery on bladder, hysterectomy and lumpectomy PT-OP-C Subjective Start: 02/25/22 12:31 Freq: Status: Active Protocol: Document 06/05/22 09:48 SP (Rec: 06/05/22 10:31 SP [id number]) OP-PT Subjective Patient Comments Patient Comments Noted near miss fall in parkinglot, rushing, side step to close door, self recovery usign SPC. Pt rushing due to [place], attended stand/supine pump class in [place] just prior to appt. She stated was able to walk 2 laps around [facility] looped path usuing B trek poles recently. PT-OP-D Balance Start: 02/25/22 12:31 Freq: Status: Active Protocol: Document 02/26/22 14:30 AMB (Rec: 02/27/22 12:57 AMB [id number]) Balance Tests mCTSIB mCTSIB Position 1 30seconds + mCTSIB Position 2 unsteady PT-OP-E Functional Tests Start: 02/25/22 12:31 Freq: Status: Active Protocol: Document 02/26/22 14:30 AMB (Rec: 02/27/22 12:54 AMB [id number]) Functional Tests 10 Meter Walk Test Distance 16 Device Used SPC PT-OP-G Mobility & Gait Start: 02/25/22 12:31 Freq: Status: Active Protocol: Document 02/26/22 14:30 AMB (Rec: 02/27/22 12:54 AMB [id number]) OP Mobility Evaluation Transfers Sit to Stand from elevated treatment table : good, no UE support, from low table requires UE support Floor Transfers Unable OP Gait Assessment Comments Gait Comments Antalgic with genu valgus worse on L, uses cane in L UE. Significant trendelenburg when ambulating without cane. PT-OP-J Posture/Palpation/Skin Start: 02/25/22 12:31 Freq: Status: Active Protocol: Document 02/26/22 14:30 AMB (Rec: 02/27/22 12:54 AMB [id number]) Palpation Assessment Location One Palpation Location R hip Palpation Findings Soft Tissue Tightness,Muscle Guarding,Tenderness Palpation Details lateral hip/IT band tenderness PT-OP-K Range of Motion Start: 02/25/22 12:31 Freq: Status: Active Protocol: Document 02/26/22 14:30 AMB (Rec: 02/27/22 12:54 AMB [id number]) Hip Goniometric Range of Motion Hip Right Passive Abduction 15 PT-OP-M Strength Start: 02/25/22 12:31 Freq: Status: Active Protocol: Document 02/26/22 14:30 AMB (Rec: 02/27/22 12:54 AMB [id number]) Hip Strength Hip Manual Muscle Testing Right Flexion (L2) 3 Fair Extension (S1) 3 Fair Abduction 3- Fair- Left Flexion (L2) 2 Poor Extension (S1) 2 Poor Abduction 2 Poor PT-OP-Q Treatments Start: 02/25/22 12:31 Freq: Status: Active Protocol: Document 06/05/22 09:48 SP (Rec: 06/05/22 10:31 SP [id number]) Therapeutic Exercises Supine Exercises hip abd Supine Exercise Name added to HEP and review doing in class Side bilateral Resistance AROM R>L work needed Reps/Minutes x10 Comments cued hip IR R>L challenged, improved form/ glut med fac. bridge Supine Exercise Name reviewed HEP Resistance GTB in PT (BTB home set) Equipment Used black table Reps/Minutes 10s hold x10 ( 2 sets home) Comments good response effort hip abd, cued slow lift/lower for core fac. Standing Exercises sit to stand Standing Exercise Name arms across chest Side bilateral Resistance blue marble ball between B knees Equipment Used 20 black table height, blue foam under BLEs Reps/Minutes 5 reps floork x10 reps on foam Comments cued glute squeeze at top, controlled descent Gait Training Gait Activity 10 MWT Device Used B trek poles Level of Assistance S Surface tile/carpet Distance/Duration 1126 ft in 10 min=1.87 ft/s, 343.2 m/s gait speed Treatment Focus LE alignment, upright posture, foot clearance, endurance return community Comments Reported pressure through each UE: L 50% R 10-20% -Cued L knee abd fac, clearance consistant -Wants to get to point that doesn't need think about each step take for normal walking support. Self-Care/Home Management Treatment Education Patient Education Body Mechanics,Joint Protection,Pain Management Other Education Discussed may need to modify pump class exercises, eg side plank to supine hip abd or abd w/ bridge TB resistance and contact PRN back chair for HRTR safe stability standing. PT-OP-T Assessment and Plan Start: 02/25/22 12:31 Freq: Status: Active Protocol: Document 06/05/22 09:48 SP (Rec: 06/05/22 10:31 SP [id number]) Physical Therapy Assessment Goals Transfers Short Term Goal (STG) Jeanette will roll over in bed without hip pain. 03/19/22: states primarily sleeps on L side. By end of day is R hip is sore, feels heavy. STG Duration 5 weeks Employment Recruiter Goal (LTG) Jeanette will perform a floor transfer with environmental support and Ronan without LTG Duration MET Two Impairment Gait Short Term Goal (STG) Jeanette will improve her 10MWT time to less than 12 seconds or faster. 05/11: 17 sec with poles, 19 with SPC 06/05/22: progressing 10MWT: 1126 ft 20% RUE and 50% LUE WB on trek poles (1.87 ft/s, 343.2 m/s calculates her gait speed), unsure distance last assessed to compare. STG Duration 05/11/22 progressing 06/05/22 Mcc Goal (LTG) Jeanette will ambulate for 6 minutes over smooth terrain with her SPC without LOB or increasing hip pain. 02/26/22: GOAL MET: distance 16 w/ SPC. LTG Duration MET One Impairment Exercise Short Term Goal (STG) Jeanette will be independent with a HEP to improve her bilateral hip strength. STG Duration 5 weeks Progress Towards Goals Progress Comments 1126 ft in 10 min=1.87 ft/s, 343.2 m/s gait speed Assessment Summary Assessment Pt responded well to HEP review. She was able to complete STS without UE support firm and uneven surface 18 height. All performed after attended her pump class standing/supine activities. She completed 10MWT 1126 ft, and stated trying to progress more level surfaces at [facility]. Personal goal to decrease trek pole use and further distance to return to group walking at [facility] again. Physical Therapy Plan Frequency and Duration Frequency of Treatment 2x/Week Duration of Treatment 10 weeks Plan of Care Start Date 05/11/22 Plan of Care End Date 07/20/22 Therapeutic Interventions Therapeutic Interventions Balance Training,Gait Training ,Home Exercise Program,Manual Therapy,Neuromuscular Re- education,Self-Care/Home Management,Therapeutic Activities,Therapeutic Exercises Next Visit Focus/Plan Next Note Type Treatment Note Next Visit Plan Gait speed w/ 10MWT trekpoles for [facility] return, balance activities. Next: Shuttle recovery, balance and dynamic / endurance gait POC: Progress gait/balance, strength training focusing on hip
--- NOTE | 2022-06-08 10:55 | PT.OTN ---
Current Diagnoses Other abnormalities of gait and mobility (06/08/22) Fracture of unspecified part of neck of right femur, subsequent encounter for closed fracture with routine healing (06/08/22) Physical Therapy Treatment Note PT-OP-A Visit Information Start: 02/25/22 12:31 Freq: Status: Active Protocol: Document 06/08/22 10:02 AMB (Rec: 06/08/22 10:54 AMB [id number]) Out-Patient Physical Therapy Visit Information Visit Information Visit Type Treatment Note Visit Start Time 09:50 Visit Stop Time 10:30 Total Visit Minutes 40 Visit Number 26 Number of GLUER AND SLICER HAND Visits 3 PT-OP-B Current Condition Start: 02/25/22 12:31 Freq: Status: Active Protocol: Document 02/26/22 14:43 AMB (Rec: 02/26/22 14:54 AMB [id number]) Current Condition History of Current Condition Onset Date October 2021 Current Complaints R hip pain History of Current Condition PLOF: Was previously walking a couple of miles a day. R hip fracture slid out of shoes while in the kitchenin October, had home health, but still has difficulty walking. Does have hammer toes and notes foot pain increases throughout the day. Uses the SPC in the home. Difficulty getting up at night to use the bathroom. Sitting can increase the pain, getting in and out of bed increase pain laterally- tenderness over the hip. Lives in a home wiht 2- 3 stairs to enter from the garage with 1 railing with her and a dog (does not walk the dog). Treatment Goals Patient/Caregiver Goals Improve balance, walking tolerance, be able to walk without the cane. Is currently avoiding uneven terrrain. Prior Functional Status Baseline Function- ADL's Independent Baseline Function- Mobility Independent Current Functional Impairments (Reported) Functional Limitations- ADL's Limited with gait speed and safety Personal Factors Other Personal Factors That May Effect Recent cancer history: had Therapy/Recovery surgery on bladder, hysterectomy and lumpectomy PT-OP-C Subjective Start: 02/25/22 12:31 Freq: Status: Active Protocol: Document 06/08/22 10:02 AMB (Rec: 06/08/22 10:54 AMB [id number]) OP-PT Subjective Patient Comments Patient Comments Pt reports some days are better than others, fatigued today because went to the body pump class today. PT-OP-D Balance Start: 02/25/22 12:31 Freq: Status: Active Protocol: Document 02/26/22 14:30 AMB (Rec: 02/27/22 12:57 AMB [id number]) Balance Tests mCTSIB mCTSIB Position 1 30seconds + mCTSIB Position 2 unsteady PT-OP-E Functional Tests Start: 02/25/22 12:31 Freq: Status: Active Protocol: Document 02/26/22 14:30 AMB (Rec: 02/27/22 12:54 AMB [id number]) Functional Tests 10 Meter Walk Test Distance 16 Device Used SPC PT-OP-G Mobility & Gait Start: 02/25/22 12:31 Freq: Status: Active Protocol: Document 02/26/22 14:30 AMB (Rec: 02/27/22 12:54 AMB [id number]) OP Mobility Evaluation Transfers Sit to Stand from elevated treatment table : good, no UE support, from low table requires UE support Floor Transfers Unable OP Gait Assessment Comments Gait Comments Antalgic with genu valgus worse on L, uses cane in L UE. Significant trendelenburg when ambulating without cane. PT-OP-J Posture/Palpation/Skin Start: 02/25/22 12:31 Freq: Status: Active Protocol: Document 02/26/22 14:30 AMB (Rec: 02/27/22 12:54 AMB [id number]) Palpation Assessment Location One Palpation Location R hip Palpation Findings Soft Tissue Tightness,Muscle Guarding,Tenderness Palpation Details lateral hip/IT band tenderness PT-OP-K Range of Motion Start: 02/25/22 12:31 Freq: Status: Active Protocol: Document 02/26/22 14:30 AMB (Rec: 02/27/22 12:54 AMB [id number]) Hip Goniometric Range of Motion Hip Right Passive Abduction 15 PT-OP-M Strength Start: 02/25/22 12:31 Freq: Status: Active Protocol: Document 02/26/22 14:30 AMB (Rec: 02/27/22 12:54 AMB [id number]) Hip Strength Hip Manual Muscle Testing Right Flexion (L2) 3 Fair Extension (S1) 3 Fair Abduction 3- Fair- Left Flexion (L2) 2 Poor Extension (S1) 2 Poor Abduction 2 Poor PT-OP-Q Treatments Start: 06/01/22 12:31 Freq: Status: Active Protocol: Document 06/08/22 10:02 AMB (Rec: 06/08/22 10:54 AMB [id number]) Cardio Equipment Recumbent Elliptical (Biodex) Duration (Minutes) 10 Resistance 4 Seat Position 10 Gym Equipment Shuttle Balance BLUE Comments focus on equal weightbearing, balance, m/l; a/p Therapeutic Exercises Standing Exercises 8 step up Standing Exercise Name challenging in // bars- ok with UE support Reps/Minutes 2x5 sidestepping Standing Exercise Name reviewed for HEP Side bilateral Resistance RTBx2 >BTB x1set (home set) Equipment Used L rail contact (50% to L, 30% to R) Reps/Minutes 15 ft x3 laps Comments cued upright posture book on head, RLE IR little passed neutral heel raises Side bilateral Equipment Used contact back chair Reps/Minutes 20 Comments good form space between BLE, good feedback AROM in feet Gait Training Gait Activity 1 Description SPC vs 1 trekking pole Level of Assistance SBA Surface smooth Distance/Duration 170 ft x2 laps Treatment Focus tall posture, hip abd fac, stride/foot clearance PT-OP-T Assessment and Plan Start: 02/25/22 12:31 Freq: Status: Active Protocol: Document 06/08/22 10:02 AMB (Rec: 06/08/22 10:54 AMB [id number]) Physical Therapy Assessment Goals Transfers Short Term Goal (STG) Jeanette will roll over in bed without hip pain. 03/19/22: states primarily sleeps on L side. By end of day is R hip is sore, feels heavy. STG Duration 5 weeks Unemployment Examiner Goal (LTG) Jeanette will perform a floor transfer with environmental support and Ronan without LTG Duration MET Two Impairment Gait Short Term Goal (STG) Jeanette will improve her 10MWT time to less than 12 seconds or faster. 05/11: 17 sec with poles, 19 with SPC 06/05/22: progressing 10MWT: 1126 ft 20% RUE and 50% LUE WB on trek poles, unsure distance last assessed to compare. STG Duration 05/11/22 progressing 06/05/22 Unemployment Examiner Goal (LTG) Jeanette will ambulate for 6 minutes over smooth terrain with her SPC without LOB or increasing hip pain. 02/26/22: GOAL MET: distance 16 w/ SPC. LTG Duration MET One Impairment Exercise Short Term Goal (STG) Jeanette will be independent with a HEP to improve her bilateral hip strength. STG Duration 5 weeks Assessment Summary Assessment Pt continues to dislike SPC but does ambulate with better form with bilateral trekking poles. Physical Therapy Plan Next Visit Focus/Plan Next Note Type Treatment Note Next Visit Plan Gait speed w/ 10MWT trekpoles for [place] return, balance activities. Next: Shuttle recovery, balance and dynamic / endurance gait POC: Progress gait/balance, strength training focusing on hip
--- NOTE | 2022-06-16 09:00 | PT.OTN ---
Current Diagnoses Other abnormalities of gait and mobility (06/16/22) Fracture of unspecified part of neck of right femur, subsequent encounter for closed fracture with routine healing (06/16/22) Physical Therapy Treatment Note PT-OP-A Visit Information Start: 02/25/22 12:31 Freq: Status: Active Protocol: Document 06/16/22 08:15 SP (Rec: 06/16/22 09:01 SP [id number]) Out-Patient Physical Therapy Visit Information Visit Information Visit Type Treatment Note Visit Start Time 08:15 Visit Stop Time 09:00 Total Visit Minutes 45 Visit Number 27 Number of INSPECTOR TYPE Visits 4 PT-OP-B Current Condition Start: 02/25/22 12:31 Freq: Status: Active Protocol: Document 02/26/22 14:43 AMB (Rec: 02/26/22 14:54 AMB [id number]) Current Condition History of Current Condition Onset Date October 2021 Current Complaints R hip pain History of Current Condition PLOF: Was previously walking a couple of miles a day. R hip fracture slid out of shoes while in the kitchenin October, had home health, but still has difficulty walking. Does have hammer toes and notes foot pain increases throughout the day. Uses the SPC in the home. Difficulty getting up at night to use the bathroom. Sitting can increase the pain, getting in and out of bed increase pain laterally- tenderness over the hip. Lives in a home wiht 2- 3 stairs to enter from the garage with 1 railing with her and a dog (does not walk the dog). Treatment Goals Patient/Caregiver Goals Improve balance, walking tolerance, be able to walk without the cane. Is currently avoiding uneven terrrain. Prior Functional Status Baseline Function- ADL's Independent Baseline Function- Mobility Independent Current Functional Impairments (Reported) Functional Limitations- ADL's Limited with gait speed and safety Personal Factors Other Personal Factors That May Effect Recent cancer history: had Therapy/Recovery surgery on bladder, hysterectomy and lumpectomy PT-OP-C Subjective Start: 02/25/22 12:31 Freq: Status: Active Protocol: Document 06/16/22 08:15 SP (Rec: 06/16/22 09:01 SP [id number]) OP-PT Subjective Patient Comments Patient Comments Pt stated walked around [place] 2 laps with B trek poles before needed sit with daughter and over weekend. PT-OP-D Balance Start: 02/25/22 12:31 Freq: Status: Active Protocol: Document 02/26/22 14:30 AMB (Rec: 02/27/22 12:57 AMB [id number]) Balance Tests mCTSIB mCTSIB Position 1 30seconds + mCTSIB Position 2 unsteady PT-OP-E Functional Tests Start: 02/25/22 12:31 Freq: Status: Active Protocol: Document 02/26/22 14:30 AMB (Rec: 02/27/22 12:54 AMB [id number]) Functional Tests 10 Meter Walk Test Distance 16 Device Used SPC PT-OP-G Mobility & Gait Start: 02/25/22 12:31 Freq: Status: Active Protocol: Document 02/26/22 14:30 AMB (Rec: 02/27/22 12:54 AMB [id number]) OP Mobility Evaluation Transfers Sit to Stand from elevated treatment table : good, no UE support, from low table requires UE support Floor Transfers Unable OP Gait Assessment Comments Gait Comments Antalgic with genu valgus worse on L, uses cane in L UE. Significant trendelenburg when ambulating without cane. PT-OP-J Posture/Palpation/Skin Start: 02/25/22 12:31 Freq: Status: Active Protocol: Document 02/26/22 14:30 AMB (Rec: 02/27/22 12:54 AMB [id number]) Palpation Assessment Location One Palpation Location R hip Palpation Findings Soft Tissue Tightness,Muscle Guarding,Tenderness Palpation Details lateral hip/IT band tenderness PT-OP-K Range of Motion Start: 02/25/22 12:31 Freq: Status: Active Protocol: Document 02/26/22 14:30 AMB (Rec: 02/27/22 12:54 AMB [id number]) Hip Goniometric Range of Motion Hip Right Passive Abduction 15 PT-OP-M Strength Start: 02/25/22 12:31 Freq: Status: Active Protocol: Document 02/26/22 14:30 AMB (Rec: 02/27/22 12:54 AMB [id number]) Hip Strength Hip Manual Muscle Testing Right Flexion (L2) 3 Fair Extension (S1) 3 Fair Abduction 3- Fair- Left Flexion (L2) 2 Poor Extension (S1) 2 Poor Abduction 2 Poor PT-OP-Q Treatments Start: 02/25/22 12:31 Freq: Status: Active Protocol: Document 06/16/22 08:15 SP (Rec: 06/16/22 09:01 SP [id number]) Cardio Equipment Recumbent Stepper (Sci-Fit) Duration (Minutes) 7 Resistance 2.5>3.0 Seat Position 9>8 Other UEs/ LEs, 0.89 miles Gym Equipment Shuttle Balance BLUE Details WBOS, stagger stance Reps/Duration 4min Comments focus on equal weightbearing, balance, m/l; a/p 1. HTs each position 2. EC: WBOS only 4 sec Therapeutic Exercises Standing Exercises 8 step up Standing Exercise Name challenging Equipment Used //bars, RUE support needed Reps/Minutes 2x5 each LE lead Comments cued hip abd fac knee lateral shift ascend step sidestepping Standing Exercise Name reviewed for HEP Side bilateral Resistance BTB lv 3 (home set) Equipment Used L rail contact (50% to L, 30% to R) Reps/Minutes 10 ft x3 laps, light contact RUE to support RLE Comments cued upright posture book on head, RLE IR little passed neutral heel raises Standing Exercise Name HEP reviewed Side bilateral Equipment Used hands hover //bar, home back to corner Reps/Minutes 4 reps EC before contact needed, 10 reps occasional contact Comments good form space between BLE, good feedback AROM in feet sit to stand Standing Exercise Name arms across chest Side bilateral Equipment Used mesh chair Reps/Minutes 5 reps in 19 sec, 30 sec 9 reps Comments cued glute squeeze at top knees apart, controlled descent Neuro Re-Education Treatment Balance Activities firm Details tandem stance Equipment //bars Comments R forward- 29 sec sway but self recovers L forward: 30 sec, little sways self centering * good self core, alignment more forward into front foot corrections learned awareness . PT-OP-T Assessment and Plan Start: 02/25/22 12:31 Freq: Status: Active Protocol: Document 06/16/22 08:15 SP (Rec: 06/16/22 09:01 SP [id number]) Physical Therapy Assessment Goals Transfers Short Term Goal (STG) Jeanette will roll over in bed without hip pain. 03/19/22: states primarily sleeps on L side. By end of day is R hip is sore, feels heavy. 06/16/22: GOAL MET: Pt states gets occasional twinge on R hip but mainly sleeps on L hip . STG Duration GOAL MET Chief Pharmacist Goal (LTG) Jeanette will perform a floor transfer with environmental support and Ronan without LTG Duration MET Two Impairment Gait Short Term Goal (STG) Jeanette will improve her 10MWT time to less than 12 seconds or faster. 05/11: 17 sec with poles, 19 with SPC 06/05/22: progressing 10MWT: 1126 ft 20% RUE and 50% LUE WB on trek poles, unsure distance last assessed to compare. 06/16/22: pt stated walking 1.5 miles with daughter/ 2 laps around [place] before needed sit rest. STG Duration 05/11/22 progressing 06/16/22 Chief Pharmacist Goal (LTG) Jeanette will ambulate for 6 minutes over smooth terrain with her SPC without LOB or increasing hip pain. 02/26/22: GOAL MET: distance 16 w/ SPC. LTG Duration MET One Impairment Exercise Short Term Goal (STG) Jeanette will be independent with a HEP to improve her bilateral hip strength. 06/16/22: resisted side stepping, STS 9 reps in 30 sec , LTR, bridge,lunges, heel raises STG Duration 5 weeks Progress Towards Goals Progress Towards Goals Progressing Toward Goals Progress Comments Met LTG Transfers Assessment Summary Assessment Pt improved self corrections posture over more forward feet and core/ hip abd fac during balance activities. She improving community gait longer distance with trek poles reports. Physical Therapy Plan Frequency and Duration Frequency of Treatment 2x/Week Duration of Treatment 10 weeks Plan of Care Start Date 05/11/22 Plan of Care End Date 07/20/22 Therapeutic Interventions Therapeutic Interventions Balance Training,Gait Training ,Home Exercise Program,Manual Therapy,Neuromuscular Re- education,Self-Care/Home Management,Therapeutic Activities,Therapeutic Exercises Next Visit Focus/Plan Next Note Type Progress Note Next Visit Plan PN next tx. Gait speed w/ 10MWT trekpoles for community [place] return, balance activities. Next: Shuttle recovery, balance and dynamic / endurance gait POC: Progress gait/balance, strength training focusing on hip
--- NOTE | 2022-06-26 21:35 | PT.OTN ---
Current Diagnoses Other abnormalities of gait and mobility (06/26/22) Fracture of unspecified part of neck of right femur, subsequent encounter for closed fracture with routine healing (06/26/22) Physical Therapy Treatment Note PT-OP-A Visit Information Start: 02/25/22 12:31 Freq: Status: Active Protocol: Document 06/26/22 14:45 AMB (Rec: 06/26/22 15:18 AMB [id number]) Out-Patient Physical Therapy Visit Information Visit Information Visit Type Progress Note Visit Start Time 14:45 Visit Stop Time 15:15 Total Visit Minutes 45 Visit Number 28 PT-OP-B Current Condition Start: 02/25/22 12:31 Freq: Status: Active Protocol: Document 02/26/22 14:43 AMB (Rec: 02/26/22 14:54 AMB [id number]) Current Condition History of Current Condition Onset Date October 2021 Current Complaints R hip pain History of Current Condition PLOF: Was previously walking a couple of miles a day. R hip fracture slid out of shoes while in the kitchenin October, had home health, but still has difficulty walking. Does have hammer toes and notes foot pain increases throughout the day. Uses the SPC in the home. Difficulty getting up at night to use the bathroom. Sitting can increase the pain, getting in and out of bed increase pain laterally- tenderness over the hip. Lives in a home wiht 2- 3 stairs to enter from the garage with 1 railing with her and a dog (does not walk the dog). Treatment Goals Patient/Caregiver Goals Improve balance, walking tolerance, be able to walk without the cane. Is currently avoiding uneven terrrain. Prior Functional Status Baseline Function- ADL's Independent Baseline Function- Mobility Independent Current Functional Impairments (Reported) Functional Limitations- ADL's Limited with gait speed and safety Personal Factors Other Personal Factors That May Effect Recent cancer history: had Therapy/Recovery surgery on bladder, hysterectomy and lumpectomy PT-OP-C Subjective Start: 02/25/22 12:31 Freq: Status: Active Protocol: Document 06/16/22 08:15 SP (Rec: 06/16/22 09:01 SP [id number]) OP-PT Subjective Patient Comments Patient Comments Pt stated walked around [employer] 2 laps with B trek poles before needed sit with daughter and over weekend. PT-OP-D Balance Start: 02/25/22 12:31 Freq: Status: Active Protocol: Document 02/26/22 14:30 AMB (Rec: 02/27/22 12:57 AMB [id number]) Balance Tests mCTSIB mCTSIB Position 1 30seconds + mCTSIB Position 2 unsteady PT-OP-E Functional Tests Start: 02/25/22 12:31 Freq: Status: Active Protocol: Document 02/26/22 14:30 AMB (Rec: 02/27/22 12:54 AMB [id number]) Functional Tests 10 Meter Walk Test Distance 16 Device Used SPC PT-OP-G Mobility & Gait Start: 02/25/22 12:31 Freq: Status: Active Protocol: Document 02/26/22 14:30 AMB (Rec: 02/27/22 12:54 AMB [id number]) OP Mobility Evaluation Transfers Sit to Stand from elevated treatment table : good, no UE support, from low table requires UE support Floor Transfers Unable OP Gait Assessment Comments Gait Comments Antalgic with genu valgus worse on L, uses cane in L UE. Significant trendelenburg when ambulating without cane. PT-OP-J Posture/Palpation/Skin Start: 02/25/22 12:31 Freq: Status: Active Protocol: Document 02/26/22 14:30 AMB (Rec: 02/27/22 12:54 AMB [id number]) Palpation Assessment Location One Palpation Location R hip Palpation Findings Soft Tissue Tightness,Muscle Guarding,Tenderness Palpation Details lateral hip/IT band tenderness PT-OP-K Range of Motion Start: 02/25/22 12:31 Freq: Status: Active Protocol: Document 02/26/22 14:30 AMB (Rec: 02/27/22 12:54 AMB [id number]) Hip Goniometric Range of Motion Hip Right Passive Abduction 15 PT-OP-M Strength Start: 02/25/22 12:31 Freq: Status: Active Protocol: Document 06/26/22 15:30 AMB (Rec: 06/26/22 15:39 AMB [id number]) Hip Strength Hip Manual Muscle Testing Right Abduction 2+ Poor+ Left Abduction 3- Fair- PT-OP-Q Treatments Start: 02/25/22 12:31 Freq: Status: Active Protocol: Document 06/26/22 14:45 AMB (Rec: 06/28/22 21:20 AMB [id number]) Gym Equipment Cable Column (Body Solid) Hip Abduction Details 20 Reps/Time 3x12 Therapeutic Exercises Supine Exercises hip abd Supine Exercise Name added to HEP and review doing in class Side bilateral Reps/Minutes x10 Comments #3 t band at knees Sidelying Exercises clamshell Sidelying Exercise Name HEP reviewed Side bilateral Equipment Used AROM Reps/Minutes 2x10 Comments stacked hips, not trunk rolling back, lift muscle effort hip abd Sitting Exercises hip ER Resistance #3 band Reps/Minutes 2x10 Comments good feedback response muscle work resistance PT-OP-T Assessment and Plan Start: 02/25/22 12:31 Freq: Status: Active Protocol: Document 06/26/22 14:45 AMB (Rec: 06/26/22 15:18 AMB [id number]) Physical Therapy Assessment Goals Transfers Short Term Goal (STG) Jeanette will roll over in bed without hip pain. 03/19/22: states primarily sleeps on L side. By end of day is R hip is sore, feels heavy. 06/16/22: GOAL MET: Pt states gets occasional twinge on R hip but mainly sleeps on L hip . STG Duration GOAL MET Machinist Helper Marine Goal (LTG) Jeanette will perform a floor transfer with environmental support and Ronan without LTG Duration MET Two Impairment Gait Short Term Goal (STG) Jeanette will improve her 10MeterWT time to less than 12 seconds or faster. 06/26: 14 sec with poles, 17 with SPC [facility] Goal (LTG) Jeanette will ambulate for 6 minutes over smooth terrain with her SPC without LOB or increasing hip pain. 02/26/22: GOAL MET: distance 16 w/ SPC. LTG Duration MET One Impairment Exercise Short Term Goal (STG) Jeanette will be independent with a HEP to improve her bilateral hip strength. 06/16/22: resisted side stepping, STS 9 reps in 30 sec , LTR, bridge,lunges, heel raises STG Duration 5 weeks Assessment Summary Assessment Jeanette showed good improvement with gait speed with both SPC and trekking poles. Unfortunately she continues to have weak hip abduction and is unable to lift her surgical leg against gravity. This is very frustrating to her, as her goal is to ambulate without her SPC. Explained again that hip abduction strength is necessary for gait without AD. Encouraged pt that her gait speed has improved, but pt very down today. Physical Therapy Plan Frequency and Duration Frequency of Treatment 2x/Week Plan of Care Start Date 05/11/22 Plan of Care End Date 07/20/22 Next Visit Focus/Plan Next Note Type Progress Note Next Visit Plan Next: Shuttle recovery, balance and dynamic / endurance gait POC: Progress gait/balance, strength training focusing on hip
--- NOTE | 2022-06-30 09:42 | PT.OTN ---
Addendum entered and electronically signed by Clari Townsend, PT 07/01/22 12:46: At last appt, PT encouraged Jeanette to follow up with her MD as she is dissatisfied with her progress at this point after 29 visits to PT. She continues to have hip abduction weakness (2/5) in the R leg that leads to Trendelenburg gait and need for a cane. She does not want to limp, but despite extensive strengthening continues to be unable to lift the right leg against gravity into abduction. Recommended pt contact physician to discern if there is a structural issue that is limiting her strengthening into abduction. Would be plausible that she has gluteus medius tendon dysfunction creating such weakness, either way would like her to discuss her hip abduction weakness despite extensive PT with her MD. Original Note: Current Diagnoses Other abnormalities of gait and mobility (06/30/22) Fracture of unspecified part of neck of right femur, subsequent encounter for closed fracture with routine healing (06/30/22) Physical Therapy Treatment Note PT-OP-A Visit Information Start: 02/25/22 12:31 Freq: Status: Active Protocol: Document 06/30/22 09:02 AMB (Rec: 06/30/22 09:30 AMB [id number]) Out-Patient Physical Therapy Visit Information Visit Information Visit Type Treatment Note Visit Start Time 09:00 Visit Stop Time 09:45 Total Visit Minutes 45 Visit Number 29 PT-OP-B Current Condition Start: 02/25/22 12:31 Freq: Status: Active Protocol: Document 02/26/22 14:43 AMB (Rec: 02/26/22 14:54 AMB [id number]) Current Condition History of Current Condition Onset Date October 2021 Current Complaints R hip pain History of Current Condition PLOF: Was previously walking a couple of miles a day. R hip fracture slid out of shoes while in the kitchenin October, had home health, but still has difficulty walking. Does have hammer toes and notes foot pain increases throughout the day. Uses the SPC in the home. Difficulty getting up at night to use the bathroom. Sitting can increase the pain, getting in and out of bed increase pain laterally- tenderness over the hip. Lives in a home wiht 2- 3 stairs to enter from the garage with 1 railing with her and a dog (does not walk the dog). Treatment Goals Patient/Caregiver Goals Improve balance, walking tolerance, be able to walk without the cane. Is currently avoiding uneven terrrain. Prior Functional Status Baseline Function- ADL's Independent Baseline Function- Mobility Independent Current Functional Impairments (Reported) Functional Limitations- ADL's Limited with gait speed and safety Personal Factors Other Personal Factors That May Effect Recent cancer history: had Therapy/Recovery surgery on bladder, hysterectomy and lumpectomy PT-OP-C Subjective Start: 02/25/22 12:31 Freq: Status: Active Protocol: Document 06/30/22 09:02 AMB (Rec: 06/30/22 09:30 AMB [id number]) OP-PT Subjective Patient Comments Patient Comments [place] some twinges in the hip after last visit, for the next day or so. PT-OP-D Balance Start: 02/25/22 12:31 Freq: Status: Active Protocol: Document 02/26/22 14:30 AMB (Rec: 02/27/22 12:57 AMB [id number]) Balance Tests mCTSIB mCTSIB Position 1 30seconds + mCTSIB Position 2 unsteady PT-OP-E Functional Tests Start: 02/25/22 12:31 Freq: Status: Active Protocol: Document 02/26/22 14:30 AMB (Rec: 02/27/22 12:54 AMB [id number]) Functional Tests 10 Meter Walk Test Distance 16 Device Used SPC PT-OP-G Mobility & Gait Start: 02/25/22 12:31 Freq: Status: Active Protocol: Document 02/26/22 14:30 AMB (Rec: 02/27/22 12:54 AMB [id number]) OP Mobility Evaluation Transfers Sit to Stand from elevated treatment table : good, no UE support, from low table requires UE support Floor Transfers Unable OP Gait Assessment Comments Gait Comments Antalgic with genu valgus worse on L, uses cane in L UE. Significant trendelenburg when ambulating without cane. PT-OP-J Posture/Palpation/Skin Start: 02/25/22 12:31 Freq: Status: Active Protocol: Document 02/26/22 14:30 AMB (Rec: 02/27/22 12:54 AMB [id number]) Palpation Assessment Location One Palpation Location R hip Palpation Findings Soft Tissue Tightness,Muscle Guarding,Tenderness Palpation Details lateral hip/IT band tenderness PT-OP-K Range of Motion Start: 02/25/22 12:31 Freq: Status: Active Protocol: Document 02/26/22 14:30 AMB (Rec: 02/27/22 12:54 AMB [id number]) Hip Goniometric Range of Motion Hip Right Passive Abduction 15 PT-OP-M Strength Start: 02/25/22 12:31 Freq: Status: Active Protocol: Document 06/26/22 15:30 AMB (Rec: 06/26/22 15:39 AMB [id number]) Hip Strength Hip Manual Muscle Testing Right Abduction 2+ Poor+ Left Abduction 3- Fair- PT-OP-Q Treatments Start: 02/25/22 12:31 Freq: Status: Active Protocol: Document 06/30/22 09:02 AMB (Rec: 06/30/22 09:30 AMB [id number]) Gym Equipment Shuttle Recovery Bilateral Squats Details red band around thighs Resistance 62 Shuttle Recovery Platform Stable Reps/Time 3x12 Therapeutic Exercises Supine Exercises hip abd Supine Exercise Name added to HEP and review doing in class Side bilateral Reps/Minutes x10 Comments #3 t band at knees Sidelying Exercises clamshell Sidelying Exercise Name HEP reviewed Side bilateral Equipment Used AROM Reps/Minutes 2x10 Comments stacked hips, not trunk rolling back, lift muscle effort hip abd Standing Exercises sidestepping with mini squat Reps/Minutes 10'x4 fwd lunge Standing Exercise Name // bars Equipment Used chair back L, SPC R Reps/Minutes 2x10 Comments cued buttocks, 4 step Comments good tolerance sidestepping Standing Exercise Name reviewed for HEP Side bilateral Resistance BTB lv 3 (home set) Equipment Used L rail contact (50% to L, 30% to R) Reps/Minutes 10 ft x3 laps, light contact RUE to support RLE Comments cued upright posture book on head, RLE IR little passed neutral sit to stand Standing Exercise Name arms across chest Side bilateral Equipment Used mesh chair Comments cued glute squeeze at top knees apart, controlled descent PT-OP-T Assessment and Plan Start: 02/25/22 12:31 Freq: Status: Active Protocol: Document 06/30/22 09:02 AMB (Rec: 06/30/22 09:30 AMB [id number]) Physical Therapy Assessment Goals Transfers Short Term Goal (STG) Jeanette will roll over in bed without hip pain. 03/19/22: states primarily sleeps on L side. By end of day is R hip is sore, feels heavy. 06/16/22: GOAL MET: Pt states gets occasional twinge on R hip but mainly sleeps on L hip . STG Duration GOAL MET Insurance Licensing Supervisor Goal (LTG) Jeanette will perform a floor transfer with environmental support and Ronan without LTG Duration MET Two Impairment Gait Short Term Goal (STG) Jeanette will improve her 10MeterWT time to less than 12 seconds or faster. 06/26: 14 sec with poles, 17 with SPC Insurance Licensing Supervisor Goal (LTG) Jeanette will ambulate for 6 minutes over smooth terrain with her SPC without LOB or increasing hip pain. 02/26/22: GOAL MET: distance 16 w/ SPC. LTG Duration MET One Impairment Exercise Short Term Goal (STG) Jeanette will be independent with a HEP to improve her bilateral hip strength. 06/16/22: resisted side stepping, STS 9 reps in 30 sec , LTR, bridge,lunges, heel raises STG Duration 5 weeks Assessment Summary Assessment Jeanette is discourged about the idea of continuing to need to use the cane and limp. Her hip abduction continues to be weak, so she is going to talk to her doctor about her recovery. Physical Therapy Plan Next Visit Focus/Plan Next Note Type Progress Note Next Visit Plan Next: Shuttle recovery, balance and dynamic / endurance gait POC: Progress gait/balance, strength training focusing on hip
--- NOTE | 2022-07-07 09:45 | PT.OTN ---
Current Diagnoses Other abnormalities of gait and mobility (07/07/22) Fracture of unspecified part of neck of right femur, subsequent encounter for closed fracture with routine healing (07/07/22) Physical Therapy Treatment Note PT-OP-A Visit Information Start: 02/25/22 12:31 Freq: Status: Active Protocol: Document 07/07/22 09:05 SP (Rec: 07/07/22 09:45 SP [id number]) Out-Patient Physical Therapy Visit Information Visit Information Visit Type Treatment Note Visit Start Time 09:05 Visit Stop Time 09:45 Total Visit Minutes 40 Visit Number 40 Number of NYLON MACHINE OPERATOR Visits 1 PT-OP-B Current Condition Start: 02/25/22 12:31 Freq: Status: Active Protocol: Document 02/26/22 14:43 AMB (Rec: 02/26/22 14:54 AMB [id number]) Current Condition History of Current Condition Onset Date October 2021 Current Complaints R hip pain History of Current Condition PLOF: Was previously walking a couple of miles a day. R hip fracture slid out of shoes while in the kitchenin October, had home health, but still has difficulty walking. Does have hammer toes and notes foot pain increases throughout the day. Uses the SPC in the home. Difficulty getting up at night to use the bathroom. Sitting can increase the pain, getting in and out of bed increase pain laterally- tenderness over the hip. Lives in a home wiht 2- 3 stairs to enter from the garage with 1 railing with her and a dog (does not walk the dog). Treatment Goals Patient/Caregiver Goals Improve balance, walking tolerance, be able to walk without the cane. Is currently avoiding uneven terrrain. Prior Functional Status Baseline Function- ADL's Independent Baseline Function- Mobility Independent Current Functional Impairments (Reported) Functional Limitations- ADL's Limited with gait speed and safety Personal Factors Other Personal Factors That May Effect Recent cancer history: had Therapy/Recovery surgery on bladder, hysterectomy and lumpectomy PT-OP-C Subjective Start: 02/25/22 12:31 Freq: Status: Active Protocol: Document 07/07/22 09:05 SP (Rec: 07/07/22 09:45 SP [id number]) OP-PT Subjective Patient Comments Patient Comments Pt stated has an appt for MRI today,not sure what part of the body. PT-OP-D Balance Start: 02/25/22 12:31 Freq: Status: Active Protocol: Document 02/26/22 14:30 AMB (Rec: 02/27/22 12:57 AMB [id number]) Balance Tests mCTSIB mCTSIB Position 1 30seconds + mCTSIB Position 2 unsteady PT-OP-E Functional Tests Start: 02/25/22 12:31 Freq: Status: Active Protocol: Document 02/26/22 14:30 AMB (Rec: 02/27/22 12:54 AMB [id number]) Functional Tests 10 Meter Walk Test Distance 16 Device Used SPC PT-OP-G Mobility & Gait Start: 02/25/22 12:31 Freq: Status: Active Protocol: Document 02/26/22 14:30 AMB (Rec: 02/27/22 12:54 AMB [id number]) OP Mobility Evaluation Transfers Sit to Stand from elevated treatment table : good, no UE support, from low table requires UE support Floor Transfers Unable OP Gait Assessment Comments Gait Comments Antalgic with genu valgus worse on L, uses cane in L UE. Significant trendelenburg when ambulating without cane. PT-OP-J Posture/Palpation/Skin Start: 02/25/22 12:31 Freq: Status: Active Protocol: Document 02/26/22 14:30 AMB (Rec: 02/27/22 12:54 AMB [id number]) Palpation Assessment Location One Palpation Location R hip Palpation Findings Soft Tissue Tightness,Muscle Guarding,Tenderness Palpation Details lateral hip/IT band tenderness PT-OP-K Range of Motion Start: 02/25/22 12:31 Freq: Status: Active Protocol: Document 02/26/22 14:30 AMB (Rec: 02/27/22 12:54 AMB [id number]) Hip Goniometric Range of Motion Hip Right Passive Abduction 15 PT-OP-M Strength Start: 02/25/22 12:31 Freq: Status: Active Protocol: Document 06/26/22 15:30 AMB (Rec: 06/26/22 15:39 AMB [id number]) Hip Strength Hip Manual Muscle Testing Right Abduction 2+ Poor+ Left Abduction 3- Fair- PT-OP-Q Treatments Start: 02/25/22 12:31 Freq: Status: Active Protocol: Document 07/07/22 09:05 SP (Rec: 07/07/22 09:45 SP [id number]) Gym Equipment Cable Column (Body Solid) Eccentric hip adduction Details cued posture upright, neutral pelvis Resistance #40 Reps/Time 3x15 Hip Abduction Details cued posture upright Resistance #20 Reps/Time 3x15 Therapeutic Exercises Supine Exercises hip abd Supine Exercise Name reviewed Side bilateral Resistance AROM, Lvl 2 band at knees Reps/Minutes 10 reps each Comments cued maintain opposite posterior pelvis incontact table bridge Supine Exercise Name reviewed HEP Resistance Lvl 2 in PT Equipment Used black table Reps/Minutes 10s hold x5 Comments good response effort hip abd, cued slow lift/lower for core fac. Sidelying Exercises clamshell Sidelying Exercise Name HEP reviewed Side bilateral Equipment Used Lvl 2 band around knees Reps/Minutes 2hold x10 each LE Comments cued R ankle alignment w/RLE lift cued lift knee little higher than hip Sitting Exercises hip ER Resistance blue band around knees Reps/Minutes 2x10 Comments good feedback response muscle work resistance Standing Exercises step up Side bilateral Equipment Used 6 in step w/ SPC Reps/Minutes 10 Comments cued full knee extension at top Gait Training Gait Activity stair mgt Description ascend/descend Device Used SPC LUE, light lateral hand on R Level of Assistance CG- close SBA Surface 4 steps Distance/Duration x4 sets Treatment Focus hip abd, quad, glut, core support to allow stability during descd stair mgt Comments cued maintain space between BLEs, tall posture but ability to look at steps for clearance PT-OP-T Assessment and Plan Start: 02/25/22 12:31 Freq: Status: Active Protocol: Document 07/07/22 09:05 SP (Rec: 07/07/22 09:45 SP [id number]) Physical Therapy Assessment Goals Transfers Short Term Goal (STG) Jeanette will roll over in bed without hip pain. 03/19/22: states primarily sleeps on L side. By end of day is R hip is sore, feels heavy. 06/16/22: GOAL MET: Pt states gets occasional twinge on R hip but mainly sleeps on L hip . STG Duration GOAL MET Digital Content Marketing Manager Goal (LTG) Jeanette will perform a floor transfer with environmental support and Ronan without LTG Duration MET Two Impairment Gait Short Term Goal (STG) Jeanette will improve her 10MeterWT time to less than 12 seconds or faster. 06/26: 14 sec with poles, 17 with SPC Digital Content Marketing Manager Goal (LTG) Jeanette will ambulate for 6 minutes over smooth terrain with her SPC without LOB or increasing hip pain. 02/26/22: GOAL MET: distance 16 w/ SPC. LTG Duration MET One Impairment Exercise Short Term Goal (STG) Jeanette will be independent with a HEP to improve her bilateral hip strength. 06/16/22: resisted side stepping, STS 9 reps in 30 sec , LTR, bridge,lunges, heel raises STG Duration 5 weeks Assessment Summary Assessment Pt improved knee alignment during stairs post HEP hip abd facilitation noted more aware self corrections descending. Physical Therapy Plan Frequency and Duration Frequency of Treatment 2x/Week Plan of Care Start Date 05/11/22 Plan of Care End Date 07/20/22 Therapeutic Interventions Therapeutic Interventions Balance Training,Gait Training ,Home Exercise Program,Manual Therapy,Neuromuscular Re- education,Self-Care/Home Management,Therapeutic Activities,Therapeutic Exercises Next Visit Focus/Plan Next Note Type Treatment Note Next Visit Plan Ask if got results of MRI performed later day last tx, she didn;t know what of. Next: Shuttle recovery, balance and dynamic / endurance gait POC: Progress gait/balance, strength training focusing on hip
--- NOTE | 2022-07-14 15:21 | PT.OTN ---
Current Diagnoses Other abnormalities of gait and mobility (07/14/22) Fracture of unspecified part of neck of right femur, subsequent encounter for closed fracture with routine healing (07/14/22) Physical Therapy Treatment Note PT-OP-A Visit Information Start: 02/25/22 12:31 Freq: Status: Active Protocol: Document 07/14/22 09:11 AMB (Rec: 07/14/22 09:50 AMB [id number]) Out-Patient Physical Therapy Visit Information Visit Information Visit Type Treatment Note Visit Start Time 09:00 Visit Stop Time 09:40 Total Visit Minutes 40 Visit Number 31 PT-OP-B Current Condition Start: 02/25/22 12:31 Freq: Status: Active Protocol: Document 02/26/22 14:43 AMB (Rec: 02/26/22 14:54 AMB [id number]) Current Condition History of Current Condition Onset Date October 2021 Current Complaints R hip pain History of Current Condition PLOF: Was previously walking a couple of miles a day. R hip fracture slid out of shoes while in the kitchenin October, had home health, but still has difficulty walking. Does have hammer toes and notes foot pain increases throughout the day. Uses the SPC in the home. Difficulty getting up at night to use the bathroom. Sitting can increase the pain, getting in and out of bed increase pain laterally- tenderness over the hip. Lives in a home wiht 2- 3 stairs to enter from the garage with 1 railing with her and a dog (does not walk the dog). Treatment Goals Patient/Caregiver Goals Improve balance, walking tolerance, be able to walk without the cane. Is currently avoiding uneven terrrain. Prior Functional Status Baseline Function- ADL's Independent Baseline Function- Mobility Independent Current Functional Impairments (Reported) Functional Limitations- ADL's Limited with gait speed and safety Personal Factors Other Personal Factors That May Effect Recent cancer history: had Therapy/Recovery surgery on bladder, hysterectomy and lumpectomy PT-OP-C Subjective Start: 02/25/22 12:31 Freq: Status: Active Protocol: Document 07/14/22 09:11 AMB (Rec: 07/14/22 09:50 AMB [id number]) OP-PT Subjective Patient Comments Patient Comments MRI results in pt chart but has not heard back from PCP yet. PT-OP-D Balance Start: 02/25/22 12:31 Freq: Status: Active Protocol: Document 02/26/22 14:30 AMB (Rec: 02/27/22 12:57 AMB [id number]) Balance Tests mCTSIB mCTSIB Position 1 30seconds + mCTSIB Position 2 unsteady PT-OP-E Functional Tests Start: 02/25/22 12:31 Freq: Status: Active Protocol: Document 02/26/22 14:30 AMB (Rec: 02/27/22 12:54 AMB [id number]) Functional Tests 10 Meter Walk Test Distance 16 Device Used SPC PT-OP-G Mobility & Gait Start: 02/25/22 12:31 Freq: Status: Active Protocol: Document 02/26/22 14:30 AMB (Rec: 02/27/22 12:54 AMB [id number]) OP Mobility Evaluation Transfers Sit to Stand from elevated treatment table : good, no UE support, from low table requires UE support Floor Transfers Unable OP Gait Assessment Comments Gait Comments Antalgic with genu valgus worse on L, uses cane in L UE. Significant trendelenburg when ambulating without cane. PT-OP-J Posture/Palpation/Skin Start: 02/25/22 12:31 Freq: Status: Active Protocol: Document 02/26/22 14:30 AMB (Rec: 02/27/22 12:54 AMB [id number]) Palpation Assessment Location One Palpation Location R hip Palpation Findings Soft Tissue Tightness,Muscle Guarding,Tenderness Palpation Details lateral hip/IT band tenderness PT-OP-K Range of Motion Start: 02/25/22 12:31 Freq: Status: Active Protocol: Document 02/26/22 14:30 AMB (Rec: 02/27/22 12:54 AMB [id number]) Hip Goniometric Range of Motion Hip Right Passive Abduction 15 PT-OP-M Strength Start: 02/25/22 12:31 Freq: Status: Active Protocol: Document 06/26/22 15:30 AMB (Rec: 06/26/22 15:39 AMB [id number]) Hip Strength Hip Manual Muscle Testing Right Abduction 2+ Poor+ Left Abduction 3- Fair- PT-OP-Q Treatments Start: 02/25/22 12:31 Freq: Status: Active Protocol: Document 07/14/22 09:11 AMB (Rec: 07/14/22 09:50 AMB [id number]) Gym Equipment Shuttle Recovery Unilateral Details cued Knee lateral midline L>R Resistance >32# Shuttle Recovery Platform Stable Reps/Time 2x10 alternating Bilateral Squats Details red band around thighs Resistance 62 Shuttle Recovery Platform Stable Reps/Time 3x12 Therapeutic Exercises Supine Exercises hip abd Supine Exercise Name reviewed Side bilateral Resistance AROM, Lvl 2 band at knees Reps/Minutes 10 reps each Comments cued maintain opposite posterior pelvis incontact table Sidelying Exercises clamshell Sidelying Exercise Name HEP reviewed Side bilateral Equipment Used Lvl 2 band around knees Reps/Minutes 2hold x10 each LE Comments cued R ankle alignment w/RLE lift cued lift knee little higher than hip Standing Exercises sit to stand Standing Exercise Name arms across chest Side bilateral Equipment Used mesh chair Comments cued glute squeeze at top knees apart, controlled descent hip abduction Standing Exercise Name discussed still performs in am for AROM warm up Side bilateral Equipment Used L UE support raised table Reps/Minutes 2x15 Comments trying to decrease UE support to allow R LE to take more weight PT-OP-T Assessment and Plan Start: 02/25/22 12:31 Freq: Status: Active Protocol: Document 07/14/22 09:11 AMB (Rec: 07/14/22 09:50 AMB [id number]) Physical Therapy Assessment Goals Transfers Short Term Goal (STG) Jeanette will roll over in bed without hip pain. 03/19/22: states primarily sleeps on L side. By end of day is R hip is sore, feels heavy. 06/16/22: GOAL MET: Pt states gets occasional twinge on R hip but mainly sleeps on L hip . STG Duration GOAL MET Lawn Mower Goal (LTG) Jeanette will perform a floor transfer with environmental support and Ronan without LTG Duration MET Two Impairment Gait Short Term Goal (STG) Jeanette will improve her 10MeterWT time to less than 12 seconds or faster. 07/14: 13 sec with poles, Lawn Mower Goal (LTG) Jeanette will ambulate for 6 minutes over smooth terrain with her SPC without LOB or increasing hip pain. 02/26/22: GOAL MET: distance 16 w/ SPC. LTG Duration MET One Impairment Exercise Short Term Goal (STG) Jeanette will be independent with a HEP to improve her bilateral hip strength. 06/16/22: resisted side stepping, STS 9 reps in 30 sec , LTR, bridge,lunges, heel raises STG Duration 5 weeks Assessment Summary Assessment Jeanette continues to be frustrated with progress. Gait speed is improving, but hip abductor strength is still limited. PT did get MRI which showed extensive labral tear, but has not followed up with PCP yet as far as the plan. Will follow up with pt as to plan after she discusses MRI results with PCP . Pt works on exercise 5x/ week but continues to be frustrated in her gait as continues to demonstrate quite significant Trendelenburg gait when not using UE support despite extensive exercise intervention. Physical Therapy Plan Frequency and Duration Frequency of Treatment 1x/Week Duration of treatment (weeks) 8 Plan of Care Start Date 07/14/22 Plan of Care End Date 09/08/22 Next Visit Focus/Plan Next Note Type Treatment Note Next Visit Plan Next: Shuttle recovery, balance and dynamic / endurance gait POC: Progress gait/balance, strength training focusing on hip
--- NOTE | 2022-07-14 15:22 | PT.OPPOC ---
Physical, Occupational & Speech Therapy At [facility] Current Diagnoses Other abnormalities of gait and mobility (07/14/22) Fracture of unspecified part of neck of right femur, subsequent encounter for closed fracture with routine healing (07/14/22) Visit Care Team Role Provider Type Sigifredo Galicia MD Primary Care Provider Physician Specialty: Family Practice Address: [facility] [place], [address] Email: [email or web address] Shuttle Sondra Ace MD Attending Provider Physician Family Provider Referring Provider Specialty: Orthopedics Orthopedic Surgery Address: [address] [place] [address], [id number] Email: [email or web address] Plan Of Care PT-OP-T Assessment and Plan Start: 02/25/22 12:31 Freq: Status: Active Protocol: Document 07/14/22 09:11 AMB (Rec: 07/14/22 09:50 AMB [id number]) Physical Therapy Assessment Goals Transfers Short Term Goal (STG) Jeanette will roll over in bed without hip pain. 03/19/22: states primarily sleeps on L side. By end of day is R hip is sore, feels heavy. 06/16/22: GOAL MET: Pt states gets occasional twinge on R hip but mainly sleeps on L hip . STG Duration GOAL MET Wait Staff Goal (LTG) Jeanette will perform a floor transfer with environmental support and Ronan without LTG Duration MET Two Impairment Gait Short Term Goal (STG) Jeanette will improve her 10MeterWT time to less than 12 seconds or faster. 07/14: 13 sec with poles, Wait Staff Goal (LTG) Jeanette will ambulate for 6 minutes over smooth terrain with her SPC without LOB or increasing hip pain. 02/26/22: GOAL MET: distance 16 w/ SPC. LTG Duration MET One Impairment Exercise Short Term Goal (STG) Jeanette will be independent with a HEP to improve her bilateral hip strength. 06/16/22: resisted side stepping, STS 9 reps in 30 sec , LTR, bridge,lunges, heel raises STG Duration 5 weeks Assessment Summary Assessment Jeanette continues to be frustrated with progress. Gait speed is improving, but hip abductor strength is still limited. PT did get MRI which showed extensive labral tear, but has not followed up with PCP yet as far as the plan. Will follow up with pt as to plan after she discusses MRI results with PCP . Pt works on exercise 5x/ week but continues to be frustrated in her gait as continues to demonstrate quite significant Trendelenburg gait when not using UE support despite extensive exercise intervention. Physical Therapy Plan Frequency and Duration Frequency of Treatment 1x/Week Duration of treatment (weeks) 8 Plan of Care Start Date 07/14/22 Plan of Care End Date 09/08/22 Therapeutic Interventions Therapeutic Interventions Balance Training,Gait Training ,Home Exercise Program,Manual Therapy,Neuromuscular Re- education,Self-Care/Home Management,Therapeutic Activities,Therapeutic Exercises Next Visit Focus/Plan Next Note Type Treatment Note Next Visit Plan Next: Shuttle recovery, balance and dynamic / endurance gait POC: Progress gait/balance, strength training focusing on hip Plan of Care Dates Plan of Care Start Date 07/14/22 Plan of Care End Date 09/08/22 Electronically Signed by: Clari Townsend, PT 07/14/22 [id number] If you are in agreement with this Plan of Care, please return a signed and dated copy. I have reviewed this Plan of Care and certify that the skilled therapy services above are required to meet the patient?s needs. Physician Signature Date Printed Name and Credentials Clinical Instructor Signature Printed Name and Credentials
--- NOTE | 2022-07-23 09:00 | PT.OTN ---
Current Diagnoses Other abnormalities of gait and mobility (07/23/22) Fracture of unspecified part of neck of right femur, subsequent encounter for closed fracture with routine healing (07/23/22) Physical Therapy Treatment Note PT-OP-A Visit Information Start: 02/25/22 12:31 Freq: Status: Active Protocol: Document 07/23/22 08:18 SP (Rec: 07/23/22 09:05 SP [id number]) Out-Patient Physical Therapy Visit Information Visit Information Visit Type Treatment Note Visit Note ARCELIA Adrian provided instruction to pt with HEP and balance strategies for corrections while being directly supervised by MURPHY Pollard. Visit Start Time 08:20 Visit Stop Time 09:00 Total Visit Minutes 40 Visit Number 32 Number of MANAGER MARKETING COMMUNICATION Visits 2 PT-OP-B Current Condition Start: 02/25/22 12:31 Freq: Status: Active Protocol: Document 02/26/22 14:43 AMB (Rec: 02/26/22 14:54 AMB [id number]) Current Condition History of Current Condition Onset Date October 2021 Current Complaints R hip pain History of Current Condition PLOF: Was previously walking a couple of miles a day. R hip fracture slid out of shoes while in the kitchenin October, had home health, but still has difficulty walking. Does have hammer toes and notes foot pain increases throughout the day. Uses the SPC in the home. Difficulty getting up at night to use the bathroom. Sitting can increase the pain, getting in and out of bed increase pain laterally- tenderness over the hip. Lives in a home wiht 2- 3 stairs to enter from the garage with 1 railing with her and a dog (does not walk the dog). Treatment Goals Patient/Caregiver Goals Improve balance, walking tolerance, be able to walk without the cane. Is currently avoiding uneven terrrain. Prior Functional Status Baseline Function- ADL's Independent Baseline Function- Mobility Independent Current Functional Impairments (Reported) Functional Limitations- ADL's Limited with gait speed and safety Personal Factors Other Personal Factors That May Effect Recent cancer history: had Therapy/Recovery surgery on bladder, hysterectomy and lumpectomy PT-OP-C Subjective Start: 02/25/22 12:31 Freq: Status: Active Protocol: Document 07/23/22 08:18 SP (Rec: 07/23/22 09:05 SP [id number]) OP-PT Subjective Patient Comments Patient Comments Pt reports she isn't having any pain in her RLE but has difficulty wbing. Educated her on using cane at home even for short distances for support for RLE WB. She got the results of her R hipMRI and set up for ortho appt mid Jul. PT-OP-D Balance Start: 02/25/22 12:31 Freq: Status: Active Protocol: Document 02/26/22 14:30 AMB (Rec: 02/27/22 12:57 AMB [id number]) Balance Tests mCTSIB mCTSIB Position 1 30seconds + mCTSIB Position 2 unsteady PT-OP-E Functional Tests Start: 02/25/22 12:31 Freq: Status: Active Protocol: Document 02/26/22 14:30 AMB (Rec: 02/27/22 12:54 AMB [id number]) Functional Tests 10 Meter Walk Test Distance 16 Device Used SPC PT-OP-G Mobility & Gait Start: 02/25/22 12:31 Freq: Status: Active Protocol: Document 02/26/22 14:30 AMB (Rec: 02/27/22 12:54 AMB [id number]) OP Mobility Evaluation Transfers Sit to Stand from elevated treatment table : good, no UE support, from low table requires UE support Floor Transfers Unable OP Gait Assessment Comments Gait Comments Antalgic with genu valgus worse on L, uses cane in L UE. Significant trendelenburg when ambulating without cane. PT-OP-J Posture/Palpation/Skin Start: 02/25/22 12:31 Freq: Status: Active Protocol: Document 02/26/22 14:30 AMB (Rec: 02/27/22 12:54 AMB [id number]) Palpation Assessment Location One Palpation Location R hip Palpation Findings Soft Tissue Tightness,Muscle Guarding,Tenderness Palpation Details lateral hip/IT band tenderness PT-OP-K Range of Motion Start: 02/25/22 12:31 Freq: Status: Active Protocol: Document 02/26/22 14:30 AMB (Rec: 02/27/22 12:54 AMB [id number]) Hip Goniometric Range of Motion Hip Right Passive Abduction 15 PT-OP-M Strength Start: 02/25/22 12:31 Freq: Status: Active Protocol: Document 06/26/22 15:30 AMB (Rec: 06/26/22 15:39 AMB [id number]) Hip Strength Hip Manual Muscle Testing Right Abduction 2+ Poor+ Left Abduction 3- Fair- PT-OP-Q Treatments Start: 02/25/22 12:31 Freq: Status: Active Protocol: Document 07/23/22 08:18 SP (Rec: 07/23/22 09:05 SP [id number]) Therapeutic Exercises Supine Exercises hip abd Side bilateral Resistance AROM, Lvl 2 band at knees Reps/Minutes 10 reps each Comments cued maintain opposite posterior pelvis incontact table bridge Resistance Lvl 2 in PT Reps/Minutes 2x10 Comments good response effort hip abd, cued slow lift/lower for core fac. Sidelying Exercises clamshell Sidelying Exercise Name HEP reviewed Side bilateral Equipment Used Lvl 2 band around knees Reps/Minutes 2hold x10 each LE Comments cued R ankle alignment w/RLE lift cued lift knee little higher than hip Standing Exercises sit to stand Standing Exercise Name arms across chest Side bilateral Resistance R TB around knees Equipment Used mesh chair Reps/Minutes x12 Comments cued glute squeeze at top knees apart, controlled descent Manual Therapy Treatment Soft Tissue Mobilization R QL Mobilization Type Strumming Intensity/Depth Moderate Body Position Sidelying Comments manual and discussion self ball on wall R LE Body Location piriformis Mobilization Type Cross-Friction,Strumming Intensity/Depth Moderate Body Position Hooklying Comments manual and instruction self ball on wall Neuro Re-Education Treatment Balance Activities foam Details Assimulate balance device uses at home Surface blue foam Equipment chair at front, back to corner Reps/Duration 5 min Comments WBOS w/EC 28 sec - sways but self recovery, perturbations front, back and sideways - isometric balance recovery and nudges firm Details tandem stance Equipment //bars Comments Each LE front 3-5 sec before LOB Cues for core, alignment . PT-OP-T Assessment and Plan Start: 02/25/22 12:31 Freq: Status: Active Protocol: Document 07/23/22 08:18 SP (Rec: 07/23/22 09:05 SP [id number]) Physical Therapy Assessment Goals Transfers Short Term Goal (STG) Jeanette will roll over in bed without hip pain. 03/19/22: states primarily sleeps on L side. By end of day is R hip is sore, feels heavy. 06/16/22: GOAL MET: Pt states gets occasional twinge on R hip but mainly sleeps on L hip . STG Duration GOAL MET Surgical Assistant Certified Goal (LTG) Jeanette will perform a floor transfer with environmental support and Ronan without LTG Duration MET Two Impairment Gait Short Term Goal (STG) Jeanette will improve her 10MeterWT time to less than 12 seconds or faster. 07/14: 13 sec with poles, Nursing Home Goal (LTG) Jeanette will ambulate for 6 minutes over smooth terrain with her SPC without LOB or increasing hip pain. 02/26/22: GOAL MET: distance 16 w/ SPC. LTG Duration MET One Impairment Exercise Short Term Goal (STG) Jeanette will be independent with a HEP to improve her bilateral hip strength. 06/16/22: resisted side stepping, STS 9 reps in 30 sec , LTR, bridge,lunges, heel raises STG Duration 5 weeks Assessment Summary Assessment Pt demonstrates progression in her strength and ROM in her abductors during clamshells and sit to stands keeping knees form collapsing inwards. She requires CGA for neuro and balance activites but is able demonstrates good ankle stratgey to maintain balance. Physical Therapy Plan Frequency and Duration Frequency of Treatment 1x/Week Duration of treatment (weeks) 8 Plan of Care Start Date 07/14/22 Plan of Care End Date 09/08/22 Therapeutic Interventions Therapeutic Interventions Balance Training,Gait Training ,Home Exercise Program,Manual Therapy,Neuromuscular Re- education,Self-Care/Home Management,Therapeutic Activities,Therapeutic Exercises Next Visit Focus/Plan Next Note Type Treatment Note Next Visit Plan Next: Shuttle recovery, balance and dynamic / endurance gait POC: Progress gait/balance, strength training focusing on hip
--- NOTE | 2022-08-04 09:50 | PT.OTN ---
Current Diagnoses Other abnormalities of gait and mobility (08/04/22) Fracture of unspecified part of neck of right femur, subsequent encounter for closed fracture with routine healing (08/04/22) Physical Therapy Treatment Note PT-OP-A Visit Information Start: 02/25/22 12:31 Freq: Status: Active Protocol: Document 08/04/22 09:01 TS (Rec: 08/04/22 10:18 TS [id number]) Out-Patient Physical Therapy Visit Information Visit Information Visit Type Treatment Note Visit Note SPTA Nguễyn lead treatment, supervised by MURPHY Mcdaniel. Visit Start Time 09:05 Visit Stop Time 09:50 Total Visit Minutes 45 Visit Number 33 Number of PHARMACY STUDENT Visits 3 PT-OP-B Current Condition Start: 02/25/22 12:31 Freq: Status: Active Protocol: Document 02/26/22 14:43 AMB (Rec: 02/26/22 14:54 AMB [id number]) Current Condition History of Current Condition Onset Date October 2021 Current Complaints R hip pain History of Current Condition PLOF: Was previously walking a couple of miles a day. R hip fracture slid out of shoes while in the kitchenin October, had home health, but still has difficulty walking. Does have hammer toes and notes foot pain increases throughout the day. Uses the SPC in the home. Difficulty getting up at night to use the bathroom. Sitting can increase the pain, getting in and out of bed increase pain laterally- tenderness over the hip. Lives in a home wiht 2- 3 stairs to enter from the garage with 1 railing with her and a dog (does not walk the dog). Treatment Goals Patient/Caregiver Goals Improve balance, walking tolerance, be able to walk without the cane. Is currently avoiding uneven terrrain. Prior Functional Status Baseline Function- ADL's Independent Baseline Function- Mobility Independent Current Functional Impairments (Reported) Functional Limitations- ADL's Limited with gait speed and safety Personal Factors Other Personal Factors That May Effect Recent cancer history: had Therapy/Recovery surgery on bladder, hysterectomy and lumpectomy PT-OP-C Subjective Start: 02/25/22 12:31 Freq: Status: Active Protocol: Document 08/04/22 09:01 TS (Rec: 08/04/22 10:18 TS [id number]) OP-PT Subjective Patient Comments Patient Comments Pt reports she has a visit with her orthopedic doctor in a couple weeks. Pt stated she feels she has improved strength as much as she can at this point. Will continue exercise classes at [facility] and requesting d/c at this time. PT-OP-D Balance Start: 02/25/22 12:31 Freq: Status: Active Protocol: Document 02/26/22 14:30 AMB (Rec: 02/27/22 12:57 AMB [id number]) Balance Tests mCTSIB mCTSIB Position 1 30seconds + mCTSIB Position 2 unsteady PT-OP-E Functional Tests Start: 02/25/22 12:31 Freq: Status: Active Protocol: Document 02/26/22 14:30 AMB (Rec: 02/27/22 12:54 AMB [id number]) Functional Tests 10 Meter Walk Test Distance 16 Device Used SPC PT-OP-G Mobility & Gait Start: 02/25/22 12:31 Freq: Status: Active Protocol: Document 02/26/22 14:30 AMB (Rec: 02/27/22 12:54 AMB [id number]) OP Mobility Evaluation Transfers Sit to Stand from elevated treatment table : good, no UE support, from low table requires UE support Floor Transfers Unable OP Gait Assessment Comments Gait Comments Antalgic with genu valgus worse on L, uses cane in L UE. Significant trendelenburg when ambulating without cane. PT-OP-J Posture/Palpation/Skin Start: 02/25/22 12:31 Freq: Status: Active Protocol: Document 02/26/22 14:30 AMB (Rec: 02/27/22 12:54 AMB [id number]) Palpation Assessment Location One Palpation Location R hip Palpation Findings Soft Tissue Tightness,Muscle Guarding,Tenderness Palpation Details lateral hip/IT band tenderness PT-OP-K Range of Motion Start: 02/25/22 12:31 Freq: Status: Active Protocol: Document 02/26/22 14:30 AMB (Rec: 02/27/22 12:54 AMB [id number]) Hip Goniometric Range of Motion Hip Right Passive Abduction 15 PT-OP-M Strength Start: 02/25/22 12:31 Freq: Status: Active Protocol: Document 06/26/22 15:30 AMB (Rec: 06/26/22 15:39 AMB [id number]) Hip Strength Hip Manual Muscle Testing Right Abduction 2+ Poor+ Left Abduction 3- Fair- PT-OP-Q Treatments Start: 02/25/22 12:31 Freq: Status: Active Protocol: Document 08/04/22 09:01 TS (Rec: 08/04/22 10:18 TS [id number]) Therapeutic Exercises Standing Exercises Lunges Standing Exercise Name Reviewed for HEP and floor transfers for classes. sit to stand Standing Exercise Name arms across chest/SPC Side bilateral Equipment Used mesh chair Comments x13 30 sec with SPC, x5 13 secs arms across chest Therapeutic Activity Therapeutic Activity Obstacle course Name Obstacle course carrying weight and SPC, hurdles Reps/Minutes 2 laps Comments CGA, x1 lob Ronan, simulating carrying casserole dish with focus on cane and feet positioning. RUE fatigued carry wood board after 2 laps. Floor transfer Reps/Minutes x5 Comments x3 with chair support, x2 with no chair support. Cues to keep feet wide when coming into standing. Gait Training Gait Activity 6 Min walk Test Device Used SPC Level of Assistance SBA/CGA Surface flat floor Distance/Duration 617ft/6 min Comments 6 Mins- 617 ft. Demonstrates scissor gait with RLE crossing in front of LLE, no LOB. Cued for wider ANDREA. Self-Care/Home Management Treatment Education Patient Education Home Exercise Program,Safety Other Education Verbally reviewed HEP- resisted side stepping, STS, LTR, bridge,lunges, heel raises. Education provided for using cane at all times when at home. PT-OP-T Assessment and Plan Start: 02/25/22 12:31 Freq: Status: Active Protocol: Document 08/04/22 09:01 TS (Rec: 08/04/22 10:18 TS [id number]) Physical Therapy Assessment Goals Transfers Short Term Goal (STG) Jeanette will roll over in bed without hip pain. 03/19/22: states primarily sleeps on L side. By end of day is R hip is sore, feels heavy. 06/16/22: GOAL MET: Pt states gets occasional twinge on R hip but mainly sleeps on L hip . STG Duration GOAL MET Chief Payroll Clerk Goal (LTG) Jeanette will perform a floor transfer with environmental support and Ronan without LTG Duration MET Two Impairment Gait Short Term Goal (STG) Jeanette will improve her 10MeterWT time to less than 12 seconds or faster. 07/14: 13 sec with poles, Chief Payroll Clerk Goal (LTG) Jeanette will ambulate for 6 minutes over smooth terrain with her SPC without LOB or increasing hip pain. 02/26/22: GOAL MET: distance 16 w/ SPC. LTG Duration MET One Impairment Exercise Short Term Goal (STG) Jeanette will be independent with a HEP to improve her bilateral hip strength. 06/16/22- resisted side stepping, STS 9 reps in 30 sec , LTR, bridge,lunges, heel raises STG Duration 5 weeks Assessment Summary Assessment Pt progressed her sit to stands to x13 in 30 secs. During 6 min walk test she demonstrated a scissor gait and cued her for wider ANDREA. Progressed floor transfer from x3 with chair support to x2 with no chair support. Discussed d/c with patient and she felt it was best to end appointments until after speaking with her orthopedic doctor. Feels more confident to do floor progression in her classes and ability to perform HEP. Pt will continue her outside classes for strenghtening and progression of floor transfers. Physical Therapy Plan Discharge Physical Therapy Discharge Reasons Patient Request Discharge Comments Pt independent in HEP and attending classes. Requested d /c. Next Visit Focus/Plan Next Note Type Discharge Summary Next Visit Plan PT to complete d/c.
--- NOTE | 2022-08-17 10:56 | PT.OTN ---
Current Diagnoses Other abnormalities of gait and mobility (08/04/22) Fracture of unspecified part of neck of right femur, subsequent encounter for closed fracture with routine healing (08/04/22) Physical Therapy Treatment Note PT-OP-A Visit Information Start: 02/25/22 12:31 Freq: Status: Active Protocol: Document 08/04/22 09:01 TS (Rec: 08/04/22 10:18 TS [id number]) Out-Patient Physical Therapy Visit Information Visit Information Visit Type Treatment Note Visit Note SPTA Nguyễn lead treatment, supervised by MURPHY Mcdaniel. Visit Start Time 09:05 Visit Stop Time 09:50 Total Visit Minutes 45 Visit Number 33 Number of DEICER TESTER Visits 3 PT-OP-B Current Condition Start: 02/25/22 12:31 Freq: Status: Active Protocol: Document 02/26/22 14:43 AMB (Rec: 02/26/22 14:54 AMB [id number]) Current Condition History of Current Condition Onset Date October 2021 Current Complaints R hip pain History of Current Condition PLOF: Was previously walking a couple of miles a day. R hip fracture slid out of shoes while in the kitchenin October, had home health, but still has difficulty walking. Does have hammer toes and notes foot pain increases throughout the day. Uses the SPC in the home. Difficulty getting up at night to use the bathroom. Sitting can increase the pain, getting in and out of bed increase pain laterally- tenderness over the hip. Lives in a home wiht 2- 3 stairs to enter from the garage with 1 railing with her and a dog (does not walk the dog). Treatment Goals Patient/Caregiver Goals Improve balance, walking tolerance, be able to walk without the cane. Is currently avoiding uneven terrrain. Prior Functional Status Baseline Function- ADL's Independent Baseline Function- Mobility Independent Current Functional Impairments (Reported) Functional Limitations- ADL's Limited with gait speed and safety Personal Factors Other Personal Factors That May Effect Recent cancer history: had Therapy/Recovery surgery on bladder, hysterectomy and lumpectomy PT-OP-C Subjective Start: 02/25/22 12:31 Freq: Status: Active Protocol: Document 08/04/22 09:01 TS (Rec: 08/04/22 10:18 TS [id number]) OP-PT Subjective Patient Comments Patient Comments Pt reports she has a visit with her orthopedic doctor in a couple weeks. Pt stated she feels she has improved strength as much as she can at this point. Will continue exercise classes at [facility] and requesting d/c at this time. PT-OP-D Balance Start: 02/25/22 12:31 Freq: Status: Active Protocol: Document 02/26/22 14:30 AMB (Rec: 02/27/22 12:57 AMB [id number]) Balance Tests mCTSIB mCTSIB Position 1 30seconds + mCTSIB Position 2 unsteady PT-OP-E Functional Tests Start: 02/25/22 12:31 Freq: Status: Active Protocol: Document 02/26/22 14:30 AMB (Rec: 02/27/22 12:54 AMB [id number]) Functional Tests 10 Meter Walk Test Distance 16 Device Used SPC PT-OP-G Mobility & Gait Start: 02/25/22 12:31 Freq: Status: Active Protocol: Document 02/26/22 14:30 AMB (Rec: 02/27/22 12:54 AMB [id number]) OP Mobility Evaluation Transfers Sit to Stand from elevated treatment table : good, no UE support, from low table requires UE support Floor Transfers Unable OP Gait Assessment Comments Gait Comments Antalgic with genu valgus worse on L, uses cane in L UE. Significant trendelenburg when ambulating without cane. PT-OP-J Posture/Palpation/Skin Start: 02/25/22 12:31 Freq: Status: Active Protocol: Document 02/26/22 14:30 AMB (Rec: 02/27/22 12:54 AMB [id number]) Palpation Assessment Location One Palpation Location R hip Palpation Findings Soft Tissue Tightness,Muscle Guarding,Tenderness Palpation Details lateral hip/IT band tenderness PT-OP-K Range of Motion Start: 02/25/22 12:31 Freq: Status: Active Protocol: Document 02/26/22 14:30 AMB (Rec: 02/27/22 12:54 AMB [id number]) Hip Goniometric Range of Motion Hip Right Passive Abduction 15 PT-OP-M Strength Start: 02/25/22 12:31 Freq: Status: Active Protocol: Document 06/26/22 15:30 AMB (Rec: 06/26/22 15:39 AMB [id number]) Hip Strength Hip Manual Muscle Testing Right Abduction 2+ Poor+ Left Abduction 3- Fair- PT-OP-Q Treatments Start: 02/25/22 12:31 Freq: Status: Active Protocol: Document 08/04/22 09:01 TS (Rec: 08/04/22 10:18 TS [id number]) Therapeutic Exercises Standing Exercises Lunges Standing Exercise Name Reviewed for HEP and floor transfers for classes. sit to stand Standing Exercise Name arms across chest/SPC Side bilateral Equipment Used mesh chair Comments x13 30 sec with SPC, x5 13 secs arms across chest Therapeutic Activity Therapeutic Activity Obstacle course Name Obstacle course carrying weight and SPC, hurdles Reps/Minutes 2 laps Comments CGA, x1 lob Ronan, simulating carrying casserole dish with focus on cane and feet positioning. RUE fatigued carry wood board after 2 laps. Floor transfer Reps/Minutes x5 Comments x3 with chair support, x2 with no chair support. Cues to keep feet wide when coming into standing. Gait Training Gait Activity 6 Min walk Test Device Used SPC Level of Assistance SBA/CGA Surface flat floor Distance/Duration 617ft/6 min Comments 6 Mins- 617 ft. Demonstrates scissor gait with RLE crossing in front of LLE, no LOB. Cued for wider ANDREA. Self-Care/Home Management Treatment Education Patient Education Home Exercise Program,Safety Other Education Verbally reviewed HEP- resisted side stepping, STS, LTR, bridge,lunges, heel raises. Education provided for using cane at all times when at home. PT-OP-T Assessment and Plan Start: 02/25/22 12:31 Freq: Status: Active Protocol: Document 08/17/22 10:52 AMB (Rec: 08/17/22 10:55 AMB [id number]) Physical Therapy Assessment Goals Transfers Short Term Goal (STG) Jeanette will roll over in bed without hip pain. 03/19/22: states primarily sleeps on L side. By end of day is R hip is sore, feels heavy. 06/16/22: GOAL MET: Pt states gets occasional twinge on R hip but mainly sleeps on L hip . STG Duration GOAL MET Intermediate Goal (LTG) Jeanette will perform a floor transfer with environmental support and Ronan without LTG Duration MET Two Impairment Gait Short Term Goal (STG) Jeanette will improve her 10MeterWT time to less than 12 seconds or faster. 07/14: 13 sec with poles, Intermediate Goal (LTG) Jeanette will ambulate for 6 minutes over smooth terrain with her SPC without LOB or increasing hip pain. 02/26/22: GOAL MET: distance 16 w/ SPC. LTG Duration MET One Impairment Exercise Short Term Goal (STG) Jeanette will be independent with a HEP to improve her bilateral hip strength. 06/16/22- resisted side stepping, STS 9 reps in 30 sec , LTR, bridge,lunges, heel raises STG Duration 5 weeks Assessment Summary Assessment Jeanette elected to cancel her remaining appointments and follow up with ortho regarding her labral tear. She had shown good improvement in her gait and transfers, although her hip abduction strength remained weak. She is also dissapointed in her gait as she continues to need UE support with a trekking pole or SPC. She is independent with her HEP and is exercising in the community, so d/c at this point is appropriate and she can discuss her case with ortho and return if needed if surgery is appropriate. Physical Therapy Plan Discharge Physical Therapy Discharge Reasons Patient Request
== END 2022-08-18 12:13 | disposition home or self-care (01) ==
LOC: PHYS 09:00
PROVIDERS: Family Provider Orthopaedic Surgery Foot and Ankle Surgery; PCP Family Medicine; Referring Provider Orthopaedic Surgery Foot and Ankle Surgery; Visit Provider Orthopaedic Surgery Foot and Ankle Surgery
DX: S72.001D Fracture of unspecified part of neck of right femur, subsequent encounter for closed fracture with routine healing (principal); R26.89 Other abnormalities of gait and mobility
CPT/HCPCS: 97110; 97112; 97116; 97140; 97162; 97530

== ENCOUNTER → 2022-08-06 09:35 | Outpatient (CLI) | payer MEDICARE, OTHER, SELFPAY ==
[2022-08-06 11:35] LABS: Cancer Antigen 125 < 5.5 U/mL (0-35)
== END ==
PROVIDERS: Family Provider Orthopaedic Surgery Foot and Ankle Surgery; PCP Family Medicine; Referring Provider Obstetrics & Gynecology; Visit Provider Obstetrics & Gynecology
DX: C56.2 Malignant neoplasm of left ovary (principal)
CPT/HCPCS: 36415; 86304

== ENCOUNTER → 2022-11-21 07:53 | Outpatient (CLI) | payer MEDICARE, OTHER, SELFPAY | PROVIDERS: Family Provider Orthopaedic Surgery Foot and Ankle Surgery; PCP Family Medicine; Visit Provider Nurse Practitioner Family | DX: R30.0 Dysuria (principal) | CPT/HCPCS: 87077; 87086; 87186 ==

== ENCOUNTER → 2023-02-05 09:40 | Outpatient (CLI) | payer MEDICARE, OTHER, SELFPAY ==
[2023-02-05 12:56] LABS: Cancer Antigen 125 < 5.5 U/mL (0-35)
== END ==
PROVIDERS: Family Provider Orthopaedic Surgery Foot and Ankle Surgery; PCP Family Medicine; Referring Provider Obstetrics & Gynecology; Visit Provider Obstetrics & Gynecology
DX: C56.2 Malignant neoplasm of left ovary (principal)
CPT/HCPCS: 36415; 86304

== ENCOUNTER → 2023-07-23 08:49 | Outpatient (CLI) | payer MEDICARE, OTHER, SELFPAY ==
--- NOTE | 2023-07-23 | DI.MG.S_ITS ---
BILATERAL DIGITAL DIAGNOSTIC MAMMOGRAM 3D/2D: 07/23/2023 CLINICAL: Post left lumpectomy. Due for Bilateral routine. Comparison is made to exams dated: 10/20/2021 mammogram, 10/22/2020 mammogram, and 11/13/2019 mammogram - [facility]. There are scattered areas of fibroglandular density in both breasts (category b / 25%-50% glandular tissue). There are post operative changes in the left breast from prior lumpectomy. No significant masses, calcifications, or other findings are seen in either breast. IMPRESSION: BENIGN Left breast post lumpectomy. No mammographic evidence of malignancy. A 1 year screening mammogram is recommended. Findings and recommendations were conveyed to the patient during today's evaluation. This exam was interpreted at Station ID: [id number]. NOTE: For mammograms, a report in lay terms will be sent to the patient. Approximately 15% of breast malignancies will not be visualized mammographically. In the management of a palpable breast mass, a negative mammogram must not discourage biopsy of a clinically suspicious lesion. Electronically Signed By: Sridevi Lee M.D., PH.D eb/:07/23/2023 09:40:43 letter sent: Normal Exam ACR BI-RADS Category 2: Benign Finding(s) 3342F
== END ==
PROVIDERS: Family Provider Orthopaedic Surgery Foot and Ankle Surgery; PCP Family Medicine; Referring Provider Family Medicine; Visit Provider Family Medicine
DX: C50.112 Malignant neoplasm of central portion of left female breast (principal)
CPT/HCPCS: 77066; G0279

== ENCOUNTER → 2023-08-17 07:39 | Outpatient (CLI) | payer MEDICARE, OTHER, SELFPAY ==
[2023-08-17 10:01] LABS: Cancer Antigen 125 < 5.5 U/mL (0-35)
== END ==
PROVIDERS: Family Provider Orthopaedic Surgery Foot and Ankle Surgery; PCP Family Medicine; Referring Provider Obstetrics & Gynecology; Visit Provider Obstetrics & Gynecology
DX: C56.2 Malignant neoplasm of left ovary (principal)
CPT/HCPCS: 36415; 86304

== ENCOUNTER → 2024-02-23 09:30 | Outpatient (CLI) | payer MEDICARE, OTHER, SELFPAY ==
[2024-02-23 11:36] LABS: Cancer Antigen 125 < 5.5 U/mL (0-35)
== END ==
PROVIDERS: Family Provider Orthopaedic Surgery Foot and Ankle Surgery; PCP Family Medicine; Referring Provider Obstetrics & Gynecology; Visit Provider Obstetrics & Gynecology
DX: C56.2 Malignant neoplasm of left ovary (principal)
CPT/HCPCS: 36415; 86304

== ENCOUNTER → 2024-04-15 10:03 | Outpatient (CLI) | payer MEDICARE, OTHER, SELFPAY | PROVIDERS: Family Provider Orthopaedic Surgery Foot and Ankle Surgery; PCP Family Medicine; Visit Provider Physician Assistant | DX: R30.0 Dysuria (principal) | CPT/HCPCS: 87077; 87086; 87186 ==

== ENCOUNTER → 2024-05-10 10:15 | Outpatient (CLI) | payer MEDICARE, OTHER, SELFPAY ==
--- NOTE | 2024-05-10 10:53 | EKG_ITS ---
[address] [address] Test Date: 2024-05-10 Pat Name: Jeanette Murry Department: [facility] Room: Gender: Female [employer]: BETINA : 1940 Requested By: Order Number: [id number] Reading MD: Ben Patrick MD Measurements Intervals [place] Rate: 70 P: 63 RI: 146 QRS: -36 QRSD: 80 T: 38 QT: 366 QTc: 395 Interpretive Statements Normal sinus rhythm Left axis deviation Possible Anterior infarct , age undetermined Electronically Signed On 05-10-2024 10:57:34 PDT by Ben Patrick MD
[2024-05-10 10:58] LABS: Add Manual Diff / Slide Review NO; Basophils Absolute Auto 0 /uL (0-100); Basophils Percent Auto 0.5 % (0-2); Eosinophils Absolute Auto 100 /uL (0-450); Eosinophils Percent Auto 2.6 % (2-4); Hematocrit 37.6 % (36-46); Hemoglobin 12.9 g/dL (12.0-16.0); Lymphocytes Absolute Auto 2000 /uL (1100-4500); Lymphocytes Percent Auto 37.2 % (25-40); Mean Corpuscular HGB Conc 34.3 % (30-36); Mean Corpuscular Hemoglobin 30.9 PG (26-34); Mean Corpuscular Volume 90.2 fL (80-100); Monocytes Absolute Auto 500 /uL (0-900); Monocytes Percent Auto 10.2 % (3-14); Neutrophils Absolute Auto 2600 /uL (1500-7000); Neutrophils Percent Auto 49.5 % (50-75); Platelet Count 315 X10^3/uL (150-400); Red Blood Cell Count 4.17 X10^6/uL (4.0-5.2); Red Cell Distribution Width 13.8 % (11.6-14.8); White Blood Cell Count 5.3 X10^3/uL (4.5-11.0)
[2024-05-10 11:06] LABS: Hemoglobin A1C% w Est Avg Glu 5.5 % (4.0-6.0)
[2024-05-10 11:13] LABS: BUN Creatinine Ratio 22.1 (6-22); Blood Urea Nitrogen 19 mg/dL (7-17); Carbon Dioxide 24 mmol/L (22-32); Chloride 99 mmol/L (98-107); Estimated Glomerular Filt Rate > 60 mL/min (>60); Glucose 96 mg/dL (80-110); HEMOLYSIS < 15 (0-50); Potassium 4.6 mmol/L (3.4-5.1); Sodium 131 mmol/L (137-145)
[2024-05-10 11:53] LABS: Appearance Urine UA CLEAR; Bilirubin Urine UA NEGATIVE (NEGATIVE); Color Urine UA YELLOW; Glucose Urine UA NEGATIVE (Negative); Ketones Urine UA TRACE (NEGATIVE); Leukocyte Esterase Urine UA 3+ (NEGATIVE); Nitrite Urine UA NEGATIVE (Negative); Occult Blood Urine UA 1+ (Negative); Protein Urine UA NEGATIVE (Negative); Specific Gravity Urine UA 1.015 (1.000-1.035); Urobilinogen Urine UA 0.2 E.U./dL (0.2)
[2024-05-10 11:54] LABS: Urine Volume 10mL (spun)
[2024-05-10 12:04] LABS: Bacteria Urine None Seen; Culture Indicated Urine Specimen Cultured; RBC Urine 1-5/HPF (0-5/HPF); Squamous Epithelial Cell Urine 1-5 /HPF (0-5/HPF); WBC Urine 5-10/HPF (0-5/HPF)
== END ==
PROVIDERS: Family Provider Orthopaedic Surgery Foot and Ankle Surgery; PCP Family Medicine; Referring Provider Orthopaedic Surgery; Visit Provider Orthopaedic Surgery
DX: Z01.818 Encounter for other preprocedural examination (principal); R73.9 Hyperglycemia, unspecified; Z01.812 Encounter for preprocedural laboratory examination; N39.0 Urinary tract infection, site not specified
CPT/HCPCS: 36415; 80048; 81001; 83036; 85025; 87086; 93005

== ENCOUNTER → 2024-08-03 08:13 | Outpatient (CLI) | payer MEDICARE, OTHER, SELFPAY ==
--- NOTE | 2024-08-03 08:14 | DI.MG.S_ITS ---
BILATERAL DIGITAL SCREENING MAMMOGRAM 3D/2D WITH CAD: 08/03/2024 CLINICAL: Routine screening. Personal history of left breast cancer. Comparison is made to exams dated: 07/23/2023 mammogram, 10/20/2021 mammogram, and 10/22/2020 mammogram - [facility]. There are scattered areas of fibroglandular density (category b / 25%-50% glandular tissue). Current study was also evaluated with a Computer Aided Detection (CAD) system. No significant masses, calcifications, or other findings are seen in either breast. There has been no significant interval change. IMPRESSION: NEGATIVE There is no mammographic evidence of malignancy. A 1 year screening mammogram is recommended. This exam was interpreted at Station ID: [id number]. NOTE: For mammograms, a report in lay terms will be sent to the patient. Approximately 15% of breast malignancies will not be visualized mammographically. In the management of a palpable breast mass, a negative mammogram must not discourage biopsy of a clinically suspicious lesion. Electronically Signed By: Bal sawant/kiki:08/03/2024 09:28:15 letter sent: Normal Exam ACR BI-RADS Category 1: Negative
== END ==
PROVIDERS: Family Provider Orthopaedic Surgery Foot and Ankle Surgery; PCP Family Medicine; Referring Provider Family Medicine; Visit Provider Family Medicine
DX: Z12.31 Encounter for screening mammogram for malignant neoplasm of breast (principal); Z85.3 Personal history of malignant neoplasm of breast
CPT/HCPCS: 77063; 77067

== ENCOUNTER → 2024-09-04 09:13 | Outpatient (CLI) | payer MEDICARE, OTHER, SELFPAY ==
--- NOTE | 2024-09-04 09:17 | DI.RAD.S_ITS ---
PROCEDURE: XR FOOT RT 2V INDICATIONS: BILATERAL FOOT PAIN TECHNIQUE: 3 views of the foot were acquired. COMPARISON: None. FINDINGS: Bones: No acute fractures or dislocations. No suspicious bony lesions. Pes planus alignment is seen with sagging of the midfoot. Small posterior and plantar calcaneal enthesophytes. Mild medial angulation of the 2nd and 3rd toes. Scattered degenerative changes of the interphalangeal joints of the toes and at the 1st metatarsophalangeal and 1st tarsometatarsal joints. Soft tissues: No tibiotalar joint effusion. Achilles tendon appears normal. IMPRESSION: 1. Pes planus alignment. Mild medial angulation of the 2nd and 3rd metatarsophalangeal joints. 2. Mild midfoot and forefoot osteoarthrosis. Approved by: Michele Mackenzie M.D. on 09/04/2024 at 16:32
--- NOTE | 2024-09-04 09:18 | DI.RAD.S_ITS ---
PROCEDURE: XR FOOT LT 2V INDICATIONS: BILATERAL FOOT PAIN TECHNIQUE: 2 views of the foot were acquired. COMPARISON: None. FINDINGS: Bones: No acute fractures or dislocations. No suspicious bony lesions. Pes planus with sagging of the midfoot. Mild degenerative changes of the 1st tarsometatarsal joint and 1st metatarsophalangeal joint. Mild medial angulation of the 2nd 3rd metatarsophalangeal joints. Soft tissues: No suspicious soft tissue calcifications. IMPRESSION: Pes planus alignment. Mild medial angulation of the 2nd and 3rd toes. Approved by: Michele Mackenzie M.D. on 09/04/2024 at 16:30
== END ==
PROVIDERS: Family Provider Orthopaedic Surgery Foot and Ankle Surgery; PCP Family Medicine; Referring Provider Family Medicine; Visit Provider Family Medicine
DX: M21.42 Flat foot [pes planus] (acquired), left foot (principal); M21.41 Flat foot [pes planus] (acquired), right foot; M19.071 Primary osteoarthritis, right ankle and foot; M79.671 Pain in right foot; M79.672 Pain in left foot
CPT/HCPCS: 73620

== ENCOUNTER → 2024-09-08 08:36 | Outpatient (CLI) | payer MEDICARE, OTHER, SELFPAY | PROVIDERS: Family Provider Orthopaedic Surgery Foot and Ankle Surgery; PCP Family Medicine; Visit Provider Nurse Practitioner Family | DX: R30.0 Dysuria (principal) | CPT/HCPCS: 87086 ==

== ENCOUNTER → 2025-01-15 09:18 | Outpatient (CLI) | payer MEDICARE, OTHER, SELFPAY ==
--- NOTE | 2025-01-15 09:34 | EKG_ITS ---
[address] [address] Test Date: 2025-01-15 Pat Name: Jeanette Murry Department: [facility] Room: Gender: Female Manager Supply: PORTILLO : 1940 Requested By: Order Number: [id number] Reading MD: Tarik Thomas Measurements Intervals [place] Rate: 65 P: 63 AK: 152 QRS: -27 QRSD: 88 T: 34 QT: 386 QTc: 401 Interpretive Statements Normal sinus rhythm Electronically Signed On 01-15-2025 15:41:51 PDT by Tarik Thomas
[2025-01-15 10:45] LABS: Add Manual Diff / Slide Review NO; Basophils Absolute Auto 0 /uL (0-100); Basophils Percent Auto 0.5 % (0-2); Eosinophils Absolute Auto 200 /uL (0-450); Eosinophils Percent Auto 2.5 % (2-4); Hematocrit 40.7 % (36-46); Hemoglobin 13.6 g/dL (12.0-16.0); Lymphocytes Absolute Auto 2100 /uL (1100-4500); Lymphocytes Percent Auto 32.6 % (25-40); Mean Corpuscular HGB Conc 33.5 % (30-36); Mean Corpuscular Hemoglobin 30.6 PG (26-34); Mean Corpuscular Volume 91.5 fL (80-100); Monocytes Absolute Auto 600 /uL (0-900); Monocytes Percent Auto 9.8 % (3-14); Neutrophils Absolute Auto 3400 /uL (1500-7000); Neutrophils Percent Auto 54.6 % (50-75); Platelet Count 242 X10^3/uL (150-400); Red Blood Cell Count 4.44 X10^6/uL (4.0-5.2); Red Cell Distribution Width 13.7 % (11.6-14.8); White Blood Cell Count 6.3 X10^3/uL (4.5-11.0)
[2025-01-15 10:52] LABS: Hemoglobin A1C% w Est Avg Glu 5.3 % (4.0-6.0)
[2025-01-15 11:05] LABS: BUN Creatinine Ratio 29.6 (6-22); Blood Urea Nitrogen 29 mg/dL (7-17); Calcium 9.9 mg/dL (8.4-10.2); Carbon Dioxide 27 mmol/L (22-32); Chloride 97 mmol/L (98-107); Estimated Glomerular Filt Rate 57 mL/min (>60); Glucose 87 mg/dL (80-110); HEMOLYSIS < 15 (0-50); Potassium 4.9 mmol/L (3.4-5.1); Sodium 131 mmol/L (137-145)
== END ==
PROVIDERS: Family Provider Orthopaedic Surgery Foot and Ankle Surgery; PCP Family Medicine; Referring Provider Orthopaedic Surgery; Visit Provider Orthopaedic Surgery
DX: Z01.818 Encounter for other preprocedural examination (principal); R73.9 Hyperglycemia, unspecified; Z01.812 Encounter for preprocedural laboratory examination; N39.0 Urinary tract infection, site not specified
CPT/HCPCS: 36415; 80048; 83036; 85025; 93005

== ENCOUNTER → 2025-03-13 08:43 | Outpatient (CLI) | payer MEDICARE, OTHER, SELFPAY | LOC: LAB 08:43 | PROVIDERS: Family Provider Orthopaedic Surgery Foot and Ankle Surgery; PCP Family Medicine; Visit Provider Family Medicine | DX: R35.0 Frequency of micturition (principal) | CPT/HCPCS: 87077; 87086 ==

== ENCOUNTER → 2025-03-26 07:49 | Outpatient (CLI) | payer MEDICARE, OTHER, SELFPAY | PROVIDERS: PCP Family Medicine; Visit Provider Nurse Practitioner Family | DX: R30.0 Dysuria (principal) | CPT/HCPCS: 87077; 87086; 87186 ==

== ENCOUNTER → 2025-08-18 10:09 | Outpatient (CLI) | payer MEDICARE, OTHER, SELFPAY ==
--- NOTE | 2025-08-18 10:13 | DI.MG.S_ITS ---
MM screening mammo BI: 08/18/2025. BI-RADS: 1 CLINICAL: 85-year old female for bilateral screening mammogram. No Tyrer-Cuzick risk score calculation due to the patient's personal history of breast cancer. Patient reports a history of left breast carcinoma diagnosed at age 82. Status-post left lumpectomy. No first-degree family history of breast cancer. Current reported family history of breast cancer: sister's daughter. The patient had prior bilateral breast biopsies. PRIOR EXAMS 08/03/2024, 07/23/2023, 01/20/2022, 12/09/2021, MAMMOGRAPHY TECHNIQUE: 2D and 3D (tomosynthesis) digital mammographic views obtained, with additional images as needed for full coverage. Current study was also evaluated with a Computer Aided Detection (CAD) system. DENSITY B. There are scattered areas of fibroglandular density. MAMMOGRAPHY FINDINGS Bilateral: No suspicious mass, asymmetry, microcalcification, or other abnormality seen. IMPRESSION: * No evidence of malignancy. RECOMMENDATIONS Bilateral * Annual screening mammography. OVERALL ASSESSMENT CATEGORY BI-RADS-1: Negative. The [employer] recommends annual screening mammography beginning at age 40 for women with average risk of breast cancer. ELECTRONICALLY SIGNED: Bal Oneil M.D. on 08/20/2025 at 10:03:56 AM PT Interpreting Station ID: [id number]
== END ==
LOC: MAMMO 10:12
PROVIDERS: PCP Family Medicine; Referring Provider Family Medicine; Visit Provider Family Medicine
DX: Z12.31 Encounter for screening mammogram for malignant neoplasm of breast (principal); Z85.3 Personal history of malignant neoplasm of breast; Z80.3 Family history of malignant neoplasm of breast
CPT/HCPCS: 77063; 77067

== ENCOUNTER 2025-08-25 07:38 | Inpatient (IN) | payer MEDICARE, OTHER, SELFPAY ==
[2025-08-25] VITALS (9 sets, daily range): BP systolic 129–166; BP diastolic 49–73; PULSE 67–80; RESP 16–22; TEMP 36.9–37; O2SAT 97–100; BMI 20.8
--- NOTE | 2025-08-25 07:51 | ED.ABDPAIN ---
HPI - Abdominal Pain General Chief Complaint: Abdominal Pain Stated Complaint: [id number]/Got worse last night Time Seen by Provider: 08/25/25 07:46 History of Present Illness HPI narrative: 85-year-old female history hypertension, breast cancer status post mastectomy on 01/20/2022 of the left breast presents with multiple episodes of watery runny diarrhea for the past week associated with abdominal cramping. Patient denies any chest pain, shortness of breath, fever, chills, bodyaches, nausea, vomiting, hematuria, or recent antibiotic use. Per has noticed dark stools is only on aspirin at this time. Other than what is stated 14 point review of system is negative. Related Data Home Medications ?Medication ?Instructions ?Recorded ?Confirmed glucosamine sulfate 500 mg tablet 500 mg PO DAILY 05/02/20 03/26/25 (Glucosamine) lisinopril 10 mg tablet 10 mg PO DAILY 05/02/20 03/26/25 vitamins A,C,A-ltcu-rmiyxz [ICaps 1 tab PO DAILY 05/02/20 03/26/25 AREDS] aspirin 81 mg tablet,delayed 81 mg PO DAILY 12/26/21 03/26/25 release simvastatin 80 mg tablet 80 mg PO DAILY 01/20/22 03/26/25 timolol maleate 0.5 % eye drops drp EYE-BOTH 04/15/24 03/26/25 Previous Rx's ?Medication ?Instructions ?Recorded cefdinir 300 mg capsule 300 mg PO BID #10 caps 03/26/25 Allergies Allergy/AdvReac Type Severity Reaction Status Date / Time No Known Drug Allergies Allergy Verified 08/25/25 07:48 Review of Systems Review of Systems ROS Unobtainable: All systems reviewed & are unremarkable except as noted in HPI and below Patient History Medical History (Updated 08/25/25 @ 10:32 by Ben Oneill DO) Primary osteoarthritis of left knee Fall Hypercholesteremia Arthritis Former smoker Hyperlipidemia Hypertension Surgical History History of laparoscopic-assisted vaginal hysterectomy (07/25/20) History of orthopedic surgery (11/12/21) Hx of BSO (bilateral salpingo-oophorectomy) (06/06/20) [place] teeth extracted S/P tonsillectomy and adenoidectomy History of left hip replacement Family History Mother Myocardial infarct Social History household members: spouse Smoking Status: Former smoker alcohol intake: former Exam Narrative Exam Narrative: GENERAL: [85] year old patient appears stated age. Well-developed patient, in mild distress. HEAD: Atraumatic. Normocephalic. EYES: Pupils equal round and reactive. Extraocular motions intact. No scleral icterus. No injection or drainage. ENT: Nose without bleeding, purulent drainage. Throat without erythema, tonsillar hypertrophy or exudate. Airway patent. NECK: Trachea midline. Non tender CARDIOVASCULAR: Regular rate and rhythm without murmurs, gallops, or rubs. RESPIRATORY: Clear to auscultation. Breath sounds equal bilaterally. No wheezes, rales, or rhonchi. GASTROINTESTINAL: Abdomen soft, non-tender, nondistended. Rectal: Guaiac negative no hemorrhoids or fissure seen EXTREMITIES: No edema or joint tenderness. BACK: Nontender without deformity or crepitance. No flank tenderness. NEURO: AOx3. SKIN: No rash or erythema of visible areas Initial Vital Signs Initial Vital Signs: Vital Signs Temperature 98.6 F 08/25/25 07:48 Pulse Rate 74 08/25/25 07:48 Respiratory Rate 17 08/25/25 07:48 Blood Pressure 141/63 H 08/25/25 07:48 Pulse Oximetry 100 08/25/25 07:48 Oxygen Delivery Method Room Air 08/25/25 07:48 Course Orders Ordered: ED Orders 08/25/25 07:54 CT abdomen pelvis w con Stat EKG-12 Lead Stat 08/25/25 08:24 Complete Blood Count AUTO DIFF Stat Comprehensive Metabolic Panel Stat Lipase Stat 08/25/25 10:04 Fecal Leukocytes Stat GI Panel (Film Array) Stat Stool Culture Stat Ondansetron HCl (Ondansetron 4 Mg/2 Ml Inj) 4 mg IV NOW PRN PRN Reason: Nausea And Vomiting Ondansetron HCl (Ondansetron 4 Mg Odt) 4 mg PO NOW PRN PRN Reason: Nausea And Vomiting Discontinued Medications Lactated Ringer's (Lactated Ringers) 1,000 mls @ 1,000 mls/hr IV BOLUS ONE Stop: 08/25/25 08:53 Last Infusion: 08/25/25 09:58 Dose: Infused Documented By: Admin: 08/25/25 08:18 Dose: 1,000 mls/hr Documented By: IMELDA Vital Signs Vital signs: Vital Signs - 8 hr 08/25/25 07:48 08/25/25 08:11 08/25/25 08:13 Temperature 98.6 F Pulse Rate 74 68 Respiratory Rate 17 18 Blood Pressure 141/63 H 140/63 Pulse Oximetry 100 Oxygen Delivery Method Room Air 08/25/25 08:13 08/25/25 08:30 08/25/25 08:30 Temperature Pulse Rate 67 70 Respiratory Rate 20 22 Blood Pressure 137/62 Pulse Oximetry 100 97 Oxygen Delivery Method 08/25/25 09:00 08/25/25 09:00 08/25/25 09:30 Temperature Pulse Rate 80 78 Respiratory Rate 18 Blood Pressure 166/72 H Pulse Oximetry 99 99 Oxygen Delivery Method 08/25/25 09:30 Temperature Pulse Rate Respiratory Rate Blood Pressure 164/73 H Pulse Oximetry Oxygen Delivery Method MDM - Abdominal Pain Lab Data 08/25/25 08:24 08/25/25 08:24 Labs: Lab Results 08/25/25 Range/Units 08:24 WBC 16.3 H (4.5-11.0) X10^3/uL RBC 3.68 L (4.0-5.2) X10^6/uL Hgb 11.1 L (12.0-16.0) g/dL Hct 32.9 L (36-46) % MCV 89.4 (80-100) fL MCH 30.3 (26-34) PG MCHC 33.9 (30-36) % RDW 13.4 (11.6-14.8) % Plt Count 251 (150-400) X10^3/uL Neut % (Auto) 75.5 H (50-75) % Lymph % (Auto) 12.9 L (25-40) % [place] % (Auto) 11.0 (3-14) % Eos % (Auto) 0.2 L (2-4) % Baso % (Auto) 0.4 (0-2) % Neut # (Auto) 17487 H (4848-7061) /uL Lymph # (Auto) 2100 (3378-1501) /uL [place] # (Auto) 1800 H (0-900) /uL Eos # (Auto) 0 (0-450) /uL Baso # (Auto) 100 (0-100) /uL Sodium 126 L (137-145) mmol/L Potassium 4.0 (3.4-5.1) mmol/L Chloride 96 L (98-107) mmol/L Carbon Dioxide 21 L (22-32) mmol/L BUN 16 (7-17) mg/dL Creatinine 1.19 H (0.52-1.04) mg/dL Estimated GFR 45 L (>60) mL/min BUN/Creatinine Ratio 13.4 (6-22) Glucose 99 (70-99) mg/dL Calcium 8.6 (8.4-10.2) mg/dL Total Bilirubin 0.5 (0.2-1.3) mg/dL AST 24 (14-36) IU/L ALT 20 (<35) IU/L Alkaline Phosphatase 83 (38-126) U/L Total Protein 6.7 (6.3-8.2) g/dL Albumin 3.6 (3.5-5.0) g/dL Globulin 3.1 (1.7-4.1) g/dL Albumin/Globulin Ratio 1.2 (1.0-2.8) Lipase 48 (23-300) U/L Imaging Data CT scan - abdomen/pelvis: Radiologist's Impression: [address] [place] [address] CT Scan Report Signed Patient: Jeanette Murry MR#: [id number] : 1940 Acct:[id number] Age/Sex: 85 / F Date of Service: 08/25/25 Loc: ED Accession Number: [id number] Procedure: CT abdomen pelvis w con Ordering Provider: Ben Oneill D.O. PROCEDURE: CT ABDOMEN PELVIS W CON INDICATIONS: abd pain /diarrhea TECHNIQUE: After the administration of intravenous contrast, axial sections acquired from the lung bases to the pubic symphysis. Coronal and sagittal reformats were performed. For radiation dose reduction, the following was used: automated exposure control, adjustment of mA and/or kV according to patient size. COMPARISON: [facility], CT, CT ABDOMEN PELVIS W CON, 04/26/2020, 13:23. FINDINGS: Image quality: Diagnostic. Lower Chest: There is artifact associated with the metallic hardware. Artifact from the metallic hardware is reduced by metal reconstruction algorithm. ABDOMEN: Liver: No solid mass. Gallbladder: No radiopaque gallstones or wall thickening. Biliary ducts: No biliary dilation. Pancreas: No ductal dilation. Spleen: Size is within normal limits. Adrenal Glands: No adrenal nodules. Kidneys and Ureters: No hydronephrosis. No solid mass. No complex renal cystic lesion which requires follow up. Stomach and Bowel: Wewv-kj-kpztovpa wall thickening can be seen involving the descending colon. Moderate wall thickening can be seen involving the wall of the sigmoid colon with mild surrounding inflammatory change. Diverticula formation can be seen throughout this region. No dilated loops of small bowel are seen. Peritoneum: No peritoneal abscess is seen. No abnormal intraperitoneal fluid. No free air. Ventral Wall: No significant ventral hernia. Abdominal Nodes: No retroperitoneal or mesenteric adenopathy by size criteria. Vessels: Aorta and inferior vena cava are normal in size. Atherosclerotic calcification is noted. PELVIS: Pelvic Organs: The previously seen adnexal mass has been removed. Bladder: No bladder wall thickening, accounting for underdistention. Pelvic Nodes: No enlarged lymph nodes. Miscellaneous: No inguinal hernias are seen. Bones: There is a left hip arthroplasty. There is proximal right femur hardware. Age-appropriate bony degenerative changes are seen. IMPRESSION: Moderate distal colonic wall thickening can be seen. Please correlate with potential infectious and inflammatory causes of colitis. No findings of perforation or abscess can be seen. ECG Data Interpretation: NSR HR 68 DC 142 QRS [address]-t wave change Unchanged from 01/15/25 [facility] Narrative Medical decision making narrative: All lab work, vital signs, nurse triage note, medication list, previous ER visits, and all imaging studies reviewed. WBC 16.3 hemoglobin 11.1 platelet 250 sodium 126 cm 4.0 chloride 96 CO2 21 BUN 16 creatinine 1.19 LFTs normal lipase 48. CT abdomen and pelvis showed moderate distal colonic wall thickening can be seen. Please correlate with potential infectious inflammatory causes of colitis. No findings of perforation or abscess can be seen. Patient given fluids Cipro and Flagyl. Case d/w who has graciously accepted pt for admission Discharge Plan Departure Patient Disposition: Admitted as Observation Clinical Impression: Colitis
--- NOTE | 2025-08-25 07:54 | DI.CT.S_ITS ---
PROCEDURE: CT ABDOMEN PELVIS W CON INDICATIONS: abd pain /diarrhea TECHNIQUE: After the administration of intravenous contrast, axial sections acquired from the lung bases to the pubic symphysis. Coronal and sagittal reformats were performed. For radiation dose reduction, the following was used: automated exposure control, adjustment of mA and/or kV according to patient size. COMPARISON: [facility], CT, CT ABDOMEN PELVIS W CON, 04/26/2020, 13:23. FINDINGS: Image quality: Diagnostic. Lower Chest: There is artifact associated with the metallic hardware. Artifact from the metallic hardware is reduced by metal reconstruction algorithm. ABDOMEN: Liver: No solid mass. Gallbladder: No radiopaque gallstones or wall thickening. Biliary ducts: No biliary dilation. Pancreas: No ductal dilation. Spleen: Size is within normal limits. Adrenal Glands: No adrenal nodules. Kidneys and Ureters: No hydronephrosis. No solid mass. No complex renal cystic lesion which requires follow up. Stomach and Bowel: Ijrg-gq-gshnoaby wall thickening can be seen involving the descending colon. Moderate wall thickening can be seen involving the wall of the sigmoid colon with mild surrounding inflammatory change. Diverticula formation can be seen throughout this region. No dilated loops of small bowel are seen. Peritoneum: No peritoneal abscess is seen. No abnormal intraperitoneal fluid. No free air. Ventral Wall: No significant ventral hernia. Abdominal Nodes: No retroperitoneal or mesenteric adenopathy by size criteria. Vessels: Aorta and inferior vena cava are normal in size. Atherosclerotic calcification is noted. PELVIS: Pelvic Organs: The previously seen adnexal mass has been removed. Bladder: No bladder wall thickening, accounting for underdistention. Pelvic Nodes: No enlarged lymph nodes. Miscellaneous: No inguinal hernias are seen. Bones: There is a left hip arthroplasty. There is proximal right femur hardware. Age-appropriate bony degenerative changes are seen. IMPRESSION: Moderate distal colonic wall thickening can be seen. Please correlate with potential infectious and inflammatory causes of colitis. No findings of perforation or abscess can be seen. Additional findings: Interval resolution of the adnexal mass Left hip arthroplasty hardware Right proximal femur hardware Dictated by: Rob Dover M.D. on 08/25/2025 at 8:38 Approved by: Rob Dover M.D. on 08/25/2025 at 8:41
--- NOTE | 2025-08-25 08:08 | EKG_ITS ---
[place] [address] [place] [id number] Test Date: 2025-08-25 Pat Name: Jeanette Murry Department: [facility] Room: Gender: Female Crew Chief: NÉSTOR : 1940 Requested By: Order Number: [id number] Reading MD: Measurements Intervals [place] Rate: 68 P: 65 PA: 142 QRS: -18 QRSD: 84 T: 31 QT: 364 QTc: 387 Interpretive Statements Normal sinus rhythm
[2025-08-25] MEDS: LACTATED RINGERS 1,000 ML 1000 ML IV (08:18)
[2025-08-25 08:31] LABS: Add Manual Diff / Slide Review NO; Hematocrit 32.9 % (36-46); Hemoglobin 11.1 g/dL (12.0-16.0); Lymphocytes Absolute Auto 2100 /uL (1100-4500); Mean Corpuscular HGB Conc 33.9 % (30-36); Mean Corpuscular Hemoglobin 30.3 PG (26-34); Mean Corpuscular Volume 89.4 fL (80-100); Platelet Count 251 X10^3/uL (150-400)
[2025-08-25 08:43] LABS: Alanine Aminotransferase 20 IU/L (<35); Albumin 3.6 g/dL (3.5-5.0); Albumin Globulin Ratio 1.2 (1.0-2.8); Alkaline Phosphatase 83 U/L (38-126); Blood Urea Nitrogen 16 mg/dL (7-17); Calcium 8.6 mg/dL (8.4-10.2); Carbon Dioxide 21 mmol/L (22-32); Chloride 96 mmol/L (98-107); Estimated Glomerular Filt Rate 45 mL/min (>60); Globulin 3.1 g/dL (1.7-4.1); Glucose 99 mg/dL (70-99); HEMOLYSIS < 15 (0-50); Lipase 48 U/L (23-300); Potassium 4.0 mmol/L (3.4-5.1); Sodium 126 mmol/L (137-145); Total Protein 6.7 g/dL (6.3-8.2)
--- NOTE | 2025-08-25 09:02 | PC.NURSE ---
pt having diarrhea which is worsening x1 week
[2025-08-25] MEDS: metroNIDAZOLE 500 MG/100 ML PIGGYBACK 100 MG IV ×2 (10:26→18:32)
--- NOTE | 2025-08-25 11:26 | PM.HP.IH.1 ---
History of Present Illness History of Present Illness Date Patient Seen: 08/25/25 Chief complaint: [id number]/Got worse last night Narrative: The pt is an 85yo woman with HTN who presented with abdominal pain and diarrhea. The pt reports that for the past week she has had significant upper abdominal pain and persistent watery diarrhea. Last night the pain was its most severe, and diarrhea became explosive to the point that she didn't make it to the restroom on time. She denies any blood in her stool. She denies any fevers, nausea, or vomiting. She denies any recent chest pain, SOB. She states that she has been eating and drinking very little due to it making her symptoms worse. The pt has no history of abdominal/digestive issues. ON LICENSE OF [facility] Medical History Primary osteoarthritis of left knee Fall Hypercholesteremia Arthritis Former smoker Hyperlipidemia Hypertension Surgical History History of laparoscopic-assisted vaginal hysterectomy (07/25/20) History of orthopedic surgery (11/12/21) Hx of BSO (bilateral salpingo-oophorectomy) (06/06/20) [place] teeth extracted S/P tonsillectomy and adenoidectomy History of left hip replacement Family History Mother Myocardial infarct Social History household members: spouse Smoking Status: Former smoker alcohol intake: former Meds Home Medications and Allergies Home Medications ?Medication ?Instructions ?Recorded ?Confirmed ?Type glucosamine sulfate 500 mg tablet 500 mg PO DAILY 05/02/20 03/26/25 History (Glucosamine) lisinopril 10 mg tablet 10 mg PO DAILY 05/02/20 03/26/25 History vitamins A,C,E-zbpz-edxauz [ICaps 1 tab PO DAILY 05/02/20 03/26/25 History AREDS] aspirin 81 mg tablet,delayed 81 mg PO DAILY 12/26/21 03/26/25 History release simvastatin 80 mg tablet 80 mg PO DAILY 01/20/22 03/26/25 History timolol maleate 0.5 % eye drops drp EYE-BOTH 04/15/24 03/26/25 History cefdinir 300 mg capsule 300 mg PO BID #10 caps 03/26/25 03/26/25 Rx Allergies Allergy/AdvReac Type Severity Reaction Status Date / Time No Known Drug Allergies Allergy Verified 08/25/25 07:48 Exam Vital Signs (past 8 hours): - 08/25/25 07:48 08/25/25 08:11 08/25/25 08:13 Temperature 98.6 F Pulse Rate 74 68 Respiratory Rate 17 18 Blood Pressure 141/63 H 140/63 Pulse Oximetry 100 Oxygen Delivery Method Room Air 08/25/25 08:13 08/25/25 08:30 08/25/25 08:30 Temperature Pulse Rate 67 70 Respiratory Rate 20 22 Blood Pressure 137/62 Pulse Oximetry 100 97 Oxygen Delivery Method 08/25/25 09:00 08/25/25 09:00 08/25/25 09:30 Temperature Pulse Rate 80 78 Respiratory Rate 18 Blood Pressure 166/72 H Pulse Oximetry 99 99 Oxygen Delivery Method 08/25/25 09:30 Temperature Pulse Rate Respiratory Rate Blood Pressure 164/73 H Pulse Oximetry Oxygen Delivery Method Oxygen Delivery Method Room Air Narrative Exam Narrative: Gen: NAD, sitting comfortably in bed, appears younger than stated age HEENT: sclera clear Neck: no LAD, no JVD CV: RRR, no murmurs Resp: clear to auscultation bilaterally Abd: soft, nondistended, upper quadrants tender to palpation without rebound/guarding/rigidity Ext: no edema Neuro: no gross deficits Objective Labs 08/25/25 08:24 08/25/25 08:24 Labs: Laboratory Results - last 24 hr 08/25/25 08:24 WBC 16.3 H RBC 3.68 L Hgb 11.1 L Hct 32.9 L MCV 89.4 MCH 30.3 MCHC 33.9 RDW 13.4 Plt Count 251 Neut % (Auto) 75.5 H Lymph % (Auto) 12.9 L [place] % (Auto) 11.0 Eos % (Auto) 0.2 L Baso % (Auto) 0.4 Neut # (Auto) 67653 H Lymph # (Auto) 2100 [place] # (Auto) 1800 H Eos # (Auto) 0 Baso # (Auto) 100 Sodium 126 L Potassium 4.0 Chloride 96 L Carbon Dioxide 21 L BUN 16 Creatinine 1.19 H Estimated GFR 45 L BUN/Creatinine Ratio 13.4 Glucose 99 Calcium 8.6 Total Bilirubin 0.5 AST 24 ALT 20 Alkaline Phosphatase 83 Total Protein 6.7 Albumin 3.6 Globulin 3.1 Albumin/Globulin Ratio 1.2 Lipase 48 Assessment & Plan Assessment & Plan narrative: The pt is an 85yo woman with HTN who presented with abdominal pain and diarrhea, found to have colitis on abdominal CT. 1) Colitis: Found on CT. Afebrile, but with elevated WBC count with left shift. - Continue Ciprofloxacin and Flagyl - Full liquid diet, advance as tolerated - mIVF at 100cc/hr 2) Acute on chronic hyponatremia: 126 down from 131 last check - mIVF as above - Continue to trend 3) PRADIP: s/p 1L bolus in the ED, Cr 1.19, baseline 0.8-0.9 - mIVF as above - Continue to trend 4) HTN: BP fluctuating in the ED - Continue home Lisinopril, statin - Continue to trend Code: DNR, confirmed with pt today FEN: full liquid diet as above DVT ppx: Lovenox Dispo: Anticipate discharge to home, likely in 2 days. Time-Based Coding :: [TOTAL MINUTES] spent with patient and on the chart (including review of chart, obtaining history, exam, reviewing outside data, placing orders, documenting exam and treatment plan, and counseling patient) on [DATE]. PROFEE Director Of Quantitative Research Document charge(s): Yes Charge Codes Initial inpatient/observation care: [id number]
[2025-08-25] MEDS: CIPROFLOXACIN 400 MG/200 ML PIGGYBACK 200 MG IV ×2 (11:38→21:27)
--- NOTE | 2025-08-25 15:03 | PC.NURSE ---
report given to dhaval at this time. pineda, rn currently on lunch break being covered by this rn
--- NOTE | 2025-08-25 15:38 | PC.NURSE ---
Pt arrived to 222 via w/c at 1522. Pt ambulated to bathroom, required one person assist with gait belt and FWW. Pt endorses intermittent abdominal pain that is worse with movement. Pt oriented to room and fall precautions. Bed alarm on, call light within reach. Care ongoing.
[2025-08-25] MEDS: SODIUM CHLORIDE 0.9% 1,000 ML 100 ML IV (17:19)
[2025-08-26] MEDS: MELATONIN 3 MG TABLET PO (00:36)
[2025-08-26] MEDS: metroNIDAZOLE 500 MG/100 ML PIGGYBACK 100 MG IV ×3 (01:58→18:36)
[2025-08-26] MEDS: SODIUM CHLORIDE 0.9% 1,000 ML 100 ML IV ×2 (03:44→16:18)
[2025-08-26 05:31] LABS: Add Manual Diff / Slide Review NO; Hematocrit 29.5 % (36-46); Hemoglobin 10.1 g/dL (12.0-16.0); Lymphocytes Absolute Auto 1900 /uL (1100-4500); Mean Corpuscular HGB Conc 34.3 % (30-36); Mean Corpuscular Hemoglobin 30.6 PG (26-34); Mean Corpuscular Volume 89.3 fL (80-100); Platelet Count 217 X10^3/uL (150-400)
[2025-08-26 05:37] LABS: Blood Urea Nitrogen 11 mg/dL (7-17); Calcium 8.0 mg/dL (8.4-10.2); Carbon Dioxide 21 mmol/L (22-32); Chloride 99 mmol/L (98-107); Estimated Glomerular Filt Rate 58 mL/min (>60); Glucose 82 mg/dL (70-99); HEMOLYSIS < 15 (0-50); Potassium 3.8 mmol/L (3.4-5.1); Sodium 126 mmol/L (137-145)
[2025-08-26] MEDS: ATORVASTATIN 20 MG TABLET 40 MG PO (09:07)
[2025-08-26] MEDS: ENOXAPARIN 40 MG/0.4 ML SYRINGE SUBCUT (09:07)
[2025-08-26] MEDS: ASPIRIN EC 81 MG TABLET PO (09:07)
[2025-08-26 09:08] VITALS: BP 113/49
[2025-08-26 09:11] VITALS: BP 113/49; PULSE 78; RESP 16; O2SAT 100
[2025-08-26] MEDS: CIPROFLOXACIN 400 MG/200 ML PIGGYBACK 200 MG IV ×2 (09:57→21:14)
--- NOTE | 2025-08-26 10:19 | P.PN_ITS ---
Subjective Subjective Interval history: The pt reports that her abdominal pain is minimally improved. She states there is slightly more consistency to her stool. She has been able to tolerate minimal solids. She continues to deny any nausea/vomiting. Exam Vital Signs (past 8 hours): - 08/26/25 09:08 08/26/25 09:11 Pulse Rate 78 Respiratory Rate 16 Blood Pressure 113/49 L 113/49 L Pulse Oximetry 100 Oxygen Delivery Method Room Air Oxygen Flow Rate 0 Narrative Exam Narrative: Gen: NAD, sitting comfortably in bed, appears younger than stated age CV: RRR, no murmurs Resp: clear to auscultation bilaterally Abd: soft, nondistended, upper quadrants tender to palpation without rebound/guarding/rigidity - less tender than yesterday Ext: no edema Objective Labs 08/26/25 04:26 08/26/25 04:26 Labs: Laboratory Results - last 24 hr 08/26/25 04:26 WBC 11.8 H RBC 3.31 L Hgb 10.1 L Hct 29.5 L MCV 89.3 MCH 30.6 MCHC 34.3 RDW 13.6 Plt Count 217 Neut % (Auto) 71.1 Lymph % (Auto) 16.3 L [place] % (Auto) 10.6 Eos % (Auto) 1.7 L Baso % (Auto) 0.3 Neut # (Auto) 8400 H Lymph # (Auto) 1900 [place] # (Auto) 1200 H Eos # (Auto) 200 Baso # (Auto) 0 Sodium 126 L Potassium 3.8 Chloride 99 Carbon Dioxide 21 L BUN 11 Creatinine 0.96 Estimated GFR 58 L BUN/Creatinine Ratio 11.5 Glucose 82 Calcium 8.0 L PFSH Medical History Primary osteoarthritis of left knee Fall Hypercholesteremia Arthritis Former smoker Hyperlipidemia Hypertension Surgical History History of laparoscopic-assisted vaginal hysterectomy (07/25/20) History of orthopedic surgery (11/12/21) Hx of BSO (bilateral salpingo-oophorectomy) (06/06/20) [place] teeth extracted S/P tonsillectomy and adenoidectomy History of left hip replacement Family History Mother Myocardial infarct Social History household members: spouse Smoking Status: Former smoker alcohol intake: former Assessment & Plan Assessment & Plan narrative: The pt is an 85yo woman with HTN who presented with abdominal pain and diarrhea, found to have colitis on abdominal CT. 1) Colitis: Found on CT. Afebrile, but with elevated WBC count with left shift. Improved from yesterday. - Continue Ciprofloxacin and Flagyl - Full liquid diet, advance as tolerated - mIVF at 100cc/hr 2) Acute on chronic hyponatremia: 126 down from 131 last check. No improvement from yesterday. - mIVF as above - Continue to trend - Will complete hyponatremia labs tomorrow AM, do not expect to return while in the hospital. 3) PRADIP: Resolved 4) HTN: Stable - Continue home Lisinopril, statin Code: DNR, confirmed with pt today FEN: full liquid diet as above DVT ppx: Lovenox Dispo: Anticipate discharge to home, hopeful will be ready to go tomorrow. Time-Based Coding :: [TOTAL MINUTES] spent with patient and on the chart (including review of chart, obtaining history, exam, reviewing outside data, placing orders, documenting exam and treatment plan, and counseling patient) on [DATE]. PROFEE Care Management Associate Document charge(s): Yes Charge Codes Subsequent inpatient/observation care: [id number]
--- NOTE | 2025-08-26 14:02 | CM.DANOTE ---
DCP Assessment Note: Pt is a 85yo female, resident of [place], is admitted for gastroenteritis, abdominal pain and PRADIP. Pt lives in a house with her , Tarik, and their dog, Cr. Pt's Primary Care Provider is Dr. Sigifredo Galicia and insurance is Medicare and [employer]. Reviewed chart and discussed with multidisciplinary team pt's medical status and initial discharge needs. Per Provider, pt to be admitted for IV abx and pain management. Currently on full liquid diet and will advance as tolerated. DCP met w/patient at bedside; introduced self and role. Patient was found in bed, alert and oriented, cooperative with assessment. Endorsing sharp pain in abdomen. Pt confirmed living situation and good support in , utilizes a cane and FWW at baseline. Pt expressed preference in discharge home when cleared, would like to be able to eat again per patient. Pt has a hx of [facility] after a hip surgery in 2021 and no SNF Rehab history. Patient states she sees a OT in home privately, named Tameka. She states she does not anticipate a need for home health at this time. Plan: Anticipating discharge home with spouse to transport on 08/28 or when medically cleared. CM team will follow closely for coordination of discharge plans. GOLD Pennington Discharge Planning/Care Management CM Discharge Assessment Start: 08/25/25 11:23 Freq: Status: Active Protocol: Document 08/26/25 14:01 MW (Rec: 08/26/25 14:02 MW [id number]) Discharge Planning Assessment Assigned Discharge JORDEN Blackburn Snow Shoveler Provider Dr. Sigifredo Galicia Insurance Medicare,[employer] DPOA/Assigned Tarik, Spouse Designee Name Contact Information [phone] Advance Directives? Yes Advance Directives Yes on File History Provided By Patient,Medical Record Has Patient been No admitted in last 30 days? Prior Living House Arrangements Household Members spouse Type of Drives own vehicle transporation used prior to admit Independent with ADL Yes 's Is patient alert and Yes oriented? DME Already Rented / FWW / Walker,Cane Owned Patient/Family Home with Home Health,OP PT Therapy Preference Discharge Plan Home Transportation spouse will transport at time of discharge Arrangement Review Status In Process Please Provide Date 08/26/25 Initial DC Assessment Was Performed Next Review Type Continued Stay Review
[2025-08-27] MEDS: metroNIDAZOLE 500 MG/100 ML PIGGYBACK 100 MG IV ×3 (02:21→18:25)
[2025-08-27] MEDS: ONDANSETRON 4 MG/2 ML INJ IV (02:21)
[2025-08-27] MEDS: SODIUM CHLORIDE 0.9% 1,000 ML 100 ML IV ×2 (05:17→18:06)
[2025-08-27 08:01] VITALS: BP 194/72; PULSE 77; RESP 16; TEMP 36.7; O2SAT 99
[2025-08-27] MEDS: ATORVASTATIN 20 MG TABLET 40 MG PO (08:29)
[2025-08-27] MEDS: ASPIRIN EC 81 MG TABLET PO (08:29)
[2025-08-27] MEDS: ENOXAPARIN 40 MG/0.4 ML SYRINGE SUBCUT (08:29)
[2025-08-27] MEDS: CIPROFLOXACIN 400 MG/200 ML PIGGYBACK 200 MG IV ×2 (09:55→21:59)
--- NOTE | 2025-08-27 15:46 | CM.DPNOTE ---
DCP note HOSE TURNER reviewed EMR per [facility] in morning, dc today vs tomorrow. if pt interested in HH [facility] would like to have it set up. HOSE TURNER met with pt in room. would be interested in HH. hx of [facility]. reports her and her have been needing more help at home and dtr was just asking about CGs in home. HOSE TURNER provided CG information/senior resources booklet. pt appeared overwhelmed, interested in HH HOSE TURNER to help her with the LTC plan once home. denies other DCP/CM needs at this time. HOSE TURNER sent initial ref information to [facility]. f2f/order pending. P: dc home with spouse and [facility] tomorrow. will continue to follow closely for DCP Coordination JORDEN Caceres
--- NOTE | 2025-08-27 16:44 | PM.PN.1 ---
Subjective Subjective Date Patient Seen: 08/27/25 Time Patient Seen: 09:50 Interval history: chief complaint colitis Feeling a bit better today but still weak on her feet her is not in great shape to care for her so she is not enthusiastic about rushing home. APpetite 50% of breakfast this morning. Using RW to get to bathroom with assistance. Still having stomach bloating and cramping. Exam Vital Signs (past 8 hours): Oxygen Delivery Method Room Air Oxygen Flow Rate 0 Const Other: well developed well nourished Resp Other: clear to auscultation bilaterally Cardio Other: regular rate and rhythm s1/s2 no pedal edema GI Other: some gas on percussion, hyperactive bowel sounds, mildly ttp Neuro Other: alert awake oriented x3 moving all limbs Objective Labs 08/26/25 04:26 08/26/25 04:26 PFSH Medical History Primary osteoarthritis of left knee Fall Hypercholesteremia Arthritis Former smoker Hyperlipidemia Hypertension Surgical History History of laparoscopic-assisted vaginal hysterectomy (07/25/20) History of orthopedic surgery (11/12/21) Hx of BSO (bilateral salpingo-oophorectomy) (06/06/20) [place] teeth extracted S/P tonsillectomy and adenoidectomy History of left hip replacement Family History Mother Myocardial infarct Social History household members: spouse Smoking Status: Former smoker alcohol intake: former Assessment & Plan Assessment & Plan narrative: 85yo woman with HTN who presented with abdominal pain and diarrhea, found to have colitis on abdominal CT. #Colitis Per CT. Afebrile with elevated WBCs that have been coming down with treatment Cipro and flagyl IV will transition to PO for discharge tolerating full liquid diet, advance as tolerated #Acute on chronic hyponatremia 126 at admit down from prior 131 IVF with NS, salt tabs PO, continue to trend #PRADIP Resolved #HTN stable continue home lisinopril, statin Code: DNR, confirmed with pt today FEN: advance as tolerated DVT ppx: Lovenox Dispo: Anticipate discharge to home, hopeful will be ready to go tomorrow on orals. PCP: Frida Time-Based Coding :: [TOTAL MINUTES] spent with patient and on the chart (including review of chart, obtaining history, exam, reviewing outside data, placing orders, documenting exam and treatment plan, and counseling patient) on [DATE].
[2025-08-27 19:00] VITALS: BP 165/78; PULSE 80; RESP 20; TEMP 37.3; O2SAT 100
[2025-08-28] MEDS: metroNIDAZOLE 500 MG/100 ML PIGGYBACK 100 MG IV ×2 (01:23→09:10)
[2025-08-28] MEDS: SODIUM CHLORIDE 0.9% 1,000 ML 100 ML IV ×2 (04:46→06:40)
[2025-08-28 07:18] LABS: Add Manual Diff / Slide Review NO; Hematocrit 32.3 % (36-46); Hemoglobin 10.9 g/dL (12.0-16.0); Lymphocytes Absolute Auto 1700 /uL (1100-4500); Mean Corpuscular HGB Conc 33.8 % (30-36); Mean Corpuscular Hemoglobin 30.1 PG (26-34); Mean Corpuscular Volume 89.1 fL (80-100); Platelet Count 319 X10^3/uL (150-400)
[2025-08-28 07:25] LABS: Alanine Aminotransferase 19 IU/L (<35); Albumin 3.2 g/dL (3.5-5.0); Albumin Globulin Ratio 1.1 (1.0-2.8); Alkaline Phosphatase 75 U/L (38-126); Blood Urea Nitrogen < 2 mg/dL (7-17); Calcium 8.4 mg/dL (8.4-10.2); Carbon Dioxide 22 mmol/L (22-32); Chloride 103 mmol/L (98-107); Estimated Glomerular Filt Rate > 60 mL/min (>60); Globulin 2.9 g/dL (1.7-4.1); Glucose 94 mg/dL (70-99); HEMOLYSIS < 15 (0-50); Potassium 3.5 mmol/L (3.4-5.1); Sodium 132 mmol/L (137-145); Total Protein 6.1 g/dL (6.3-8.2)
[2025-08-28 07:52] VITALS: BP 166/77; PULSE 82; RESP 16; TEMP 36.9; O2SAT 100
[2025-08-28 09:10] VITALS: BP 166/77
[2025-08-28] MEDS: ASPIRIN EC 81 MG TABLET PO (09:10)
[2025-08-28] MEDS: ENOXAPARIN 40 MG/0.4 ML SYRINGE SUBCUT (09:10)
[2025-08-28] MEDS: ATORVASTATIN 20 MG TABLET 40 MG PO (09:10)
[2025-08-28] MEDS: POTASSIUM CHLORIDE 20 MEQ/15 ML UDC PO (09:15)
[2025-08-28] MEDS: CIPROFLOXACIN 400 MG/200 ML PIGGYBACK 200 MG IV (11:06)
--- NOTE | 2025-08-28 13:20 | PM.DS.1 ---
History of Present Illness History of Present Illness Date Patient Seen: 08/28/25 Time Patient Seen: 13:20 Chief complaint: [id number]/Got worse last night Narrative: Patient is feeling much better today. She is having normal bowel movements and tolerating p.o. without difficulty. Reviewed her chart and workup thus far. Patient admitted with colitis and treated with IV Flagyl and Cipro. Patient has had nausea but she is still able to eat. Patient is ambulating without difficulty on her own. Twelve point review of systems is otherwise negative Negative for any rashes Negative for any chest pain or shortness a breath Negative for any nausea or vomiting Discharge Providers Provider Date of admission: 08/25/25 11:21 Discharge Date: 08/28/25 Primary care physician: Sigifredo Galicia MD Discharge provider: Oliva Valencia MD Summary Hospital Course Discharge Diagnosis: Left colon colitis improved with IV metronidazole and Cipro Hyperlipidemia Hypertension Hyponatremia improved Leukocytosis improved Glaucoma Hospital Course: Patient admitted to the hospital diagnosed with colitis based on CT. Patient treated with IV Cipro and metronidazole and slowly progressing with improvement in abdominal pain and appetite and bowel movements. Patient will be discharged home today on oral Cipro 500 mg twice daily and metronidazole 500 mg t.i.d. for 5 more days. She will follow up with her PCP on Wednesday, Dr. Lyles. She will continue her same other outpatient medications including lisinopril, simvastatin, timolol, baby aspirin daily Status at Discharge Cognitive/behavioral status at discharge: oriented Functional status at discharge: independent ambulation Overall status at discharge: patient is progressing back to baseline Exam Vital Signs (past 8 hours): - 08/28/25 07:52 08/28/25 09:10 Temperature 98.5 F Pulse Rate 82 Respiratory Rate 16 Blood Pressure 166/77 H 166/77 H Pulse Oximetry 100 Oxygen Flow Rate 0 Oxygen Delivery Method Room Air Oxygen Flow Rate 0 Narrative Exam Narrative: Patient is alert and oriented x3 HEENT is unremarkable Neck is supple without adenopathy or thyromegaly Chest: Clear to auscultation without wheezes rhonchi or crackles Abdomen: Positive bowel sounds x4, no guarding, no rebound, no tenderness Cor: Regular rate and rhythm with distant S1-S2 Extremities: No edema pulses intact Neurologic exam nonfocal Skin no rashes Objective Labs 08/28/25 06:47 08/28/25 06:47 Labs: Laboratory Results - last 24 hr 08/28/25 06:47 WBC 8.4 RBC 3.62 L Hgb 10.9 L Hct 32.3 L MCV 89.1 MCH 30.1 MCHC 33.8 RDW 13.3 Plt Count 319 Neut % (Auto) 65.7 Lymph % (Auto) 20.3 L Richardson % (Auto) 11.8 Eos % (Auto) 1.7 L Baso % (Auto) 0.5 Neut # (Auto) 5500 Lymph # (Auto) 1700 Richardson # (Auto) 1000 H Eos # (Auto) 100 Baso # (Auto) 0 Sodium 132 L Potassium 3.5 Chloride 103 Carbon Dioxide 22 BUN < 2 L Creatinine 0.84 Estimated GFR > 60 BUN/Creatinine Ratio 2.4 L Glucose 94 Calcium 8.4 Total Bilirubin 0.2 AST 26 ALT 19 Alkaline Phosphatase 75 Total Protein 6.1 L Albumin 3.2 L Globulin 2.9 Albumin/Globulin Ratio 1.1 PFSH Medical History Primary osteoarthritis of left knee Fall Hypercholesteremia Arthritis Former smoker Hyperlipidemia Hypertension Surgical History History of laparoscopic-assisted vaginal hysterectomy (07/25/20) History of orthopedic surgery (11/12/21) Hx of BSO (bilateral salpingo-oophorectomy) (06/06/20) [place] teeth extracted S/P tonsillectomy and adenoidectomy History of left hip replacement Family History Mother Myocardial infarct Social History household members: spouse Smoking Status: Former smoker alcohol intake: former Discharge Assessment & Plan Assessment and Plan Assessment: 85yo woman with HTN who presented with abdominal pain and diarrhea, found to have colitis on abdominal CT. #Colitis Per CT. Improved with IV metronidazole and Cipro. Will DC home on 5 more days of oral metronidazole and Cipro Follow up with PCP on Wednesday #Acute on chronic hyponatremia Improved and stable today. We will follow up with PCP on Wednesday and will continue to monitor #PRADIP Resolved #HTN stable continue home lisinopril, statin 35 minutes spent in reviewing clinic chart and hospital chart meeting with the patient and discussing with nursing and formulating a plan and documentation Discharge Plan Discharge Plan Patient Disposition: Home Health Service Discharge orders & Medications Prescriptions: New metronidazole 500 mg Tablet 500 mg PO TID Qty: 15 0RF ciprofloxacin HCl 250 mg Tablet 500 mg PO 0700,2100 Qty: 10 0RF Continued timolol maleate 0.5 % drops 1 drp EYE-BOTH BID Patient Comments: [NO ORIGINAL SIG] lisinopril 10 mg tablet 10 mg PO DAILY glucosamine sulfate [Glucosamine] 500 mg tablet 500 mg PO DAILY Rx Instructions: administer with meals vitamins A,C,[id number]-[id number] [ICaps AREDS] 1 tab PO DAILY aspirin 81 mg tablet,delayed release (DR/EC) 81 mg PO DAILY simvastatin 80 mg tablet 80 mg PO DAILY Follow up/Referrals: Sigifredo Galicia MD [Primary Care Provider, Family Practice] Diet/Activity/Treatments Diet: Diet as Tolerated Visit Report/Discharge Packet Stand Alone Forms: Patient Portal/API, Stroke Signs & Symptoms Discharge Data Primary Care Provider: Sigifredo Galicia
--- NOTE | 2025-08-28 13:35 | CM.DPNOTE ---
DCP Note COOK LARDER reviewed EMR per Erik, cleared to dc home today with HH. COOK LARDER completed order and f2f. Emailed f2f/order/DC Sum to [facility]. P: pt to dc home today with [facility] and spouse to transport, OP f/u as needed. will continue to follow as needed JORDEN Caceres
--- NOTE | 2025-08-28 16:11 | PC.NURSE ---
Discharge Note Patient A&O, VSS, RA, no complaints of pain/discomfort. Patient agreeable to discharge plan. Discharge packet reviewed with patient, all questions/concerns addressed. PIV discontinued. Patient able to dress self and pack all belongings. Patient taken down via wheelchair to POV.
== END 2025-08-28 15:45 | disposition home health service (06) | DRG 392 ==
LOC: ED 10:32 → AC 12:04
PROVIDERS: Admitting Provider Family Medicine; Emergency Provider Family Medicine; PCP Family Medicine; Referring Provider Family Medicine; Visit Provider Family Medicine
DX: K52.9 Noninfective gastroenteritis and colitis, unspecified (principal); N17.9 Acute kidney failure, unspecified; E87.1 Hypo-osmolality and hyponatremia; I10 Essential (primary) hypertension; E78.5 Hyperlipidemia, unspecified; H40.9 Unspecified glaucoma; Z66 Do not resuscitate; Z87.891 Personal history of nicotine dependence
CPT/HCPCS: 36415; 74177; 80048; 80053; 83690; 85025; 93005; 96361; 96365; 96367; 96375; 99284; J0744; J1171; J1650; J2405; J7030; J7120; Q9967